=== PATIENT | female | born 1955 | race Hispanic/Latino ===

== ENCOUNTER 2018-03-24 09:21 | Inpatient (IN) | payer OTHER ==
[~2018-03-24] VITALS: Ht 152.4 cm; Wt 101.3 kg
--- OUTSIDE RECORDS SUMMARY | 2018-03-24 09:25 | XMS REPORT | Summary of Care ---
Author Author [facility] [place] Organization [facility] [place] Address Unknown Phone Unavailable Encounter [facility] Hortencia(FIN) [phone] Date(s): 05/31/17 - 05/31/17 [facility] [place] [address] [place] [phone] Encounter Diagnosis Mammographic calcification found on diagnostic imaging of breast (Final) - 06/05/17 Unspecified lump in the right breast, unspecified quadrant (Final) - Discharge Disposition: Home or Self Care Attending Physician: Geoffrey Vega MD Vital Signs No data available for this section Problem List No data available for this section Allergies, Adverse Reactions, Alerts Substance Reaction Severity Status NKDA Active Medications No data available for this section Results No data available for this section Immunizations Not Given Vaccine Date Status Refusal Reason pneumococcal 23-valent vaccine 05/05/17 Not Given Patient Refuses Procedures Procedure Date Related Diagnosis Body Site Status Cataract surgery Completed Social History Social History Type Response Smoking Status Never smoker; Exposure to Tobacco Smoke None; Cigarette Smoking Last 365 Days No; Reg Smoking Cessation Counseling No entered on: 05/05/17 Assessment and Plan No data available for this section
--- OUTSIDE RECORDS SUMMARY | 2018-03-24 09:25 | XMS REPORT | Summary of Care ---
Author Author [facility] Organization [facility] Address Unknown Phone Unavailable Encounter HQ Hortencia(BASILIO) [id number] Date(s): 05/04/17 - 05/07/17 [facility] [address] 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) - Disorder of breast, unspecified (Final) - Hypotension, unspecified (Final) - Unspecified lump in the right breast, unspecified quadrant (Final) - Acute respiratory distress (Final) - Hypertensive chronic kidney disease with stage 1 through stage 4 chronic kidney disease, or unspecified chronic kidney disease (Final) - Chronic kidney disease, unspecified (Final) - Acute kidney failure, unspecified (Final) - Type 2 diabetes mellitus with diabetic chronic kidney disease (Final) - Metabolic syndrome (Final) - Hyperlipidemia, unspecified (Final) - Atherosclerotic heart disease of [place] coronary artery without angina pectoris (Final) - Old myocardial infarction (Final) - Obesity, unspecified (Final) - Tachycardia, unspecified (Final) - Left anterior fascicular block (Final) - Fatty (change of) liver, not elsewhere classified (Final) - skilled nursing (current) use of insulin (Final) - Discharge Disposition: Home or Self Care Vital Signs 1 2 3 Most recent to oldest [Reference Range]: 152.4 cm (05/05/17 6:27 AM) Height 98.9 DegF (05/07/17 4:34 PM) 98.8 DegF (05/07/17 12:00 PM) 98.2 DegF (05/07/17 7:59 AM) Temperature Oral [96.4-99.1 DegF] 111/70 mmHg (05/07/17 4:34 PM) 114/72 mmHg (05/07/17 12:00 PM) 116/71 mmHg (05/07/17 7:59 AM) Blood Pressure [90-140/60-90 mmHg] 18 BRMIN (05/07/17 4:34 PM) 18 BRMIN (05/07/17 12:00 PM) 21 BRMIN *HI* (05/07/17 8:43 AM) Respiratory Rate [14-20 BRMIN] 112 bpm *HI* (05/07/17 4:34 PM) 111 bpm *HI* (05/07/17 12:00 PM) 96 bpm (05/07/17 7:59 AM) Peripheral Pulse Rate [60-100 bpm] 90 kg (05/06/17 9:00 AM) 86.364 kg (05/05/17 6:27 AM) 113.636 kg (05/04/17 11:47 PM) Weight 37.18 m2 (05/05/17 6:27 AM) Body Mass Index Problem List No data available for this section Allergies, Adverse Reactions, Alerts Substance Reaction Severity Status NKDA Active Medications albuterol 0.083% inhalation solution 2.49 mg, 3 mL, Route: NEB, Drug form: SOLN, PRN, Dosing Weight 113.636, kg, PRN Respiratory Protocol, Start date: 05/05/17 5:25:00 SHARED SERVICES AND OUTSOURCING MANAGER, Duration: 30 day, Stop d ate: 06/04/17 5:24:00 SHARED SERVICES AND OUTSOURCING MANAGER Notes: SEE RT DOCUMENTATION (Same as: Bere) Start Date: 05/05/17 Stop Date: 05/07/17 Status: Discontinued albuterol-ipratropium 2.5-0.5 mg inhalation solution 3 mL, Route: NEB, Drug Form: SOLN, Dosing Weight 113.636, kg, ONCE, STAT, Start date: 05/05/17 2:16:00 SHARED SERVICES AND OUTSOURCING MANAGER, Stop date: 05/05/17 2:16:00 SHARED SERVICES AND OUTSOURCING MANAGER Start Date: 05/05/17 Stop Date: 05/05/17 Status: Completed albuterol-ipratropium 2.5-0.5 mg inhalation solution 3 mL, Route: NEB, Drug Form: SOLN, Dosing Weight 113.636, kg, RQ6H, Start date: 05/05/17 8:00:00 SHARED SERVICES AND OUTSOURCING MANAGER, Duration: 30 day, Stop date: 06/04/17 2:00:00 SHARED SERVICES AND OUTSOURCING MANAGER Notes: (Same as: Galindo) Start Date: 05/05/17 Stop Date: 05/07/17 Status: Discontinued aspirin 325 mg, Route: PO, Drug form: TAB, ONCE, Dosing Weight 113.636, kg, Priority: ST AT, Start date: 05/05/17 3:48:00 SHARED SERVICES AND OUTSOURCING MANAGER, Stop date: 05/05/17 3:48:00 SHARED SERVICES AND OUTSOURCING MANAGER Start Date: 05/05/17 Stop Date: 05/05/17 Status: Completed aspirin 325 mg tablet 325 mg=1 tab, PO, Daily, 0 Refill(s) Start Date: 05/05/17 Status: Ordered aspirin 325 mg tablet 325 mg, 1 tab, Route: PO, Drug form: TAB, Daily, Dosing Weight 86.364, kg, Start date: 05/06/17 9:00:00 SHARED SERVICES AND OUTSOURCING MANAGER, Duration: 30 day, Stop date: 06/04/17 9:00:00 SHARED SERVICES AND OUTSOURCING MANAGER Notes: Take with food. Start Date: 05/06/17 Stop Date: 05/07/17 Status: Discontinued cefdinir 300 mg oral capsule 300 mg=1 cap, PO, Q12H, # 20 cap, 0 Refill(s) Start Date: 05/05/17 Stop Date: 05/05/17 Status: Discontinued cloNIDine 0.2 mg oral tablet 0.2 mg, 1 tab, Route: PO, Drug form: TAB, TID, Dosing Weight 86.364, kg, Start d ate: 05/05/17 13:00:00 SHARED SERVICES AND OUTSOURCING MANAGER, Duration: 30 day, Stop date: 06/04/17 9:00:00 SHARED SERVICES AND OUTSOURCING MANAGER Notes: (Same As: Sharri) Start Date: 05/05/17 Stop Date: 05/07/17 Status: Discontinued cloNIDine 0.2 mg oral tablet 0.2 mg=1 tab, PO, TID, 0 Refill(s) Start Date: 05/05/17 Status: Ordered dextromethorphan-guaiFENesin 20 mg-200 mg/10 mL oral liquid 10 mL, Route: PO, Drug Form: LIQ, Dosing Weight 86.364, kg, Q4H, PRN as needed f or cough, Start date: 05/05/17 9:18:00 SHARED SERVICES AND OUTSOURCING MANAGER, Stop date: 06/04/17 9:17:00 SHARED SERVICES AND OUTSOURCING MANAGER Notes: (dextromethorphan-guaifenesin 10-100/5 ml LIQ) (Same as: Robitussin-DM) Start Date: 05/05/17 Stop Date: 05/07/17 Status: Discontinued Dextrose 50% Syringe 25 gm, 50 mL, Route: IVP, Drug Form: INJ, Dosing Weight 86.364, kg, PRN, PRN Blo od Glucose Results, Start date: 05/05/17 9:19:00 SHARED SERVICES AND OUTSOURCING MANAGER, Duration: 30 day, Stop em e: 06/04/17 9:18:00 SHARED SERVICES AND OUTSOURCING MANAGER Start Date: 05/05/17 Stop Date: 05/07/17 Status: Discontinued Dextrose 50% Syringe 12.5 gm, 25 mL, Route: IVP, Drug Form: INJ, Dosing Weight 86.364, kg, PRN, PRN B lood Glucose Results, Start date: 05/05/17 9:19:00 SHARED SERVICES AND OUTSOURCING MANAGER, Duration: 30 day, Stop d ate: 06/04/17 9:18:00 SHARED SERVICES AND OUTSOURCING MANAGER Start Date: 05/05/17 Stop Date: 05/07/17 Status: Discontinued Dextrose 50% Syringe 25 gm, 50 mL, Route: IVP, Drug Form: INJ, Dosing Weight 113.636, kg, PRN, PRN Bl ood Glucose Results, Start date: 05/05/17 6:27:00 SHARED SERVICES AND OUTSOURCING MANAGER, Duration: 30 day, Stop da te: 06/04/17 6:26:00 SHARED SERVICES AND OUTSOURCING MANAGER Start Date: 05/05/17 Stop Date: 05/05/17 Status: Discontinued Dextrose 50% Syringe 12.5 gm, 25 mL, Route: IVP, Drug Form: INJ, Dosing Weight 113.636, kg, PRN, PRN Blood Glucose Results, Start date: 05/05/17 6:27:00 SHARED SERVICES AND OUTSOURCING MANAGER, Duration: 30 day, Stop date: 06/04/17 6:26:00 SHARED SERVICES AND OUTSOURCING MANAGER Start Date: 05/05/17 Stop Date: 05/05/17 Status: Discontinued doxycycline hyclate 100 mg oral capsule 100 mg=1 cap, PO, Q12H, X 10 day, # 20 cap, 0 Refill(s), Pharmacy: [id number] Start Date: 05/05/17 Stop Date: 05/15/17 Status: Completed escitalopram 20 mg oral tablet 20 mg=1 tab, PO, Daily, # 30 tab, 0 Refill(s) Start Date: 05/05/17 Status: Ordered glipiZIDE 10 mg oral tablet 10 mg=1 tab, PO, BID, # 30 tab, 0 Refill(s) Start Date: 05/06/17 Status: Ordered glucagon 1 mg, Route: IM, Drug form: PDR/INJ, PRN, Dosing Weight 86.364, kg, PRN Blood Gl ucose Results, Start date: 05/05/17 9:19:00 SHARED SERVICES AND OUTSOURCING MANAGER, Duration: 30 day, Stop date: 9:18:00 SHARED SERVICES AND OUTSOURCING MANAGER Start Date: 05/05/17 Stop Date: 05/07/17 Status: Discontinued glucagon 1 mg, Route: IM, Drug form: PDR/INJ, PRN, Dosing Weight 113.636, kg, PRN Blood G lucose Results, Start date: 05/05/17 6:27:00 SHARED SERVICES AND OUTSOURCING MANAGER, Duration: 30 day, Stop date: 0 06/04/17 6:26:00 SHARED SERVICES AND OUTSOURCING MANAGER Start Date: 05/05/17 Stop Date: 05/05/17 Status: Discontinued Humalog 9 unit, 0.09 mL, Route: SUB-Q, Drug form: SOLN, ONCE, Start date: 05/05/17 10:18 :00 SHARED SERVICES AND OUTSOURCING MANAGER, Stop date: 05/05/17 10:18:00 SHARED SERVICES AND OUTSOURCING MANAGER Notes: Roll in palms of hands gently; Do not shake `vigorously. (Same as: Laura og )"Single Patient Use Only "WASTE: F/P - Black; E - Municipal Trash Bin Stabl e for 28 days at room temperature.Expires in days from Date Start Date: 05/05/17 Stop Date: 05/05/17 Status: Completed Humalog 25 unit, 0.25 mL, Route: SUB-Q, Drug form: SOLN, ONCE, Start date: 05/05/17 15:0 1:00 SHARED SERVICES AND OUTSOURCING MANAGER, Stop date: 05/05/17 15:01:00 SHARED SERVICES AND OUTSOURCING MANAGER Start Date: 05/05/17 Stop Date: 05/05/17 Status: Completed Humalog 20 unit, 0.2 mL, Route: SUB-Q, Drug form: SOLN, ONCE, Start date: 05/05/17 11:31 :00 SHARED SERVICES AND OUTSOURCING MANAGER, Stop date: 05/05/17 11:31:00 SHARED SERVICES AND OUTSOURCING MANAGER Notes: Roll in palms of hands gently; Do not shake `vigorously. (Same as: Humal og )"Single Patient Use Only "WASTE: F/P - Black; E - Municipal Trash Bin Stabl e for 28 days at room temperature.Expires in days from Date Start Date: 05/05/17 Stop Date: 05/05/17 Status: Completed Humalog 30 unit, 0.3 mL, Route: SUB-Q, Drug form: SOLN, BID-Before Meals, Start date: 12:00:00 SHARED SERVICES AND OUTSOURCING MANAGER, Duration: 30 day, Stop date: 06/04/17 7:30:00 SHARED SERVICES AND OUTSOURCING MANAGER Notes: Roll in palms of hands gently; Do not shake `vigorously. (Same as: Humal og )"Single Patient Use Only "WASTE: F/P - Black; E - Municipal Trash Bin Stabl e for 28 days at room temperature.Expires in days from Date Start Date: 05/05/17 Stop Date: 05/06/17 Status: Discontinued Humalog 30 unit, 0.3 mL, Route: SUB-Q, Drug form: SOLN, TID-Before Meals, Start date: 11:30:00 SHARED SERVICES AND OUTSOURCING MANAGER, Duration: 30 day, Stop date: 06/05/17 7:30:00 SHARED SERVICES AND OUTSOURCING MANAGER Notes: Roll in palms of hands gently; Do not shake `vigorously. (Same as: Humal og )"Single Patient Use Only "WASTE: F/P - Black; E - Municipal Trash Bin Stabl e for 28 days at room temperature.Expires in days from Date Start Date: 05/06/17 Stop Date: 05/07/17 Status: Discontinued hydrALAZINE 10 mg, 0.5 mL, Route: IV, Drug form: INJ, Q4H, Dosing Weight 90, kg, PRN Hyperte nsion, Start date: 05/07/17 14:34:00 SHARED SERVICES AND OUTSOURCING MANAGER, Duration: 30 day, Stop date: 06/06/17 14:33:00 SHARED SERVICES AND OUTSOURCING MANAGER Notes: (Same as: Apresoline)Push over 5 minutes Start Date: 05/07/17 Stop Date: 05/07/17 Status: Discontinued hydrALAZINE 25 mg oral tablet 25 mg=1 tab, PO, TID, # 90 tab, 1 Refill(s), Pharmacy: [place] [id number] Start Date: 05/05/17 Stop Date: 07/04/17 Status: Ordered hydrochlorothiazide 50 mg oral tablet 50 mg=1 tab, PO, BID, 0 Refill(s) Start Date: 05/05/17 Stop Date: 05/05/17 Status: Discontinued insulin aspart 20 unit, Route: SUB-Q, ONCE, Dosing Weight 86.364, kg, Start date: 05/05/17 11:2 2:00 SHARED SERVICES AND OUTSOURCING MANAGER, Stop date: 05/05/17 11:22:00 SHARED SERVICES AND OUTSOURCING MANAGER Start Date: 05/05/17 Stop Date: 05/05/17 Status: Deleted insulin aspart 25 unit, Route: SUB-Q, ONCE, Dosing Weight 86.364, kg, Priority: NOW, Start date : 05/05/17 14:41:00 SHARED SERVICES AND OUTSOURCING MANAGER, Stop date: 05/05/17 14:41:00 SHARED SERVICES AND OUTSOURCING MANAGER Start Date: 05/05/17 Stop Date: 05/05/17 Status: Deleted insulin aspart 15 unit, Route: SUB-Q, ONCE, Dosing Weight 86.364, kg, Start date: 05/05/17 17:2 4:00 SHARED SERVICES AND OUTSOURCING MANAGER, Stop date: 05/05/17 17:24:00 SHARED SERVICES AND OUTSOURCING MANAGER Start Date: 05/05/17 Stop Date: 05/05/17 Status: Discontinued insulin glargine 45 unit, 0.45 mL, Route: SUB-Q, Drug form: SOLN, Breakfast, Start date: 05/06/17 8:00:00 SHARED SERVICES AND OUTSOURCING MANAGER, Stop date: 06/04/17 8:00:00 SHARED SERVICES AND OUTSOURCING MANAGER Notes: (Same as: Lantus)Do not hold insulin without contacting prescriberWASTE: F/P - Black; E - Municipal Tra Bin "single patient use only" Start Date: 05/06/17 Stop Date: 05/07/17 Status: Discontinued insulin glargine 55 unit, 0.55 mL, Route: SUB-Q, Drug form: SOLN, Bedtime, Start date: 05/05/17 2 1:00:00 SHARED SERVICES AND OUTSOURCING MANAGER, Stop date: 06/03/17 21:00:00 SHARED SERVICES AND OUTSOURCING MANAGER Notes: (Same as: Robles)Do not hold insulin without contacting prescriberWASTE: F/P - Black; E - Municipal Trash Bin "single patient use only" Start Date: 05/05/17 Stop Date: 05/07/17 Status: Discontinued insulin lispro 15 unit, 0.15 mL, Route: SUB-Q, Drug form: SOLN, ONCE, Dosing Weight 86.364, kg, Priority: NOW, Start date: 05/05/17 18:32:00 SHARED SERVICES AND OUTSOURCING MANAGER, Stop date: 05/05/17 18:32:00 SHARED SERVICES AND OUTSOURCING MANAGER Notes: Roll in palms of hands gently; Do not shake `vigorously. (Same as: Laura sawyer )"Single Patient Use Only "WASTE: F/P - Black; E - Municipal Trash Bin Stabl e for 28 days at room temperature.Expires in days from Date Start Date: 05/05/17 Stop Date: 05/05/17 Status: Completed insulin lispro 2 unit, 0.02 mL, Route: SUB-Q, Drug form: SOLN, TID-Before Meals, Dosing Weight 86.364, kg, PRN Blood Glucose Results, Start date: 05/05/17 9:19:00 SHARED SERVICES AND OUTSOURCING MANAGER, Duratio n: 30 day, Stop date: 06/04/17 9:18:00 SHARED SERVICES AND OUTSOURCING MANAGER Notes: Roll in palms of hands gently; Do not shake `vigorously. (Same as: Laura sawyer )"Single Patient Use Only "WASTE: F/P - Black; E - Municipal Trash Bin Stabl e for 28 days at room temperature.Expires in days from Date Start Date: 05/05/17 Stop Date: 05/07/17 Status: Discontinued insulin lispro 4 unit, 0.04 mL, Route: SUB-Q, Drug form: SOLN, TID-Before Meals, Dosing Weight 86.364, kg, PRN Blood Glucose Results, Start date: 05/05/17 9:19:00 SHARED SERVICES AND OUTSOURCING MANAGER, Duratio n: 30 day, Stop date: 06/04/17 9:18:00 SHARED SERVICES AND OUTSOURCING MANAGER Notes: Roll in palms of hands gently; Do not shake `vigorously. (Same as: Humal og )"Single Patient Use Only "WASTE: F/P - Black; E - Municipal Trash Bin Stabl e for 28 days at room temperature.Expires in days from Date Start Date: 05/05/17 Stop Date: 05/07/17 Status: Discontinued insulin lispro 5 unit, 0.05 mL, Route: SUB-Q, Drug form: SOLN, TID-Before Meals, Dosing Weight 86.364, kg, PRN Blood Glucose Results, Start date: 05/05/17 9:19:00 SHARED SERVICES AND OUTSOURCING MANAGER, Duratio n: 30 day, Stop date: 06/04/17 9:18:00 SHARED SERVICES AND OUTSOURCING MANAGER Notes: Roll in palms of hands gently; Do not shake `vigorously. (Same as: Humal og )"Single Patient Use Only "WASTE: F/P - Black; E - Municipal Trash Bin Stabl e for 28 days at room temperature.Expires in days from Date Start Date: 05/05/17 Stop Date: 05/07/17 Status: Discontinued insulin lispro 3 unit, 0.03 mL, Route: SUB-Q, Drug form: SOLN, TID-Before Meals, Dosing Weight 86.364, kg, PRN Blood Glucose Results, Start date: 05/05/17 9:19:00 SHARED SERVICES AND OUTSOURCING MANAGER, Duratio n: 30 day, Stop date: 06/04/17 9:18:00 SHARED SERVICES AND OUTSOURCING MANAGER Notes: Roll in palms of hands gently; Do not shake `vigorously. (Same as: Humal og )"Single Patient Use Only "WASTE: F/P - Black; E - Municipal Trash Bin Stabl e for 28 days at room temperature.Expires in days from Date Start Date: 05/05/17 Stop Date: 05/07/17 Status: Discontinued insulin lispro 1 unit, 0.01 mL, Route: SUB-Q, Drug form: SOLN, TID-Before Meals, Dosing Weight 86.364, kg, PRN Blood Glucose Results, Start date: 05/05/17 9:19:00 SHARED SERVICES AND OUTSOURCING MANAGER, Duratio n: 30 day, Stop date: 06/04/17 9:18:00 SHARED SERVICES AND OUTSOURCING MANAGER Notes: Roll in palms of hands gently; Do not shake `vigorously. (Same as: Humal og )"Single Patient Use Only "WASTE: F/P - Black; E - Municipal Trash Bin Stabl e for 28 days at room temperature.Expires in days from Date Start Date: 05/05/17 Stop Date: 05/07/17 Status: Discontinued insulin lispro 3 unit, 0.03 mL, Route: SUB-Q, Drug form: SOLN, Bedtime, Dosing Weight 113.636, kg, PRN Blood Glucose Results, Start date: 05/05/17 6:27:00 SHARED SERVICES AND OUTSOURCING MANAGER, Duration: 30 da y, Stop date: 06/04/17 6:26:00 SHARED SERVICES AND OUTSOURCING MANAGER Notes: Roll in palms of hands gently; Do not shake `vigorously. (Same as: Humal og )"Single Patient Use Only "WASTE: F/P - Black; E - Municipal Trash Bin Stabl e for 28 days at room temperature.Expires in days from Date Start Date: 05/05/17 Stop Date: 05/05/17 Status: Discontinued insulin lispro 4 unit, 0.04 mL, Route: SUB-Q, Drug form: SOLN, Bedtime, Dosing Weight 113.636, kg, PRN Blood Glucose Results, Start date: 05/05/17 6:27:00 SHARED SERVICES AND OUTSOURCING MANAGER, Duration: 30 da y, Stop date: 06/04/17 6:26:00 SHARED SERVICES AND OUTSOURCING MANAGER Notes: Roll in palms of hands gently; Do not shake `vigorously. (Same as: Humal og )"Single Patient Use Only "WASTE: F/P - Black; E - Municipal Trash Bin Stabl e for 28 days at room temperature.Expires in days from Date Start Date: 05/05/17 Stop Date: 05/05/17 Status: Discontinued insulin lispro 2 unit, 0.02 mL, Route: SUB-Q, Drug form: SOLN, Bedtime, Dosing Weight 113.636, kg, PRN Blood Glucose Results, Start date: 05/05/17 6:27:00 SHARED SERVICES AND OUTSOURCING MANAGER, Duration: 30 da y, Stop date: 06/04/17 6:26:00 SHARED SERVICES AND OUTSOURCING MANAGER Notes: Roll in palms of hands gently; Do not shake `vigorously. (Same as: Laura sawyer )"Single Patient Use Only "WASTE: F/P - Black; E - Municipal Trash Bin Stabl e for 28 days at room temperature.Expires in days from Date Start Date: 05/05/17 Stop Date: 05/05/17 Status: Discontinued insulin lispro 1 unit, 0.01 mL, Route: SUB-Q, Drug form: SOLN, Bedtime, Dosing Weight 113.636, kg, PRN Blood Glucose Results, Start date: 05/05/17 6:27:00 SHARED SERVICES AND OUTSOURCING MANAGER, Duration: 30 da y, Stop date: 06/04/17 6:26:00 SHARED SERVICES AND OUTSOURCING MANAGER Notes: Roll in palms of hands gently; Do not shake `vigorously. (Same as: Laura sawyer )"Single Patient Use Only "WASTE: F/P - Black; E - Municipal Trash Bin Stabl e for 28 days at room temperature.Expires in days from Date Start Date: 05/05/17 Stop Date: 05/05/17 Status: Discontinued insulin lispro 6 unit, 0.06 mL, Route: SUB-Q, Drug form: SOLN, TID-Before Meals, Dosing Weight 113.636, kg, PRN Blood Glucose Results, Start date: 05/05/17 6:27:00 SHARED SERVICES AND OUTSOURCING MANAGER, Durati on: 30 day, Stop date: 06/04/17 6:26:00 SHARED SERVICES AND OUTSOURCING MANAGER Notes: Roll in palms of hands gently; Do not shake `vigorously. (Same as: Humal og )"Single Patient Use Only "WASTE: F/P - Black; E - Municipal Trash Bin Stabl e for 28 days at room temperature.Expires in days from Date Start Date: 05/05/17 Stop Date: 05/05/17 Status: Discontinued insulin lispro 3 unit, 0.03 mL, Route: SUB-Q, Drug form: SOLN, TID-Before Meals, Dosing Weight 113.636, kg, PRN Blood Glucose Results, Start date: 05/05/17 6:27:00 SHARED SERVICES AND OUTSOURCING MANAGER, Durati on: 30 day, Stop date: 06/04/17 6:26:00 SHARED SERVICES AND OUTSOURCING MANAGER Notes: Roll in palms of hands gently; Do not shake `vigorously. (Same as: Humal og )"Single Patient Use Only "WASTE: F/P - Black; E - Municipal Trash Bin Stabl e for 28 days at room temperature.Expires in days from Date Start Date: 05/05/17 Stop Date: 05/05/17 Status: Discontinued insulin lispro 12 unit, 0.12 mL, Route: SUB-Q, Drug form: SOLN, TID-Before Meals, Dosing Weight 113.636, kg, PRN Blood Glucose Results, Start date: 05/05/17 6:27:00 SHARED SERVICES AND OUTSOURCING MANAGER, Durat ion: 30 day, Stop date: 06/04/17 6:26:00 SHARED SERVICES AND OUTSOURCING MANAGER Notes: Roll in palms of hands gently; Do not shake `vigorously. ([facility]: [facility] )"Single Patient Use Only "WASTE: F/P - Black; E - Municipal Trash Bin Stabl e for 28 days at room temperature.Expires in days from Date Start Date: 05/05/17 Stop Date: 05/05/17 Status: Discontinued insulin lispro 9 unit, 0.09 mL, Route: SUB-Q, Drug form: SOLN, TID-Before Meals, Dosing Weight 113.636, kg, PRN Blood Glucose Results, Start date: 05/05/17 6:27:00 SHARED SERVICES AND OUTSOURCING MANAGER, Durati on: 30 day, Stop date: 06/04/17 6:26:00 SHARED SERVICES AND OUTSOURCING MANAGER Notes: Roll in palms of hands gently; Do not shake `vigorously. (Same as: Laura sawyer )"Single Patient Use Only "WASTE: F/P - Black; E - Municipal Trash Bin Stabl e for 28 days at room temperature.Expires in days from Date Start Date: 05/05/17 Stop Date: 05/05/17 Status: Discontinued insulin lispro 15 unit, 0.15 mL, Route: SUB-Q, Drug form: SOLN, TID-Before Meals, Dosing Weight 113.636, kg, PRN Blood Glucose Results, Start date: 05/05/17 6:27:00 SHARED SERVICES AND OUTSOURCING MANAGER, Durat ion: 30 day, Stop date: 06/04/17 6:26:00 SHARED SERVICES AND OUTSOURCING MANAGER Notes: Roll in palms of hands gently; Do not shake `vigorously. (Same as: Laura sawyer )"Single Patient Use Only "WASTE: F/P - Black; E - Municipal Trash Bin Stabl e for 28 days at room temperature.Expires in days from Date Start Date: 05/05/17 Stop Date: 05/05/17 Status: Discontinued Insulin regular 5 unit, Route: IV, ONCE, Dosing Weight 113.636, kg, Priority: STAT, Start date: 05/05/17 3:40:00 SHARED SERVICES AND OUTSOURCING MANAGER, Stop date: 05/05/17 3:40:00 SHARED SERVICES AND OUTSOURCING MANAGER Start Date: 05/05/17 Stop Date: 05/05/17 Status: Completed Lantus 100 units/mL 35 unit, 0.35 mL, Route: SUB-Q, Drug form: SOLN, ONCE, Dosing Weight 86.364, kg, Start date: 05/05/17 11:22:00 SHARED SERVICES AND OUTSOURCING MANAGER, Stop date: 05/05/17 11:22:00 SHARED SERVICES AND OUTSOURCING MANAGER Notes: (Same as: Lantus)Do not hold insulin without contacting prescriberWASTE: F/P - Black; E - Municipal Trash Bin "single patient use only" Start Date: 05/05/17 Stop Date: 05/05/17 Status: Completed Lantus Solostar Pen 100 units/mL subcutaneous solution Route: SUB-Q, Drug form: SOLN, Bedtime, Dosing Weight 86.364, kg, Start date: 21:00:00 SHARED SERVICES AND OUTSOURCING MANAGER, Duration: 30 day, Stop date: 06/03/17 21:00:00 SHARED SERVICES AND OUTSOURCING MANAGER Start Date: 05/05/17 Stop Date: 05/05/17 Status: Deleted Lantus Solostar Pen 100 units/mL subcutaneous solution 32, SUB-Q, Bedtime, 32 units at bedtime, 0 Refill(s) Start Date: 05/05/17 Status: Ordered Lantus Solostar Pen 100 units/mL subcutaneous solution 24 unit, SUB-Q, Before Breakfast, 0 Refill(s) Start Date: 05/05/17 Status: Ordered Lantus Solostar Pen 100 units/mL subcutaneous solution 35 unit, Route: SUB-Q, Drug form: SOLN, Before Breakfast, Dosing Weight 86.364, kg, Start date: 05/06/17 7:30:00 SHARED SERVICES AND OUTSOURCING MANAGER, Duration: 30 day, Stop date: 06/04/17 7:30 :00 SHARED SERVICES AND OUTSOURCING MANAGER Start Date: 05/06/17 Stop Date: 05/05/17 Status: Deleted Levaquin 500 mg, 2 tab, Route: PO, Drug form: TAB, [id number], Dosing Weight 113.636, kg, St art date: 05/05/17 6:00:00 SHARED SERVICES AND OUTSOURCING MANAGER, Duration: 5 day, Stop date: 05/09/17 6:00:00 SHARED SERVICES AND OUTSOURCING MANAGER , ABX Indication: Non-PNA Respiratory Tract Infection Notes: Do not give w/antacids, dairy pdt & minerals Take 1 hr before or 2 hr after dairy pdt (Same as:Levaquin) Start Date: 05/05/17 Stop Date: 05/07/17 Status: Discontinued lisinopril 2.5 mg oral tablet 2.5 mg=1 tab, PO, Daily, # 30 tab, 0 Refill(s) Start Date: 05/05/17 Stop Date: 05/05/17 Status: Discontinued Lopressor 2.5 mg, 2.5 mL, Route: IVP, Drug form: INJ, Q3H, Dosing Weight 90, kg, PRN Tachy cardia, Start date: 05/07/17 14:35:00 SHARED SERVICES AND OUTSOURCING MANAGER, Duration: 30 day, Stop date: 06/06/17 14:34:00 SHARED SERVICES AND OUTSOURCING MANAGER Notes: (Same as: Lopressor)Push over 2 minutes Start Date: 05/07/17 Stop Date: 05/07/17 Status: Discontinued methylPREDNISolone SODium SUCCinate 40 mg, 1 mL, Route: IVP, Drug form: INJ, Q12H, Dosing Weight 113.636, kg, Start date: 05/05/17 9:00:00 SHARED SERVICES AND OUTSOURCING MANAGER, Duration: 30 day, Stop date: 06/03/17 21:00:00 SHARED SERVICES AND OUTSOURCING MANAGER Notes: (Same as:Solu-MEDROL, A-Methapred) Start Date: 05/05/17 Stop Date: 05/05/17 Status: Discontinued morphine Sulfate 2 mg, Route: IVP, Q2H, Dosing Weight 90, kg, PRN Chest Pain, Start date: 14:34:00 SHARED SERVICES AND OUTSOURCING MANAGER, Duration: 30 day, Stop date: 06/06/17 14:33:00 SHARED SERVICES AND OUTSOURCING MANAGER Start Date: 05/07/17 Stop Date: 05/07/17 Status: Deleted morphine Sulfate 6 mg, 3 mL, Route: PO, Drug form: SOLN, Q2H, PRN Chest Pain, Start date: 14:49:00 SHARED SERVICES AND OUTSOURCING MANAGER, Duration: 30 day, Stop date: 06/06/17 14:48:00 SHARED SERVICES AND OUTSOURCING MANAGER Notes: (Same as:MORPhine Sulfate) Start Date: 05/07/17 Stop Date: 05/07/17 Status: Discontinued Nitrostat 0.4 mg sublingual tablet 0.4 mg, 1 tab, Route: SL, Drug form: TAB, Q5Min, Dosing Weight 90, kg, PRN Chest Pain, Start date: 05/07/17 14:35:00 SHARED SERVICES AND OUTSOURCING MANAGER, Duration: 3 doses or times, Stop date: 06/06/17 14:34:00 SHARED SERVICES AND OUTSOURCING MANAGER Notes: (Same as:Nitroquick, Nitrostat)"Do Not Crush" Sublingual tablet Start Date: 05/07/17 Stop Date: 05/07/17 Status: Discontinued NovoLOG FlexPen 24 unit, Route: SUB-Q, Breakfast, Dosing Weight 86.364, kg, Start date: 05/06/17 8:00:00 SHARED SERVICES AND OUTSOURCING MANAGER, Duration: 30 day, Stop date: 06/04/17 8:00:00 SHARED SERVICES AND OUTSOURCING MANAGER Start Date: 05/06/17 Stop Date: 05/05/17 Status: Deleted NovoLOG FlexPen 21 unit, Route: SUB-Q, TID-Before Meals, Dosing Weight 86.364, kg, Start date: 0 05/05/17 11:30:00 SHARED SERVICES AND OUTSOURCING MANAGER, Duration: 30 day, Stop date: 06/04/17 7:30:00 SHARED SERVICES AND OUTSOURCING MANAGER Start Date: 05/05/17 Stop Date: 05/05/17 Status: Canceled NovoLOG FlexPen 24 unit, Route: SUB-Q, Lunch, Dosing Weight 86.364, kg, Start date: 05/05/17 12: 00:00 SHARED SERVICES AND OUTSOURCING MANAGER, Duration: 30 day, Stop date: 06/03/17 12:00:00 SHARED SERVICES AND OUTSOURCING MANAGER Start Date: 05/05/17 Stop Date: 05/05/17 Status: Deleted NovoLOG FlexPen 9 unit, Route: SUB-Q, ONCE, Dosing Weight 86.364, kg, Priority: STAT, Start date : 05/05/17 9:44:00 SHARED SERVICES AND OUTSOURCING MANAGER, Stop date: 05/05/17 9:44:00 SHARED SERVICES AND OUTSOURCING MANAGER Start Date: 05/05/17 Stop Date: 05/05/17 Status: Deleted NovoLOG FlexPen 24 unit, SUB-Q, Lunch, 0 Refill(s) Start Date: 05/05/17 Stop Date: 05/05/17 Status: Discontinued NovoLOG FlexPen 21 unit, SUB-Q, TID-Before Meals, 0 Refill(s) Start Date: 05/05/17 Stop Date: 05/05/17 Status: Discontinued NovoLOG FlexPen 18 unit, SUB-Q, Breakfast, 0 Refill(s) Start Date: 05/05/17 Stop Date: 05/05/17 Status: Discontinued NovoLOG FlexPen 100 units/mL subcutaneous solution 25 unit, SUB-Q, Lunch, # 3 pen(s), 0 Refill(s), Pharmacy: [facility] [id number] Start Date: 05/05/17 Stop Date: 06/04/17 Status: Ordered pneumococcal 23-valent vaccine 0.5 mL, Route: IM, Drug Form: INJ, Daily, Start date: 05/05/17 9:00:00 SHARED SERVICES AND OUTSOURCING MANAGER, Dura tion: 1 doses or times, Stop date: 05/05/17 9:00:00 SHARED SERVICES AND OUTSOURCING MANAGER Notes: (Same as: Pneumovax 23) Refrigerate Start Date: 05/05/17 Stop Date: 05/05/17 Status: Completed predniSONE 60 mg, Route: PO, Drug form: TAB, ONCE, Dosing Weight 113.636, kg, Priority: STA T, Start date: 05/05/17 2:16:00 SHARED SERVICES AND OUTSOURCING MANAGER, Stop date: 05/05/17 2:16:00 SHARED SERVICES AND OUTSOURCING MANAGER Start Date: 05/05/17 Stop Date: 05/05/17 Status: Completed rosuvastatin 20 mg, 1 tab, Route: PO, Drug form: TAB, Bedtime, Dosing Weight 86.364, kg, Star t date: 05/05/17 21:00:00 SHARED SERVICES AND OUTSOURCING MANAGER, Duration: 30 day, Stop date: 06/03/17 21:00:00 CS T Notes: Same as Crestor Start Date: 05/05/17 Stop Date: 05/07/17 Status: Discontinued rosuvastatin 20 mg oral tablet 20 mg=1 tab, PO, Bedtime, # 30 tab, 0 Refill(s) Start Date: 05/05/17 Stop Date: 06/04/17 Status: Ordered Saline Flush 0.9% 10 mL, Route: IVP, Drug Form: INJ, Dosing Weight 113.636, kg, PRN, PRN Line Flus h, Start date: 05/05/17 2:16:00 SHARED SERVICES AND OUTSOURCING MANAGER, Duration: 30 day, Stop date: 06/04/17 2:15: 00 SHARED SERVICES AND OUTSOURCING MANAGER Notes: (Same as: BD Posiflush) Start Date: 05/05/17 Stop Date: 05/07/17 Status: Discontinued Sodium Chloride 0.9% (Bolus) IV 1,000 mL, Infuse Over: 1 hr, Route: IV, ONCE, Priority: STAT, Dosing Weight 113. 636 kg, Start date: 05/05/17 2:16:00 SHARED SERVICES AND OUTSOURCING MANAGER, Stop date: 05/05/17 2:16:00 SHARED SERVICES AND OUTSOURCING MANAGER Start Date: 05/05/17 Stop Date: 05/05/17 Status: Completed Sodium Chloride 0.9% IV 1,000 mL 1,000 mL, Rate: 100 ml/hr, Infuse over: 10 hr, Route: IV, Dosing Weight 90 kg, T otal Volume: 1,000, Start date: 05/06/17 19:23:00 SHARED SERVICES AND OUTSOURCING MANAGER, Duration: 30 day, Stop da te: 06/05/17 19:22:00 SHARED SERVICES AND OUTSOURCING MANAGER, 1.99, m2 Start Date: 05/06/17 Stop Date: 05/07/17 Status: Discontinued terbutaline 0.25 mg, 0.25 mL, Route: SUB-Q, Drug form: INJ, Q6H, Dosing Weight 90, kg, PRN B radycardia, Start date: 05/07/17 14:35:00 SHARED SERVICES AND OUTSOURCING MANAGER, Duration: 30 day, Stop date: 05/11 11/24 14:34:00 SHARED SERVICES AND OUTSOURCING MANAGER Notes: DO NOT USE IN LINE PREP COOK AREA(Same As: Brethine) Start Date: 05/07/17 Stop Date: 05/07/17 Status: Discontinued Tessalon Perles 100 mg oral capsule 100 mg=1 cap, PO, Q8H, PRN cough, do not crush or chew, X 10 day, # 30 cap, 0 Re fill(s), Pharmacy: [facility] [id number] Start Date: 05/05/17 Stop Date: 05/15/17 Status: Completed Results ELECTROLYTES 1 2 3 Most recent to oldest [Reference Range]: 136 mEq/L (05/07/17 6:30 AM) 130 mEq/L *LOW* (05/05/17 11:31 AM) 128 mEq/L *LOW* (05/05/17 2:33 AM) Sodium Lvl [135-145 mEq/L] 3.7 mEq/L (05/07/17 6:30 AM) 4.2 mEq/L (05/05/17 11:31 AM) 3.7 mEq/L (05/05/17 2:33 AM) Potassium Lvl [3.5-5.1 mEq/L] 99 mEq/L (05/07/17 6:30 AM) 95 mEq/L (05/05/17 11:31 AM) 90 mEq/L *LOW* (05/05/17 2:33 AM) Chloride Lvl [95-109 mEq/L] 25 mEq/L (05/07/17 6:30 AM) 21 mEq/L *LOW* (05/05/17 11:31 AM) 24 mEq/L (05/05/17 2:33 AM) CO2 [24-32 mEq/L] 15.7 mEq/L (05/07/17 6:30 AM) 18.2 mEq/L (05/05/17 11:31 AM) 17.7 mEq/L (05/05/17 2:33 AM) AGAP [10.0-20.0 mEq/L] CHEM PANEL 1 2 3 Most recent to oldest [Reference Range]: 2.17 mg/dL *HI* (05/07/17 6:30 AM) 2.76 mg/dL *HI* (05/05/17 11:31 AM) 3.40 mg/dL *HI* (05/05/17 2:33 AM) Creatinine Lvl [0.50-1.40 mg/dL] 24 mL/min/1.73m2 1 *NA* (05/07/17 6:30 AM) 18 mL/min/1.73m2 2 *NA* (05/05/17 11:31 AM) 14 mL/min/1.73m2 3 *NA* (05/05/17 2:33 AM) eGFR 58 mg/dL *HI* (05/07/17 6:30 AM) 67 mg/dL *HI* (05/05/17 11:31 AM) 77 mg/dL *HI* (05/05/17 2:33 AM) BUN [7-22 mg/dL] 27 *HI* (05/07/17 6:30 AM) 23 (05/05/17 2:33 AM) B/C Ratio [6-25] 257 mg/dL *HI* (05/07/17 6:30 AM) 515 mg/dL 4 *CRIT* (05/05/17 11:31 AM) 427 mg/dL 5 *CRIT* (05/05/17 2:33 AM) Glucose Lvl [70-99 mg/dL] 7.1 g/dL (05/07/17 6:30 AM) 8.9 g/dL *HI* (05/05/17 2:33 AM) Total Protein [6.4-8.4 g/dL] 3.4 g/dL *LOW* (05/07/17 6:30 AM) 3.6 g/dL (05/05/17 2:33 AM) Albumin Lvl [3.5-5.0 g/dL] 3.7 g/dL (05/07/17 6:30 AM) 5.3 g/dL *HI* (05/05/17 2:33 AM) Globulin [2.7-4.2 g/dL] 0.9 (05/07/17 6:30 AM) 0.7 (05/05/17 2:33 AM) A/G Ratio [0.7-1.6] 9.0 mg/dL (05/07/17 6:30 AM) 8.8 mg/dL (05/05/17 11:31 AM) 9.2 mg/dL (05/05/17 2:33 AM) Calcium Lvl [8.5-10.5 mg/dL] 37 unit/L (05/07/17 6:30 AM) 37 unit/L (05/05/17 2:33 AM) ALT [0-65 unit/L] 39 unit/L *HI* (05/07/17 6:30 AM) 26 unit/L (05/05/17 2:33 AM) AST [0-37 unit/L] 107 unit/L (05/07/17 6:30 AM) 188 unit/L *HI* (05/05/17 2:33 AM) Alk Phos [39-136 unit/L] 0.2 mg/dL (05/07/17 6:30 AM) 0.3 mg/dL (05/05/17 2:33 AM) Bili Total [0.2-1.3 mg/dL] 1Result Comment: The eGFR is calculated using the CKD-EPI formula. In most young, healthy individuals the eGFR will be >90 mL/min/1.73m2. The eGFR declines with age. An eGFR of 60-89 may be normal in some populations, particularly the elderly, for whom the CKD-EPI formula has not been extensively validated. Use of the eGFR is not recommended in the following populations: Individuals with unstable creatinine concentrations, including patients and those with serious co-morbid conditions. Patients with extremes in muscle mass or diet. The data above are obtained from the National Kidney Disease Education Program ( NKDEP) which additionally recommends that when the eGFR is used in patients with extremes of body mass index for purposes of drug dosing, the eGFR should be mul tiplied by the estimated BMI. 2Result Comment: The eGFR is calculated using the CKD-EPI formula. In most young, healthy individuals the eGFR will be >90 mL/min/1.73m2. The eGFR declines with age. An eGFR of 60-89 may be normal in some populations, particularly the elderly, for whom the CKD-EPI formula has not been extensively validated. Use of the eGFR is not recommended in the following populations: Individuals with unstable creatinine concentrations, including patients and those with serious co-morbid conditions. Patients with extremes in muscle mass or diet. The data above are obtained from the National Kidney Disease Education Program ( NKDEP) which additionally recommends that when the eGFR is used in patients with extremes of body mass index for purposes of drug dosing, the eGFR should be mul tiplied by the estimated BMI. 3Result Comment: The eGFR is calculated using the CKD-EPI formula. In most young, healthy individuals the eGFR will be >90 mL/min/1.73m2. The eGFR declines with age. An eGFR of 60-89 may be normal in some populations, particularly the elderly, for whom the CKD-EPI formula has not been extensively validated. Use of the eGFR is not recommended in the following populations: Individuals with unstable creatinine concentrations, including patients and those with serious co-morbid conditions. Patients with extremes in muscle mass or diet. The data above are obtained from the National Kidney Disease Education Program ( NKDEP) which additionally recommends that when the eGFR is used in patients with extremes of body mass index for purposes of drug dosing, the eGFR should be mul tiplied by the estimated BMI. 4Result Comment: Critical Result(s) called to DOMINIC Barrett at 05/05/2017 11:58_ by_[facility]. Read back OK. 5Result Comment: Critical Result(s) called to Miguel Angel Mckeon at 05/05/2017 03:21 by BE. Read back OK. CARDIAC ENZYMES 1 2 3 Most recent to oldest [Reference Range]: 186 unit/L (05/05/17 2:33 AM) Total CK [12-191 unit/L] 3.2 ng/mL (05/05/17 2:33 AM) CK MB [0.5-3.6 ng/mL] 1.7 (05/05/17 2:33 AM) CK MB Index [0.0-2.5] 0.20 ng/mL (05/05/17 9:25 AM) 0.24 ng/mL (05/05/17 4:59 AM) 0.23 ng/mL (05/05/17 2:33 AM) Troponin-I [0.00-0.40 ng/mL] 18 pg/mL (05/05/17 2:33 AM) BNP [<=100 pg/mL] SPECIAL CHEMISTRY 1 2 3 Most recent to oldest [Reference Range]: 14.8 % *HI* (05/06/17 2:13 PM) Hgb A1C [<=5.6 %] HEMATOLOGY 1 2 3 Most recent to oldest [Reference Range]: 9.7 K/CMM (05/07/17 6:30 AM) 8.7 K/CMM (05/05/17 2:33 AM) WBC [3.7-10.4 K/CMM] 4.75 M/CMM (05/07/17 6:30 AM) 5.09 M/CMM (05/05/17 2:33 AM) RBC [4.20-5.40 M/CMM] 14.2 g/dL (05/07/17 6:30 AM) 15.1 g/dL (05/05/17 2:33 AM) Hgb [12.0-16.0 g/dL] 42.1 % (05/07/17 6:30 AM) 44.9 % (05/05/17 2:33 AM) Hct [36.0-48.0 %] 88.5 fL (05/07/17 6:30 AM) 88.2 fL (05/05/17 2:33 AM) MCV [80.0-98.0 fL] 29.9 pg (05/07/17 6:30 AM) 29.7 pg (05/05/17 2:33 AM) MCH [27.0-31.0 pg] 33.8 g/dL (05/07/17 6:30 AM) 33.7 g/dL (05/05/17 2:33 AM) MCHC [32.0-36.0 g/dL] 12.9 % (05/07/17 6:30 AM) 12.7 % (05/05/17 2:33 AM) RDW [11.5-14.5 %] 8.6 fL (05/07/17 6:30 AM) 8.8 fL (05/05/17 2:33 AM) MPV [7.4-10.4 fL] 199 K/CMM (05/07/17 6:30 AM) 235 K/CMM (05/05/17 2:33 AM) Platelet [133-450 K/CMM] 52.0 % (05/07/17 6:30 AM) 56.9 % (05/05/17 2:33 AM) Segs [45.0-75.0 %] 41.3 % *HI* (05/07/17 6:30 AM) 37.2 % (05/05/17 2:33 AM) Lymphocytes [20.0-40.0 %] 5.3 % (05/07/17 6:30 AM) 4.4 % (05/05/17 2:33 AM) Monocytes [2.0-12.0 %] 0.8 % (05/07/17 6:30 AM) 0.8 % (05/05/17 2:33 AM) Eosinophils [0.0-4.0 %] 0.6 % (05/07/17 6:30 AM) 0.7 % (05/05/17 2:33 AM) Basophils [0.0-1.0 %] 5.0 K/CMM (05/07/17 6:30 AM) 5.0 K/CMM (05/05/17 2:33 AM) Segs-Bands # [1.5-8.1 K/CMM] 4.0 K/CMM (05/07/17 6:30 AM) 3.2 K/CMM (05/05/17 2:33 AM) Lymphocytes # [1.0-5.5 K/CMM] 0.5 K/CMM (05/07/17 6:30 AM) 0.4 K/CMM (05/05/17 2:33 AM) Monocytes # [0.0-0.8 K/CMM] 0.1 K/CMM (05/07/17 6:30 AM) 0.1 K/CMM (05/05/17 2:33 AM) Eosinophils # [0.0-0.5 K/CMM] 0.1 K/CMM (05/07/17 6:30 AM) 0.1 K/CMM (05/05/17 2:33 AM) Basophils # [0.0-0.2 K/CMM] 1.02 ug/mL FEU *NA* (05/05/17 4:59 AM) D-Dimer VIRAL - SEROLOGY 1 2 3 Most recent to oldest [Reference Range]: Negative (05/05/17 2:33 AM) Influ A [Negative] Negative (05/05/17 2:33 AM) Influ B [Negative] Immunizations Not Given Vaccine Date Status Refusal Reason pneumococcal 23-valent vaccine 05/05/17 Not Given Patient Refuses Procedures Procedure Date Related Diagnosis Body Site Status Cataract surgery Completed Social History Social History Type Response Smoking Status Never smoker; Exposure to Tobacco Smoke None; Cigarette Smoking Last 365 Days No; Reg Smoking Cessation Counseling No entered on: 05/05/17 Assessment and Plan Extracted from: Title: [facility] Author: Mark Anthony Flaherty MD Date: 05/07/17 Hospitalist Service Discharge Summary [facility] Hospitalist Service Discharge Summary PATIENT NAME:KARENA SCHMITT ATTENDING: MARK ANTHONY SHEIKH JR, MD ADMISSION DATE: 05/04/2017 23:37 DISCHARGE DATE: 05/07/2017 17:33 DISCHARGE DIAGNOSIS: Acute chest pain Acute bacterial bronchitis Pseudohyponatremia due to hyperglycemia Diabetes mellitus II, uncontrolled with nephropathy Right breast lesion Hypertension, presently with hypotension CONSULTING PHYSICIANS/SERVICES: Bassem Ruggiero MDOffice: Service: Cardiology DISCHARGE CONDITION: Fair HISTORY OF PRESENT ILLNESS: Please see admission history and physical for presenting details HOSPITAL COURSE: The patient was admitted due to chest pain. She was seen by cardiology, and after three negative sets of cardiac enzymes and reassuring telemetry, she was not felt to be having an acute myocardial infarction. A chest CT had kapil ordered that did reveal a right breast lesion. The patient was examined while in the hospital with no mass palpated, however she was instructed to follow up with her primary care physician regarding the lesion seen and to have a mammography performed. The patient was also noted to have entirely uncontrolled blood sugars. Her HgB A1C was fond to be elevated at 14.*%. I personally counselled her on two separate occasions the importance of tight glycemic control, and requested the life educator see her as well. Her blood glucose was better controlled at time of discharge, albeit not ideal. I expressed to her that she is quite insulin resistant and would benefit from being under the care of an concrete batcher. This should be requested through her primary care nereyda liz. She was found to be in a condition suitable for discharge. I saw and examined the patient on day of discharge. The patient was discharged in fair condition, with appropriate followup and appropriate medications. DISCHARGE INSTRUCTIONS: Please notify your physician if any of the following occur: Bleeding, Fever, Nausea, Pain, Shortness of breath, Signs of infection, Swelling Other Information Most Recent Information Report: Last labs, Last weight, Last Vital Signs Special Home Care Instructions: Please take medications as prescribed check sugars 3 times daily and call doctor if more than 350 Ask your renal doctor about switching lisinopril Activity: Activity as tolerated DISCHARGE DIET: Home Diet: Diet Carbohydrate Controlled DISCHARGE MEDICATIONS: PLEASE SEE HMR FOR DETAILS PERTAINING TO DISCHARGE MEDICATIONS DISCHARGE FOLLOWUP: Follow Up With Geoffrey Vega MD, Call for appointment, within: 1 Week, reason: Primary Care Physician follow up post hospitalization/ blood work Bassem Ruggiero MD, Call for appointment, within: 2 Weeks, reason: Follow Up On Treatment A total of 40 minutes was spent planning discharge which included bedside counseling. Extracted from: Title: [facility] Author: Mark Anthony Flaherty MD Date: 05/06/17 Hospitalist Progress Note [facility] Hospitalist Progress Note Attending: Mark Anthony Sheikh Jr, MD, Spectralink #[id number] [facility] or #[id number] [facility] Subjective: No overnight events. I spoke with the patient extensively about the plan of care as well as her poorly controlled diabetes. We also discussed the finding of a right breast lesion and need for outpatient follow up. Denies further chest pain. Objective: Vitals and Temp: VitalsTmp(F)[id number] 05/06 16:00----[id number]------ 05/06 15:[id number]--- 05/06 13:05----[id number]------ 05/06 11:[id number]--- 05/06 08:28 1896 21% 24 Hr Tmax: 98.4F (36.89c) at 05/05 19:36Vital Signs are the last 5 in the past 48 hours. Lines, Tubes, and Drains: 05/05/2017 02:15 Peripheral Lines: Antecubital Right 20 gauge Over the needle catheter PHYSICAL EXAMINATION: General: Alert, Awake, in no acute distress HEENT: PERRLA, EOMI, MMM, oropharynx clear without evidence of ulceration, dentition is normal Neck: Supple, without lymphadenopathy, tracheal deviation or thyromegaly Chest: Clear to auscultation bilaterally, without adventitious sounds. Breasts examined, no masses palpated. Heart: Regular rate and rhythm, without auscultated murmurs, rubs or gallops Abdomen: Soft, nontender, nondistended, normal active bowel sounds Skin: Clear without evidence of rash, excoriation, suspicious lesion Psych: normal mood and affect Extremities: No clubbing cyanosis or edema Labs (Last four charted values) WBC 8.7(MAY 05) Hgb 15.1(MAY 05) Hct 44.9(MAY 05) Plt 235(MAY 05) Na L 130(MAY 05)L 128(MAY 05) K 4.2(MAY 05)3.7(MAY 05) CO2 L 21(MAY 05)24(MAY 05) Cl 95(MAY 05)L 90(MAY 05) Cr H 2.76(MAY 05)H 3.40(MAY 05) BUN H 67(MAY 05)H 77(MAY 05) Glucose Random C 515(MAY 05)C 427(MAY 05) Ca 8.8(MAY 05)9.2(MAY 05) Troponin 0.20(MAY 05)0.24(MAY 05)0.23(MAY 05) CK MB 3.2(MAY 05) Total CK 186(MAY 05) Surgery Schedule: (no surgical procedures documented) Scheduled Meds (8):albuterol-ipratropium (albuterol-ipratropium 2.5-0.5 mg inhalation solution), aspirin (aspirin 325 mg tablet), cloNIDine (cloNIDine 0.2 mg oral tablet), insulin glargine, insulin glargine, insulin lispro (Humalog), levofloxacin (Levaquin), rosuvastatin Unscheduled Meds: None PRN Meds (11):Dextrose 50% in Water IV (Dextrose 50% Syringe), Dextrose 50% in Water IV (Dextrose 50% Syringe), albuterol (albuterol 0.083% inhalation solution), dextromethorphan-guaiFENesin (dextromethorphan-guaiFENesin 20 mg-200 mg/10 mL oral liquid), glucagon, insulin lispro, insulin lispro, insulin lispro, insulin lispro, insulin lispro, sodium chloride (Saline Flush 0.9%) One Time Meds (9):(Deleted) insulin aspart (NovoLOG FlexPen), (Deleted) insulin aspart, (Deleted) insulin aspart, (Discontinued) insulin aspart, (Completed) insulin glargine (Lantus 100 units/mL), (Completed) insulin lispro (Humalog), (Completed) insulin lispro (Humalog), (Completed) insulin lispro (Humalog), (Completed) insulin lispro Continuous Infusions: None ASSESSMENT AND PLAN: Acute chest pain Acute bacterial bronchitis Pseudohyponatremia due to hyperglycemia Diabetes mellitus II, uncontrolled with nephropathy Right breast lesion Hypertension, presently with hypotension The patient's chest pain is resolved. She may benefit from outpatient stress test per cardiology. She has evidence of coronary artery disease on CT imaging. The patient's hemoglobin A1C is 14.8%, making her diabetes entirely uncontrolled. I spoke with the patient regarding her control and it became increasingly clear that she was not managing it well at home and not very forthcoming about this. I feel she would benefit from diabetes education, of which I have ordered. She will also need an concrete batcher as an outpatient. She is quite insulin resistant. I am increasing both her insulin glargine as well as increasing frequency of insulin lispro. Continue levaquin for bronchitis. Hyponatremia will improve with glucose control. She may even benefit from IV fluids, therefore will start medium dose saline. I encouraged the patient to get an outpatient mammogram through her PCP, Dr. Vega. Will hold clonidine as well. DISPO. I anticipate 1 additional [place] hospitalization. She needs diabetes optimization and education. [facility] Hospitalist Service is primary. Call [phone] ([place]) or [phone] ([place]) with questions. Extracted from: Title: General Admission H&P * Author: Sonu Ambriz MD Date: 05/05/17 Impression and Plan Patient is a 61-year-old female past medical history of hypertension and diabetes who presents with a 7 day history of cough and chest pain she did fail outpatient oral antibiotics and presents with worsening shortness of breath fevers and chest pain or chest x-ray demonstrates no significant abnormalities patient is diagnosed with respiratory distress secondary to bronchitis 1. Acute respiratory distress secondary to bronchitis will place patient on antibiotic coverage of Rocephin and Zithromax will give her albuterol Atrovent nebulizer treatments We will give her supplemental oxygen We will order CT scan of her chest without contrast 2. Hyponatremia sodium is 128 with her history of renal disease will start normal saline at 50 cc/h will consult nephrology to evaluate the patient 3. Acute on chronic renal disease patient's BUN is 77 creatinine is 3.40 we will start IV fluids and will consult nephrology to evaluate the patient 4. Hypertension we will resume her previous home therapy 5.Hyperglycemia and diabetes will place her on a diabetic MPP and will also resume her previous home therapy 6. Disposition patient will require stay greater than 2 midnights and therefore will need to be made inpatient status
--- OUTSIDE RECORDS SUMMARY | 2018-03-24 09:25 | XMS REPORT | Continuity of Care Document ---
Author Author [facility] Interface Address Unknown Phone Unavailable Problems Problem Status Onset Date Classification Date Reported Comments Source Mammographic calcification found on diagnostic imaging of breast 06/06/2017 09/06/2017 [facility] Encounter for screening for osteoporosis 05/31/2017 08/31/2017 [facility] Other chest pain 05/17/2017 08/17/2017 [facility] CHEST PAINS Active 05/04/2017 [place] CHEST PAIN Active 05/04/2017 [facility] Age-related osteoporosis without current pathological fracture 08/31/2017 [facility] Asymptomatic menopausal state 08/31/2017 [facility] Unspecified lump in the right breast, unspecified quadrant 09/06/2017 [facility] [place] Chest pain, unspecified 08/13/2017 [facility] Acute bronchitis due to other specified organisms 08/13/2017 [facility] Other specified bacterial agents as the cause of diseases classified elsewhere 08/13/2017 [facility] Hypo-osmolality and hyponatremia 08/13/2017 [facility] Type 2 diabetes mellitus with hyperglycemia 08/13/2017 [facility] Type 2 diabetes mellitus with diabetic nephropathy 08/13/2017 [facility] Disorder of breast, unspecified 08/13/2017 [facility] Hypotension, unspecified 08/13/2017 [facility] Acute respiratory distress 08/13/2017 [facility] Hypertensive chronic kidney disease with stage 1 through stage 4 chronic kidney disease, or unspecified chronic kidney disease 08/13/2017 [facility] Chronic kidney disease, unspecified 08/13/2017 [facility] Acute kidney failure, unspecified 08/13/2017 [facility] Type 2 diabetes mellitus with diabetic chronic kidney disease 08/13/2017 [facility] Metabolic syndrome 08/13/2017 [facility] Hyperlipidemia, unspecified 08/13/2017 [facility] Atherosclerotic heart disease of [place] coronary artery without angina pectoris 08/13/2017 [facility] Old myocardial infarction 08/13/2017 [facility] Obesity, unspecified 08/13/2017 [facility] Tachycardia, unspecified 08/13/2017 [facility] Left anterior fascicular block 08/13/2017 [facility] Fatty liver, not elsewhere classified 08/13/2017 [facility] 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 08/13/2017 [facility] CHEST PAIN, UNSPECIFIED Active [facility] Medications Medication Details Route Status Patient Instructions Ordering Provider Order Date Source morphine Sulfate 6 mg, 3 mL, Route: PO, Drug form: SOLN, Q2H, PRN Chest Pain, Start date: 05/07/17 14:49:00 BARREL ROLLER, Duration: 30 day, Stop date: 06/06/17 14:48:00 CSTNotes: (Same as:MORPhine Sulfate) Inactive 05/07/2017 [facility] Terbutaline 0.25 mg, 0.25 mL, Route: SUB-Q, Drug form: INJ, Q6H, Dosing Weight 90, kg, PRN Bradycardia, Start date: 05/07/17 14:35:00 BARREL ROLLER, Duration: 30 day, Stop date: 06/06/17 14:34:00 CSTNotes: DO NOT USE IN OBSERVER ELECTRICAL PROSPECTING AREA (Same As: Brethine) Inactive 05/07/2017 [facility] Lopressor 2.5 mg, 2.5 mL, Route: IVP, Drug form: INJ, Q3H, Dosing Weight 90, kg, PRN Tachycardia, Start date: 05/07/17 14:35:00 BARREL ROLLER, Duration: 30 day, Stop date: 06/06/17 14:34:00 CSTNotes: (Same as: Lopressor) Push over 2 minutes Inactive 05/07/2017 [facility] Nitroglycerin 0.4 MG Sublingual Tablet [Nitrostat] 0.4 mg, 1 tab, Route: SL, Drug form: TAB, Q5Min, Dosing Weight 90, kg, PRN Chest Pain, Start date: 05/07/17 14:35:00 BARREL ROLLER, Duration: 3 doses or times, Stop date: 06/06/17 14:34:00 CSTNotes: (Same as:Nitroquick, Nitrostat) "Do Not Crush" Sublingual tablet Inactive 05/07/2017 [facility] Morphine 2 mg, Route: IVP, Q2H, Dosing Weight 90, kg, PRN Chest Pain, Start date: 05/07/17 14:34:00 BARREL ROLLER, Duration: 30 day, Stop date: 06/06/17 14:33:00 BARREL ROLLER Inactive 05/07/2017 [facility] Hydralazine 10 mg, 0.5 mL, Route: IV, Drug form: INJ, Q4H, Dosing Weight 90, kg, PRN Hypertension, Start date: 05/07/17 14:34:00 BARREL ROLLER, Duration: 30 day, Stop date: 06/06/17 14:33:00 CSTNotes: (Same as: Apresoline) Push over 5 minutes Inactive 05/07/2017 [facility] Sodium Chloride 0.9% IV 1,000 mL 1,000 mL, Rate: 100 ml/hr, Infuse over: 10 hr, Route: IV, Dosing Weight 90 kg, Total Volume: 1,000, Start date: 05/06/17 19:23:00 BARREL ROLLER, Duration: 30 day, Stop date: 06/05/17 19:22:00 BARREL ROLLER, 1.99, m2 No Longer Active 05/07/2017 [facility] Glipizide 10 MG Oral Tablet 10 mg=1 tab, PO, BID, # 30 tab, 0 Refill(s) Active 05/06/2017 [facility] Humalog 30 unit, 0.3 mL, Route: SUB-Q, Drug form: SOLN, TID-Before Meals, Start date: 05/06/17 11:30:00 BARREL ROLLER, Duration: 30 day, Stop date: 06/05/17 7:30:00 CSTNotes: Roll in palms of hands gently; Do not shake `vigorously. (Same as: Humalog ) "Single Patient Use Only " WASTE: F/P - Black; E - Municipal Trash Bin Stable for 28 days at room temperature. Expires in days from Date No Longer Active 05/06/2017 [facility] Aspirin 325 MG Oral Tablet 325 mg, 1 tab, Route: PO, Drug form: TAB, Daily, Dosing Weight 86.364, kg, Start date: 05/06/17 9:00:00 BARREL ROLLER, Duration: 30 day, Stop date: 06/04/17 9:00:00 CSTNotes: Take with food. No Longer Active 05/06/2017 [facility] NovoLOG FlexPen 24 unit, Route: SUB-Q, Breakfast, Dosing Weight 86.364, kg, Start date: 05/06/17 8:00:00 BARREL ROLLER, Duration: 30 day, Stop date: 06/04/17 8:00:00 BARREL ROLLER No Longer Active 05/06/2017 [facility] insulin glargine 45 unit, 0.45 mL, Route: SUB-Q, Drug form: SOLN, Breakfast, Start date: 05/06/17 8:00:00 BARREL ROLLER, Stop date: 06/04/17 8:00:00 CSTNotes: (Same as: Lantus) Do not hold insulin without contacting prescriber W ASTE: Guille/P Keisha Gaona; E - Municipal Trash Bin "single patient use only" No Longer Active 05/06/2017 [facility] 3 ML Insulin Glargine 100 UNT/ML Prefilled Syringe [Lantus] 35 unit, Route: SUB-Q, Drug form: SOLN, Before Breakfast, Dosing Weight 86.364, kg, Start date: 05/06/17 7:30:00 BARREL ROLLER, Duration: 30 day, Stop date: 06/04/17 7:30:00 BARREL ROLLER No Longer Active 05/06/2017 [facility] 3 ML Insulin Glargine 100 UNT/ML Prefilled Syringe [Lantus] Route: SUB-Q, Drug form: SOLN, Bedtime, Dosing Weight 86.364, kg, Start date: 05/05/17 21:00:00 BARREL ROLLER, Duration: 30 day, Stop date: 06/03/17 21:00:00 BARREL ROLLER Inactive 05/06/2017 [facility] insulin glargine 55 unit, 0.55 mL, Route: SUB-Q, Drug form: SOLN, Bedtime, Start date: 05/05/17 21:00:00 BARREL ROLLER, Stop date: 06/03/17 21:00:00 CSTNotes: (Same as: Lantus) Do not hold insulin without contacting prescriber W ASTE: F/Wade Gaona; E - Municipal Trash Bin "single patient use only" No Longer Active 05/06/2017 [facility] rosuvastatin 20 mg, 1 tab, Route: PO, Drug form: TAB, Bedtime, Dosing Weight 86.364, kg, Start date: 05/05/17 21:00:00 BARREL ROLLER, Duration: 30 day, Stop date: 06/03/17 21:00:00 CSTNotes: Same as Crestor No Longer Active 05/06/2017 [facility] Hydralazine Hydrochloride 25 MG Oral Tablet 25 mg=1 tab, PO, TID, # 90 tab, 1 Refill(s), Pharmacy: [place] [id number] Active 05/06/2017 [facility] benzonatate 100 MG Oral Capsule [Tessalon Perles] 100 mg=1 cap, PO, Q8H, PRN cough, do not crush or chew, X 10 day, # 30 cap, 0 Refill(s), Pharmacy: [place] [id number] No Longer Active 05/06/2017 [facility] doxycycline hyclate 100 MG Oral Capsule 100 mg=1 cap, PO, Q12H, X 10 day, # 20 cap, 0 Refill(s), Pharmacy: [place] [id number] No Longer Active 05/06/2017 [facility] 3 ML Insulin, Aspart, Human 100 UNT/ML Pen Injector [NovoLog] 25 unit, SUB-Q, Lunch, # 3 pen(s), 0 Refill(s), Pharmacy: [place] [id number] Active 05/06/2017 [facility] Insulin Lispro 15 unit, 0.15 mL, Route: SUB-Q, Drug form: SOLN, ONCE, Dosing Weight 86.364, kg, Priority: NOW, Start date: 05/05/17 18:32:00 BARREL ROLLER, Stop date: 05/05/17 18:32:00 CSTNotes: Roll in palms of hands gently; Do not shake `vigorously. (Same as: Humalog ) "Single Patient Use Only " WASTE: F/P - Black; E - Municipal Trash Bin Stable for 28 days at room temperature. Expires in days from Date Inactive 05/06/2017 [facility] Insulin, Aspart, Human 15 unit, Route: SUB-Q, ONCE, Dosing Weight 86.364, kg, Start date: 05/05/17 17:24:00 BARREL ROLLER, Stop date: 05/05/17 17:24:00 BARREL ROLLER Inactive 05/05/2017 [facility] Humalog 25 unit, 0.25 mL, Route: SUB-Q, Drug form: SOLN, ONCE, Start date: 05/05/17 15:01:00 BARREL ROLLER, Stop date: 05/05/17 15:01:00 BARREL ROLLER Inactive 05/05/2017 [facility] Insulin, Aspart, Human 25 unit, Route: SUB-Q, ONCE, Dosing Weight 86.364, kg, Priority: NOW, Start date: 05/05/17 14:41:00 BARREL ROLLER, Stop date: 05/05/17 14:41:00 BARREL ROLLER Inactive 05/05/2017 [facility] Clonidine Hydrochloride 0.2 MG Oral Tablet 0.2 mg, 1 tab, Route: PO, Drug form: TAB, TID, Dosing Weight 86.364, kg, Start date: 05/05/17 13:00:00 BARREL ROLLER, Duration: 30 day, Stop date: 06/04/17 9:00:00 CSTNotes: (Same As: Catapres) No Longer Active 05/05/2017 [facility] NovoLOG FlexPen 24 unit, Route: SUB-Q, Lunch, Dosing Weight 86.364, kg, Start date: 05/05/17 12:00:00 BARREL ROLLER, Duration: 30 day, Stop date: 06/03/17 12:00:00 BARREL ROLLER Inactive 05/05/2017 [facility] Humalog 30 unit, 0.3 mL, Route: SUB-Q, Drug form: SOLN, BID-Before Meals, Start date: 05/05/17 12:00:00 BARREL ROLLER, Duration: 30 day, Stop date: 06/04/17 7:30:00 CSTNotes: Roll in palms of hands gently; Do not shake `vigorously. (Same as: Humalog ) "Single Patient Use Only " WASTE: F/P - Black; E - Municipal Trash Bin Stable for 28 days at room temperature. Expires in days from Date No Longer Active 05/05/2017 [facility] Humalog 20 unit, 0.2 mL, Route: SUB-Q, Drug form: SOLN, ONCE, Start date: 05/05/17 11:31:00 BARREL ROLLER, Stop date: 05/05/17 11:31:00 CSTNotes: Roll in palms of hands gently; Do not shake `vigorously. (Same as: Humalog ) "Single Patient Use Only " WASTE: F/P - Black; E - Municipal Trash Bin Stable for 28 days at room temperature. Expires in days from Date Inactive 05/05/2017 [facility] NovoLOG FlexPen 21 unit, Route: SUB-Q, TID-Before Meals, Dosing Weight 86.364, kg, Start date: 05/05/17 11:30:00 BARREL ROLLER, Duration: 30 day, Stop date: 06/04/17 7:30:00 BARREL ROLLER Inactive 05/05/2017 [facility] Insulin, Aspart, Human 20 unit, Route: SUB-Q, ONCE, Dosing Weight 86.364, kg, Start date: 05/05/17 11:22:00 BARREL ROLLER, Stop date: 05/05/17 11:22:00 BARREL ROLLER Inactive 05/05/2017 [facility] Insulin Glargine 100 UNT/ML Injectable Solution [Lantus] 35 unit, 0.35 mL, Route: SUB-Q, Drug form: SOLN, ONCE, Dosing Weight 86.364, kg, Start date: 05/05/17 11:22:00 BARREL ROLLER, Stop date: 05/05/17 11:22:00 CSTNotes: (Same as: Lantus) Do not hold insulin without contacting prescriber WASTE: F/P - Black; E - Municipal Trash Bin "single patient use only" Inactive 05/05/2017 [facility] Humalog 9 unit, 0.09 mL, Route: SUB-Q, Drug form: SOLN, ONCE, Start date: 05/05/17 10:18:00 BARREL ROLLER, Stop date: 05/05/17 10:18:00 CSTNotes: Roll in palms of hands gently; Do not shake `vigorously. (Same as: Humalog ) "Single Patient Use Only " WASTE: F/P - Black; E - Municipal Trash Bin Stable for 28 days at room temperature. Expires in days from Date Inactive 05/05/2017 [facility] NovoLOG FlexPen 9 unit, Route: SUB-Q, ONCE, Dosing Weight 86.364, kg, Priority: STAT, Start date: 05/05/17 9:44:00 BARREL ROLLER, Stop date: 05/05/17 9:44:00 BARREL ROLLER Inactive 05/05/2017 [facility] Insulin Lispro 2 unit, 0.02 mL, Route: SUB-Q, Drug form: SOLN, TID-Before Meals, Dosing Weight 86.364, kg, PRN Blood Glucose Results, Start date: 05/05/17 9:19:00 BARREL ROLLER, Duration: 30 day, Stop date: 06/04/17 9:18:00 CSTNotes: Roll in palms of hands gently; Do not shake `vigorously. (Same as: Humalog ) "Single Patient Use Only " WASTE: F/P - Black; E - Municipal Trash Bin Stable for 28 days at room temperature. Expires in days from Date No Longer Active 05/05/2017 [facility] Glucagon 1 mg, Route: IM, Drug form: PDR/INJ, PRN, Dosing Weight 86.364, kg, PRN Blood Glucose Results, Start date: 05/05/17 9:19:00 BARREL ROLLER, Duration: 30 day, Stop date: 06/04/17 9:18:00 BARREL ROLLER No Longer Active 05/05/2017 [facility] Dextrose 50% Syringe 25 gm, 50 mL, Route: IVP, Drug Form: INJ, Dosing Weight 86.364, kg, PRN, PRN Blood Glucose Results, Start date: 05/05/17 9:19:00 BARREL ROLLER, Duration: 30 day, Stop date: 06/04/17 9:18:00 BARREL ROLLER No Longer Active 05/05/2017 [facility] Dextromethorphan Hydrobromide 2 MG/ML / Guaifenesin 20 MG/ML Oral Solution 10 mL, Route: PO, Drug Form: LIQ, Dosing Weight 86.364, kg, Q4H, PRN as needed for cough, Start date: 05/05/17 9:18:00 BARREL ROLLER, Stop date: 06/04/17 9:17:00 CSTNotes: (dextromethorphan-guaifenesin 10-100/5 ml LIQ) (Same as: Robitussin-DM) No Longer Active 05/05/2017 [facility] pneumococcal capsular polysaccharide type 1 vaccine / pneumococcal capsular polysaccharide type 10A vaccine / pneumococcal capsular polysaccharide type 11A vaccine / pneumococcal capsular polysaccharide type 12F vaccine / pneumococcal capsular polysacchar 0.5 mL, Route: IM, Drug Form: INJ, Daily, Start date: 05/05/17 9:00:00 BARREL ROLLER, Duration: 1 doses or times, Stop date: 05/05/17 9:00:00 CSTNotes: (Same as: Pneumovax 23) Refrigerate Inactive 05/05/2017 [facility] methylPREDNISolone SODium SUCCinate 40 mg, 1 mL, Route: IVP, Drug form: INJ, Q12H, Dosing Weight 113.636, kg, Start date: 05/05/17 9:00:00 BARREL ROLLER, Duration: 30 day, Stop date: 06/03/17 21:00:00 CSTNotes: (Same as:Solu-MEDROL, A-Methapred) Inactive 05/05/2017 [facility] Albuterol 0.833 MG/ML / Ipratropium [place] 0.167 MG/ML Inhalant Solution 3 mL, Route: NEB, Drug Form: SOLN, Dosing Weight 113.636, kg, RQ6H, Start date: 05/05/17 8:00:00 BARREL ROLLER, Duration: 30 day, Stop date: 06/04/17 2:00:00 CSTNotes: (Same as: Duoneb) No Longer Active 05/05/2017 [facility] Insulin Lispro 3 unit, 0.03 mL, Route: SUB-Q, Drug form: SOLN, Bedtime, Dosing Weight 113.636, kg, PRN Blood Glucose Results, Start date: 05/05/17 6:27:00 BARREL ROLLER, Duration: 30 day, Stop date: 06/04/17 6:26:00 CSTNotes: Roll in palms of hands gently; Do not shake `vigorously. (Same as: Humalog ) "Single Patient Use Only " WASTE: F/P - Black; E - Municipal Trash Bin Stable for 28 days at room temperature. Expires in days from Date Inactive 05/05/2017 [facility] Dextrose 50% Syringe 25 gm, 50 mL, Route: IVP, Drug Form: INJ, Dosing Weight 113.636, kg, PRN, PRN Blood Glucose Results, Start date: 05/05/17 6:27:00 BARREL ROLLER, Duration: 30 day, Stop date: 06/04/17 6:26:00 BARREL ROLLER Inactive 05/05/2017 [facility] Glucagon 1 mg, Route: IM, Drug form: PDR/INJ, PRN, Dosing Weight 113.636, kg, PRN Blood Glucose Results, Start date: 05/05/17 6:27:00 BARREL ROLLER, Duration: 30 day, Stop date: 06/04/17 6:26:00 BARREL ROLLER Inactive 05/05/2017 [facility] Aspirin 325 MG Oral Tablet 325 mg=1 tab, PO, Daily, 0 Refill(s) Active 05/05/2017 [facility] rosuvastatin 20 mg oral tablet 20 mg=1 tab, PO, Bedtime, # 30 tab, 0 Refill(s) Active 05/05/2017 [facility] Hydrochlorothiazide 50 MG Oral Tablet 50 mg=1 tab, PO, BID, 0 Refill(s) Inactive 05/05/2017 [facility] Clonidine Hydrochloride 0.2 MG Oral Tablet 0.2 mg=1 tab, PO, TID, 0 Refill(s) Active 05/05/2017 [facility] 3 ML Insulin Glargine 100 UNT/ML Prefilled Syringe [Lantus] 32, SUB-Q, Bedtime, 32 units at bedtime, 0 Refill(s) Active 05/05/2017 [facility] escitalopram 20 mg oral tablet 20 mg=1 tab, PO, Daily, # 30 tab, 0 Refill(s) Active 05/05/2017 [facility] cefdinir 300 MG Oral Capsule 300 mg=1 cap, PO, Q12H, # 20 cap, 0 Refill(s) Inactive 05/05/2017 [facility] lisinopril 2.5 mg oral tablet 2.5 mg=1 tab, PO, Daily, # 30 tab, 0 Refill(s) Inactive 05/05/2017 [facility] NovoLOG FlexPen 24 unit, SUB-Q, Lunch, 0 Refill(s) Inactive 05/05/2017 [facility] Levaquin 500 mg, 2 tab, Route: PO, Drug form: TAB, [id number], Dosing Weight 113.636, kg, Start date: 05/05/17 6:00:00 BARREL ROLLER, Duration: 5 day, Stop date: 05/09/17 6:00:00 BARREL ROLLER, ABX Indication: Non-PNA Respiratory Tract InfectionNotes: Do not give w/antacids, dairy pdt & minerals Take 1 hr before or 2 hr after dairy pdt (Same as:Levaquin) No Longer Active 05/05/2017 [facility] Albuterol 0.83 MG/ML Inhalant Solution 2.49 mg, 3 mL, Route: NEB, Drug form: SOLN, PRN, Dosing Weight 113.636, kg, PRN Respiratory Protocol, Start date: 05/05/17 5:25:00 BARREL ROLLER, Duration: 30 day, Stop date: 06/04/17 5:24:00 CSTNotes: SEE RT DOCUMENTATION (Same as: Proventil) No Longer Active 05/05/2017 [facility] Aspirin 325 mg, Route: PO, Drug form: TAB, ONCE, Dosing Weight 113.636, kg, Priority: STAT, Start date: 05/05/17 3:48:00 BARREL ROLLER, Stop date: 05/05/17 3:48:00 BARREL ROLLER Inactive 05/05/2017 [facility] Insulin regular 5 unit, Route: IV, ONCE, Dosing Weight 113.636, kg, Priority: STAT, Start date: 05/05/17 3:40:00 BARREL ROLLER, Stop date: 05/05/17 3:40:00 BARREL ROLLER Inactive 05/05/2017 [facility] Prednisone 60 mg, Route: PO, Drug form: TAB, ONCE, Dosing Weight 113.636, kg, Priority: STAT, Start date: 05/05/17 2:16:00 BARREL ROLLER, Stop date: 05/05/17 2:16:00 BARREL ROLLER Inactive 05/05/2017 [facility] Albuterol 0.833 MG/ML / Ipratropium [place] 0.167 MG/ML Inhalant Solution 3 mL, Route: NEB, Drug Form: SOLN, Dosing Weight 113.636, kg, ONCE, STAT, Start date: 05/05/17 2:16:00 BARREL ROLLER, Stop date: 05/05/17 2:16:00 BARREL ROLLER Inactive 05/05/2017 [facility] Sodium Chloride 0.9% (Bolus) IV 1,000 mL, Infuse Over: 1 hr, Route: IV, ONCE, Priority: STAT, Dosing Weight 113.636 kg, Start date: 05/05/17 2:16:00 BARREL ROLLER, Stop date: 05/05/17 2:16:00 BARREL ROLLER Inactive 05/05/2017 [facility] Saline Flush 0.9% 10 mL, Route: IVP, Drug Form: INJ, Dosing Weight 113.636, kg, PRN, PRN Line Flush, Start date: 05/05/17 2:16:00 BARREL ROLLER, Duration: 30 day, Stop date: 06/04/17 2:15:00 CSTNotes: (Same as: BD Posiflush) No Longer Active 05/05/2017 [facility] Allergies, Adverse Reactions, Alerts Substance Category Reaction Severity Reaction type Status Date Reported Comments Source Immunizations Immunization Date Given Site Status Last Updated Comments Source pneumococcal 23-valent vaccine 05/05/2017 Not Given CHIQUIS Gutierrez Results Order Name Results Value Reference Range Date Interpretation Comments Source Breast Limited Uni US Breast Limited Uni US LIMITED ULTRASOUND OF RIGHT BREAST: 05/31/2017 CLINICAL: Right Breast Lesion Seen On Ct Scan/R92.8 Other Abnormal And Inconclusive Findings On Diagnostic Imaging Of Breast. COMPARISON:Comparison is made to exams dated: 05/31/2017 mammogram, 05/15/2016 mammogram, and 09/08/2013 mammogram - [facility]. TECHNIQUE: Color flow and real-time ultrasound of the right breast were performed on the areas of interest. FINDINGS: There is a benign 1.4 cm x 1.4 cm x 0.9 cm oval mass in the right breast at 11 o'clock middle depth 10.8 cm from the nipple. This oval mass is hypoechoic. There are related micro calcifications. No abnormalities were seen sonographically in the right breast. This corresponds with the CT chest finding. Prior mammograms have become available and show that this finding is stable. IMPRESSION: BENIGN RECOMMENDATION:There is no sonographic evidence of malignancy. The 1.4 cm x 1.4 cm x 0.9 cm oval mass in the right breast is consistent with a fibroadenoma and is benign. A 1 year screening mammogram is recommended.(06/01/2018) This exam was interpreted at [id number] for CHIQUIS Joseph. Professional services are provided by the [facility]. Cooper Arredondo M.D., cm/penrad:05/31/2017 11:40:54 [employer] Metal Production Worker(s): Roz Willis [facility] letter sent: BI-RADS 1/2 Ultrasound BI-RADS: 2 Benign 05/31/2017 - - Read by: Stone George MD Dictated Date/time: 05/31/17 11:40 Electronically Signed by: Stone George MD 05/31/17 11:40 FINAL REPORT CHIQUIS Joseph Breast Mammo Diag KARLY incl CAD MA Breast Mammo Diag KARLY incl CAD MA BILATERAL DIGITAL DIAGNOSTIC MAMMOGRAM WITH CAD: 05/31/2017 CLINICAL: Other Abnormal And Inconclusive Findings On Diagnostic Imaging Of Breast/R92.8. Current study was evaluated with a Computer Aided Detection (CAD) system. COMPARISON:No prior exams were available for comparison. TECHNIQUE: Mammographic views were obtained using digital acquisition. Current study was also evaluated with a Computer Aided Detection (CAD) system. FINDINGS: There are scattered fibroglandular densities in both breasts. This corresponds with the CT chest finding. There is 1.5 cm oval low density mass with a circumscribed margin and dystrophic calcifications in the right breast at 11 o'clock middle depth 10 cm from the nipple. No other significant masses, calcifications, or other findings are seen in either breast. IMPRESSION: INCOMPLETE: NEEDS ADDITIONAL IMAGING EVALUATION RECOMMENDATION:The 1.5 cm oval low density mass in the right breast resembles a fibroadenoma and is indeterminate. An ultrasound is recommended. This exam was interpreted at [id number] for CHIQUIS Joseph. Professional services are provided by the [facility]. Cooper Arredondo M.D. cm/penrad:05/31/2017 11:41:39 [employer] Metal Production Worker(s): RT Orion(R)(M), [facility] Mammogram BI-RADS: 0 Indeterminate 05/31/2017 - - Read by: Stone George MD Dictated Date/time: 05/31/17 11:41 Electronically Signed by: Stone George MD 05/31/17 11:41 FINAL REPORT CHIQUIS Eduardoa Bone Density DXA [employer] MA Bone Density [employer] MA BONE DENSITY ASSESSMENT: 05/25/2017 CLINICAL DATA: Post menopausal. /Z13.820 Encounter For Screening For Osteoporosis RISK FACTORS: History of previous fracture and fractures with minimal trauma. FINDINGS: Bone density evaluation was performed 05/25/2017 on the right femur neck using a Hologic unit. The BMD average for the exam is 0.540 g/cm2. The T-score is - 2.80 and the Z-score is -1.50. This matches the World Health Organization's criteria for osteoporosis and places the patient at a high risk for fracture. An additional bone density evaluation was performed 05/25/2017 on the left femur neck using a Hologic unit. The BMD average for the exam is 0.490 g/cm2. The T- score is -3.20 and the Z-score is -1.90. This matches the World Health Organization's criteria for osteoporosis and places the patient at a high risk for fracture. An additional bone density evaluation was performed 05/25/2017 on the right hip using a Hologic unit. The BMD average for the exam is 0.751 g/cm2. The T-score is -1.60 and the Z-score is -0.60. This matches the World Health Organization's criteria for osteopenia and places the patient at a medium risk for fracture. An additional bone density evaluation was performed 05/25/2017 on the left hip using a Hologic unit. The BMD average for the exam is 0.691 g/cm2. The T-score is -2.10 and the Z-score is -1.00. This matches the World Health Organization's criteria for osteopenia and places the patient at a medium risk for fracture. An additional bone density evaluation was performed 05/25/2017 on the AP L1-L4 region of spine using a Hologic unit. The BMD average for the exam is 0.782 g/cm2. The T-score is -2.40 and the Z-score is -0.80. This matches the World Health Organization's criteria for osteopenia and places the patient at a medium risk for fracture. The scan was performed on a [employer] Discovery C machine. This scan was performed on a [employer] Wi DEXA scanner. IMPRESSION: OSTEOPOROSIS Patient is at high risk for fracture. Patient consult w/primary care provider is recommended. This exam was interpreted at [id number] for CHIQUIS Thompson. Danette jc/andrew:05/25/2017 09:26:18 [employer] Production Worker(s): Sharonda Forrester 05/25/2017 - - Read by: Danette Gunderson MD Dictated Date/time: 05/25/17 09:26 Electronically Signed by: Danette Gunderson MD 05/25/17 09:26 FINAL REPORT CHIQUIS Joseph CHEM PANEL A/G Ratio 0.9 0.7 - 1.6 05/07/2017 [facility] CHEM PANEL Globulin 3.7 g/dL 2.7 - 4.2 05/07/2017 [facility] CHEM PANEL AGAP 15.7 meq/L 10.0 - 20.0 05/07/2017 [facility] CHEM PANEL B/C Ratio 27 6 - 25 05/07/2017 [facility] CHEM PANEL eGFR 24 mL/min/1.73m2 05/07/2017 Result Comment: The eGFR is calculated using the [...] from the National Kidney Disease Education Program (NKDEP) which additionally recommends that when the eGFR is used in patients with extremes of body mass index for purposes of drug dosing, the eGFR should be multiplied by the estimated BMI. [facility] CHEM PANEL Alk Phos 107 unit/L 39 - 136 05/07/2017 [facility] CHEM PANEL Bili Total 0.2 mg/dL 0.2 - 1.3 05/07/2017 [facility] CHEM PANEL Calcium Lvl 9.0 mg/dL 8.5 - 10.5 05/07/2017 [facility] CHEM PANEL Total Protein 7.1 g/dL 6.4 - 8.4 05/07/2017 [facility] CHEM PANEL Albumin Lvl 3.4 g/dL 3.5 - 5.0 05/07/2017 [facility] CHEM PANEL ALT 37 unit/L 0 - 65 05/07/2017 [facility] CHEM PANEL AST 39 unit/L 0 - 37 05/07/2017 [facility] CHEM PANEL BUN 58 mg/dL 7 - 22 05/07/2017 [facility] CHEM PANEL Creatinine Lvl 2.17 mg/dL 0.50 - 1.40 05/07/2017 [facility] CHEM PANEL Glucose Lvl 257 mg/dL 70 - 99 05/07/2017 [facility] CHEM PANEL CO2 25 meq/L 24 - 32 05/07/2017 [facility] CHEM PANEL Sodium Lvl 136 meq/L 135 - 145 05/07/2017 [facility] CHEM PANEL Potassium Lvl 3.7 meq/L 3.5 - 5.1 05/07/2017 [facility] CHEM PANEL Chloride Lvl 99 meq/L 95 - 109 05/07/2017 [facility] HEMATOLOGY RBC 4.75 M/CMM 4.20 - 5.40 05/07/2017 [facility] HEMATOLOGY WBC 9.7 K/CMM 3.7 - 10.4 05/07/2017 [facility] HEMATOLOGY Hgb 14.2 g/dL 12.0 - 16.0 05/07/2017 [facility] HEMATOLOGY Hct 42.1 % 36.0 - 48.0 05/07/2017 [facility] HEMATOLOGY MPV 8.6 fL 7.4 - 10.4 05/07/2017 [facility] MCV 88.5 fL 80.0 - 98.0 05/07/2017 [facility] MCH 29.9 pg 27.0 - 31.0 05/07/2017 [facility] MCHC 33.8 g/dL 32.0 - 36.0 05/07/2017 [facility] RDW 12.9 % 11.5 - 14.5 05/07/2017 [facility] Platelet 199 K/CMM 133 - 450 05/07/2017 [facility] HEMATOLOGY Lymphocytes # 4.0 K/CMM 1.0 - 5.5 05/07/2017 [facility] HEMATOLOGY Monocytes # 0.5 K/CMM 0.0 - 0.8 05/07/2017 [facility] HEMATOLOGY Basophils 0.6 % 0.0 - 1.0 05/07/2017 [facility] HEMATOLOGY Segs-Bands # 5.0 K/CMM 1.5 - 8.1 05/07/2017 [facility] Eosinophils # 0.1 K/CMM 0.0 - 0.5 05/07/2017 [facility] HEMATOLOGY Basophils # 0.1 K/CMM 0.0 - 0.2 05/07/2017 [facility] HEMATOLOGY Monocytes 5.3 % 2.0 - 12.0 05/07/2017 [facility] HEMATOLOGY Lymphocytes 41.3 % 20.0 - 40.0 05/07/2017 [facility] HEMATOLOGY Eosinophils 0.8 % 0.0 - 4.0 05/07/2017 [facility] HEMATOLOGY Segs 52.0 % 45.0 - 75.0 05/07/2017 [facility] SPECIAL CHEMISTRY Hgb A1C 14.8 % <=5.6 % 05/06/2017 [facility] CHEM PANEL Creatinine Lvl 2.76 mg/dL 0.50 - 1.40 05/05/2017 [facility] CHEM PANEL Potassium Lvl 4.2 meq/L 3.5 - 5.1 05/05/2017 [facility] CHEM PANEL Sodium Lvl 130 meq/L 135 - 145 05/05/2017 [facility] CHEM PANEL Calcium Lvl 8.8 mg/dL 8.5 - 10.5 05/05/2017 [facility] CHEM PANEL eGFR 18 mL/min/1.73m2 05/05/2017 Result Comment: The eGFR is calculated using the [...] from the National Kidney Disease Education Program (NKDEP) which additionally recommends that when the eGFR is used in patients with extremes of body mass index for purposes of drug dosing, the eGFR should be multiplied by the estimated BMI. [facility] CHEM PANEL Chloride Lvl 95 meq/L 95 - 109 05/05/2017 [facility] CHEM PANEL CO2 21 meq/L 24 - 32 05/05/2017 [facility] CHEM PANEL AGAP 18.2 meq/L 10.0 - 20.0 05/05/2017 [facility] CHEM PANEL Glucose Lvl 515 mg/dL 70 - 99 05/05/2017 Result Comment: Critical Result(s) called to DOMINIC bourgeois 05/05/2017 11:58_ by_[facility]. Read back OK. [facility] CHEM PANEL BUN 67 mg/dL 7 - 22 05/05/2017 [facility] CARDIAC ENZYMES Troponin-I 0.20 ng/mL 0.00 - 0.40 05/05/2017 [facility] CARDIAC ENZYMES Troponin-I 0.24 ng/mL 0.00 - 0.40 05/05/2017 [facility] HEMATOLOGY D-Dimer 1.02 ug/mL FEU 05/05/2017 [facility] CARDIAC ENZYMES Total CK 186 unit/L 12 - 191 05/05/2017 [facility] CARDIAC ENZYMES BNP 18 pg/mL <=100 pg/mL 05/05/2017 [facility] CARDIAC ENZYMES Troponin-I 0.23 ng/mL 0.00 - 0.40 05/05/2017 [facility] CARDIAC ENZYMES CK MB 3.2 ng/mL 0.5 - 3.6 05/05/2017 [facility] CARDIAC ENZYMES CK MB Index 1.7 0.0 - 2.5 05/05/2017 [facility] CHEM PANEL Glucose Lvl 427 mg/dL 70 - 99 05/05/2017 Result Comment: Critical Result(s) called to Miguel Angel Mckeon at 05/05/2017 03:21 by BE. Read back OK. [facility] CHEM PANEL Bili Total 0.3 mg/dL 0.2 - 1.3 05/05/2017 [facility] CHEM PANEL Creatinine Lvl 3.40 mg/dL 0.50 - 1.40 05/05/2017 [facility] CHEM PANEL BUN 77 mg/dL 7 - 22 05/05/2017 [facility] CHEM PANEL Sodium Lvl 128 meq/L 135 - 145 05/05/2017 [facility] CHEM PANEL eGFR 14 mL/min/1.73m2 05/05/2017 Result Comment: The eGFR is calculated using the [...] from the National Kidney Disease Education Program (NKDEP) which additionally recommends that when the eGFR is used in patients with extremes of body mass index for purposes of drug dosing, the eGFR should be multiplied by the estimated BMI. [facility] CHEM PANEL Alk Phos 188 unit/L 39 - 136 05/05/2017 [facility] CHEM PANEL ALT 37 unit/L 0 - 65 05/05/2017 [facility] CHEM PANEL AST 26 unit/L 0 - 37 05/05/2017 [facility] CHEM PANEL AGAP 17.7 meq/L 10.0 - 20.0 05/05/2017 [facility] CHEM PANEL CO2 24 meq/L 24 - 32 05/05/2017 [facility] CHEM PANEL Calcium Lvl 9.2 mg/dL 8.5 - 10.5 05/05/2017 [facility] CHEM PANEL Chloride Lvl 90 meq/L 95 - 109 05/05/2017 [facility] CHEM PANEL Potassium Lvl 3.7 meq/L 3.5 - 5.1 05/05/2017 [facility] CHEM PANEL Total Protein 8.9 g/dL 6.4 - 8.4 05/05/2017 [facility] CHEM PANEL A/G Ratio 0.7 0.7 - 1.6 05/05/2017 [facility] CHEM PANEL Globulin 5.3 g/dL 2.7 - 4.2 05/05/2017 [facility] CHEM PANEL B/C Ratio 23 6 - 25 05/05/2017 [facility] CHEM PANEL Albumin Lvl 3.6 g/dL 3.5 - 5.0 05/05/2017 [facility] HEMATOLOGY Hgb 15.1 g/dL 12.0 - 16.0 05/05/2017 [facility] RBC 5.09 M/CMM 4.20 - 5.40 05/05/2017 [facility] Platelet 235 K/CMM 133 - 450 05/05/2017 [facility] MCH 29.7 pg 27.0 - 31.0 05/05/2017 [facility] MPV 8.8 fL 7.4 - 10.4 05/05/2017 [facility] MCHC 33.7 g/dL 32.0 - 36.0 05/05/2017 [facility] RDW 12.7 % 11.5 - 14.5 05/05/2017 [facility] Hct 44.9 % 36.0 - 48.0 05/05/2017 [facility] MCV 88.2 fL 80.0 - 98.0 05/05/2017 [facility] WBC 8.7 K/CMM 3.7 - 10.4 05/05/2017 [facility] HEMATOLOGY Basophils # 0.1 K/CMM 0.0 - 0.2 05/05/2017 [facility] HEMATOLOGY Lymphocytes # 3.2 K/CMM 1.0 - 5.5 05/05/2017 [facility] HEMATOLOGY Basophils 0.7 % 0.0 - 1.0 05/05/2017 [facility] Lymphocytes 37.2 % 20.0 - 40.0 05/05/2017 [facility] HEMATOLOGY Eosinophils # 0.1 K/CMM 0.0 - 0.5 05/05/2017 [facility] HEMATOLOGY Segs-Bands # 5.0 K/CMM 1.5 - 8.1 05/05/2017 [facility] HEMATOLOGY Eosinophils 0.8 % 0.0 - 4.0 05/05/2017 [facility] HEMATOLOGY Monocytes 4.4 % 2.0 - 12.0 05/05/2017 [facility] Monocytes # 0.4 K/CMM 0.0 - 0.8 05/05/2017 [facility] Segs 56.9 % 45.0 - 75.0 05/05/2017 [facility] VIRAL - SEROLOGY Influ B Negative (05/05/17 2:33 AM) Negative 05/05/2017 [facility] VIRAL - SEROLOGY Influ A Negative (05/05/17 2:33 AM) Negative 05/05/2017 [facility] Chest wo contrast CT Chest wo contrast CT Clinical Indication: - pneumonia/shortness of breath. Comparison: None. TECHNIQUE: Sequential trans-axial images were obtained through the chest without the administration of IV iodinated contrast. Coronal and sagittal reconstructions were obtained. Dose: EKE=407 mGy-cm Findings: Lungs: Calcified granuloma within the right upper lobe. Airways: Normal. Pleural and pericardial spaces: Normal. Thoracic lymph nodes: Normal. Lower neck: Normal. Upper abdomen: Mild hepatic steatosis. Mild stranding surrounding the left kidney may be chronic. Left upper pole renal cyst. Vasculature: Atherosclerotic disease of the thoracic aorta with prominent coronary calcifications. No aortic aneurysm. Other: Lesion within the right breast with associated calcifications. Osseous structures: Healing left posterior medial seventh rib fracture. IMPRESSION: Hepatic steatosis. Coronary calcifications. Right breast lesion. Recommend correlation with mammography. No acute findings. SL: NLITTMAN-M 05/05/2017 - - Read by: Hayden Crocker MD Dictated Date/time: 05/05/17 06:07 Electronically Signed by: Hayden Crocker MD 05/05/17 06:19 FINAL REPORT [facility] Chest 1view DX Chest 1view DX Clinical Indication: - cough Comparison: None FINDINGS: The frontal chest radiograph shows normal lung volumes without interstitial or airspace opacities, pleural effusions or pneumothorax. The cardiomediastinal contours are normal for the age of the patient with aortic tortuosity. There are degenerative changes in the spine. IMPRESSION: No chest radiographic evidence of acute cardiopulmonary disease. SL: 82 05/05/2017 - - Read by: Keith Baugh MD Dictated Date/time: 05/05/17 02:43 Electronically Signed by: Keith Baugh MD 05/05/17 02:43 FINAL REPORT [facility] Vital Signs Vital Sign Value Date Comments Source Systolic (mm Hg) 111 05/07/2017 [facility] Diastolic (mm Hg) 70 05/07/2017 [facility] Respitory Rate 18 05/07/2017 [facility] Temperature Oral (F) 98.9 F 05/07/2017 [facility] Heart Rate 112 05/07/2017 [facility] Temperature Oral (F) 98.8 F 05/07/2017 [facility] Systolic (mm Hg) 114 05/07/2017 [facility] Diastolic (mm Hg) 72 05/07/2017 [facility] Respitory Rate 18 05/07/2017 [facility] Heart Rate 111 05/07/2017 [facility] Respitory Rate 21 05/07/2017 [facility] Temperature Oral (F) 98.2 F 05/07/2017 [facility] Systolic (mm Hg) 116 05/07/2017 [facility] Diastolic (mm Hg) 71 05/07/2017 [facility] Heart Rate 96 05/07/2017 [facility] Weight 90 05/06/2017 [facility] Weight 86.364 05/05/2017 [facility] BMI Calculated 37.18 05/05/2017 [facility] Height 152.4 cm 05/05/2017 [facility] Weight 113.636 05/05/2017 [facility] Encounters Location Location Details Encounter Type Encounter Number Reason For Visit Attending Provider ADM Date DC Date Status Source [facility] Observation [id number] 05/05/2017 05/07/2017 [facility] [place] [facility] [id number] Geoffrey Vega 05/11/2017 05/12/2017 [facility] [place] [facility] [place] [facility] [id number] Geoffrey Vega 05/25/2017 05/26/2017 [facility] [place] [facility] [place] [facility] [id number] Geoffrey Vega 05/31/2017 06/01/2017 [facility] [place] Procedures Procedure Code Date Perfomer Comments Source Cataract surgery [id number] [facility] [place] Cataract surgery [id number] [facility]
--- OUTSIDE RECORDS SUMMARY | 2018-03-24 09:25 | XMS REPORT | Summary of Care ---
Author Author [facility] [place] Organization [facility] [place] Address Unknown Phone Unavailable Encounter HQ Hortencia(FIN) [id number] Date(s): 05/25/17 - 05/25/17 [facility] [place] [address] [place] [phone] Encounter Diagnosis Encounter for screening for osteoporosis (Final) - 05/30/17 Age-related osteoporosis without current pathological fracture (Final) - Asymptomatic menopausal state (Final) - Discharge Disposition: Home or Self [...]
--- OUTSIDE RECORDS SUMMARY | 2018-03-24 09:25 | XMS REPORT | Summary of Care ---
Author Author [facility] [place] Organization [facility] [place] Address Unknown Phone Unavailable Encounter HQ Stephanier_paulino(FIN) [id number] Date(s): 05/11/17 - 05/11/17 [facility] [place] [address] [place] [phone]- [facility] [phone] Encounter Diagnosis Other chest pain (Final) - 05/16/17 Discharge Disposition: Home or Self Care Attending [...]
[2018-03-24] MEDS ORDERED: ONDANSETRON HCL INJ 2 MG/ML VIAL IV STA (09:54)
[2018-03-24] MEDS ORDERED: SODIUM CHLORIDE 0.9% 1000ML 1,000 ML IV STA (09:54)
[2018-03-24] MEDS ORDERED: METOPROLOL TARTRATE INJ 1 MG/ML VIAL IV STA (09:54)
[2018-03-24] MEDS ORDERED: ASPIRIN 81 MG CHEW TAB PO ONE (10:00)
[2018-03-24] MEDS ORDERED: NITROGLYCERIN 2% OINT 1 GM PKT TOP ONE ×2 (10:00→11:00)
[2018-03-24 10:18] LABS: BASOPHILS % 0.3 % (0.0-1.0); EOSINOPHILS # (AUTO) 0.1 (0.0-0.4); EOSINOPHILS % 1.4 % (0.0-6.0); HEMATOCRIT 45.3 % (34.2-44.1); HEMOGLOBIN 15.2 g/dL (12.0-16.0); LYMPHOCYTES # (AUTO) 1.7 (1.0-3.2); LYMPHOCYTES % 19.9 % (18.0-39.1); MEAN CORPUSCULAR HEMOGLOBIN 30.3 pg (28-32); MEAN CORPUSCULAR HGB CONC 33.6 g/dL (31-35); MEAN CORPUSCULAR VOLUME 90.2 fL (81-99); MONOCYTES # (AUTO) 0.4 (0.2-0.8); NEUTROPHILS # (AUTO) 6.4 (2.1-6.9); NEUTROPHILS % 74.2 % (38.7-80.0); PLATELET COUNT 216 x10e3/uL (140-360); RED BLOOD COUNT 5.02 x10e6/uL (3.6-5.1); RED CELL DISTRIBUTION WIDTH 13.1 % (11.7-14.4)
[2018-03-24 10:23] LABS: INR 0.86; PARTIAL THROMBOPLASTIN TIME 26.9 seconds (23.8-35.5); PROTHROMBIN TIME 12.5 seconds (11.9-14.5)
[2018-03-24 10:32] LABS: ALBUMIN 3.7 g/dL (3.5-5.0); ALBUMIN/GLOBULIN RATIO 0.8 (0.8-2.0); ANION GAP 16.1 mmol/L (8-16); CREATININE, SERUM 1.4 mg/dL (0.57-1.11); POTASSIUM 4.1 mmol/L (3.5-5.1)
[2018-03-24 10:39] LABS: CREATINE KINASE MB 1.6 ng/mL (0-5.0)
--- NOTE | 2018-03-24 10:45 | NUR ---
UNABLE TO GIVE NTG OINTMENT, UNAVAILABLE IN PYXIS. NOTIFIED PHARMACY
--- NOTE | 2018-03-24 10:51 | Diagnostic Imaging Report ---
EXAMINATION: CHEST SINGLE (PORTABLE) INDICATION: ^CP SOB ^[id number] ^1020 ^Y COMPARISON: None FINDINGS: AP view TUBES and LINES: None. LUNGS: Lungs are well inflated. Bilateral interstitial edema. No lobar consolidations. PLEURA: No pleural effusion or pneumothorax. HEART AND MEDIASTINUM: The cardiomediastinal silhouette is unremarkable.. BONES AND SOFT TISSUES: No acute osseous lesion. Soft tissues are unremarkable. UPPER ABDOMEN: No free air under the diaphragm. IMPRESSION: Bilateral interstitial edema. Signed by: Dr. Rosa Hogan M.D. on 03/24/2018 10:47 AM
[2018-03-24] MEDS ORDERED: METOPROLOL TARTRATE INJ 1 MG/ML VIAL IV ONE (11:00)
[2018-03-24 11:15] LABS: BILIRUBIN,URINE NEGATIVE (NEGATIVE); CLARITY,URINE CLEAR (CLEAR); COLOR,URINE YELLOW (YELLOW); KETONES,URINE NEGATIVE (NEGATIVE); LEUKOCYTE ESTERASE ,URINE NEGATIVE (NEGATIVE); NITRITE,URINE POSITIVE (NEGATIVE); PROTEIN,URINE DIPSTICK 2+ (NEGATIVE); URINE UROBILINOGEN 0.2 mg/dL (0.2 - 1)
--- NOTE | 2018-03-24 11:15 | NUR ---
REPORT AND PATIENT CARE ENDORSED TO MIRI OLVERA
[2018-03-24] MEDS ORDERED: HEPARIN SOD (PORCINE) 1000 UNIT/ML SDV IV ONE (11:40)
[2018-03-24] MEDS ORDERED: DICYCLOMINE HCL 20 MG/2 ML VIAL IM ONE (11:45)
[2018-03-24 11:56] LABS: BACTERIA,URINE MODERATE /HPF; EPITHELIAL CELLS,URINE FEW /LPF; RBC,URINE 0-5 /HPF (0-5)
[2018-03-24] MEDS ORDERED: DEXTROSE 50% SYRINGE 50 ML IV PRN (12:30)
[2018-03-24] MEDS ORDERED: SODIUM CHLORIDE FLUSH 10 ML SYR INJ PRN (12:30)
[2018-03-24] MEDS ORDERED: MORPHINE SULFATE INJ 4 MG/ML INJ IV PRN (12:30)
[2018-03-24] MEDS ORDERED: NITROGLYCERIN 0.4 MG SUBL SL PRN (12:30)
[2018-03-24] MEDS ORDERED: CEFTRIAXONE SOD 1 GM VIAL IV SCH (12:30)
[2018-03-24] MEDS: HEPARIN 25,000 UNIT/D5W 250ML 250 ML IV SCH (12:58)
--- OUTSIDE RECORDS SUMMARY | 2018-03-24 13:00 | XMS REPORT ---
Author Author [facility] Address Unknown Phone Unavailable Care Team Providers Care Billing Customer Service Representative Name Role Phone Carlin HUDSON Unavailable Unavailable Problems This patient has no known problems. Allergies, Adverse Reactions, Alerts This patient has no known allergies or adverse reactions. Medications This patient has no known medications. Results Test Description Test Time Test Comments Text Results Atomic Results Result Comments CHEST SINGLE (PORTABLE) 2018-03-24 10:47:00 [place] [address] Patient Name: JAD SCHMITT MR #: [id number] : 1955 Age/Sex: 62/F Req #: [id number] Adm Physician: Ordered by: REID HUDSON MD Report #: [id number] Location: ER Room/Bed: Procedure: [id number] DX/CHEST SINGLE (PORTABLE) Exam Date: 03/24/18 Exam Time: 1020 REPORT STATUS: Signed EXAMINATION: CHEST SINGLE (PORTABLE) LAVINIA CATION: CP SOB [id number] 1020 Y COMPARISON: None FINDINGS: AP view TUBES and LINES: None. LUNGS: Lungs are well inflated. Bilateral interstitial edema. No lobar consolidations. PLEURA: No pleural effusion or pneumothorax. HEART AND MEDIASTINUM: The cardiomediastinal silhouette is unremarkable.. BONES AND SOFT TISSUES: No acute osseous lesion. Soft tissues are unremarkable. UPPER ABDOMEN: No free air under the diaphragm. IMPRESSION: Bilateral interstitial edema. Signed by: Dr. Cookie Salazar M.D. on 03/24/2018 10:47 AM Dictated By: COOKIE SALAZAR MD 104 Transcribed By: YANET on 03/24/181046 COPY TO: REID HUDSON MD
[2018-03-24] MEDS: INSULIN REGULAR, HUMAN 100 UNIT/1 ML 3ML VIAL SQ SCH ×2 (13:50→20:50)
[2018-03-24] MEDS: CEFTRIAXONE SOD 1 GM/NS 50 ML 50 ML IV SCH (13:50)
[2018-03-24] MEDS: FAMOTIDINE 20 MG TAB PO SCH ×2 (13:50→21:08)
[2018-03-24] MEDS ORDERED: FUROSEMIDE20 MG PO (14:35)
[2018-03-24] MEDS ORDERED: CLONIDINE HCL0.2 MG PO (14:35)
[2018-03-24] MEDS ORDERED: ALENDRONATE SOD70 MG PO (14:35)
[2018-03-24] MEDS ORDERED: KIONEX15 GM/60 M PO (14:35)
[2018-03-24] MEDS ORDERED: CITALOPRAM HBR20 MG PO (14:35)
[2018-03-24] MEDS ORDERED: NALTREXONE HCL50 MG PO (14:35)
[2018-03-24] MEDS ORDERED: CRESTOR20 MG PO (14:35)
[2018-03-24] MEDS ORDERED: COSOPT PF EYE1 EACH (14:35)
[2018-03-24] MEDS ORDERED: ASPIRIN ENTERI325 MG PO (14:36)
--- NOTE | 2018-03-24 14:37 | NUR ---
HOME MEDS OBTAINED FROM PT. AND ENTERED INTO THE COMPUTER
[2018-03-24] MEDS ORDERED: LOPERAMIDE HCL 2 MG CAP PO STA (16:16)
[2018-03-24] MEDS: NITROGLYCERIN 2% OINT 1 GM PKT TOP SCH (18:00)
[2018-03-24 19:00] VITALS: BP_SYST 116; BP_SYST 131; BP_DIAS 72; BP_DIAS 76
[2018-03-24 19:33] LABS: CREATINE KINASE MB 1.9 ng/mL (0-5.0)
[2018-03-24 20:00] VITALS: BP 157/78
--- NOTE | 2018-03-24 20:15 | NUR ---
Notified Dr. Ruggiero of consult at 2005. notified of most current lab results/cardiac markers and medications. No new orders given. Spoke with answering service of Dr. Rey's office at 2012 regarding consult. Addendum: 03/24/18 at 2018 by Sandrita Carlos RN Dr. Rey called back regarding consult at 2018. aware.
[2018-03-24 21:00] VITALS: BP 163/87
[2018-03-24 22:00] VITALS: BP 160/83
[2018-03-24 23:00] VITALS: BP 112/68
[2018-03-25] VITALS (15 sets, daily range): BP systolic 97–150; BP diastolic 54–85
[2018-03-25] MEDS: NITROGLYCERIN 2% OINT 1 GM PKT TOP SCH ×4 (00:15→18:40)
[2018-03-25 02:05] LABS: CREATINE KINASE MB 1.5 ng/mL (0-5.0)
[2018-03-25 04:45] LABS: BASOPHILS % 0.5 % (0.0-1.0); EOSINOPHILS # (AUTO) 0.2 (0.0-0.4); EOSINOPHILS % 2.7 % (0.0-6.0); HEMATOCRIT 40.2 % (34.2-44.1); HEMOGLOBIN 12.9 g/dL (12.0-16.0); LYMPHOCYTES # (AUTO) 2.7 (1.0-3.2); LYMPHOCYTES % 34.7 % (18.0-39.1); MEAN CORPUSCULAR HEMOGLOBIN 29.3 pg (28-32); MEAN CORPUSCULAR HGB CONC 32.1 g/dL (31-35); MEAN CORPUSCULAR VOLUME 91.4 fL (81-99); MONOCYTES # (AUTO) 0.5 (0.2-0.8); MONOCYTES % 6.5 % (4.4-11.3); NEUTROPHILS # (AUTO) 4.3 (2.1-6.9); NEUTROPHILS % 55.3 % (38.7-80.0); PLATELET COUNT 197 x10e3/uL (140-360)
[2018-03-25 05:08] LABS: CHOL/HDL RATIO 5.9 (3.0-3.6); CREATININE, SERUM 1.15 mg/dL (0.57-1.11)
--- NOTE | 2018-03-25 06:49 | NUR ---
Paged DR. Metcalf x 2 regarding pain med orders. Awaiting return call back. Oncoming RN notified of attempts to call and request for orders.
[2018-03-25] MEDS ORDERED: ACETAMINOPHEN 325 MG TAB PO PRN (08:30)
[2018-03-25] MEDS: INSULIN REGULAR, HUMAN 100 UNIT/1 ML 3ML VIAL SQ SCH ×4 (08:45→21:50)
[2018-03-25] MEDS ORDERED: NON-FORMULARY MEDICATION (Rosuvastatin Calcium (Crestor) 20 MG) PO SCH (09:00)
[2018-03-25] MEDS ORDERED: SODIUM POLYSTYRENE SULFONATE 15 GM PO SCH (09:00)
[2018-03-25] MEDS ORDERED: MORPHINE SULFATE INJ 4 MG/ML INJ IV PRN (09:30)
[2018-03-25] MEDS: FAMOTIDINE 20 MG TAB PO SCH ×2 (09:30→20:27)
[2018-03-25] MEDS: ASPIRIN 81 MG ENTERIC COATED PO SCH (09:30)
[2018-03-25] MEDS ORDERED: METOPROLOL TARTRATE INJ 1 MG/ML VIAL IV PRN (09:30)
[2018-03-25] MEDS ORDERED: HYDRALAZINE HCL 20 MG/ML VIAL IV PRN (09:30)
[2018-03-25] MEDS: SOD POLYSTYRENE SULFONATE SUSP 15 GM/60 ML BTL PO SCH (09:30)
--- NOTE | 2018-03-25 09:45 | History and Physical ---
PCP: Dr. Geoffrey Vega CONSULTANTS: 1. Dr. Jf Rey 2. Dr. Bassem Ruggiero CHIEF COMPLAINT: Chest pain, [id number] myocardial infarction. HISTORY: Patient is a 62-year-old female basically having chest pain for the past week or so. The patient did not seek for any medical attention. She came in this time with chest pain. The patient has previous DC approximately 5 years ago without any workup per patient. The patient has coronary artery disease. She also has diabetes type 2, hypertension, dyslipidemia, and chronic kidney disease along with hepatitis C. PAST MEDICAL HISTORY: As above. Diabetes type 2, coronary artery disease, dyslipidemia, hypertension, hepatitis C, obesity. PAST SURGICAL HISTORY: Noncontributory. SOCIAL HISTORY: Patient does not smoke or use alcohol. No recreational drug use. ALLERGIES: NO KNOWN ALLERGIES. HOME MEDICATIONS: Alendronate, aspirin, Celexa, clonidine, eyedrops, Lasix, ____ Crestor, and . PHYSICAL EXAMINATION: VITAL SIGNS: Temperature is 98, blood pressure 151/74, pulse rate is 100, respirations 18. GENERAL: The patient is not in acute distress. She is awake. She is having headache. HEENT: Normocephalic, atraumatic. Sclerae anicteric. NECK: Supple grossly. PULMONARY: Diminished breath sounds. CARDIOVASCULAR: Regular rate and rhythm to tachycardia. ABDOMEN: Soft, morbidly obese. EXTREMITIES: No cyanosis or edema. NEUROLOGIC: No focal deficit. LABORATORY: Sodium is 138, potassium 4, chloride 104, bicarb 20, BUN 21, creatinine 1.1, glucose 252. The WBC is 7.7, hemoglobin 12.9, hematocrit 40.2, platelets is 174,000. Cardiac enzymes, troponin I 0.4, 0.5, 0.53. IMAGING: Chest x-ray is otherwise bilateral interstitial edema. IMPRESSION: 1. Yal-AC-ilkpcpkzu myocardial infarction. 2. Congestive heart failure, echocardiogram pending. 3. Morbid obesity. 4. Diabetes type 2. 5. Dyslipidemia. 6. Hypertension. PLAN: Aspirin, nitroglycerin, insulin sliding scale coverage. Heparin drip. Rocephin for urinary tract infection. Will monitor the patient closely. Check TSH, glycohemoglobin A1c, and follow up on Dr. Ruggiero and Dr. Rey recommendations. Job#: [id number]
[2018-03-25] MEDS: HEPARIN 25,000 UNIT/D5W 250ML 250 ML IV SCH ×2 (09:50→22:05)
[2018-03-25] MEDS: CRESTOR 10MG PO SCH (10:00)
[2018-03-25] MEDS: DORZOLAMIDE/TIMOLOL/PF 1 EACH DROPERETTE OP SCH (10:00)
[2018-03-25] MEDS: HYDROCODONE/APAP 7.5MG-325MG 1 EA TAB PO PRN ×3 (10:09→20:39)
[2018-03-25] MEDS: INSULIN DETEMIR 100 UNIT/ML PEN SQ SCH (11:00)
--- NOTE | 2018-03-25 12:15 | Consultation ---
DATE OF CONSULTATION: March 24, 2018 CARDIOLOGY CONSULTATION REFERRING PHYSICIAN: Dr. Hobbs REASON FOR CONSULTATION: Non-STEMI. HPI: This is a pleasant, 62-year-old female that presented with chest pain. According to the patient, she has been having chest pain off and on x1 month now. She stated also she went on a cruise x1 week. Still had the chest pain and waited until she was off the ship to come in for evaluation. In the ER she was found with positive troponin, and cardiology was consulted. She has a history of CKD and sees Dr. Rey. In the past, also, she has a history of CVA. She denies any palpitations, any dizziness, any diaphoresis or nausea. Troponin times 3 positive. EKG: Sinus tach with no ST abnormalities. PAST MEDICAL HISTORY: CKD, CVA, [place], obesity, diabetes, hypertension, hypokalemia, hep C, and CAD. PAST SURGICAL HISTORY: Bilateral eye surgery due to glaucoma and hysterectomy. FAMILY HISTORY: Positive for hypertension. SOCIAL HISTORY: No smoking. She drinks occasionally. She lives at home with her . MEDICATIONS: See med list. ALLERGIES: SHE IS NOT ALLERGIC TO ANY MEDICATION. REVIEW OF SYSTEMS: Negative except those mentioned above. She is positive with troponin and chest pain. PHYSICAL EXAMINATION GENERAL: She is awake, alert and oriented times 3. VITAL SIGNS: Temperature 98.6, heart rate 109. Blood pressure 171/80. Respirations 14 on 3 L nasal cannula. HEENT: Mucous membranes moist. NECK: Supple. LUNGS: Bilateral with decreased breath sounds. CARDIOVASCULAR: S1, S2 present. ABDOMEN: Soft. NEUROLOGIC: Intact. EXTREMITIES: Bilateral lower extremities with trace edema. Trace edema on the right arm. LABS: Sodium 138, potassium 4.0, chloride 108, CO2 20. BUN 21, creatinine 1.15. Glucose 252. White blood cells 7.75. Hemoglobin 12.9, hematocrit 40.2, platelets 197. PT 12.5, PTT 43.6, INR 0.86. IMPRESSION 1. Ney-SR-kwfdwqnjh myocardial infarction. 2. Obesity. 3. Diabetes. 4. Hypertension. 5. Diarrhea. 6. Fever. 7. Urinary tract infection. 8. Renal insufficiency. ASSESSMENT AND PLAN 1. She is on heparin drip. We will go ahead and continue the same. 2. Will get an echocardiogram to assess the LV and valve function. 3. She sees Dr. Rey for kidney problem. We will go ahead and get a renal clearance from him. Possible cardiac catheterization when stable, cleared by renal and fever is better. Due to the renal insufficiency, we will go ahead and avoid DEVANG inhibitors. 4. Further cardiac workup pending clinical course. Thank you for this consultation. Dictated by Leni Rajan NP. Job#: [id number]
[2018-03-25] MEDS: INSULIN LISPRO 100 UNIT/1 ML 3ML VIAL SQ SCH ×2 (12:47→18:44)
--- NOTE | 2018-03-25 13:05 | Consultation ---
DATE OF CONSULTATION: March 25, 2018 Ms. Butler is known to our nephrology service. She has got underlying history of diabetes type 2 with diabetic retinopathy, neuropathy and chronic kidney disease stage 3. She was on a cruise and developed chest pain, which came and went for the last 7 days. Finally, she docked and got admitted to the hospital. She has been running some fever. She denies shortness of breath. No nausea or vomiting. She looks a bit ill with no apparent orthopnea or dyspnea. Labs show white count 7.75, hemoglobin 12.9, potassium 4, bicarb 20, creatinine 1.15, blood pressure 239. BNP last done was 26.7. ALLERGIES: NO APPARENT DRUG ALLERGIES. SOCIAL HISTORY: Patient does not smoke or drink. Patient received 1 dose of Kayexalate yesterday for elevated potassium, currently on ceftriaxone, aspirin, enteric coated, and famotidine. She is on hydralazine and p.r.n. insulin. Loperamide p.r.n. Metoprolol p.r.n. Nitro paste 1 inch to chest wall q.6. Nitroglycerin sublingual p.r.n. For dose schedule please see MAR. Has a urine culture growing gram negative bacilli. Final identification not done and pending. PHYSICAL EXAMINATION: GENERAL: Awake, alert, laying supine and in no apparent distress. VITALS: Blood pressure 139/74, pulse rate 98. Afebrile. Oxygen saturation 100% on room air. HEAD AND NECK: Cornea clear. Mucosa moist. LUNGS: Harsh vesicular breath sounds, relatively clear. Occasional rales in right base and left clear. HEART: S1 and S2 audible. No rubs or gallop. ABDOMEN: Otherwise soft and nontender. LOWER EXTREMITY EXAMINATION: 1+ edema bilaterally. IMPRESSION: 1. Evidence of third-spacing edema. 2. Mild congestive heart failure. 3. Non-ST segment myocardial infarction. 4. Dlgnt-nz-exqlsky kidney failure. 5. Hyperkalemia, resolved. 6. Mild distal renal tubular acidosis. PLAN: Plan on obtaining clinic records. Discussed cardiac catheterization risks associated with contrast-induced nephropathy with the patient in great detail. Suspect induced nephropathy discussed. I will speak to Dr. Ruggiero to find out exactly what his plans are. The patient agrees for cardiac cath and accepts the risks. Plan on gentle diuresis today. JUAN monroe. Clinic records, monitor the patient's electrolytes and kidney function with you. Job#: [id number] PENNY
[2018-03-25] MEDS: FUROSEMIDE INJ 10 MG/ML 4 ML VIAL IV SCH ×2 (13:56→20:27)
[2018-03-25] MEDS: CEFTRIAXONE SOD 1 GM/NS 50 ML 50 ML IV SCH (14:11)
[2018-03-25] MEDS: METOPROLOL TARTRATE 25 MG TAB PO SCH (18:40)
[2018-03-25] MEDS: ZIOPTAN OP SCH (20:38)
[2018-03-25] MEDS ORDERED: INSULIN DETEMIR 100 UNIT/ML PEN SQ SCH (21:00)
[2018-03-26] VITALS (20 sets, daily range): BP systolic 82–157; BP diastolic 53–93
[2018-03-26] MEDS: NITROGLYCERIN 2% OINT 1 GM PKT TOP SCH ×4 (00:54→19:02)
[2018-03-26 04:46] LABS: BASOPHILS % 0.3 % (0.0-1.0); EOSINOPHILS # (AUTO) 0.2 (0.0-0.4); EOSINOPHILS % 2.4 % (0.0-6.0); HEMATOCRIT 43.1 % (34.2-44.1); HEMOGLOBIN 13.9 g/dL (12.0-16.0); LYMPHOCYTES # (AUTO) 3.4 (1.0-3.2); LYMPHOCYTES % 39.5 % (18.0-39.1); MEAN CORPUSCULAR HEMOGLOBIN 29.5 pg (28-32); MEAN CORPUSCULAR HGB CONC 32.3 g/dL (31-35); MEAN CORPUSCULAR VOLUME 91.5 fL (81-99); MONOCYTES # (AUTO) 0.7 (0.2-0.8); MONOCYTES % 8.5 % (4.4-11.3); NEUTROPHILS # (AUTO) 4.2 (2.1-6.9); NEUTROPHILS % 49.1 % (38.7-80.0); PLATELET COUNT 205 x10e3/uL (140-360); RED BLOOD COUNT 4.71 x10e6/uL (3.6-5.1); RED CELL DISTRIBUTION WIDTH 12.9 % (11.7-14.4)
[2018-03-26 05:04] LABS: ANION GAP 14.7 mmol/L (8-16); CALCIUM 9.6 mg/dL (8.4-10.2); CREATININE, SERUM 1.4 mg/dL (0.57-1.11); POTASSIUM 3.7 mmol/L (3.5-5.1)
[2018-03-26] MEDS: HEPARIN 25,000 UNIT/D5W 250ML 250 ML IV SCH (05:27)
[2018-03-26] MEDS: INSULIN REGULAR, HUMAN 100 UNIT/1 ML 3ML VIAL SQ SCH ×4 (07:30→20:54)
[2018-03-26] MEDS: INSULIN LISPRO 100 UNIT/1 ML 3ML VIAL SQ SCH ×3 (09:00→16:32)
[2018-03-26] MEDS: INSULIN DETEMIR 100 UNIT/ML PEN SQ SCH (09:00)
[2018-03-26] MEDS: CRESTOR 10MG PO SCH (09:00)
[2018-03-26] MEDS: ASPIRIN 81 MG ENTERIC COATED PO SCH (09:00)
[2018-03-26] MEDS: SOD POLYSTYRENE SULFONATE SUSP 15 GM/60 ML BTL PO SCH (09:00)
[2018-03-26] MEDS: FAMOTIDINE 20 MG TAB PO SCH ×2 (09:00→20:03)
[2018-03-26] MEDS: DORZOLAMIDE/TIMOLOL/PF 1 EACH DROPERETTE OP SCH (09:00)
[2018-03-26] MEDS ORDERED: INSULIN DETEMIR 100 UNIT/ML PEN SQ SCH (09:00)
[2018-03-26] MEDS: FUROSEMIDE INJ 10 MG/ML 4 ML VIAL IV SCH (09:00)
[2018-03-26] MEDS: HYDROCODONE/APAP 7.5MG-325MG 1 EA TAB PO PRN ×2 (12:05→19:15)
[2018-03-26] MEDS: ACETYLCYSTEINE 200 MG/ML 4ML VIAL PO SCH ×2 (12:05→16:30)
[2018-03-26] MEDS: CEFTRIAXONE SOD 1 GM/NS 50 ML 50 ML IV SCH (12:19)
[2018-03-26] MEDS: METOPROLOL TARTRATE 25 MG TAB PO SCH ×2 (16:29→17:00)
[2018-03-26] MEDS ORDERED: ACETYLCYSTEINE 200 MG/1 ML 10ML VIAL PO SCH (17:00)
[2018-03-26] MEDS: SODIUM CHLORIDE 0.9% 1000ML 1,000 ML IV SCH (19:00)
--- NOTE | 2018-03-26 19:00 | NUR ---
Bedside report received from Lilo OLVERA. Pt resting in bed with HOB elevated 40 degrees, pt is AAOx4, self turning, bed in lowest and locked position, call light in reach of the pt. Refer to pipe line repairer, IV/Neuro/Pain assessments. Pt at the bedside. Heparin infusion per MD orders. Pure-Wick urine drainage system in use.
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
[2018-03-26] MEDS: ZIOPTAN OP SCH (20:03)
--- NOTE | 2018-03-26 22:20 | NUR ---
Pt assisted to toilet with help from myself and Opal OLVERA.
[2018-03-27] VITALS (21 sets, daily range): BP systolic 102–179; BP diastolic 57–94
[2018-03-27] MEDS: NITROGLYCERIN 2% OINT 1 GM PKT TOP SCH ×4 (00:55→17:07)
[2018-03-27] MEDS: SODIUM CHLORIDE 0.9% 1000ML 1,000 ML IV SCH ×2 (03:28→15:00)
--- NOTE | 2018-03-27 04:10 | NUR ---
Heparin protocol for PTT 55.6: Therapeutic. Recheck PTT in 6 hours. If continue to be therapeutic, change PTT to daily.
[2018-03-27] MEDS ORDERED: HEPARIN 25,000U/0.45% NS 250ML 250 ML ONE (04:31)
[2018-03-27 04:53] LABS: BASOPHILS % 0.5 % (0.0-1.0); EOSINOPHILS # (AUTO) 0.2 (0.0-0.4); EOSINOPHILS % 2.2 % (0.0-6.0); HEMATOCRIT 41.4 % (34.2-44.1); HEMOGLOBIN 13.6 g/dL (12.0-16.0); LYMPHOCYTES # (AUTO) 3.4 (1.0-3.2); LYMPHOCYTES % 38.9 % (18.0-39.1); MEAN CORPUSCULAR HGB CONC 32.9 g/dL (31-35); MEAN CORPUSCULAR VOLUME 91.4 fL (81-99); MONOCYTES # (AUTO) 0.6 (0.2-0.8); MONOCYTES % 6.8 % (4.4-11.3); NEUTROPHILS # (AUTO) 4.5 (2.1-6.9); NEUTROPHILS % 51.4 % (38.7-80.0); PLATELET COUNT 236 x10e3/uL (140-360); RED BLOOD COUNT 4.53 x10e6/uL (3.6-5.1); RED CELL DISTRIBUTION WIDTH 12.7 % (11.7-14.4)
[2018-03-27 05:22] LABS: ALBUMIN 3.2 g/dL (3.5-5.0); ALBUMIN/GLOBULIN RATIO 0.8 (0.8-2.0); ANION GAP 15.4 mmol/L (8-16); CALCIUM 9.5 mg/dL (8.4-10.2); CREATININE, SERUM 1.51 mg/dL (0.57-1.11); POTASSIUM 4.4 mmol/L (3.5-5.1)
[2018-03-27] MEDS: HYDROCODONE/APAP 7.5MG-325MG 1 EA TAB PO PRN ×2 (06:29→13:53)
[2018-03-27] MEDS: ENOXAPARIN SODIUM INJ 100 MG/ML SYR SC SCH ×2 (08:00→20:30)
[2018-03-27] MEDS: ACETYLCYSTEINE 200 MG/ML 4ML VIAL PO SCH ×2 (09:05→17:10)
[2018-03-27] MEDS: SOD POLYSTYRENE SULFONATE SUSP 15 GM/60 ML BTL PO SCH (09:05)
[2018-03-27] MEDS: ASPIRIN 81 MG ENTERIC COATED PO SCH (09:05)
[2018-03-27] MEDS: DORZOLAMIDE/TIMOLOL/PF 1 EACH DROPERETTE OP SCH (09:05)
[2018-03-27] MEDS: CRESTOR 10MG PO SCH (09:05)
[2018-03-27] MEDS: FLUCONAZOLE 100 MG/NS 50 ML 50 ML IV SCH (09:05)
[2018-03-27] MEDS: FAMOTIDINE 20 MG TAB PO SCH ×2 (09:06→20:30)
[2018-03-27] MEDS: METOPROLOL TARTRATE 25 MG TAB PO SCH ×2 (09:07→17:06)
[2018-03-27] MEDS: ONDANSETRON HCL INJ 2 MG/ML VIAL IV PRN (10:17)
[2018-03-27] MEDS: INSULIN REGULAR, HUMAN 100 UNIT/1 ML 3ML VIAL SQ SCH ×4 (10:38→20:51)
[2018-03-27] MEDS: INSULIN LISPRO 100 UNIT/1 ML 3ML VIAL SQ SCH ×3 (10:38→16:53)
[2018-03-27] MEDS: INSULIN DETEMIR 100 UNIT/ML PEN SQ SCH (10:38)
[2018-03-27 11:32] LABS: CREATINE KINASE MB 1.1 ng/mL (0-5.0)
[2018-03-27] MEDS: CEFTRIAXONE SOD 1 GM/NS 50 ML 50 ML IV SCH (13:47)
[2018-03-27] MEDS: DOCUSATE SODIUM 100 MG CAP PO PRN (13:52)
[2018-03-27] MEDS: ZIOPTAN OP SCH (20:30)
[2018-03-28] VITALS (26 sets, daily range): BP systolic 101–173; BP diastolic 64–108
[2018-03-28] MEDS: NITROGLYCERIN 2% OINT 1 GM PKT TOP SCH ×3 (00:10→12:00)
[2018-03-28] MEDS: SODIUM CHLORIDE 0.9% 1000ML 1,000 ML IV SCH ×2 (00:19→13:00)
[2018-03-28] MEDS: ONDANSETRON HCL INJ 2 MG/ML VIAL IV PRN ×3 (04:10→12:42)
[2018-03-28 04:51] LABS: BASOPHILS # (AUTO) 0.1 (0.0-0.1); BASOPHILS % 0.5 % (0.0-1.0); EOSINOPHILS # (AUTO) 0.2 (0.0-0.4); EOSINOPHILS % 2.4 % (0.0-6.0); HEMATOCRIT 43.3 % (34.2-44.1); HEMOGLOBIN 13.9 g/dL (12.0-16.0); LYMPHOCYTES # (AUTO) 3.5 (1.0-3.2); LYMPHOCYTES % 37.3 % (18.0-39.1); MEAN CORPUSCULAR HEMOGLOBIN 29.6 pg (28-32); MEAN CORPUSCULAR HGB CONC 32.1 g/dL (31-35); MEAN CORPUSCULAR VOLUME 92.1 fL (81-99); MONOCYTES # (AUTO) 0.4 (0.2-0.8); MONOCYTES % 4.7 % (4.4-11.3); NEUTROPHILS # (AUTO) 5.2 (2.1-6.9); NEUTROPHILS % 54.8 % (38.7-80.0); PLATELET COUNT 259 x10e3/uL (140-360); RED CELL DISTRIBUTION WIDTH 12.8 % (11.7-14.4)
[2018-03-28 05:03] LABS: ANION GAP 16.1 mmol/L (8-16); CALCIUM 9.9 mg/dL (8.4-10.2); CREATININE, SERUM 1.52 mg/dL (0.57-1.11); POTASSIUM 5.1 mmol/L (3.5-5.1)
--- NOTE | 2018-03-28 06:47 | NUR ---
Voicemail left for Dr. Metcalf regarding nausea unrelieved by Ivana at 0510. No return call received. Patient is now resting with eyes closed, reports "feeling better". Awaiting return call, will advise day RN of event and request for orders.
[2018-03-28] MEDS: INSULIN REGULAR, HUMAN 100 UNIT/1 ML 3ML VIAL SQ SCH ×4 (07:30→21:35)
[2018-03-28 08:37] LABS: ANISOCYTOSIS SLIGHT; EOSINOPHILS % (MANUAL) 2 % (0-7); LYMPHOCYTES % (MANUAL) 25 % (19-48); MONOCYTES % (MANUAL) 5 % (3.4-9.0); NEUTROPHILS % (MANUAL) 64 % (40-74); PLATELET ESTIMATE ADEQUATE; PLATELET MORPHOLOGY COMMENT NORMAL
[2018-03-28 08:38] LABS: RBC MORPHOLOGY COMMENT NORMAL
[2018-03-28] MEDS: SOD POLYSTYRENE SULFONATE SUSP 15 GM/60 ML BTL PO SCH (09:00)
[2018-03-28] MEDS: INSULIN LISPRO 100 UNIT/1 ML 3ML VIAL SQ SCH ×3 (09:27→17:31)
[2018-03-28] MEDS: INSULIN DETEMIR 100 UNIT/ML PEN SQ SCH (09:28)
[2018-03-28] MEDS: DORZOLAMIDE/TIMOLOL/PF 1 EACH DROPERETTE OP SCH (09:30)
[2018-03-28] MEDS: FLUCONAZOLE 100 MG/NS 50 ML 50 ML IV SCH (09:30)
[2018-03-28] MEDS: ASPIRIN 81 MG ENTERIC COATED PO SCH (09:37)
[2018-03-28] MEDS: CRESTOR 10MG PO SCH (09:37)
[2018-03-28] MEDS: FAMOTIDINE 20 MG TAB PO SCH ×2 (09:38→21:16)
[2018-03-28] MEDS: METOPROLOL TARTRATE 25 MG TAB PO SCH ×3 (09:38→21:17)
[2018-03-28] MEDS: ENOXAPARIN SODIUM INJ 100 MG/ML SYR SC SCH (09:38)
[2018-03-28] MEDS ORDERED: SODIUM CHLORIDE 0.9% 250ML 250 ML ONE (09:49)
--- NOTE | 2018-03-28 12:39 | NUR ---
patient has been vomiting on and off past 24hours. continuous nausea and not eating meals due to nausea. zofran giving some relief. new orders for phenergan and start ivf's at 75ml/hr as pt not eating today received.
[2018-03-28] MEDS: CEFTRIAXONE SOD 1 GM/NS 50 ML 50 ML IV SCH (12:41)
[2018-03-28] MEDS ORDERED: PROMETHAZINE 12.5MG/ NACL 0.9% 12.5 MG/50 ML BAG IV PRN (12:45)
--- NOTE | 2018-03-28 17:48 | NUR ---
added Dr. Horne to list per is her physician out patient.
--- NOTE | 2018-03-28 17:49 | NUR ---
patient sleeping this afternoon. no further vomiting noted. pt c/o headache with nausea earlier today. removed nitro patch from patient. notified Dr. Metcalf who gave new orders to discontinue nitropaste from jun. patient to be NPO at midnight for laborer electroplating in the morning. vital signs are within normal limits. notified Dr. Metcalf of temp 99.1 max today.
--- NOTE | 2018-03-28 20:03 | NUR ---
nursing report given to WADE Remy
[2018-03-28] MEDS: ZIOPTAN OP SCH (21:00)
[2018-03-29] VITALS (16 sets, daily range): BP systolic 105–191; BP diastolic 57–88
--- NOTE | 2018-03-29 03:44 | NUR ---
NO CHANGE IN PT'S STATUS,RESTING WELL WITH EYS CLOSED, SPOUSE AT BEDSIDE,
[2018-03-29] MEDS: SODIUM CHLORIDE 0.9% 1000ML 1,000 ML IV SCH (04:00)
[2018-03-29 04:50] LABS: BASOPHILS % 0.4 % (0.0-1.0); EOSINOPHILS # (AUTO) 0.2 (0.0-0.4); EOSINOPHILS % 2.2 % (0.0-6.0); HEMATOCRIT 42.1 % (34.2-44.1); HEMOGLOBIN 13.4 g/dL (12.0-16.0); LYMPHOCYTES # (AUTO) 3.4 (1.0-3.2); MEAN CORPUSCULAR HEMOGLOBIN 29.8 pg (28-32); MEAN CORPUSCULAR HGB CONC 31.8 g/dL (31-35); MEAN CORPUSCULAR VOLUME 93.6 fL (81-99); MONOCYTES # (AUTO) 0.7 (0.2-0.8); MONOCYTES % 6.3 % (4.4-11.3); NEUTROPHILS % 57.6 % (38.7-80.0); PLATELET COUNT 220 x10e3/uL (140-360); RED CELL DISTRIBUTION WIDTH 12.7 % (11.7-14.4)
[2018-03-29 05:20] LABS: ALBUMIN 3.1 g/dL (3.5-5.0); ALBUMIN/GLOBULIN RATIO 0.8 (0.8-2.0); ANION GAP 12.8 mmol/L (8-16); CALCIUM 9.2 mg/dL (8.4-10.2); CREATININE, SERUM 1.39 mg/dL (0.57-1.11); PHOSPHORUS 3.5 MG/DL (2.3-4.7); POTASSIUM 3.8 mmol/L (3.5-5.1)
[2018-03-29] MEDS ORDERED: MIDAZOLAM HCL 2 MG/2 ML VIAL ONE (06:46)
[2018-03-29] MEDS ORDERED: LIDOCAINE HCL 2% LOCAL 20 ML VIAL ONE (06:47)
[2018-03-29] MEDS ORDERED: HEPARIN SOD/SOD CHLORIDE 2,000 ML ONE (06:47)
[2018-03-29] MEDS ORDERED: IOPAMIDOL 370 MG/ML 200 ML INFUS..BTL INJ ONE (06:47)
[2018-03-29] MEDS ORDERED: FENTANYL CITRATE/PF 100MCG/2 ML INJ ONE (06:47)
[2018-03-29] MEDS ORDERED: SODIUM CHLORIDE 0.9% 1000ML 1,000 ML ONE (06:48)
[2018-03-29] MEDS: INSULIN LISPRO 100 UNIT/1 ML 3ML VIAL SQ SCH ×3 (07:30→17:59)
[2018-03-29] MEDS ORDERED: NITROGLYCERIN/D5W 200 MCG/ML 250 ML ONE (07:38)
[2018-03-29] MEDS ORDERED: HEPARIN SOD (PORCINE) 1000 UNIT/ML 30ML ONE (07:38)
[2018-03-29] MEDS ORDERED: VERAPAMIL HCL 2.5 MG/ML 2 ML VIAL ONE (07:38)
[2018-03-29] MEDS: ENOXAPARIN SODIUM INJ 100 MG/ML SYR SC SCH (08:00)
--- NOTE | 2018-03-29 08:35 | NUR ---
pt returned from biological lab technician AAO x 3, RR even and unlabored, rec'd in report pt needs CABG and will need to be transferred downtown. pt upset about dx, pt comfort given, will continue to monitor
[2018-03-29] MEDS: SOD POLYSTYRENE SULFONATE SUSP 15 GM/60 ML BTL PO SCH (09:00)
[2018-03-29] MEDS: DORZOLAMIDE/TIMOLOL/PF 1 EACH DROPERETTE OP SCH (09:58)
[2018-03-29] MEDS: ASPIRIN 81 MG ENTERIC COATED PO SCH (09:58)
[2018-03-29] MEDS: CRESTOR 10MG PO SCH (09:58)
[2018-03-29] MEDS: FAMOTIDINE 20 MG TAB PO SCH ×2 (09:58→22:17)
--- NOTE | 2018-03-29 10:19 | NUR ---
Rec'd call from Doughnut Fryer and notified per transfer center that pt may not transfer to [facility] until Sunday. Will inform pt and family of update and will continue to monitor
[2018-03-29] MEDS: INSULIN REGULAR, HUMAN 100 UNIT/1 ML 3ML VIAL SQ SCH ×4 (10:43→21:00)
[2018-03-29] MEDS: FLUCONAZOLE 100 MG/NS 50 ML 50 ML IV SCH (10:44)
[2018-03-29] MEDS: INSULIN DETEMIR 100 UNIT/ML PEN SQ SCH (10:44)
[2018-03-29] MEDS: CEFTRIAXONE SOD 1 GM/NS 50 ML 50 ML IV SCH (13:36)
--- NOTE | 2018-03-29 14:14 | NUR ---
Nutrition Screen Note RD Recommendation for Physician: -Rec advancing to GI soft diet as medically appropriate -Encourage PO and hydration -Rec stool softener if pt has no BM on regular diet Plan of Care: RD following, monitoring for tolerance and adequacy Nutrition reason for involvement: LOS Primary Diagnose(s): 1. Evidence of third-spacing edema. 2. Mild congestive heart failure. 3. Non-ST segment myocardial infarction. 4. Qbfyv-ba-hfndxmk kidney failure. PMH: Diabetes type 2, coronary artery disease, dyslipidemia, hypertension, hepatitis C, obesity, CT. Ht: 60in Wt: 223.44lb BMI: 43.6kg/m2 IBW: 100lb RD Assessment: (03/29) Chart reviewed. Labs and meds reviewed. 62yo F, who is admitted for chest pain. CXR showed bilateral interstitial edema. Currently NPO. Visited pt in the room. Pt reports of poor appetite with nausea and vomiting since admission. Pt denies any nausea at this time. No vomiting episode noted today since pt has been NPO. Pt also complains of abdominal discomfort and constipation. LBM 7 days ago. RN (Lilo) is aware of her GI sx. No chewing or swallowing difficulty noted. Pt reports no change in PO intake or weight loss OFFICE ASST. UBW ~200lbs. Will continue to monitor and follow. Current Diet: NPO Malnutrition Evaluation (03/29/18) The patient does not meet criteria for a specified degree of malnutrition at this time. Will re-evaluate at follow-up as appropriate. Diet Education Needs Assessment: Diet education not indicated. Nutrition Care Level: low Signed: Moon Majano, MS, RD, LD
[2018-03-29] MEDS: METOPROLOL TARTRATE 25 MG TAB PO SCH (16:35)
--- NOTE | 2018-03-29 18:00 | NUR ---
PT COMPLAINS OF ANXIETY STATES SHE FEELS OVERWHELMED. RN NOTED PT TAKES CELEXA DAILY MD PAGED FOR MED ORDER AWAITING CALL BACK
[2018-03-29] MEDS ORDERED: LORAZEPAM 0.5 MG TAB PO PRN (19:30)
--- NOTE | 2018-03-29 19:45 | NUR ---
REPORT GIVEN BY OFF GOING NURSE AT BEDSIDE. PT HAS PURWICK DEVICE INTACT, DRAINING WELL.PT HAS COMPANY IN ROOM DISCUSSING HER CARE AND TRANSFER TO [facility] INFORMED tISLEXPLAINED TO PT
--- NOTE | 2018-03-29 22:10 | Operative Report ---
DATE OF PROCEDURE: March 29, 2018 PROCEDURES PERFORMED 1. Left heart catheterization. 2. Selective coronary angiogram. INDICATIONS: Non ST elevation UT. ANESTHESIA: Lidocaine 2% for local anesthesia. Fentanyl and Versed for conscious sedation. DESCRIPTION OF PROCEDURE: After informed consent, the patient was brought to the cardiac catheterization laboratory and placed on the table. Both groins were painted and draped in a sterile fashion. Lidocaine was injected in the right wrist for local anesthesia. The right radial artery was accessed by Seldinger technique, and a 5-Belarusian sheath was placed in the right radial artery. Radial cocktail was given. Seltzer catheter was advanced over J wire. The catheter would not advance into the ascending aorta due to tortuosity. So, a Wooly wire was used to advance the catheter into the ascending aorta. The Seltzer catheter would not cannulate the left main or the RCA adequately. So the Seltzer catheter was removed and a new 3DRC catheter was advanced over the Wooly wire into the ascending aorta. The right coronary artery was cannulated and coronary angiogram was performed and images obtained on multiple views. The attempts were made to cannulate the left main using a JL-4 and JL 3.5 catheters, but would not cannulate the left main selectively. So a Nate catheter was used to cannulate the left main and coronary angiogram was performed. Images obtained on multiple views. The patient was given postprocedure cocktail and radial wrist band was applied. Patient tolerated the procedure without any complications. REPORT LEFT MAIN: Normal caliber. There are luminal irregularities. LEFT ANTERIOR DESCENDING: Narrow caliber, diffuse disease with 70% to 80% proximal lesion and 70% to 80% mid lesion. LEFT CIRCUMFLEX: Narrow caliber, gives rise to a large obtuse marginal branch. The left circumflex has 80% proximal lesion. The obtuse marginal branch is a large branch and has 90% lesion at its origin, 90% proximal lesion. There is a ramus branch which is a rrktqkci-aa-icgjp size vessel and has 80% proximal lesion and 80% mid lesion. RIGHT CORONARY ARTERY: Diffuse disease throughout its course with 90% mid lesion followed by 95% mid lesion. The right ventricular branch has about 90% lesion. Distally, the right coronary artery is diffusely diseased and about 95% lesion and tapers off. There are soha-rs-ytefu collaterals. PLAN: CABG. Job#: [id number] WESLEY
[2018-03-29] MEDS: ZIOPTAN OP SCH (22:18)
--- NOTE | 2018-03-29 23:00 | NUR ---
PT RESTING WELL, SPOUSE STAYED ALL NIGHT TO BE WITH PT, SR UP X 2, CALL MONIQUE IN REACH, PT AWARE TO CALL ME , VERBALIZED UNDERSTANDING.
[2018-03-30] VITALS: BP 121/56
--- NOTE | 2018-03-30 03:35 | NUR ---
CONTINUES TO REST WELL, WILL ENTER ORDERES PER DR. FERGUSON. PT NASH . CESAR REPORT OFF TO ONCOMING NURSW,
--- NOTE | 2018-03-30 07:33 | NUR ---
REPORTED OFF TO FILOMENA RN, PT STABLE SPOUSE ST BEDSIDE,
[2018-03-30 08:30] VITALS: BP 141/83
[2018-03-30] MEDS: INSULIN LISPRO 100 UNIT/1 ML 3ML VIAL SQ SCH ×3 (08:36→18:30)
[2018-03-30] MEDS: INSULIN REGULAR, HUMAN 100 UNIT/1 ML 3ML VIAL SQ SCH ×3 (08:37→18:00)
[2018-03-30] MEDS: FLUCONAZOLE 100 MG/NS 50 ML 50 ML IV SCH (08:42)
[2018-03-30] MEDS: ENOXAPARIN SODIUM INJ 100 MG/ML SYR SC SCH (08:42)
[2018-03-30] MEDS ORDERED: SODIUM CHLORIDE 0.9% 250ML 250 ML ONE (08:50)
[2018-03-30 09:00] VITALS: BP 141/83
[2018-03-30] MEDS ORDERED: BUMETANIDE 1 MG TAB PO SCH (09:00)
[2018-03-30] MEDS: SOD POLYSTYRENE SULFONATE SUSP 15 GM/60 ML BTL PO SCH (09:00)
[2018-03-30] MEDS: ASPIRIN 81 MG ENTERIC COATED PO SCH (09:00)
[2018-03-30] MEDS: FAMOTIDINE 20 MG TAB PO SCH (09:57)
[2018-03-30] MEDS: CRESTOR 10MG PO SCH (09:57)
[2018-03-30] MEDS: METOPROLOL TARTRATE 25 MG TAB PO SCH ×2 (10:36→18:08)
[2018-03-30] MEDS: INSULIN DETEMIR 100 UNIT/ML PEN SQ SCH (10:37)
[2018-03-30 11:32] LABS: ANION GAP 13.4 mmol/L (8-16); CALCIUM 9.7 mg/dL (8.4-10.2); CREATININE, SERUM 1.32 mg/dL (0.57-1.11); POTASSIUM 4.4 mmol/L (3.5-5.1)
[2018-03-30] MEDS: CEFTRIAXONE SOD 1 GM/NS 50 ML 50 ML IV SCH (13:43)
[2018-03-30 14:13] VITALS: BP 154/80
[2018-03-30] MEDS: DORZOLAMIDE/TIMOLOL/PF 1 EACH DROPERETTE OP SCH (14:33)
[2018-03-30 18:17] VITALS: BP 152/86
[2018-03-30] MEDS: DOCUSATE SODIUM 100 MG CAP PO PRN (18:27)
== END 2018-03-30 19:14 | disposition short-term general hospital (02) | DRG 281 ==
LOC: ER 09:21 → ERHOLD 12:56 → ICU 18:34 → IMCU 03-29 15:15
PROVIDERS: ADMIT Internal Medicine; ATTEND Internal Medicine
PROC: 4A023N7 Measurement of Cardiac Sampling and Pressure, Left Heart, Percutaneous Approach (ICD-10-PCS; principal; 2018-03-29)
PROC: B2111ZZ Fluoroscopy of Multiple Coronary Arteries using Low Osmolar Contrast (ICD-10-PCS; 2018-03-29)
DX: I21.4 Non-ST elevation (NSTEMI) myocardial infarction (principal); Z68.41 Body mass index [BMI] 40.0-44.9, adult; N39.0 Urinary tract infection, site not specified; I13.0 Hypertensive heart and chronic kidney disease with heart failure and stage 1 through stage 4 chronic kidney disease, or unspecified chronic kidney disease; N17.9 Acute kidney failure, unspecified; E11.22 Type 2 diabetes mellitus with diabetic chronic kidney disease; I25.10 Atherosclerotic heart disease of native coronary artery without angina pectoris; B19.20 Unspecified viral hepatitis C without hepatic coma; I50.9 Heart failure, unspecified; E11.65 Type 2 diabetes mellitus with hyperglycemia; E66.01 Morbid (severe) obesity due to excess calories; E78.5 Hyperlipidemia, unspecified; Z82.49 Family history of ischemic heart disease and other diseases of the circulatory system; E11.319 Type 2 diabetes mellitus with unspecified diabetic retinopathy without macular edema; E11.42 Type 2 diabetes mellitus with diabetic polyneuropathy; N18.3 Chronic kidney disease, stage 3 (moderate); E87.5 Hyperkalemia; N25.89 Other disorders resulting from impaired renal tubular function; B96.20 Unspecified Escherichia coli [E. coli] as the cause of diseases classified elsewhere; Z79.4 Long term (current) use of insulin
CPT/HCPCS: 36415; 71045; 80048; 80053; 80061; 81001; 82550; 82553; 82948; 83036; 83735; 83880; 84100; 84443; 84484; 85025; 85379; 85610; 85730; 87040; 87086; 87186; 93005; 93306; 93454; 96372; 99284; J0360; J0500; J0696; J1450; J1644; J1650; J1940; J2001; J2250; J2270; J2405; J2550; J7030; J7050; Q9967

== ENCOUNTER 2018-10-09 13:57 | Emergency (ER) | payer OTHER ==
[~2018-10-09] VITALS: Ht 152.4 cm; Wt 101.2 kg
[~2018-10-09 13:57] MED LIST: ALENDRONATE SOD70 MG PO; ASPIRIN ENTERI325 MG PO; CITALOPRAM HBR20 MG PO; CLONIDINE HCL0.2 MG PO; COSOPT PF EYE1 EACH; CRESTOR20 MG PO; FUROSEMIDE20 MG PO; KIONEX15 GM/60 M PO; NALTREXONE HCL50 MG PO
--- OUTSIDE RECORDS SUMMARY | 2018-10-09 14:01 | XMS REPORT | Clinical Summary ---
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 Active famotidine (PEPCID) 20 MG Take 20 mg by 0 tablet mouth 2 (two) times daily. Active rosuvastatin (CRESTOR) 20 Take 20 mg by 0 MG tablet mouth daily. Active metoprolol (LOPRESSOR) 25 Take 12.5 mg 0 MG tablet by mouth 2 (two) times daily. Active nitroglycerin (NITROSTAT) Place 0.4 mg 0 0.4 MG SL tablet under the tongue every 5 (five) minutes as needed for Chest pain Put 1 pill under tongue every 5min as needed for chest pain.No more than 3 doses in 15min.Call 911 if pain is unrelieved 5min after 1st dose . Active acetaminophen (TYLENOL) Take 650 mg 0 325 MG tablet by mouth every 6 (six) hours as needed for Pain. Active docusate sodium (COLACE) Take by mouth 0 100 MG capsule 2 (two) times daily. Active dorzolamide-timolol 1 drop 2 0 (COSOPT) 22.3-6.8 mg/mL (two) times ophthalmic solution daily. Active tafluprost, PF, (ZIOPTAN, Place 1 drop 0 PF,) 0.0015 % Dpet into both ophthalmic solution eyes every evening. Active polyethylene glycol Take 17 g by 0 (GLYCOLAX) 17 gram/dose mouth daily. powder Active alendronate (FOSAMAX) 70 Take 70 mg by 0 MG tablet mouth daily Take in the morning with a full glass of water, on an empty stomach, and do not take anything else by mouth or lie down for the next 30 min. . Active citalopram (CELEXA) 20 MG Take 20 mg by 0 tablet mouth daily. Active insulin aspart U-100 Inject 25 0 (NOVOLOG) 100 unit/mL Units InPn subcutaneousl y daily before lunch. Active calamine-zinc oxide Apply 177 mLs 177 mL 0 (CALADRYL) 8-8 % Lotn topically as 9 topical suspension needed. Active insulin glargine (LANTUS) Inject 56 10 mL 0 100 unit/mL injection Units 9 subcutaneousl y nightly Use as directed . 04/15/2018 Discontinued bumetanide (BUMEX) 1 MG Take 1 mg by 0 tablet mouth daily. 04/15/2018 Discontinued HYDROcodone-acetaminophen Take 1 tablet 0 (NORCO 7.5-325) 7.5-325 by mouth mg per tablet every 6 (six) hours as needed for Pain. 04/15/2018 Discontinued LORazepam (ATIVAN) 0.5 MG Take 0.5 mg 0 tablet by mouth every 6 (six) hours as needed for Anxiety. 04/15/2018 Discontinued sodium polystyrene Take 15 g by 0 (KAYEXALATE) 15 gram/60 mouth every mL suspension other day. 04/15/2018 Discontinued hydrALAZINE (APRESOLINE) Take 25 mg by 0 25 MG tablet mouth 3 (three) times daily. 04/15/2018 Discontinued furosemide (LASIX) 20 MG Take 20 mg by 0 tablet mouth daily. 04/15/2018 Discontinued cloNIDine HCl (CATAPRES) Take 0.2 mg 0 0.2 MG tablet by mouth 3 (three) times daily. 04/15/2018 Discontinued insulin glargine (LANTUS) Inject 32 0 100 unit/mL injection Units subcutaneousl y nightly Use as directed . 04/28/2018 Discontinued furosemide (LASIX) 40 MG Take 1 tablet 30 tablet 0 tablet (40 mg total) 9 by mouth daily for 30 days. 04/28/2018 Discontinued acetaminophen-codeine Take 1 tablet 30 tablet 0 (TYLENOL #3) 300-30 mg by mouth 9 per tablet every 4 (four) hours as needed for up to 10 days. Max Daily Amount: 6 tablets 04/28/2018 Discontinued clindamycin (CLEOCIN) 300 Take 1 28 capsule 0 MG capsule capsule (300 9 mg total) by mouth every 6 (six) hours for 7 days. 04/22/2018 Discontinued hqfpykam-murliihsyAj-xkqh Apply 1 25 packet 0 myxnB (NEOSPORIN) packet 9 3.5-400-5,000 topically 3 hy-gnwc-mfzu OiPk packet (three) times daily. 04/28/2018 Discontinued senna (SENOKOT) 8.6 mg Take 1 tablet 10 tablet 0 tablet (8.6 mg 9 total) by mouth nightly for 10 days. 05/15/2018 gabapentin (NEURONTIN) Take 1 90 capsule 0 100 MG capsule capsule (100 9 mg total) by mouth 3 (three) times daily for 30 days. 04/28/2018 Discontinued L.acidophil,parac-S.therm Take 1 10 capsule 0 -Bif. (ALLYSON-Q) 8 billion capsule by 9 cell Cap per capsule mouth daily for 10 days. 04/22/2018 Discontinued insulin lispro (HUMALOG) Inject 20 18 mL 2 100 unit/mL injection Units 9 subcutaneousl y 3 (three) times daily before meals for 90 days. 05/28/2018 furosemide (LASIX) 40 MG Take 1 tablet 60 tablet 0 tablet (40 mg total) 9 by mouth 2 (two) times daily for 30 days. 05/05/2018 tiZANidine (ZANAFLEX) 4 Take 1 tablet 30 tablet 0 MG tablet (4 mg total) 9 by mouth every 6 (six) hours as needed for up to 7 days. 05/05/2018 traMADol (ULTRAM) 50 mg Take 1 tablet 25 tablet 0 tablet (50 mg total) 9 by mouth every 6 (six) hours as needed for Pain for up to 7 days. Max Daily Amount: 200 mg Active Problems Problem Noted Date Fluid overload, unspecified 04/24/2018 Pericardial effusion 04/24/2018 SOB (shortness of breath) 04/24/2018 Peripheral edema 04/23/2018 Acute chest pain 04/23/2018 S/P CABG x 2 04/05/2018 Refusal of blood transfusions as patient is Jew 04/05/2018 Acute pulmonary insufficiency 04/05/2018 Vasogenic shock 04/05/2018 CKD (chronic kidney disease) 04/05/2018 Diabetic nephropathy 04/05/2018 Hyperglycemia 04/05/2018 Poorly controlled diabetes mellitus 04/05/2018 Acute blood loss anemia 04/05/2018 SIRS (systemic inflammatory response syndrome) 04/05/2018 CAD (coronary artery disease) 03/30/2018 Encounters Care Team Description Date Type Specialty Deondre Nagel MD [place], Narendra, MD Hoffman, Maria, MD Changela, Yumiko Guzmán MD Acute chest pain (Primary Dx); Acute blood loss anemia; Peripheral edema; Transient hypotension; Coronary artery disease involving [place] coronary artery, angina presence unspecified, unspecified whether [place] or transplanted heart; S/P CABG x 2; Acute pulmonary insufficiency; Chronic kidney disease, unspecified CKD stage; Hypervolemia, unspecified hypervolemia type; Coronary artery disease involving [place] coronary artery of [place] heart without angina pectoris; Pericardial effusion; SOB (shortness of breath) 04/22/2018 Hospital Cardiology - Encounter 04/28/2018 04/22/2018 Travel Dillon Osborne MD [facility] CORONARY ARTEM 04/05/2018 Surgery Bautista Santana MD 04/05/2018 Anesthesia Event Sarah Kohler MD 04/02/2018 Anesthesia Cardiac Intensive Care Event 03/31/2018 Travel Dillon Osborne MD Coronary artery disease involving [place] coronary artery of [place] heart without angina pectoris; Coronary artery disease involving [place] coronary artery, angina presence unspecified, unspecified whether [place] or transplanted heart; Dyslipidemia; Preoperative cardiovascular examination; Refusal of blood transfusions as patient is Jew; Acute blood loss anemia; Acute pulmonary insufficiency; Chronic kidney disease, unspecified CKD stage; Diabetic nephropathy associated with type 2 diabetes mellitus (HCC); Hyperglycemia; Poorly controlled diabetes mellitus (HCC); S/P CABG x 2; SIRS (systemic inflammatory response syndrome) (HCC); Vasogenic shock (HCC) 03/30/2018 Hospital Cardiology - Encounter 04/15/2018 03/30/2018 Orders Only General Internal Medicine after 10/08/2017 Family History Medical History Relation Name Comments Diabetes Father Diabetes Maternal Aunt Diabetes Maternal Uncle Heart disease Maternal Uncle Diabetes Mother Heart disease Mother Hyperlipidemia Mother Hypertension Mother Mental illness Mother Stroke Mother Relation Name Status Comments Father Maternal Aunt Maternal Uncle Mother Social History Date Tobacco Use Types Packs/Day Years Used Never Smoker Smokeless Tobacco: Never Used Alcohol Use Drinks/Week oz/Week Comments No Alcohol Habits Answer Date Recorded How often do you have a drink containing alcohol? Never 03/30/2018 How many drinks containing alcohol do you have on Not asked a typical day when you are drinking? How often do you have six or more drinks on one Not asked occasion? Sex Assigned at Date Recorded Not on file Industry Job Start Date Occupation Not on file Not on file Not on file Travel End Travel History Travel Start 03/23/2018 [place] 03/16/2018 Last Filed Vital Signs Time Taken Vital Sign Reading 04/28/2018 11:39 AM 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 Blood Pressure 93/55 04/28/2018 11:39 AM 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 Pulse 65 04/28/2018 11:39 AM 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 Temperature 36.1 C (97 F) 04/28/2018 11:39 AM 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 Respiratory Rate 18 04/28/2018 11:39 AM 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 Oxygen Saturation 98% 04/06/2018 11:40 AM 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 Inhaled Oxygen 40% Concentration 04/26/2018 7:40 AM 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 Weight 100.8 kg (222 lb 3.2 oz) 04/23/2018 9:25 PM 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 Height 152.4 cm (5') 04/26/2018 7:40 AM 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 Body Mass Index 43.4 Plan of Treatment Not on file Implants Device Identifier Shelf Expiration Date Model / Serial / Lot Implanted Type Area Manufactur er 10/06/2022 [id number] / / [id number] Sternal Zipfix Ndl Strl Cardiovasc SYNTHES:SY [id number] - [id number] [facility] Implanted: Qty: 2 on 04/05/2018 by Dillon Osborne MD Procedures Comments Procedure Name Priority Date/Time Associated Diagnosis RHYTHM STRIP - SCAN 07/12/2018 8:40 AM CDT REPORT OF PROCEDURE - 05/18/2018 ENDOSCOPY SCAN 11:40 AM 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 RHYTHM STRIP - SCAN 05/18/2018 11:40 AM 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 RHYTHM STRIP - SCAN 05/06/2018 10:00 AM 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 POCT-GLUCOSE METER Routine 04/28/2018 7:10 AM 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 BUN AND CREATININE Routine 04/28/2018 5:46 AM 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 POCT-GLUCOSE METER Routine 04/27/2018 7:51 PM 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 POCT-GLUCOSE METER Routine 04/27/2018 12:58 PM 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 POCT-GLUCOSE METER Routine 04/27/2018 9:06 AM 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 CBC W/PLT COUNT & AUTO Routine 04/27/2018 DIFFERENTIAL 3:41 AM 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 MAGNESIUM Routine 04/27/2018 3:41 AM 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 CBC W/PLT COUNT & AUTO Routine 04/27/2018 DIFFERENTIAL 3:41 AM 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 BASIC METABOLIC PANEL (7) Routine 04/27/2018 3:41 AM 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 PHOSPHORUS Routine 04/27/2018 3:41 AM 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 POCT-GLUCOSE METER Routine 04/26/2018 9:39 PM 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 US RENAL COMPLETE Routine 04/26/2018 9:14 PM 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 POCT-GLUCOSE METER Routine 04/26/2018 5:49 PM 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 POCT-GLUCOSE METER Routine 04/26/2018 2:04 PM 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 POCT-GLUCOSE METER Routine 04/26/2018 7:39 AM 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 SODIUM, RANDOM URINE Routine 04/26/2018 4:49 AM 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 CREATININE, RANDOM URINE Routine 04/26/2018 4:49 AM 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 URINALYSIS W/ MICROSCOPIC Routine 04/26/2018 4:49 AM 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 PROTEIN, RANDOM URINE Routine 04/26/2018 4:49 AM 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 PHOSPHORUS Routine 04/26/2018 4:34 AM 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 POCT-GLUCOSE METER Routine 04/25/2018 9:15 PM 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 XR CHEST 1 VIEW Routine 04/25/2018 PORTABLE/BEDSIDE 5:57 PM 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 POCT-GLUCOSE METER Routine 04/25/2018 5:44 PM 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 POCT-GLUCOSE METER Routine 04/25/2018 11:15 AM 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 POCT-GLUCOSE METER Routine 04/25/2018 7:56 AM 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 CBC W/PLT COUNT & AUTO Routine 04/25/2018 DIFFERENTIAL 5:00 AM 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 MAGNESIUM Routine 04/25/2018 5:00 AM 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 CBC W/PLT COUNT & AUTO Routine 04/25/2018 DIFFERENTIAL 5:00 AM 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 BASIC METABOLIC PANEL (7) Routine 04/25/2018 5:00 AM 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 POCT-GLUCOSE METER Routine 04/24/2018 9:19 PM 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 POCT-GLUCOSE METER Routine 04/24/2018 6:10 PM 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 POCT-GLUCOSE METER Routine 04/24/2018 1:49 PM 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 POCT-GLUCOSE METER Routine 04/24/2018 7:33 AM 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 CBC W/PLT COUNT & AUTO Routine 04/24/2018 DIFFERENTIAL 4:16 AM 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 PHOSPHORUS Routine 04/24/2018 4:16 AM 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 MAGNESIUM Routine 04/24/2018 4:16 AM 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 CBC W/PLT COUNT & AUTO Routine 04/24/2018 DIFFERENTIAL 4:16 AM 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 POCT-GLUCOSE METER Routine 04/23/2018 9:34 PM 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 TROPONIN I STAT 04/23/2018 4:43 PM 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 COMPREHENSIVE METABOLIC STAT 04/23/2018 PANEL 4:43 PM 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 POCT-GLUCOSE METER Routine 04/23/2018 4:34 PM 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 CBC W/PLT COUNT & AUTO Routine 04/23/2018 DIFFERENTIAL 4:30 PM 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 CBC W/PLT COUNT & AUTO Routine 04/23/2018 DIFFERENTIAL 4:30 PM 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 ECHOCARDIOGRAM REPORT - 04/23/2018 SCAN 3:51 PM 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 2D ECHO W/ DOPPLER STAT 04/23/2018 (CW/PW/COLOR) 12:20 PM 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 POCT-GLUCOSE METER Routine 04/23/2018 11:58 AM 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 ECG 12-LEAD Routine 04/23/2018 11:20 AM 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 Procedure Note - Interface, External Ris In - 04/23/2018 11:03 PM 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 Ventricula r Rate 73 BPM Atrial Rate 73 BPM P-R Interval 144 ms QRS Duration 82 ms Q-T Interval 438 ms QTC Calculatio n(Bazett) 482 ms P [place] 32 degrees R [place] -21 degrees T [place] 130 degrees Normal sinus rhythm ST & T wave abnormalit y, consider lateral ischemia Prolonged QT Abnormal ECG When compared with ECG of 9 19:24, No significan t change was found ECG 12-LEAD Routine 04/23/2018 11:20 AM 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 POCT-LACTIC ACID, VENOUS Routine 04/23/2018 2:49 AM 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 POCT-GLUCOSE METER Routine 04/23/2018 2:48 AM 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 B-TYPE NATRIURETIC FACTOR STAT 04/22/2018 (BNP) 11:47 PM 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 CBC W/PLT COUNT & AUTO STAT 04/22/2018 DIFFERENTIAL 8:34 PM 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 PT/APTT STAT 04/22/2018 8:34 PM 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 CBC W/PLT COUNT & AUTO STAT 04/22/2018 DIFFERENTIAL 8:34 PM 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 TROPONIN I STAT 04/22/2018 8:34 PM 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 MAGNESIUM STAT 04/22/2018 8:34 PM 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 BASIC METABOLIC PANEL (7) STAT 04/22/2018 8:34 PM 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 XR CHEST 1 VIEW STAT 04/22/2018 PORTABLE/BEDSIDE 8:20 PM 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 ECG 12-LEAD Routine 04/22/2018 7:24 PM 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 Procedure Note - Interface, External Ris In - 04/22/2018 8:45 PM 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 Ventricula r Rate 83 BPM Atrial Rate 83 BPM P-R Interval 142 ms QRS Duration 72 ms Q-T Interval 386 ms QTC Calculatio n(Bazett) 453 ms P [place] 27 degrees R [place] -26 degrees T [place] 123 degrees Normal sinus rhythm Left ventricula r hypertroph y with repolariza tion abnormalit y Abnormal ECG When compared with ECG of 9 19:24, No significan t change was found ECG 12-LEAD STAT 04/22/2018 7:24 PM 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 ECG 12-LEAD Routine 04/22/2018 7:24 PM 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 Procedure Note - Interface, External Ris In - 04/22/2018 8:45 PM 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 Ventricula r Rate 83 BPM Atrial Rate 83 BPM P-R Interval 148 ms QRS Duration 70 ms Q-T Interval 392 ms QTC Calculatio n(Bazett) 460 ms P [place] 30 degrees R [place] -24 degrees T [place] 121 degrees Normal sinus rhythm Left ventricula r hypertroph y with repolariza tion abnormalit y Abnormal ECG When compared with ECG of 8 16:28, T wave inversion now evident in Anterior leads POCT-GLUCOSE METER Routine 04/15/2018 12:48 PM 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 POCT-GLUCOSE METER Routine 04/15/2018 8:29 AM 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 MAGNESIUM Routine 04/15/2018 6:14 AM 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 BASIC METABOLIC PANEL (7) Routine 04/15/2018 6:14 AM 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 POCT-GLUCOSE METER Routine 04/14/2018 9:46 PM 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 POCT-GLUCOSE METER Routine 04/14/2018 6:05 PM 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 MAGNESIUM Routine 04/14/2018 4:28 PM 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 BASIC METABOLIC PANEL (7) Routine 04/14/2018 4:28 PM 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 POCT-GLUCOSE METER Routine 04/14/2018 12:54 PM 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 POCT-GLUCOSE METER Routine 04/14/2018 8:39 AM 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 CBC W/PLT COUNT & AUTO Routine 04/14/2018 DIFFERENTIAL 4:04 AM 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 CBC W/PLT COUNT & AUTO Routine 04/14/2018 DIFFERENTIAL 4:04 AM 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 POCT-GLUCOSE METER Routine 04/13/2018 10:42 PM 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 POCT-GLUCOSE METER Routine 04/13/2018 7:08 PM 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 POCT-GLUCOSE METER Routine 04/13/2018 12:24 PM 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 POCT-GLUCOSE METER Routine 04/13/2018 10:04 AM 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 POCT-GLUCOSE METER Routine 04/12/2018 9:47 PM 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 POCT-GLUCOSE METER Routine 04/12/2018 6:42 PM 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 ECHOCARDIOGRAM REPORT - 04/12/2018 SCAN 3:45 PM 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 POCT-GLUCOSE METER Routine 04/12/2018 12:42 PM 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 2D ECHO W/ DOPPLER Routine 04/12/2018 (CW/PW/COLOR) 9:50 AM 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 POCT-GLUCOSE METER Routine 04/12/2018 8:41 AM 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 BASIC METABOLIC PANEL (7) Routine 04/12/2018 5:28 AM 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 POCT-GLUCOSE METER Routine 04/11/2018 10:51 PM 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 POCT-GLUCOSE METER Routine 04/11/2018 5:55 PM 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 NM MUGA CARD IMAGING EQ Routine 04/11/2018 REST WM EF 5:20 PM 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 POCT-GLUCOSE METER Routine 04/11/2018 11:47 AM 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 BASIC METABOLIC PANEL (7) Routine 04/11/2018 8:27 AM 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 POCT-GLUCOSE METER Routine 04/11/2018 7:46 AM 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 POCT-GLUCOSE METER Routine 04/10/2018 9:03 PM 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 POCT-GLUCOSE METER Routine 04/10/2018 11:56 AM 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 POCT-GLUCOSE METER Routine 04/10/2018 9:35 AM 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 MAGNESIUM Routine 04/10/2018 3:29 AM 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 BASIC METABOLIC PANEL (7) Routine 04/10/2018 3:29 AM 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 POCT-GLUCOSE METER Routine 04/09/2018 10:46 PM 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 POCT-GLUCOSE METER Routine 04/09/2018 7:30 PM 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 POCT-GLUCOSE METER Routine 04/09/2018 2:04 PM 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 POCT-GLUCOSE METER Routine 04/09/2018 10:12 AM 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 CBC W/PLT COUNT & AUTO Routine 04/09/2018 DIFFERENTIAL 4:30 AM 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 CBC W/PLT COUNT & AUTO Routine 04/09/2018 DIFFERENTIAL 4:30 AM 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 POCT-GLUCOSE METER Routine 04/08/2018 9:23 PM 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 POCT-GLUCOSE METER Routine 04/08/2018 5:13 PM 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 LIPID PANEL Routine 04/08/2018 10:56 AM 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 POCT-GLUCOSE METER Routine 04/08/2018 7:46 AM 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 POCT-GLUCOSE METER Routine 04/08/2018 6:20 AM 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 CBC W/PLT COUNT & AUTO Routine 04/08/2018 DIFFERENTIAL 3:38 AM 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 PHOSPHORUS Routine 04/08/2018 3:38 AM 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 MAGNESIUM Routine 04/08/2018 3:38 AM 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 BASIC METABOLIC PANEL (7) Routine 04/08/2018 3:38 AM 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 CBC W/PLT COUNT & AUTO Routine 04/08/2018 DIFFERENTIAL 3:38 AM 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 POCT-GLUCOSE METER Routine 04/08/2018 2:33 AM 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 POCT-GLUCOSE METER Routine 04/08/2018 12:07 AM 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 POCT-GLUCOSE METER Routine 04/07/2018 6:40 PM 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 POCT-GLUCOSE METER Routine 04/07/2018 3:45 PM 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 POCT-GLUCOSE METER Routine 04/07/2018 12:10 PM 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 XR CHEST 1 VIEW Routine 04/07/2018 PORTABLE/BEDSIDE 9:29 AM 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 POCT-GLUCOSE METER Routine 04/07/2018 7:08 AM 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 PHOSPHORUS Routine 04/07/2018 5:41 AM 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 MAGNESIUM Routine 04/07/2018 5:41 AM 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 BASIC METABOLIC PANEL (7) Routine 04/07/2018 5:41 AM 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 CBC W/PLT COUNT & AUTO Routine 04/07/2018 DIFFERENTIAL 5:38 AM 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 CBC W/PLT COUNT & AUTO Routine 04/07/2018 DIFFERENTIAL 5:38 AM 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 POCT-GLUCOSE METER Routine 04/07/2018 4:38 AM 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 POCT-GLUCOSE METER Routine 04/07/2018 3:21 AM 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 POCT-GLUCOSE METER Routine 04/07/2018 1:24 AM 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 POCT-GLUCOSE METER Routine 04/06/2018 11:09 PM 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 POCT-GLUCOSE METER Routine 04/06/2018 9:23 PM 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 POCT-GLUCOSE METER Routine 04/06/2018 7:08 PM 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 POCT-GLUCOSE METER Routine 04/06/2018 6:17 PM 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 POCT-GLUCOSE METER Routine 04/06/2018 11:55 AM 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 BLOOD GAS, ARTERIAL Routine 04/06/2018 10:45 AM 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 OXYGEN SATURATION, Routine 04/06/2018 MEASURED 10:45 AM 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 POCT-GLUCOSE METER Routine 04/06/2018 8:45 AM 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 POCT-GLUCOSE METER Routine 04/06/2018 7:28 AM 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 POCT-GLUCOSE METER Routine 04/06/2018 3:58 AM 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 XR CHEST 1 VIEW Routine 04/06/2018 PORTABLE/BEDSIDE 3:27 AM 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 POCT-GLUCOSE METER Routine 04/06/2018 3:25 AM 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 CBC W/PLT COUNT & AUTO Routine 04/06/2018 DIFFERENTIAL 3:14 AM 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 BLOOD GAS, ARTERIAL Routine 04/06/2018 3:14 AM 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 LACTIC ACID, ARTERIAL Routine 04/06/2018 3:14 AM 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 CBC W/PLT COUNT & AUTO Routine 04/06/2018 DIFFERENTIAL 3:14 AM 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 PHOSPHORUS Routine 04/06/2018 3:14 AM 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 MAGNESIUM Routine 04/06/2018 3:14 AM 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 BASIC METABOLIC PANEL (7) Routine 04/06/2018 3:14 AM 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 TROPONIN I Routine 04/06/2018 3:14 AM 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 POCT-GLUCOSE METER Routine 04/06/2018 2:13 AM 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 POCT-GLUCOSE METER Routine 04/06/2018 1:02 AM 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 POCT-GLUCOSE METER Routine 04/05/2018 11:54 PM 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 POCT-GLUCOSE METER Routine 04/05/2018 10:47 PM 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 POCT-GLUCOSE METER Routine 04/05/2018 9:08 PM 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 HGB/HCT (H&H) - STAT LAB STAT 04/05/2018 8:38 PM 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 POTASSIUM-STAT LAB STAT 04/05/2018 8:38 PM 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 SODIUM NA-STAT LAB STAT 04/05/2018 8:38 PM 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 BLOOD GAS, ARTERIAL STAT 04/05/2018 8:38 PM 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 MAGNESIUM STAT 04/05/2018 8:38 PM 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 LACTIC ACID, ARTERIAL STAT 04/05/2018 8:38 PM 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 POCT-GLUCOSE METER Routine 04/05/2018 7:57 PM 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 POCT-GLUCOSE METER Routine 04/05/2018 6:58 PM 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 POCT-GLUCOSE METER Routine 04/05/2018 6:17 PM 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 POCT-GLUCOSE METER Routine 04/05/2018 4:55 PM 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 CBC W/PLT COUNT & AUTO STAT 04/05/2018 DIFFERENTIAL 3:04 PM 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 PROTHROMBIN TIME/INR STAT 04/05/2018 3:04 PM 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 CALCIUM, IONIZED Routine 04/05/2018 3:04 PM 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 BLOOD GAS, ARTERIAL STAT 04/05/2018 3:04 PM 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 LACTIC ACID, ARTERIAL STAT 04/05/2018 3:04 PM 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 OXYGEN SATURATION, STAT 04/05/2018 MEASURED 3:04 PM 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 CBC W/PLT COUNT & AUTO STAT 04/05/2018 DIFFERENTIAL 3:04 PM 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 PHOSPHORUS STAT 04/05/2018 3:04 PM 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 MAGNESIUM STAT 04/05/2018 3:04 PM 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 BASIC METABOLIC PANEL (7) STAT 04/05/2018 3:04 PM 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 TROPONIN I Routine 04/05/2018 3:04 PM 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 XR CHEST 1 VIEW STAT 04/05/2018 PORTABLE/BEDSIDE 2:56 PM 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 HGB/HCT (H&H) - STAT LAB STAT 04/05/2018 2:21 PM 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 GLUCOSE-STAT LAB STAT 04/05/2018 2:21 PM 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 POTASSIUM-STAT LAB STAT 04/05/2018 2:21 PM 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 SODIUM NA-STAT LAB STAT 04/05/2018 2:21 PM 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 BLOOD GAS, ARTERIAL STAT 04/05/2018 2:21 PM 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 CALCIUM, IONIZED STAT 04/05/2018 2:21 PM 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 RRL CRITICAL LABS STAT 04/05/2018 (ABG,NA,K,H&H,GLUCOSE) 2:21 PM 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 XR X-RAY NO CHARGE Routine 04/05/2018 2:16 PM 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 HGB/HCT (H&H) - STAT LAB STAT 04/05/2018 1:05 PM 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 GLUCOSE-STAT LAB STAT 04/05/2018 1:05 PM 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 POTASSIUM-STAT LAB STAT 04/05/2018 1:05 PM 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 SODIUM NA-STAT LAB STAT 04/05/2018 1:05 PM 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 BLOOD GAS, ARTERIAL STAT 04/05/2018 1:05 PM ARMATURE VARNISHER CALCIUM, IONIZED STAT 04/05/2018 1:05 PM ARMATURE VARNISHER RRL CRITICAL LABS STAT 04/05/2018 (ABG,NA,K,H&H,GLUCOSE) 1:05 PM ARMATURE VARNISHER POCT-ACT Routine 04/05/2018 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) - STAT LAB STAT 04/05/2018 12:14 PM [employer]ER GLUCOSE-STAT LAB STAT 04/05/2018 12:14 PM [employer]ER POTASSIUM-STAT LAB STAT 04/05/2018 12:14 PM [employer]ER SODIUM NA-STAT LAB STAT 04/05/2018 12:14 PM [employer] BLOOD GAS, ARTERIAL STAT 04/05/2018 12:14 PM [employer] CALCIUM, IONIZED STAT 04/05/2018 12:14 PM [employer] RRL CRITICAL LABS STAT 04/05/2018 (ABG,NA,K,H&H,GLUCOSE) 12:14 PM [employer] POCT-ACT Routine 04/05/2018 12:05 PM [employer]ER POCT-ACT Routine 04/05/2018 11:21 AM [employer]ARN[employer]ER HGB/HCT (H&H) - STAT LAB STAT 04/05/2018 10:46 AM [employer]ER GLUCOSE-STAT LAB STAT 04/05/2018 10:46 AM [employer]ER POTASSIUM-STAT LAB STAT 04/05/2018 10:46 AM 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 NA-STAT LAB STAT 04/05/2018 10:46 AM 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 GAS, ARTERIAL STAT 04/05/2018 10:46 AM 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 CALCIUM, IONIZED STAT 04/05/2018 10:46 AM ARMATURE VARNISHER RRL CRITICAL LABS STAT 04/05/2018 (ABG,NA,K,H&H,GLUCOSE) 10:46 AM ARMATURE VARNISHER POCT-ACT Routine 04/05/2018 10:25 AM ARMATURE VARNISHER POCT-ACT Routine 04/05/2018 9:44 AM ARMATURE VARNISHER ANESTHESIA MACIE Routine 04/05/2018 8:49 AM ARMATURE VARNISHER HGB/HCT (H&H) - STAT LAB STAT 04/05/2018 8:19 AM ARMATURE VARNISHER GLUCOSE-STAT LAB STAT 04/05/2018 8:19 AM ARMATURE VARNISHER POTASSIUM-STAT LAB STAT 04/05/2018 8:19 AM ARMATURE VARNISHER SODIUM NA-STAT LAB STAT 04/05/2018 8:19 AM ARMATURE VARNISHER BLOOD GAS, ARTERIAL STAT 04/05/2018 8:19 AM ARMATURE VARNISHER CALCIUM, IONIZED STAT 04/05/2018 8:19 AM ARMATURE VARNISHER RRL CRITICAL LABS STAT 04/05/2018 (ABG,NA,K,H&H,GLUCOSE) 8:19 AM ARMATURE VARNISHER ENDOSCOPIC HARVEST,VEIN 04/05/2018 Coronary artery disease 8:00 AM ARMATURE VARNISHER with angina pectoris, unspecified vessel or lesion type, unspecified whether [place] or transplanted heart (HCC) Case Notes 4 TO 5 [facility]SC[facility] Y ARTERY BYPASS SURGERY BYPASS,AORTO CORONARY ARTEM 04/05/2018 Coronary artery disease 8:00 AM ARMATURE VARNISHER with angina pectoris, unspecified vessel or lesion type, unspecified whether [place] or transplanted heart (HCC) Case Notes 4 TO 5 [facility]SC[facility]ON[facility] Y ARTERY BYPASS SURGERY CBC W/PLT COUNT & AUTO Routine 04/05/2018 DIFFERENTIAL 4:42 AM ARMATURE VARNISHER CBC W/PLT COUNT & AUTO Routine 04/05/2018 DIFFERENTIAL 4:42 AM ARMATURE VARNISHER BASIC METABOLIC PANEL (7) Routine 04/05/2018 4:42 AM ARMATURE VARNISHER APTT Routine 04/05/2018 4:42 AM ARMATURE VARNISHER PROTHROMBIN TIME/INR Routine 04/05/2018 4:42 AM ARMATURE VARNISHER MAGNESIUM Routine 04/05/2018 4:42 AM ARMATURE VARNISHER BLOOD GAS, ARTERIAL Routine 04/05/2018 4:42 AM ARMATURE VARNISHER POCT-GLUCOSE METER Routine 04/04/2018 9:58 PM ARMATURE VARNISHER APTT Routine 04/04/2018 8:07 PM ARMATURE VARNISHER POCT-GLUCOSE METER Routine 04/04/2018 5:28 PM ARMATURE VARNISHER ECG 12-LEAD Routine 04/04/2018 4:28 PM ARMATURE VARNISHER POCT-GLUCOSE METER Routine 04/04/2018 3:41 PM ARMATURE VARNISHER URINALYSIS W/ MICROSCOPIC Routine 04/04/2018 1:36 PM ARMATURE VARNISHER PT/APTT Routine 04/04/2018 12:56 PM ARMATURE VARNISHER HEMOGLOBIN A1C Routine 04/04/2018 12:56 PM ARMATURE VARNISHER POCT-GLUCOSE METER Routine 04/04/2018 11:43 AM ARMATURE VARNISHER POCT-GLUCOSE METER Routine 04/04/2018 7:34 AM ARMATURE VARNISHER APTT Routine 04/04/2018 5:03 AM ARMATURE VARNISHER POCT-GLUCOSE METER Routine 04/03/2018 8:14 PM ARMATURE VARNISHER POCT-GLUCOSE METER Routine 04/03/2018 5:02 PM ARMATURE VARNISHER APTT Routine 04/03/2018 2:55 PM ARMATURE VARNISHER POCT-GLUCOSE METER Routine 04/03/2018 12:24 PM ARMATURE VARNISHER ECHOCARDIOGRAM REPORT - 04/03/2018 SCAN 10:50 AM ARMATURE VARNISHER PT/APTT Routine 04/03/2018 7:57 AM ARMATURE VARNISHER POCT-GLUCOSE METER Routine 04/03/2018 7:31 AM ARMATURE VARNISHER PT/APTT Routine 04/03/2018 2:00 AM ARMATURE VARNISHER POCT-GLUCOSE METER Routine 04/02/2018 10:10 PM ARMATURE VARNISHER PT/APTT Routine 04/02/2018 6:21 PM ARMATURE VARNISHER POCT-GLUCOSE METER Routine 04/02/2018 5:20 PM ARMATURE VARNISHER 2D ECHO W/ DOPPLER CATHY 04/02/2018 (CW/PW/COLOR) 1:23 PM ARMATURE VARNISHER POCT-GLUCOSE METER Routine 04/02/2018 12:05 PM ARMATURE VARNISHER APTT Routine 04/02/2018 9:21 AM ARMATURE VARNISHER POCT-GLUCOSE METER Routine 04/02/2018 7:51 AM ARMATURE VARNISHER APTT Routine 04/02/2018 12:38 AM ARMATURE VARNISHER FERRITIN Routine 04/02/2018 12:38 AM ARMATURE VARNISHER IRON, TIBC, % SAT. Routine 04/02/2018 (WITHOUT FERRITIN) 12:38 AM ARMATURE VARNISHER POCT-GLUCOSE METER Routine 04/01/2018 10:07 PM ARMATURE VARNISHER POCT-GLUCOSE METER Routine 04/01/2018 4:32 PM ARMATURE VARNISHER APTT Routine 04/01/2018 2:33 PM ARMATURE VARNISHER PLATELET AGGREGATION: AP Routine 04/01/2018 FUNCTION SCREEN 2:33 PM ARMATURE VARNISHER POCT-GLUCOSE METER Routine 04/01/2018 12:43 PM ARMATURE VARNISHER POCT-GLUCOSE METER Routine 04/01/2018 7:35 AM ARMATURE VARNISHER APTT Routine 04/01/2018 7:20 AM ARMATURE VARNISHER CBC W/PLT COUNT & AUTO Routine 04/01/2018 DIFFERENTIAL 5:47 AM ARMATURE VARNISHER APTT Routine 04/01/2018 5:47 AM ARMATURE VARNISHER PROTHROMBIN TIME/INR Routine 04/01/2018 5:47 AM ARMATURE VARNISHER MAGNESIUM Routine 04/01/2018 5:47 AM ARMATURE VARNISHER BASIC METABOLIC PANEL (7) Routine 04/01/2018 5:47 AM ARMATURE VARNISHER CBC W/PLT COUNT & AUTO Routine 04/01/2018 DIFFERENTIAL 5:47 AM ARMATURE VARNISHER APTT Routine 03/31/2018 10:58 PM ARMATURE VARNISHER PROTHROMBIN TIME/INR Routine 03/31/2018 10:58 PM ARMATURE VARNISHER POCT-GLUCOSE METER Routine 03/31/2018 9:09 PM ARMATURE VARNISHER APTT Routine 03/31/2018 4:02 PM ARMATURE VARNISHER POCT-GLUCOSE METER Routine 03/31/2018 4:01 PM ARMATURE VARNISHER URINALYSIS W/ MICROSCOPIC Routine 03/31/2018 2:28 PM ARMATURE VARNISHER ARTERIAL DOPPLER ARMS Routine 03/31/2018 BILATERAL 10:40 AM ARMATURE VARNISHER APTT Routine 03/31/2018 8:44 AM ARMATURE VARNISHER PLATELET AGGREGATION: Routine 03/31/2018 FUNCTION SCREEN 8:43 AM ARMATURE VARNISHER VENOUS DOPPLER LEGS Routine 03/31/2018 BILATERAL 7:35 AM ARMATURE VARNISHER POCT-GLUCOSE METER Routine 03/31/2018 6:34 AM ARMATURE VARNISHER CAROTID DOPPLER BILATERAL Routine 03/31/2018 6:15 AM ARMATURE VARNISHER XR CHEST 2 VIEWS Routine 03/31/2018 5:20 AM ARMATURE VARNISHER ECG 12-LEAD Routine 03/30/2018 11:26 PM ARMATURE VARNISHER HEPATITIS C PCR, Routine 03/30/2018 QUANTITATIVE 10:35 PM ARMATURE VARNISHER PFA-100 Routine 03/30/2018 10:34 PM ARMATURE VARNISHER PLATELET AGGREGATION: AP Routine 03/30/2018 FUNCTION SCREEN 10:34 PM ARMATURE VARNISHER CBC W/PLT COUNT & AUTO Routine 03/30/2018 DIFFERENTIAL 10:18 PM ARMATURE VARNISHER MAGNESIUM Routine 03/30/2018 10:18 PM ARMATURE VARNISHER APTT Routine 03/30/2018 10:18 PM ARMATURE VARNISHER COMPREHENSIVE METABOLIC Routine 03/30/2018 PANEL 10:18 PM ARMATURE VARNISHER CBC W/PLT COUNT & AUTO Routine 03/30/2018 DIFFERENTIAL 10:18 PM ARMATURE VARNISHER after 10/08/2017 Results * RHYTHM STRIP - SCAN (07/12/2018 8:40 AM CDT) Only the most recent of 3 results within the time period is included. Narrative Performed At * EKG-SCANNED (05/18/2018 11:40 AM ARMATURE VARNISHER) Narrative Performed At * POC-Glucose meter (04/28/2018 7:10 AM ARMATURE VARNISHER) Only the most recent of 96 results within the time period is included. POC-Glucose Meter 246 (H)Comment: TESTED AT 70 - 110 mg/dL [facility] [address] [facility] [address] Specimen Blood Performing Organization Address City/State/Zipcode Phone Number [facility] [address] [place] [address] [facility] * BUN and Creatinine (04/28/2018 5:46 AM ARMATURE VARNISHER) BUN 54 (H) 7 - 21 mg/dL [facility] Creatinine 1.64 (H) 0.57 - 1.25 mg/dL [facility] EGFR 32Comment: ESTIMATED GFR IS mL/min/1.[address] [facility] NOT ACCURATE CREATININE [facility] CLEARANCE IN PREDICTING GLOMERULAR FILTRATION RATE. ESTIMATED GFR IS NOT APPLICABLE FOR DIALYSIS PATIENTS. Specimen Blood Performing Organization Address City/[facility]/Zipcode Phone Number [facility] [address] [place] [address] [facility] * CBC with platelet count + automated diff (04/27/2018 3:41 AM ARMATURE VARNISHER) Only the most recent of 14 results within the time period is included. WBC 7.2 3.5 - 10.5 K/L [facility] RBC 3.44 (L) 3.93 - 5.22 M/L [facility] Hemoglobin 9.9 (L) 11.2 - 15.7 GM/DL [facility] Hematocrit 32.6 (L) 34.1 - 44.9 % [facility] MCV 94.8 79.4 - 94.8 fL [facility] MCH 28.8 25.6 - 32.2 pg [facility] MCHC 30.4 (L) 32.2 - 35.5 GM/DL [facility] RDW 13.4 11.7 - 14.4 % [facility] Platelets 303 150 - 450 K/CU MM [facility] MPV 10.2 9.4 - 12.3 fL [facility] nRBC 0 0 - 0 /100 WBC [facility] % Neutros 54 % [facility] % Lymphs 34 % [facility] % Monos 6 % [facility] % Eos 5 % [facility] % Baso 1 % [facility] # Neutros 3.89 1.56 - 6.13 K/L [facility] # Lymphs 2.45 1.18 - 3.74 K/L [facility] # Monos 0.43 (H) 0.24 - 0.36 K/L [facility] # Eos 0.39 (H) 0.04 - 0.36 K/L [facility] # Baso 0.07 0.01 - 0.08 K/L [facility] Immature 0 0 - 1 % [facility] Granulocytes-[facility] Specimen Blood Performing Organization Address City/State/[place] [address] [phone] [place] [address] * Phosphorus (04/27/2018 3:41 AM ARMATURE VARNISHER) Only the most recent of 7 results within the time period is included. Phosphorus 4.7 2.3 - 4.7 mg/dL [facility] Specimen Blood Performing Organization Address City/[facility]/Zipcode Phone Number [address] [address] [facility] * Magnesium (04/27/2018 3:41 AM ARMATURE VARNISHER) Only the most recent of 15 results within the time period is included. Magnesium 2.2 1.6 - 2.6 mg/dL [facility] Specimen Blood Performing Organization Address City/[facility]/[place] [address] [facility] * Basic Metabolic Panel (04/27/2018 3:41 AM ARMATURE VARNISHER) Only the most recent of 14 results within the time period is included. Sodium 136 136 - 145 meq/L [facility] Potassium 4.2 3.5 - 5.1 meq/L [facility] Chloride 100 98 - 107 meq/L [facility] CO2 27 22 - 29 meq/L [facility] BUN 48 (H) 7 - 21 mg/dL [facility] Creatinine 1.70 (H) 0.57 - 1.25 mg/dL [facility] Glucose 218 (H) 70 - 105 mg/dL [facility] Calcium 9.7 8.4 - 10.2 mg/dL [facility] EGFR 30Comment: ESTIMATED GFR IS mL/min/1.[address] [facility] NOT ACCURATE CREATININE [facility] CLEARANCE IN PREDICTING GLOMERULAR FILTRATION RATE. ESTIMATED GFR IS NOT APPLICABLE FOR DIALYSIS PATIENTS. Specimen Blood Performing Organization Address City/State/Zipcode Phone Number [facility] [address] [place] [address] [facility] * US renal complete (04/26/2018 9:14 PM ARMATURE VARNISHER) Specimen Narrative Performed At FINAL REPORT [facility] INDICATION: Acute kidney injury. TECHNIQUE: Renal ultrasound complete. COMPARISON: None. FINDINGS: Right kidney measures 10.9 x 4.6 x 4.4 cm. Left kidney measures 10.1 x 5.6 x 4.9 cm. Cortical thickness of both kidneys appears normal. No renal mass or hydronephrosis is demonstrated. Bladder is minimally distended measuring 6 x 6 x 2 cm (estimated volume 42 cc). No bladder mass demonstrated. IMPRESSION: Unremarkable renal ultrasound exam. Signed: Dakotah Alvarado MD Report Verified Date/Time:04/26/2018 22:00:23 Reading Location: [facility] C013W Consult Reading Room Procedure Note Interface, External Ris In - 04/26/2018 10:02 PM ARMATURE VARNISHER FINAL REPORT INDICATION: Acute kidney injury. TECHNIQUE: Renal ultrasound complete. COMPARISON: None. FINDINGS: Right kidney measures 10.9 x 4.6 x 4.4 cm. Left kidney measures 10.1 x 5.6 x 4.9 cm. Cortical thickness of both kidneys appears normal. No renal mass or hydronephrosis is demonstrated. Bladder is minimally distended measuring 6 x 6 x 2 cm (estimated volume 42 cc). No bladder mass demonstrated. IMPRESSION: Unremarkable renal ultrasound exam. Signed: Dakotah Alvarado MD Report Verified Date/Time: 04/26/2018 22:00:23 Reading Location: [address] Consult Reading Room Performing Organization Address [facility] Phone Number [facility] * Sodium, random urine (04/26/2018 4:49 AM ARMATURE VARNISHER) Sodium Urine 56 meq/L [facility] Specimen Urine Narrative Performed At Reference Range: No Normals [facility] Performing Organization Address [facility] Phone Number [place] [phone] * Protein, random urine (04/26/2018 4:49 AM ARMATURE VARNISHER) Protein, Urine 56 (H) 0 - 14 mg/dL [facility] Specimen Urine Performing Organization Address [facility] Phone Number [place] [phone] [place] [address] * Creatinine, random urine (04/26/2018 4:49 AM ARMATURE VARNISHER) Creatinine, Ur 110.0 mg/dL [facility] Specimen Urine Narrative Performed At Reference Range: No Normals [facility] Performing Organization Address [facility] [place] [address] [phone] [place] [address] * Urinalysis w/Microscopic (04/26/2018 4:49 AM ARMATURE VARNISHER) Only the most recent of 3 results within the time period is included. Color, UA Yellow [facility] Clarity, UA Clear [facility] Specific [place], UA 1.016 1.001 - 1.035 [facility] pH, UA 5.5 5.0 - 8.0 [facility] Protein, UA 50 mg/dL (A) Negative [facility] Glucose, UA 500 mg/dL (A) Negative [facility] Ketones, UA Negative Negative [facility] Bilirubin, UA Negative Negative [facility] Blood, UA Negative Negative [facility] Nitrite, UA Negative Negative [facility] Leukocytes, UA Negative Negative [facility] Urobilinogen, UA 0.2 0.2 - 1.0 mg/dL [facility] RBC, UA 1 /HPF [facility] WBC, UA <1 /HPF [facility] Bacteria, UA Rare [facility] Squam Epithel, UA 1 /HPF [facility] Hyaline Casts, UA 2 /LPF [facility] Amorphous Crystals Rare [facility] Specimen Source [facility] Specimen Urine Performing Organization Address City/State/Zipcode Phone Number [facility] [address] [place] [address] [facility] * XR chest 1 view portable / bedside (04/25/2018 5:57 PM ARMATURE VARNISHER) Only the most recent of 5 results within the time period is included. Specimen Narrative Performed At FINAL REPORT [facility] INDICATION: CHF COMPARISON: April 22 TECHNIQUE: Chest radiograph, single view, portable technique. FINDINGS / IMPRESSION: Enlarged heart shadow and pulmonary venous congestion. Previously there was suggestion of mild interstitial pulmonary edema and this is no longer appreciated. No pleural effusion demonstrated. Intact median sternotomy wires noted. Signed: Dakotah Alvarado MD Report Verified Date/Time:04/25/2018 19:27:26 Reading Location: [facility] B1 C013W Consult Reading Room Procedure Note Interface, External Ris In - 04/25/2018 7:29 PM ARMATURE VARNISHER FINAL REPORT INDICATION: CHF COMPARISON: April 22 TECHNIQUE: Chest radiograph, single view, portable technique. FINDINGS / IMPRESSION: Enlarged heart shadow and pulmonary venous congestion. Previously there was suggestion of mild interstitial pulmonary edema and this is no longer appreciated. No pleural effusion demonstrated. Intact median sternotomy wires noted. Signed: Dakotah Alvarado MD Report Verified Date/Time: 04/25/2018 19:27:26 Reading Location: [facility] B1 C013W Consult Reading Room Performing Organization Address City/[facility]/Zipcode Phone Number [facility] * Troponin I (not available at [facility]) (04/23/2018 4:43 PM ARMATURE VARNISHER) Only the most recent of 4 results within the time period is included. Troponin I 0.04 (H) 0.00 - 0.03 ng/mL [facility] Specimen Blood Narrative Performed At Troponin I (TnI) levels must be interpreted in the context of the presenting [facility] symptoms and the clinical findings. Elevated TnI levels indicate myocardial [facility] damage, but are not specific for ischemic heart disease. Elevated TnI levels are seen in patients with other cardiac conditions (including myocarditis and congestive heart failure), and slight TnI elevations occur in patients with other conditions, including sepsis, renal failure, acidosis, acute neurological disease, and persistent tachyarrhythmia. Performing Organization Address City/State/Zipcode Phone Number [address] [address] [facility] * Comprehensive metabolic panel (04/23/2018 4:43 PM ARMATURE VARNISHER) Only the most recent of 2 results within the time period is included. Protein, Total 7.3 6.0 - 8.3 gm/dL [facility] Albumin 3.6 3.5 - 5.0 g/dL [facility] Alkaline Phosphatase 88 40 - 150 U/L [facility] Total Bilirubin 0.4 0.2 - 1.2 mg/dL [facility] Sodium 138 136 - 145 meq/L [facility] Potassium 3.5 3.5 - 5.1 meq/L [facility] Chloride 102 98 - 107 meq/L [facility] CO2 26 22 - 29 meq/L [facility] BUN 27 (H) 7 - 21 mg/dL [facility] Creatinine 1.30 (H) 0.57 - 1.25 mg/dL [facility] Glucose 177 (H) 70 - 105 mg/dL [facility] Calcium 9.9 8.4 - 10.2 mg/dL [facility] AST 26 5 - 34 U/L [facility] ALT 16 6 - 55 U/L [facility] EGFR 41Comment: ESTIMATED GFR IS mL/min/1.[address] [facility] NOT ACCURATE CREATININE [facility] CLEARANCE IN PREDICTING GLOMERULAR FILTRATION RATE. ESTIMATED GFR IS NOT APPLICABLE FOR DIALYSIS PATIENTS. Specimen Blood Performing Organization Address City/State/Zipcode Phone Number [facility] [address] [place] [address] [facility] * ECHOCARDIOGRAM REPORT - SCAN (04/23/2018 3:51 PM ARMATURE VARNISHER) Narrative Performed At * 2D Echo W/Doppler(CW/PW/Color) (04/23/2018 12:20 PM ARMATURE VARNISHER) Ejection Fraction [facility] ECHO HEARTLAB [facility] Specimen Narrative Performed At Transthoracic Echocardiography Report (TTE) [facility] ECHO [facility]ART[facility] Demographics [facility] Patient Name Sara BUTLER of Study 04/23/2018 TRISTA [id number] GenderFemale Visit Number [id number] RaceHispanic [id number] Number [id number] Number Date of Birth1955 Referring Physician Dae Jeffries Age62 year(s) Medical Secretary Teacher Rossi Hernandez RDCS InterpretingBasant MD Dae Physician Procedure Type of Study TTE procedure:2DECHO W DOPPLER(CW/PW/COLOR) (STAT) Indications:Shortness of breath. Clinical History CKD;DM;HEPC;HTN;ME;STROKE;BYPASSX2 04/05/18. HGB 10.4 HCT 33.9 % Contrast Medium: Definity. Height: 60 inches Weight: 99.79 kg (220 lbs) BSA: 1.94 m^2 BMI: 42.97 kg/m^2 HR: 73 bpm BP: 107/49 mmHg Summary Technically difficult study. LV endocardium is well visualized with IV ultrasound enhancing agent. Parasternal long axis measurements not possible. 1. Grossly the LV is normal in size. All of the LV segments contract normally . Borderline concentric LV hypertrophy. Abnormal septal motion due to prior cardiac surgery. Otherwise normal segmental wall motion. Estimated LVEF by qualitative assessment is normal (55-60%) . Grade 2 diastolic dysfunction (moderately increased LA pressure). 2. RV is partially visualized. In the limited views, the RV appears normal in size. Global RV systolic function is mild to moderately depressed. S' 5 cm/sec. TAPSE 1 cm. 3. Imaging is suboptimal for accurate measurement of the LA volumes. Based on the PLAX diameter of 4.2 cm, the LA is dilated. RA size is normal. 4. Mild tricuspid regurgitation. Estimated peak systolic PA pressure is cannot be determined due to inadequate TR velocity signal . The estimated RA pressure by IVC dynamics 0-5mmHg . 5. A circumferential moderate pericardial effusion is present . Greatest pericardial end-diastolic size is approx. 1.7-1.8 cm around lateral and posterior LV . Trivial effusion anterior to RV in the limited views. . Pericardial tamponade physiology is not evident. Previous Study Compared to the prior study dated 04/12/2018, the moderate size pericardial effusion is new. Findings discussed with Dr [place] DRAPER. Signature Findings Left Ventricle Technically difficult study. LV endocardium is well visualized with IV ultrasound enhancing agent. Parasternal long axis measurements not possible. Grossly the LV is normal in size. All of the LV segments contract normally . Borderline concentric LV hypertrophy. Abnormal septal motion due to prior cardiac surgery. Otherwise normal segmental wall motion. Estimated LVEF by qualitative assessment is normal (55-60%) . Grade 2 diastolic dysfunction (moderately increased LA pressure). Left AtriumImaging is suboptimal for accurate measurement of the LA volumes. Based on the PLAX diameter of 4.2 cm, the LA is dilated. Right VentricleRV is partially visualized. In the limited views, the RV appears normal in size. Global RV systolic function is mild to moderately depressed. S' 5 cm/sec. TAPSE 1 cm. Right Atrium RA size is normal. Aortic Valve Normal AoV structure. No evidence of aortic stenosis. No evidence of aortic regurgitation. Mitral Valve Mild MV leaflet thickening. Trace mitral regurgitation. Tricuspid ValveMild tricuspid regurgitation. Estimated peak systolic PA pressure is cannot be determined due to inadequate TR velocity signal . Pulmonic Valve Normal PV structure and function by limited views and Doppler. AortaAortic root size (SInus of Valsalva diameter) is normal . Proximal ascending aorta size is normal . PericardiumA circumferential moderate pericardial effusion is present . Greatest pericardial end-diastolic size is approx. 1.7-1.8 cm around lateral and posterior LV . Trivial effusion anterior to RV in the limited views. . Pericardial tamponade physiology is not evident. IVC/SVC/PA/PV/PleuralThe estimated RA pressure by IVC dynamics 0-5mmHg . The inferior vena cava size is normal . Chambers/Structures Left Atrium LA Dimension: 4.2 cm Left Ventricle LVEDV Burgos's:88 ml LVESV Burgos's:37 ml LVEF Burgos's: 57 % LVEDVI: 45 ml/m^2 LVESVI: 19 ml/m^2 Right Ventricle RV Diast Dim.: 3.8 cm TAPSE: 1.01 cm Aorta Ao Root S of Yamilex.: 2.8 cm Ascending Aorta: 3 cm Doppler/Quantitative Measurements Mitral Valve MV Peak E-Wave: 1.02 m/sMV Peak A-Wave: 1.11 m/s E/A Ratio: 0.92 Peak Gradient: 4.17 mmHg Deceleration Time: 164.5 msec MV Elias. Peak: Tissue Doppler E' Lateral Velocity: 0.07 m/s E/E': 15.33 Aortic Valve Peak Velocity: 1.6 m/sMean Velocity: 1.04 m/s Peak Gradient: 10.22 mmHg Mean Gradient: 5.11 mmHg AV VTI: 30.67 cm AV DVI: 0.92 LVOT Peak Velocity: 1.3 m/s Peak Gradient: 6.79 mmHg Mean Velocity: 0.9 m/s Mean Gradient: 3.73 mmHg LVOT VTI: 28.11 cm RVOT RVOT VTI (PW): 22.53 cm Procedure Note Interface, External Ris In - 04/23/2018 3:15 PM ARMATURE VARNISHER Transthoracic Echocardiography Report (TTE) Demographics Patient Name MICA BUTLER Date of Study 04/23/2018 TRISTA Gender Female Visit Number [id number] Race Room Number [id number] Number Date of 1955 Referring Physician Dae Jeffries Age 62 year(s) 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 Clinical History CKD;DM;HEPC;HTN;ME;STROKE;BYPASSX2 04/05/18. HGB 10.4 HCT 33.9 % Contrast Medium: Definity. Height: 60 inches Weight: 99.79 kg (220 lbs) BSA: 1.94 m^2 BMI: 42.97 kg/m^2 HR: 73 bpm BP: 107/49 mmHg Summary Technically difficult study. LV endocardium is well visualized with IV ultrasound enhancing agent. Parasternal long axis measurements not possible. 1. Grossly the LV is normal in size. All of the LV segments contract normally . Borderline concentric LV hypertrophy. Abnormal septal motion due to prior cardiac surgery. Otherwise normal segmental wall motion. Estimated LVEF by qualitative assessment is normal (55-60%) . Grade 2 diastolic dysfunction (moderately increased LA pressure). 2. RV is partially visualized. In the limited views, the RV appears normal in size. Global RV systolic function is mild to moderately depressed. S' 5 cm/sec. TAPSE 1 cm. 3. Imaging is suboptimal for accurate measurement of the LA volumes. Based on the PLAX diameter of 4.2 cm, the LA is dilated. RA size is normal. 4. Mild tricuspid regurgitation. Estimated peak systolic PA pressure is cannot be determined due to inadequate TR velocity signal . The estimated RA pressure by IVC dynamics 0-5mmHg . 5. A circumferential moderate pericardial effusion is present . Greatest pericardial end-diastolic size is approx. 1.7-1.8 cm around lateral and posterior LV . Trivial effusion anterior to RV in the limited views. . Pericardial tamponade physiology is not evident. Previous Study Compared to the prior study dated 04/12/2018, the moderate size pericardial effusion is new. Findings discussed with Dr India DRAPER. Signature Findings Left Ventricle Technically difficult study. LV endocardium is well visualized with IV ultrasound enhancing agent. Parasternal long axis measurements not possible. Grossly the LV is normal in size. All of the LV segments contract normally . Borderline concentric LV hypertrophy. Abnormal septal motion due to prior cardiac surgery. Otherwise normal segmental wall motion. Estimated LVEF by qualitative assessment is normal (55-60%) . Grade 2 diastolic dysfunction (moderately increased LA pressure). Left Atrium Imaging is suboptimal for accurate measurement of the LA volumes. Based on the PLAX diameter of 4.2 cm, the LA is dilated. Right Ventricle RV is partially visualized. In the limited views, the RV appears normal in size. Global RV systolic function is mild to moderately depressed. S' 5 cm/sec. TAPSE 1 cm. Right Atrium RA size is normal. Aortic Valve Normal AoV structure. No evidence of aortic stenosis. No evidence of aortic regurgitation. Mitral Valve Mild MV leaflet thickening. Trace mitral regurgitation. Tricuspid Valve Mild tricuspid regurgitation. Estimated peak systolic PA pressure is cannot be determined due to inadequate TR velocity signal . Pulmonic Valve Normal PV structure and function by limited views and Doppler. Aorta Aortic root size (SInus of Valsalva diameter) is normal . Proximal ascending aorta size is normal . Pericardium A circumferential moderate pericardial effusion is present . Greatest pericardial end-diastolic size is approx. 1.7-1.8 cm around lateral and posterior LV . Trivial effusion anterior to RV in the limited views. . Pericardial tamponade physiology is not evident. IVC/SVC/PA/PV/Pleural The estimated RA pressure by IVC dynamics 0-5mmHg . The inferior vena cava size is normal . Chambers/Structures Left Atrium LA Dimension: 4.2 cm Left Ventricle LVEDV Burgos's:88 ml LVESV Burgos's:37 ml LVEF Burgos's: 57 % LVEDVI: 45 ml/m^2 LVESVI: 19 ml/m^2 Right Ventricle RV Diast Dim.: 3.8 cm TAPSE: 1.01 cm Aorta Ao Root S of Yamilex.: 2.8 cm Ascending Aorta: 3 cm Doppler/Quantitative Measurements Mitral Valve MV Peak E-Wave: 1.02 m/s MV Peak A-Wave: 1.11 m/s E/A Ratio: 0.92 Peak Gradient: 4.17 mmHg Deceleration Time: 164.5 msec MV Elias. Peak: Tissue Doppler E' Lateral Velocity: 0.07 m/s E/E': 15.33 Aortic Valve Peak Velocity: 1.6 m/s Mean Velocity: 1.04 m/s Peak Gradient: 10.22 mmHg Mean Gradient: 5.11 mmHg AV VTI: 30.67 cm AV DVI: 0.92 LVOT Peak Velocity: 1.3 m/s Peak Gradient: 6.79 mmHg Mean Velocity: 0.9 m/s Mean Gradient: 3.73 mmHg LVOT VTI: 28.11 cm RVOT RVOT VTI (PW): 22.53 cm Performing Organization Address City/State/Zipcode Phone Number [facility] * ECG 12 lead (04/23/2018 11:20 AM ARMATURE VARNISHER) Only the most recent of 4 results within the time period is included. Specimen Narrative Performed At Ventricular Rate 73 BPM GE MUSE Atrial Rate 73 BPM P-R Interval 144 ms QRS Duration 82 ms Q-T Interval 438 ms QTC Calculation(Bazett) 482 ms P [place] 32 degrees R [place] -21 degrees T Arlington 130 degrees Normal sinus rhythm ST & Marked T wave abnormality, consider anterolateral ischemia Prolonged QT Abnormal ECG When compared with ECG of 22-APR-2018 19:24, No significant change was found Confirmed by Yoan PEARL, SABRINA ([id number]) on 04/24/2018 8:34:03 AM Procedure Note Interface, External Ris In - 04/24/2018 8:34 AM ARMATURE VARNISHER Ventricular Rate 73 BPM Atrial Rate 73 BPM P-R Interval 144 ms QRS Duration 82 ms Q-T Interval 438 ms QTC Calculation(Bazett) 482 ms P [place] 32 degrees R [place] -21 degrees T [place] 130 degrees Normal sinus rhythm ST & Marked T wave abnormality, consider anterolateral ischemia Prolonged QT Abnormal ECG When compared with ECG of 22-APR-2018 19:24, No significant change was found Confirmed by Yoan PEALR, SABRINA ([id number]) on 04/24/2018 8:34:03 AM Performing Organization Address [facility] Phone Number Results Scorecard MUSE * POC-Lactic Acid, Venous (04/23/2018 2:49 AM ARMATURE VARNISHER) POC-Lactic Acid, Venous 0.9Comment: [facility] [place] [place] 0.9 - 1.7 mmol/L [address] Specimen Blood Performing Organization Address [facility] [place] [place] [address] [facility] * B-type Natriuretic Factor (BNP) (04/22/2018 11:47 PM ARMATURE VARNISHER) BNP 204 (H) 0 - 100 pg/mL [facility] Specimen Blood Performing Organization Address City/State/Zipcode Phone Number [facility] [address] [place] [address] [facility] * PT/PTT (04/22/2018 8:34 PM ARMATURE VARNISHER) Only the most recent of 5 results within the time period is included. Protime 13.3 11.7 - 14.7 seconds [facility] INR 1.0 <=5.9 [facility] PTT 29.4 22.5 - 36.0 seconds [facility] Specimen Blood Narrative Performed At RECOMMENDED COUMADIN/WARFARIN INR THERAPY RANGES [facility] STANDARD DOSE: 2.0 - 3.0 Includes: PROPHYLAXIS for venous thrombosis, [facility] systemic embolization; TREATMENT for venous thrombosis and/or pulmonary embolus. HIGH RISK: Target INR is 2.5-3.5 for patients with mechanical heart valves. Performing Organization Address City/[facility]/Zipcode Phone Number [facility] [address] [place], [place] [id number] [phone] [place] [address] * ECHOCARDIOGRAM REPORT - SCAN (04/12/2018 3:45 PM ARMATURE VARNISHER) Narrative Performed At * 2D Echo W/Doppler(CW/PW/Color) (04/12/2018 9:50 AM ARMATURE VARNISHER) Ejection Fraction [facility] ECHO HEARTLAB [facility] Specimen Narrative Performed At Transthoracic Echocardiography Report (TTE) [facility] ECHO HEARTLAB Demographics [facility] Patient NameSara BUTLER of Study 04/12/2018 E GenderFemale Visit [id number] RaceHispanic Number [id number] Number Date of 1955 Referring Dorothea Johnson Physician Age 62 year(s) 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 Clinical History CAD,HTN,DM,CKD,S/P ACS Height: 60 inches Weight: 97.07 kg (214 lbs) BSA: 1.92 m^2 BMI: 41.79 kg/m^2 HR: 82 bpm BP: 128/58 mmHg Summary The left ventricle is chamber size (by vol index) is normal (female - LVED vol - 29-61ml/m2). Mild concentric LV hypertrophy. All of the LV segments contract normally . LVEF by Burgos's method of disk assessment is normal (55-60%) . Grade 1 diastolic dysfunction (impaired relaxation and low-normal LA pressure). Unable to estimate PA systolic pressure due to lack of significant TR jet. No significant pericardial effusion is visualized. Signature Findings Technical Quality: Technically difficult exam. Rhythm/BPRegular sinus rhythm during the exam. Left Ventricle The LV endocardium is adequately visualized. The left ventricle is chamber size (by vol index) is normal (female - LVED vol - 29-61ml/m2). Mild concentric LV hypertrophy. All of the LV segments contract normally . LVEF by Burgos's method of disk assessment is normal (55-60%) . Grade 1 diastolic dysfunction (impaired relaxation and low-normal LA pressure). Left AtriumLA size is normal . Right VentricleRV chamber size is normal . Global RV systolic function is normal . Right Atrium RA size is probably normal based on available views. Atrial SeptumNormal interatrial septum by available views. Aortic Valve Normal AoV structure and function by limited views and Doppler. Mitral Valve Normal MV structure and function by available views and Doppler. Tricuspid ValveNormal TV structure and function by available views and Doppler. Unable to estimate PA systolic pressure due to lack of significant TR jet. Pulmonic Valve Normal PV structure and function by limited views and Doppler. AortaThe ascending aorta and aortic root are not well visualized but appear normal by limited views. PericardiumNo significant pericardial effusion is visualized. IVC/SVC/PA/PV/PleuralThe inferior vena cava is not well visualized. Chambers/Structures Left Atrium LA Volume: 52.46 ml LA Area: 17.75 cm^2 LA Vol. Index: 27 ml/m^2 Left Ventricle LVEDV Burgos's:81.52 ml LVESV Burgos's:39.98 ml LVEF Burgos's: 51 % LVEDVI: 42 ml/m^2 LVESVI: 21 ml/m^2 Doppler/Quantitative Measurements Mitral Valve MV Peak E-Wave: 0.75 m/sMV Peak A-Wave: 0.88 m/s E/A Ratio: 0.85 Mean Velocity: 0.41 m/s Peak Gradient: 2.22 mmHg Mean Gradient: 0.86 mmHgDeceleration Time: 168 msec MV VTI: 20.17 cm MV Elias. Peak: 0.83 m/s Tissue Doppler E' Septal Velocity: 0.05 m/sA' Septal Velocity: 0.07 m/s E' Lateral Velocity: 0.06 m/s A' Lateral Velocity: 0.04 m/s E/E': 14.47 Aortic Valve Peak Velocity: 0.85 m/sMean Velocity: 0.69 m/s Peak Gradient: 2.88 mmHg Mean Gradient: 1.99 mmHg AV VTI: 17.32 cm AV DVI: 1.34 LVOT Peak Velocity: 1.15 m/s Peak Gradient: 5.27 mmHg Mean Velocity: 0.72 m/s Mean Gradient: 2.54 mmHg LVOT VTI: 23.27 cm RVOT RVOT VTI (PW): 11.69 cm Pulmonic Valve Peak Velocity: 0.65 m/s Peak Gradient: 1.68 mmHg Mean Velocity: 0.48 m/s Mean Gradient: 0.92 mmHg Procedure Note Interface, External Ris In - 04/12/2018 2:42 PM ARMATURE VARNISHER Transthoracic Echocardiography Report (TTE) Demographics Patient Name MICA BUTLER Date of Study 04/12/2018 E Gender Female Visit Number [id number] Race Room Number [id number] Number Date of 1955 Referring Dorothea Johnson Physician Age 62 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 Clinical History CAD,HTN,DM,CKD,S/P ACS Height: 60 inches Weight: 97.07 kg (214 lbs) BSA: 1.92 m^2 BMI: 41.79 kg/m^2 HR: 82 bpm BP: 128/58 mmHg Summary The left ventricle is chamber size (by vol index) is normal (female - LVED vol - 29-61ml/m2). Mild concentric LV hypertrophy. All of the LV segments contract normally . LVEF by Burgos's method of disk assessment is normal (55-60%) . Grade 1 diastolic dysfunction (impaired relaxation and low-normal LA pressure). Unable to estimate PA systolic pressure due to lack of significant TR jet. No significant pericardial effusion is visualized. Signature Findings Technical Quality: Technically difficult exam. Rhythm/BP Regular sinus rhythm during the exam. Left Ventricle The LV endocardium is adequately visualized. The left ventricle is chamber size (by vol index) is normal (female - LVED vol - 29-61ml/m2). Mild concentric LV hypertrophy. All of the LV segments contract normally . LVEF by Burgos's method of disk assessment is normal (55-60%) . Grade 1 diastolic dysfunction (impaired relaxation and low-normal LA pressure). Left Atrium LA size is normal . Right Ventricle RV chamber size is normal . Global RV systolic function is normal . Right Atrium RA size is probably normal based on available views. Atrial Septum Normal interatrial septum by available views. Aortic Valve Normal AoV structure and function by limited views and Doppler. Mitral Valve Normal MV structure and function by available views and Doppler. Tricuspid Valve Normal TV structure and function by available views and Doppler. Unable to estimate PA systolic pressure due to lack of significant TR jet. Pulmonic Valve Normal PV structure and function by limited views and Doppler. Aorta The ascending aorta and aortic root are not well visualized but appear normal by limited views. Pericardium No significant pericardial effusion is visualized. IVC/SVC/PA/PV/Pleural The inferior vena cava is not well visualized. Chambers/Structures Left Atrium LA Volume: 52.46 ml LA Area: 17.75 cm^2 LA Vol. Index: 27 ml/m^2 Left Ventricle LVEDV Burgos's:81.52 ml LVESV Burgos's:39.98 ml LVEF Burgos's: 51 % LVEDVI: 42 ml/m^2 LVESVI: 21 ml/m^2 Doppler/Quantitative Measurements Mitral Valve MV Peak E-Wave: 0.75 m/s MV Peak A-Wave: 0.88 m/s E/A Ratio: 0.85 Mean Velocity: 0.41 m/s Peak Gradient: 2.22 mmHg Mean Gradient: 0.86 mmHg Deceleration Time: 168 msec MV VTI: 20.17 cm MV Elias. Peak: 0.83 m/s Tissue Doppler E' Septal Velocity: 0.05 m/s A' Septal Velocity: 0.07 m/s E' Lateral Velocity: 0.06 m/s A' Lateral Velocity: 0.04 m/s E/E': 14.47 Aortic Valve Peak Velocity: 0.85 m/s Mean Velocity: 0.69 m/s Peak Gradient: 2.88 mmHg Mean Gradient: 1.99 mmHg AV VTI: 17.32 cm AV DVI: 1.34 LVOT Peak Velocity: 1.15 m/s Peak Gradient: 5.27 mmHg Mean Velocity: 0.72 m/s Mean Gradient: 2.54 mmHg LVOT VTI: 23.27 cm RVOT RVOT VTI (PW): 11.69 cm Pulmonic Valve Peak Velocity: 0.65 m/s Peak Gradient: 1.68 mmHg Mean Velocity: 0.48 m/s Mean Gradient: 0.92 mmHg Performing Organization Address City/State/Zipcode Phone Number [facility] * NM muga study (rest) (04/11/2018 5:20 PM ARMATURE VARNISHER) Specimen Narrative Performed At FINAL REPORT Results Scorecard [facility] PROCEDURE:Resting RADIONUCLIDE VENTRICULOGRAM (MUGA Scan) CPT CODE:[id number] INDICATION: CAD, ACB 04/05/2018 PROTOCOL:Autologous red blood cells were labeled with Tc-99m pertechnetate by the in vivo method, because the patient refused in vitro labeling. After appropriate preparation by injection of stannous pyrophosphate, 21.0 mCi of Tc-99m pertechnetate was injected intravenously. Equilibrium gated planar cardiac images were subsequently obtained in multiple views at rest. IMAGING FINDINGS:Study quality is good. LV volume appears normal. RV volume appears normal. Gated images obtained at rest show normal LV wall motion and thickening. LVEF is >65%. IMPRESSION: 1. Normal resting radionuclide ventriculogram. 2. No prior study. Signed: Blank Erickson MD Report Verified Date/Time:04/11/2018 17:34:57 Reading Location: [address] Reading Room Procedure Note Interface, External Ris In - 04/11/2018 5:37 PM ARMATURE VARNISHER FINAL REPORT PROCEDURE: Resting RADIONUCLIDE VENTRICULOGRAM (MUGA Scan) CPT CODE: [id number] INDICATION: CAD, ACB 04/05/2018 PROTOCOL: Autologous red blood cells were labeled with Tc-99m pertechnetate by the in vivo method, because the patient refused in vitro labeling. After appropriate preparation by injection of stannous pyrophosphate, 21.0 mCi of Tc-99m pertechnetate was injected intravenously. Equilibrium gated planar cardiac images were subsequently obtained in multiple views at rest. IMAGING FINDINGS: Study quality is good. LV volume appears normal. RV volume appears normal. Gated images obtained at rest show normal LV wall motion and thickening. LVEF is >65%. IMPRESSION: 1. Normal resting radionuclide ventriculogram. 2. No prior study. Signed: Blank Erickson MD Report Verified Date/Time: 04/11/2018 17:34:57 Reading Location: [address] [address] [facility] Reading Room Performing Organization Address City/[facility] Phone Number GE RIS * Lipid panel (04/08/2018 10:56 AM ARMATURE VARNISHER) Triglycerides 208 mg/dL [facility] Cholesterol 152 mg/dL [facility] HDL 31 mg/dL [facility] LDL Calculated 79 mg/dL [facility] Specimen Blood Narrative Performed At Triglyceride Reference Range: [facility] Low Risk <150 [facility] [id number] High Risk 200-499 Very High Risk>=500 Cholesterol Reference Range: Low Risk <200 [id number] High Risk>240 HDL Cholesterol Reference Range: Low Risk >=60 High Risk <40 LDL Cholesterol Reference Range: Optimal<100 Near [id number] Very High >=190 Performing Organization Address City/[facility]/[place] [address] [phone] [place] [address] * Oxygen saturation, measured (04/06/2018 10:45 AM ARMATURE VARNISHER) Only the most recent of 2 results within the time period is included. O2 Saturation (Measured) 66.7 % [facility] Specimen Blood Performing Organization Address City/[facility] Phone Number [address] [address] [phone] [place] [address] * Blood gas, arterial (04/06/2018 10:45 AM ARMATURE VARNISHER) Only the most recent of 10 results within the time period is included. pH, Arterial 7.41 7.35 - 7.45 [facility] pCO2, Arterial 36 35 - 45 mmHg [facility] pO2, Arterial 91 (H) 80 - 90 mmHg [facility] O2 Sat, Arterial 97.0 96.0 - 97.0 % [facility] HCO3, Arterial 22 21 - 29 mmol/L [facility] Base Excess, Arterial -1.8 -2.0 - 3.0 mmol/L [facility] Patient Temperature 37.2 C [facility] FIO2 40.0 % [facility] Specimen Blood, Arterial Performing Organization Address City/[facility] Phone Number [address] * Lactic acid, arterial, whole blood (04/06/2018 3:14 AM ARMATURE VARNISHER) Only the most recent of 3 results within the time period is included. Lactate, Art 2.2 0.5 - 2.2 mmol/L [facility] Specimen Blood, Arterial Performing Organization Address [facility] Phone Number [address] * Potassium-Stat Lab (04/05/2018 8:38 PM ARMATURE VARNISHER) Only the most recent of 6 results within the time period is included. Potassium 4.4 3.6 - 5.5 meq/L [facility] Specimen Blood, Arterial Performing Organization Address City/[facility] Phone Number [address] * Sodium Na-Stat Lab (04/05/2018 8:38 PM ARMATURE VARNISHER) Only the most recent of 6 results within the time period is included. Sodium 135 135 - 148 meq/L [facility] Specimen Blood, Arterial Performing Organization Address City/[facility] Phone Number [address] * HGB/HCT (H&H)-Stat Lab (04/05/2018 8:38 PM ARMATURE VARNISHER) Only the most recent of 6 results within the time period is included. Hemoglobin 11.9 (L) 12.0 - 15.0 g/dL [facility] Hematocrit 35.0 (L) 36.0 - 45.0 % [facility] Specimen Blood, Arterial Performing Organization Address City/[facility] Phone Number [address] [address] [facility] * Calcium, Ionized (04/05/2018 3:04 PM ARMATURE VARNISHER) Only the most recent of 6 results within the time period is included. Calcium, Ion 1.43 (H) 1.12 - 1.27 mmol/L [facility] pH, Blood 7.30 [facility] Specimen Blood Performing Organization Address [facility] Phone Number [address] [address] [facility] * Prothrombin time/INR (04/05/2018 3:04 PM ARMATURE VARNISHER) Only the most recent of 4 results within the time period is included. Protime 14.2 11.7 - 14.7 seconds [facility] INR 1.1 <=5.9 [facility] Specimen Blood Narrative Performed At RECOMMENDED COUMADIN/WARFARIN INR THERAPY RANGES [facility] STANDARD DOSE: 2.0 - 3.0 Includes: PROPHYLAXIS for venous thrombosis, [facility] systemic embolization; TREATMENT for venous thrombosis and/or pulmonary embolus. HIGH RISK: Target INR is 2.5-3.5 for patients with mechanical heart valves. Performing Organization Address City/[facility] Phone Number [address] [address] [facility] * Glucose-Stat Lab (04/05/2018 2:21 PM ARMATURE VARNISHER) Only the most recent of 5 results within the time period is included. Glucose 231 (H) 70 - 110 mg/dL [facility] Specimen Blood, Arterial Performing Organization Address City/[facility] Phone Number [address] [address] [facility] * XR X-RAY NO CHARGE (04/05/2018 2:16 PM ARMATURE VARNISHER) Specimen Narrative Performed At FINAL REPORT GE [facility] Radiograph of the chest Reason for exam: Incorrect needle count Comparison:March 31, 2018 Discussion: ET, feeding tube right IJ line, mediastinal drain and left-sided chest tubes are present. Status post median sternotomy. There are surgical clips that project over the left mediastinum. The reportedly missing curved needle are not identified on the radiograph. Results called to the OR. Signed: Young Dallas MD Report Verified Date/Time:04/05/2018 14:30:11 Reading Location: [address] Consult Reading Room Procedure Note Interface, External Ris In - 04/05/2018 2:32 PM ARMATURE VARNISHER FINAL REPORT Radiograph of the chest Reason for exam: Incorrect needle count Comparison: March 31, 2018 Discussion: ET, feeding tube right IJ line, mediastinal drain and left-sided chest tubes are present. Status post median sternotomy. There are surgical clips that project over the left mediastinum. The reportedly missing curved needle are not identified on the radiograph. Results called to the OR. Signed: Young Dallas MD Report Verified Date/Time: 04/05/2018 14:30:11 Reading Location: [address] Consult Reading Room Performing Organization Address City/State/Zipcode Phone Number GE RIS * POC ACTIVATED CLOTTING TIME (04/05/2018 12:18 PM ARMATURE VARNISHER) Only the most recent of 5 results within the time period is included. Activated Clotting Time 103Comment: [facility] [facility] sec [address] Specimen Blood Performing Organization Address City/State/Zipcode Phone Number [place] [phone] [place] [address] * MACIE (04/05/2018 8:49 AM ARMATURE VARNISHER) Narrative Performed At Dick Mccormack MD 04/05/2018 12:26 PM MACIE Date: 04/05/2018 8:49 AM Sex: Female Location: OR Requesting Physician: Dillon Osborne MD Examiner: Dick Mccormack MD Shih, Dani Munoz MD Intubated Insertion: easy Modalities: 2D, CFM, PWD and CWD Pre Intervention Summary: Aorta: No aneurysm, no dissection, grade II atheroma (arch, descending aorta) AV: trileaflet morphology, no aortic stenosis, no aortic regurgitation LV: normal chamber size , noraml LVH, normal systolic function (EF 55% by 3D assessment), grade I diastolic dysfxn, no RWMA, no thrombus MV: normal morphology, trace mitral regurgitation, no mitral stenosis LA: no BETTY thrombus, normal size and function PV: limited visualization RV: normal sized chamber, normal function, no thrombus TV: normal morphology, trace tricuspid regurgitation RA: no thrombus no PFO by color dopper flow All findings communicated to surgical team. Post Intervention Summary:S/p ACB x2 Aorta:no dissection AV: no aortic regurgitation LV: low volume, unchanged function MV: mild MR, no MS RV: unchanged function TV: trace TR Trace pericardial effusion All findings communicated to surgical team. Procedure Note Dick Mccormack MD - 04/05/2018 8:49 AM ARMATURE VARNISHER MACIE Date: 04/05/2018 8:49 AM Sex: Female Location: OR Requesting Physician: Dillon Osborne MD Examiner: Dikc Mccormack MD Shih, Dani Munoz MD Intubated Insertion: easy Modalities: 2D, CFM, PWD and CWD Pre Intervention Summary: Aorta: No aneurysm, no dissection, grade II atheroma (arch, descending aorta) AV: trileaflet morphology, no aortic stenosis, no aortic regurgitation LV: normal chamber size , noraml LVH, normal systolic function (EF 55% by 3D assessment), grade I diastolic dysfxn, no RWMA, no thrombus MV: normal morphology, trace mitral regurgitation, no mitral stenosis LA: no BETTY thrombus, normal size and function PV: limited visualization RV: normal sized chamber, normal function, no thrombus TV: normal morphology, trace tricuspid regurgitation RA: no thrombus no PFO by color dopper flow All findings communicated to surgical team. Post Intervention Summary: S/p ACB x2 Aorta: no dissection AV: no aortic regurgitation LV: low volume, unchanged function MV: mild MR, no MS RV: unchanged function TV: trace TR Trace pericardial effusion All findings communicated to surgical team. * aPTT (04/05/2018 4:42 AM ARMATURE VARNISHER) Only the most recent of 13 results within the time period is included. PTT 70.1 (H) 22.5 - 36.0 seconds [facility] Specimen Blood Performing Organization Address City/[facility]/Zipcode Phone Number [facility] [address] [place] [address] [phone] [place] [address] * Hemoglobin A1c (04/04/2018 12:56 PM ARMATURE VARNISHER) Hemoglobin A1C 10.3 (H) 4.3 - 6.1 % [facility] Specimen Blood Performing Organization Address City/[facility] Phone Number [address] [address] [phone] * ECHOCARDIOGRAM REPORT - SCAN (04/03/2018 10:50 AM ARMATURE VARNISHER) Narrative Performed At * 2D Echo W/Doppler(CW/PW/Color) (04/02/2018 1:23 PM ARMATURE VARNISHER) Ejection Fraction [facility] ECHO HEARTLAB [facility] Specimen Narrative Performed At Transthoracic Echocardiography Report (TTE) [facility] ECHO HEARTLAB Demographics [facility] Patient NameMICA BUTLER Date of Study04/02/2018 Female Visit [id number] Room [id number] Number Date of 1955Referring Tri Spencer Age 62 year(s)SonographerNatividad Felder RDCS Data Processing Clerk MD Vane LayolanPhysician Procedure Type of Study TTE procedure:2DECHO W DOPPLER(CW/PW/COLOR) (CATHY) Indications:Pre OP CABG. Clinical History 3 vessel CAD, CP, SOB, ME, TIA, HTN, DM II, CKD Stg III, HLD HGB 13.8 HCT 41.8 % Contrast Medium: Definity. Amount - 3 ml Height: 60 inches Weight: 97.07 kg (214 lbs) BSA: 1.92 m^2 BMI: 41.79 kg/m^2 HR: 80 bpm BP: 115/54 mmHg Summary Technically difficult study. 1. The left ventricle is chamber size (by PSLAX dimension) is normal (female - LVIDd 3.8-5.2cm) . Mild basal septal hypertrophy is present. The following segment(s) appear hypokinetic: basal-mid inferior. Estimated LVEF by qualitative assessment is normal (>60%) . Grade 1 diastolic dysfunction (impaired relaxation and low-normal LA pressure). 2. Normal RV size and systolic function. 3. No significant valvular abnormalities. 4. Unable to estimate peak systolic PA pressure; inadequate TR velocity signal. Previous Study No prior exam available for comparison. Signature Findings Technical Quality: Technically difficult exam. Left Ventricle The left ventricle is chamber size (by PSLAX dimension) is normal (female - LVIDd 3.8-5.2cm) . Mild basal septal hypertrophy is present. The following segment(s) appear hypokinetic: basal-mid inferior. The other segments contract normally. Global LV systolic function normal . Estimated LVEF by qualitative assessment is normal (>60%) . Grade 1 diastolic dysfunction (impaired relaxation and low-normal LA pressure). Left AtriumLA size is normal (16-34 ml/m2) . Right VentricleThe right ventricular chamber size and systolic function are within normal limits. Right Atrium RA cavity size is normal . Aortic Valve AoV is not well visualized. AV appears normal. There is no aortic stenosis. There is no aortic regurgitation. Mitral Valve Mild MV leaflet thickening. No evidence of mitral regurgitation. Tricuspid ValveUnable to estimate peak systolic PA pressure; inadequate TR velocity signal. No evidence of tricuspid regurgitation. Pulmonic Valve Normal PV structure and function by limited views and Doppler. AortaAortic root size (SInus of Valsalva diameter) is normal . PericardiumNo significant pericardial effusion is visualized based on limited views. IVC/SVC/PA/PV/PleuralThe right upper pulmonary vein (RUPV) is normal . The estimated RA pressure by IVC dynamics indeterminate . The inferior vena cava is not visualized. Chambers/Structures Left Atrium LA Volume: 44.64 ml LA Area: 14.47 cm^2 LA Vol. Index: 23 ml/m^2 Left Ventricle LVIDd: 4.44 cm LV Septum Diastolic: 1.31 cm LV PW Diastolic: 1.02 cm LVOT Diameter: 1.88 cm Aorta Ao Root S of Yamilex.: 2.94 cm Doppler/Quantitative Measurements Mitral Valve MV Peak E-Wave: 0.61 m/sMV Peak A-Wave: 1.06 m/s E/A Ratio: 0.57 Peak Gradient: 1.48 mmHg Deceleration Time: 246.6 msec MV Elias. Peak: Tissue Doppler E' Lateral Velocity: 0.06 m/s E/E': 10.76 Aortic Valve Peak Velocity: 1.38 m/sMean Velocity: 1.02 m/s Peak Gradient: 7.63 mmHg Mean Gradient: 4.58 mmHg AV Area (continuity): 3.19 cm^2 AV VTI: 25.43 cm AV DVI: 1.15 LVOT Peak Velocity: 1.42 m/s Peak Gradient: 8.08 mmHg Mean Velocity: 1.03 m/s Mean Gradient: 4.74 mmHg LVOT Diameter: 1.88 cmLVOT VTI: 29.25 cm LVOT Area: 2.78 cm^2LVOT SV:81.15 ml LVOT CO: 6.49 l/min LVOT CI: 3.38 l/min/m^2 Procedure Note Interface, External Ris In - 04/04/2018 9:51 AM ARMATURE VARNISHER Transthoracic Echocardiography Report (TTE) Demographics Patient Name MICA BUTLER Date of Study 04/02/2018 Gender Female Visit Number [id number] Race Room Number [id number] Number Date of 1955 Referring Physician Tj Spencer Age 62 year(s) Medical Secretary Teacher Natividad Felder [facility] Data Processing Clerk Leigh Ann Nolasco Interpreting Stu Gardner MD [place] Physician Procedure Type of Study TTE procedure:2DECHO W DOPPLER(CW/PW/COLOR) (CATHY) Indications:Pre OP CABG. Clinical History 3 vessel CAD, CP, SOB, ME, TIA, HTN, DM II, CKD Stg III, HLD HGB 13.8 HCT 41.8 % Contrast Medium: Definity. Amount - 3 ml Height: 60 inches Weight: 97.07 kg (214 lbs) BSA: 1.92 m^2 BMI: 41.79 kg/m^2 HR: 80 bpm BP: 115/54 mmHg Summary Technically difficult study. 1. The left ventricle is chamber size (by PSLAX dimension) is normal (female - LVIDd 3.8-5.2cm) . Mild basal septal hypertrophy is present. The following segment(s) appear hypokinetic: basal-mid inferior. Estimated LVEF by qualitative assessment is normal (>60%) . Grade 1 diastolic dysfunction (impaired relaxation and low-normal LA pressure). 2. Normal RV size and systolic function. 3. No significant valvular abnormalities. 4. Unable to estimate peak systolic PA pressure; inadequate TR velocity signal. Previous Study No prior exam available for comparison. Signature Findings Technical Quality: Technically difficult exam. Left Ventricle The left ventricle is chamber size (by PSLAX dimension) is normal (female - LVIDd 3.8-5.2cm) . Mild basal septal hypertrophy is present. The following segment(s) appear hypokinetic: basal-mid inferior. The other segments contract normally. Global LV systolic function normal . Estimated LVEF by qualitative assessment is normal (>60%) . Grade 1 diastolic dysfunction (impaired relaxation and low-normal LA pressure). Left Atrium LA size is normal (16-34 ml/m2) . Right Ventricle The right ventricular chamber size and systolic function are within normal limits. Right Atrium RA cavity size is normal . Aortic Valve AoV is not well visualized. AV appears normal. There is no aortic stenosis. There is no aortic regurgitation. Mitral Valve Mild MV leaflet thickening. No evidence of mitral regurgitation. Tricuspid Valve Unable to estimate peak systolic PA pressure; inadequate TR velocity signal. No evidence of tricuspid regurgitation. Pulmonic Valve Normal PV structure and function by limited views and Doppler. Aorta Aortic root size (SInus of Valsalva diameter) is normal . Pericardium No significant pericardial effusion is visualized based on limited views. IVC/SVC/PA/PV/Pleural The right upper pulmonary vein (RUPV) is normal . The estimated RA pressure by IVC dynamics indeterminate . The inferior vena cava is not visualized. Chambers/Structures Left Atrium LA Volume: 44.64 ml LA Area: 14.47 cm^2 LA Vol. Index: 23 ml/m^2 Left Ventricle LVIDd: 4.44 cm LV Septum Diastolic: 1.31 cm LV PW Diastolic: 1.02 cm LVOT Diameter: 1.88 cm Aorta Ao Root S of Yamilex.: 2.94 cm Doppler/Quantitative Measurements Mitral Valve MV Peak E-Wave: 0.61 m/s MV Peak A-Wave: 1.06 m/s E/A Ratio: 0.57 Peak Gradient: 1.48 mmHg Deceleration Time: 246.6 msec MV Elias. Peak: Tissue Doppler E' Lateral Velocity: 0.06 m/s E/E': 10.76 Aortic Valve Peak Velocity: 1.38 m/s Mean Velocity: 1.02 m/s Peak Gradient: 7.63 mmHg Mean Gradient: 4.58 mmHg AV Area (continuity): 3.19 cm^2 AV VTI: 25.43 cm AV DVI: 1.15 LVOT Peak Velocity: 1.42 m/s Peak Gradient: 8.08 mmHg Mean Velocity: 1.03 m/s Mean Gradient: 4.74 mmHg LVOT Diameter: 1.88 cm LVOT VTI: 29.25 cm LVOT Area: 2.78 cm^2 LVOT SV:81.15 ml LVOT CO: 6.49 l/min LVOT CI: 3.38 l/min/m^2 Performing Organization Address City/[facility] Phone Number [facility] ECHO HEART[facility] MKCKESSON CP[facility] * Iron, TIBC, % sat. (without ferritin) (04/02/2018 12:38 AM ARMATURE VARNISHER) Iron 70.0 40.0 - 160.0 ug/dL [facility] TIBC 269 250 - 450 ug/dL [facility] Iron % Saturation 26 20 - 55 % [facility] Specimen Blood Performing Organization Address [facility] Phone Number [address] [address] [facility] * Ferritin (04/02/2018 12:38 AM ARMATURE VARNISHER) Ferritin 91 5 - 275 ng/mL [facility] Specimen Blood Performing Organization Address [facility] Phone Number [address] [address] [facility] * Platelet Aggregation: Function Screen (04/01/2018 2:33 PM ARMATURE VARNISHER) Only the most recent of 3 results within the time period is included. Weak ADP 66 60 - 91 % [facility] Plt. Function Screen 60-100% indicates normal [facility] Interpretation platelet function [facility] Pathologist: Karey Christine MD [facility] (electronic signature) [facility] Platelets 300 150 - 450 K/CU MM [facility] Specimen Blood Narrative Performed At Platelet Function Screen results may be falsely low with platelet counts [facility] <100,000/cu mm. [facility] Performing Organization Address City/[facility] Phone Number [address] [address] [facility] * Arterial doppler arms bilateral (03/31/2018 10:40 AM ARMATURE VARNISHER) Ejection Fraction [facility] Specimen Impressions Performed At Right Impression [facility] ECHO HEARTLAB 1. There are normal triphasic Doppler waveforms in the brachial, radial and [facility] ulnar arteries. 2. The arterial pressures and indices are as follows: brachial 142 mmHg, radial 149 mmHg (1.05) and ulnar 155 mmHg (1.09). 3. The index finger pressure is 141 mmHg with a normal finger/brachial index of 0.99. 4. The digits have adequate flow by PPG waveforms. 5. The palmar arch is intact. 6. The radial artery measurements are as follows: Proximal - 0.31 cm, Mid - 0.28 cm, Distal - 0.25 cm. 7. The ulnar artery measurements are as follows: Proximal - 0.24 cm, Mid - 0.25 cm, Distal - 0.21 cm. Left Impression 1. There are normal triphasic Doppler waveforms in the brachial, radial and ulnar arteries. 2. The arterial pressures and indices are as follows: brachial 142 mmHg, radial 142 mmHg (1.00) and ulnar 158 mmHg (1.11). 3. The index finger pressure is 142 mmHg with a normal finger/brachial index of 1.00. 4. The digits have adequate flow by PPG waveforms. 5. The palmar arch is intact. 6. The radial artery measurements are as follows: Proximal - 0.22 cm, Mid - 0.22 cm, Distal - 0.45 cm. 7. The ulnar artery measurements are as follows: Proximal - 0.20 cm, Mid - 0.19 cm, Distal - 0.19 cm. Conclusions Summary Arterial segmental pressures, diameter measurements, palmar arch test, index finger digital pressure and digital PPG flow were performed bilaterally. The right and left arterial systems had normal triphasic Doppler waveforms and normal digital flow without obstruction. The Ga's test demonstrated an intact palmar arch bilaterally. Arterial measurements are shown above. Signature Narrative Performed At LAB - Upper Extremity Arterial Procedure [facility] ECHO HEARTLAB Demographics MKCKESSON [facility] Patient MICA Harding Date of Study 03/31/2018 62 Visit [id number] male of 1955 Referring Dillon Osborne, Room Number 6215 Physician Medical Secretary Teacher Petar Retana [facility] Physician Procedure Type of Study: Extremities Arteries: Upper Extremity Arterial Procedure, ARTERY PRESSURES ARMS, BILATERAL. Indications for Study:Pre OP CABG. Patient Status:Routine. Study Location:Portable. Technical Quality:Adequate visualization. Risk Factors History of Disease + + +--------+ !Diagnosis !Date!Comments! + + +--------+ !History/Risk Factors: !03/31/2018!CAD ! ! !!DM! ! !!Hx of ME! + + +--------+ Procedure Note Interface, External Ris In - 03/31/2018 3:18 PM ARMATURE VARNISHER PV LAB - Upper Extremity Arterial Procedure Demographics Patient Name MICA BUTLER Date of Study 03/31/2018 Age 62 Visit Number [id number] Gender Female Accession Number [id number] Date of 1955 Referring Dillon Osborne, Room Number 6215 Physician Medical Secretary Teacher Petar Graham Interpreting Laura Retana, S Physician Procedure Type of Study: Extremities Arteries: Upper Extremity Arterial Procedure, ARTERY PRESSURES ARMS, BILATERAL. Indications for Study:Pre OP CABG. Patient Status:Routine. Study Location:Portable. Technical Quality:Adequate visualization. Risk Factors History of Disease + + +--------+ !Diagnosis !Date !Comments! + + +--------+ !History/Risk Factors: !03/31/2018!CAD ! ! ! !DM ! ! ! !Hx of ME! + + +--------+ Impressions Right Impression 1. There are normal triphasic Doppler waveforms in the brachial, radial and ulnar arteries. 2. The arterial pressures and indices are as follows: brachial 142 mmHg, radial 149 mmHg (1.05) and ulnar 155 mmHg (1.09). 3. The index finger pressure is 141 mmHg with a normal finger/brachial index of 0.99. 4. The digits have adequate flow by PPG waveforms. 5. The palmar arch is intact. 6. The radial artery measurements are as follows: Proximal - 0.31 cm, Mid - 0.28 cm, Distal - 0.25 cm. 7. The ulnar artery measurements are as follows: Proximal - 0.24 cm, Mid - 0.25 cm, Distal - 0.21 cm. Left Impression 1. There are normal triphasic Doppler waveforms in the brachial, radial and ulnar arteries. 2. The arterial pressures and indices are as follows: brachial 142 mmHg, radial 142 mmHg (1.00) and ulnar 158 mmHg (1.11). 3. The index finger pressure is 142 mmHg with a normal finger/brachial index of 1.00. 4. The digits have adequate flow by PPG waveforms. 5. The palmar arch is intact. 6. The radial artery measurements are as follows: Proximal - 0.22 cm, Mid - 0.22 cm, Distal - 0.45 cm. 7. The ulnar artery measurements are as follows: Proximal - 0.20 cm, Mid - 0.19 cm, Distal - 0.19 cm. Conclusions Summary Arterial segmental pressures, diameter measurements, palmar arch test, index finger digital pressure and digital PPG flow were performed bilaterally. The right and left arterial systems had normal triphasic Doppler waveforms and normal digital flow without obstruction. The Ga's test demonstrated an intact palmar arch bilaterally. Arterial measurements are shown above. Signature Performing Organization Address City/State/Zipcode Phone Number [facility] [employer] * Venous doppler legs bilateral (03/31/2018 7:35 AM ARMATURE VARNISHER) Ejection Fraction [facility] [employer] Specimen Impressions Performed At [facility] ECHO HEARTLAB 1. There is no deep venous obstruction in the common femoral, profunda [facility] femoral, femoral, popliteal, posterior tibial or peroneal veins. 2. There is no superficial venous obstruction in the great saphenous vein. 3. Venous measurements stated below. Left Impression 1. There is no deep venous obstruction in the common femoral, profunda femoral, femoral, popliteal, posterior tibial or peroneal veins. 2. There is no superficial venous obstruction in the great saphenous vein. 3. Venous measurements stated below. Conclusions Summary Venous duplex imaging and compression of the bilateral lower extremities were performed. The veins were technically difficult to visualize due to edema and patient body habitus. The bilateral venous systems were patent and compressible with no evidence of thrombus where visualized. The venous Doppler waveforms were phasic with respiration . Venous measurements stated below. Signature Velocities are measured in cm/s ; Diameters are measured in cm LE Vein Mapping Superficial - Great Saphenous Vein Right Left + + + + + + + + !Location ! !Diameter!Depth ! !Diameter!Depth ! + + + + + + + + !GSV High Thigh ! !0.79! ! !0.9 ! ! + + + + + + + + !GSV Mid Thigh ! !0.38! ! !0.42! ! + + + + + + + + !GSV Low Thigh ! !0.32! ! !0.43! ! + + + + + + + + !GSV High Calf ! !0.33! ! !0.34! ! + + + + + + + + !GSV Mid Calf ! !0.23! ! !0.26! ! + + + + + + + + !GSV Low Calf ! !0.37! ! !0.33! ! + + + + + + + + Narrative Performed At PV LAB - Lower Extremities Vein Mapping [facility] ECHO HEARTLAB Demographics [facility] Patient NameMICA BUTLER Date of Study 03/31/2018 62 Visit [id number] male of 1955 Referring Dillon BergmanAshkan Antonioparminder, Room Number 6215 Physician Medical Secretary Teacher Siobhan Retana [facility] Physician Procedure Type of Study: Veins: Lower Extremity Vein Mapping, VEIN MAPPING, LOWER EXTREMITY, BILATERAL. Indications for Study:Pre-op evaluation. Patient Status:Routine. Study Location:Portable. Technical Quality:Technically Difficult. Risk Factors History of Disease + + +--------+ !Diagnosis !Date!Comments! + + +--------+ !History/Risk Factors: !03/31/2018!CAD ! ! !!DM! ! !!Hx of ME! + + +--------+ Procedure Note Interface, External Ris In - 03/31/2018 3:18 PM ARMATURE VARNISHER PV LAB - Lower Extremities Vein Mapping Demographics Patient Name MICA BUTLER Date of Study 03/31/2018 Age 62 Visit Number [id number] Gender Female Accession Number [id number] Date of 1955 Referring Dillon Osborne, Room Number 6215 Physician Medical Secretary Teacher Siobhan Coffey Interpreting Laura Retana T Physician Procedure Type of Study: Veins: Lower Extremity Vein Mapping, VEIN MAPPING, LOWER EXTREMITY, BILATERAL. Indications for Study:Pre-op evaluation. Patient Status:Routine. Study Location:Portable. Technical Quality:Technically Difficult. Risk Factors History of Disease + + +--------+ !Diagnosis !Date !Comments! + + +--------+ !History/Risk Factors: !03/31/2018!CAD ! ! ! !DM ! ! ! !Hx of ME! + + +--------+ Impressions Right Impression 1. There is no deep venous obstruction in the common femoral, profunda femoral, femoral, popliteal, posterior tibial or peroneal veins. 2. There is no superficial venous obstruction in the great saphenous vein. 3. Venous measurements stated below. Left Impression 1. There is no deep venous obstruction in the common femoral, profunda femoral, femoral, popliteal, posterior tibial or peroneal veins. 2. There is no superficial venous obstruction in the great saphenous vein. 3. Venous measurements stated below. Conclusions Summary Venous duplex imaging and compression of the bilateral lower extremities were performed. The veins were technically difficult to visualize due to edema and patient body habitus. The bilateral venous systems were patent and compressible with no evidence of thrombus where visualized. The venous Doppler waveforms were phasic with respiration . Venous measurements stated below. Signature Velocities are measured in cm/s ; Diameters are measured in cm LE Vein Mapping Superficial - Great Saphenous Vein Right Left + + + + + + + + !Location ! !Diameter !Depth ! !Diameter !Depth ! + + + + + + + + !GSV High Thigh ! !0.79 ! ! !0.9 ! ! + + + + + + + + !GSV Mid Thigh ! !0.38 ! ! !0.42 ! ! + + + + + + + + !GSV Low Thigh ! !0.32 ! ! !0.43 ! ! + + + + + + + + !GSV High Calf ! !0.33 ! ! !0.34 ! ! + + + + + + + + !GSV Mid Calf ! !0.23 ! ! !0.26 ! ! + + + + + + + + !GSV Low Calf ! !0.37 ! ! !0.33 ! ! + + + + + + + + Performing Organization Address City/State/Zipcode Phone Number [facility] [employer] MKNYLA MENSAHCS * Carotid doppler bilateral (03/31/2018 6:15 AM ARMATURE VARNISHER) Ejection Fraction SLE [employer] [facility] Specimen Impressions Performed At Right Impression [facility] [employer] 1. There is <50% diameter reduction (approximately 14% by 2-D measurement) [facility] in the internal carotid artery with a peak velocity of 82/31 cm/sec and heterogeneous shadowing plaque. 2. There is >50% stenosis in the external carotid artery with a velocity of 168/15cm/sec. 3. There is non-occluding plaque in the common carotid artery. 4. The vertebral artery is not visualized. Left Impression 1. There is <50% diameter reduction (approximately 21% by 2-D measurement) in the internal carotid artery with a peak velocity of 56/23 cm/sec and heterogeneous shadowing plaque. 2. There is >50% stenosis in the external carotid artery with a velocity of 274/17cm/sec. 3. There is non-occluding plaque in the common carotid artery. 4. The vertebral artery flow is antegrade . Conclusions Summary Carotid duplex scanning and color flow imaging were performed bilaterally. The arteries were adequately visualized. The bilateral internal carotid arteries had <50% hemodynamically insignificant stenosis (approximately 14% by 2-D measurement on the right, approximately 21% by 2-D measurement on the left) with heterogeneous plaque. The vertebral artery was not visualized on the right. The left vertebral artery flow was antegrade and normal. Technically difficult exam due to body habitus. Signature Velocities are measured in cm/s ; Diameters are measured in cm Carotid Right Measurements +--------+----+----+-----+ + + + !Location!PSV !EDV !Angle!%Stenosis 2D!%Stenosis Doppler !Tortuosity ! +--------+----+----+-----+ + + + !Prox CCA!59!14.3!60 !!! ! +--------+----+----+-----+ + + + !Dist CCA!69.6!16.8!60 !!! ! +--------+----+----+-----+ + + + !Prox ICA!82.3!31.2!60 !14% !<50%! ! +--------+----+----+-----+ + + + !Dist ICA!99.6!35.5!60 !!! ! +--------+----+----+-----+ + + + !Prox ECA!168 !15.6!60 !!>50%! ! +--------+----+----+-----+ + + + - Additional Measurements:ICAPSV/CCAPSV 1.43.ICAEDV/CCAEDV 2.48. Carotid Left Measurements +---------+----+----+-----+ + + + !Location !PSV !EDV !Angle!%Stenosis 2D !%Stenosis Doppler !Tortuosity ! +---------+----+----+-----+ + + + !Prox CCA !72.9!16.8!60 ! !! ! +---------+----+----+-----+ + + + !Dist CCA !80.6!20.3!60 ! !! ! +---------+----+----+-----+ + + + !Prox ICA !56!23.1!60 !21%!<50%! ! +---------+----+----+-----+ + + + !Dist ICA !62.3!26.6!60 ! !! ! +---------+----+----+-----+ + + + !Prox ECA !274 !17.2!60 ! !>50%! ! +---------+----+----+-----+ + + + !Vertebral!74.3!28!60 ! !! ! +---------+----+----+-----+ + + + - There is antegrade vertebral flow noted on the left side. - Additional Measurements:ICAPSV/CCAPSV 0.77.ICAEDV/CCAEDV 1.58. Narrative Performed At LAB - Carotid Duplex Study [facility] Demographics [facility] Patient MICA Harding Date of Study 03/31/2018 62 Visit [id number] male of 1955 Referring Dillon Osborne, Room Number 6215 Physician Medical Secretary Teacher Siobhan Retana, [facility] Physician Procedure Type of Study: Cerebral: Carotid, CAROTID DOPPLER, BILATERAL. Indications for Study:Pre-op CABG. Patient Status:Routine. Study Location:Portable. Technical Quality:Technically Difficult. Risk Factors History of Disease + + +--------+ !Diagnosis !Date!Comments! + + +--------+ !History/Risk Factors: !03/31/2018!CAD ! ! !!DM! ! !!Hx of ME! + + +--------+ Procedure Note Interface, External Ris In - 03/31/2018 3:18 PM [facility] - Carotid Duplex Study Demographics Patient Name MICA BUTLER Date of Study 03/31/2018 Age 62 Visit Number [id number] Gender Female Accession Number [id number] Date of 1955 Referring Dillon Osborne, Room Number 15 Physician Medical Secretary Teacher Siobhan Coffey Interpreting Laura Retana Carlin Physician Procedure Type of Study: Cerebral: Carotid, CAROTID DOPPLER, BILATERAL. Indications for Study:Pre-op CABG. Patient Status:Routine. Study Location:Portable. Technical Quality:Technically Difficult. Risk Factors History of Disease + + +--------+ !Diagnosis !Date !Comments! + + +--------+ !History/Risk Factors: !03/31/2018!CAD ! ! ! !DM ! ! ! !Hx of ME! + + +--------+ Impressions Right Impression 1. There is <50% diameter reduction (approximately 14% by 2-D measurement) in the internal carotid artery with a peak velocity of 82/31 cm/sec and heterogeneous shadowing plaque. 2. There is >50% stenosis in the external carotid artery with a velocity of 168/15cm/sec. 3. There is non-occluding plaque in the common carotid artery. 4. The vertebral artery is not visualized. Left Impression 1. There is <50% diameter reduction (approximately 21% by 2-D measurement) in the internal carotid artery with a peak velocity of 56/23 cm/sec and heterogeneous shadowing plaque. 2. There is >50% stenosis in the external carotid artery with a velocity of 274/17cm/sec. 3. There is non-occluding plaque in the common carotid artery. 4. The vertebral artery flow is antegrade . Conclusions Summary Carotid duplex scanning and color flow imaging were performed bilaterally. The arteries were adequately visualized. The bilateral internal carotid arteries had <50% hemodynamically insignificant stenosis (approximately 14% by 2-D measurement on the right, approximately 21% by 2-D measurement on the left) with heterogeneous plaque. The vertebral artery was not visualized on the right. The left vertebral artery flow was antegrade and normal. Technically difficult exam due to body habitus. Signature Velocities are measured in cm/s ; Diameters are measured in cm Carotid Right Measurements +--------+----+----+-----+ + + + !Location!PSV !EDV !Angle!%Stenosis 2D !%Stenosis Doppler !Tortuosity ! +--------+----+----+-----+ + + + !Prox CCA!59 !14.3!60 ! ! ! ! +--------+----+----+-----+ + + + !Dist CCA!69.6!16.8!60 ! ! ! ! +--------+----+----+-----+ + + + !Prox ICA!82.3!31.2!60 !14% !<50% ! ! +--------+----+----+-----+ + + + !Dist ICA!99.6!35.5!60 ! ! ! ! +--------+----+----+-----+ + + + !Prox ECA!168 !15.6!60 ! !>50% ! ! +--------+----+----+-----+ + + + - Additional Measurements:ICAPSV/CCAPSV 1.43.ICAEDV/CCAEDV 2.48. Carotid Left Measurements +---------+----+----+-----+ + + + !Location !PSV !EDV !Angle!%Stenosis 2D !%Stenosis Doppler !Tortuosity ! +---------+----+----+-----+ + + + !Prox CCA !72.9!16.8!60 ! ! ! ! +---------+----+----+-----+ + + + !Dist CCA !80.6!20.3!60 ! ! ! ! +---------+----+----+-----+ + + + !Prox ICA !56 !23.1!60 !21% !<50% ! ! +---------+----+----+-----+ + + + !Dist ICA !62.3!26.6!60 ! ! ! ! +---------+----+----+-----+ + + + !Prox ECA !274 !17.2!60 ! !>50% ! ! +---------+----+----+-----+ + + + !Vertebral!74.3!28 !60 ! ! ! ! +---------+----+----+-----+ + + + - There is antegrade vertebral flow noted on the left side. - Additional Measurements:ICAPSV/CCAPSV 0.77.ICAEDV/CCAEDV 1.58. Performing Organization Address City/[facility]/Zipcode Phone Number [facility] * XR chest 2 views (03/31/2018 5:20 AM [facility]) Specimen Narrative Performed At FINAL REPORT [facility] Chest 2 views 03/31/2018 7:57 AM CLINICAL HISTORY: Preop imaging. COMPARISON: None available FINDINGS: The lungs are clear. Cardiomediastinal contours are within normal limits. The central pulmonary vasculature is not engorged. The visualized skeleton is intact. IMPRESSION: No acute radiographic abnormalities. Signed: Leo Treadwell MD Report Verified Date/Time:03/31/2018 07:57:26 Reading Location: [address] Neuro Reading Room Procedure Note Interface, External Ris In - 03/31/2018 7:59 AM [facility] FINAL REPORT Chest 2 views 03/31/2018 7:57 AM CLINICAL HISTORY: Preop imaging. COMPARISON: None available FINDINGS: The lungs are clear. Cardiomediastinal contours are within normal limits. The central pulmonary vasculature is not engorged. The visualized skeleton is intact. IMPRESSION: No acute radiographic abnormalities. Signed: Leo Treadwell MD Report Verified Date/Time: 03/31/2018 07:57:26 Reading Location: [address] Neuro Reading Room Performing Organization Address City/[facility]/Zipcode Phone Number [facility] * Hepatitis C PCR, Quantitative (03/30/2018 10:35 PM [facility]) HCV PCR, Quantitative HCV RNA not detected HCV RNA not detected [facility] Specimen Blood Narrative Performed At This test uses a Real-Time Polymerase Chain Reaction (RT-PCR) methodology and [facility] was performed using [employer] TaqMan HCV test kit version 2.0 [facility] ([employer] Reportable range for this assay is 15 - 100,000,000 IU per mL (1.18 - 8.00 Log IU/mL). This test uses a Real-Time Polymerase Chain Reaction (RT-PCR) methodology and was performed using [employer] TaqMan HCV test kit version 2.0 ([employer] Reportable range for this assay is 15 - 100,000,000 IU per mL (1.18 - 8.00 Log IU/mL). Performing Organization Address City/[facility] Phone Number [address] [address] [facility] * PFA-100 (03/30/2018 10:34 PM [facility]) COL/EPI Closure Time 150 78 - 191 Seconds [facility] COL/ADP Closure Time 73 43 - 122 Seconds [facility] Platelets 292 150 - 450 K/CU MM [facility] Specimen Blood Narrative Performed At Hematocrit <35% or platelet count <150,000/CU MM may contribute to falsely [facility] elevated PFA-100. [facility] Performing Organization Address [facility] Phone Number [place] [phone] [facility] after 10/08/2017 Insurance Payer Benefit Subscriber ID Type Phone Address Plan / Group [employer] xxxxxxxxx [facility] Directives For more information, please contact: [address] [phone] Date Inactivated Comments Code Status Date Activated Full Code 04/23/2018 9:11 AM This code status was determined by: Patient 04/22/2018 7:13 PM Full Code 03/30/2018 9:18 PM This code status was determined by: Patient
--- OUTSIDE RECORDS SUMMARY | 2018-10-09 14:03 | XMS REPORT | Continuity of Care Document ---
Author Author [employer] Address Unknown Phone Unavailable Care Team Providers Care Intermediate Teacher Name Role Phone [facility] Information Exchange Unavailable Unavailable Problems Problem Status Onset Date Classification Date Reported Comments Source Mammographic calcification found on diagnostic imaging of breast 06/06/2017 09/06/2017 [facility] [place] [facility] Encounter for screening for osteoporosis 05/31/2017 08/31/2017 [facility] [place] Other chest pain 05/17/2017 08/17/2017 [facility] [place] CHEST PAINS Active 05/04/2017 [facility] CHEST PAIN Active 05/04/2017 [facility] Unspecified lump in the right breast, unspecified quadrant 09/06/2017 [facility] [place] Encounter for screening mammogram for malignant neoplasm of breast 09/29/2018 [facility] [place] Age-related osteoporosis without current pathological fracture 08/31/2017 [facility] [place] Asymptomatic menopausal state 08/31/2017 [facility] [place] Chest pain, unspecified 08/13/2017 [facility] Acute bronchitis due to other specified organisms 08/13/2017 [facility] Other specified bacterial agents as the cause of diseases classified elsewhere 08/13/2017 [facility] Hypo-osmolality and hyponatremia 08/13/2017 [facility] Type 2 diabetes mellitus with hyperglycemia 08/13/2017 [facility] Type 2 diabetes mellitus with diabetic nephropathy 08/13/2017 [facility] Disorder of breast, unspecified 08/13/2017 [facility] Hypotension, unspecified 08/13/2017 [facility] Acute respiratory distress 08/13/2017 [facility] Hypertensive chronic kidney disease with stage 1 through stage 4 chronic kidney disease, or unspecified chronic kidney disease 08/13/2017 [facility] Chronic kidney disease, unspecified 08/13/2017 [facility] Acute kidney failure, unspecified 08/13/2017 [facility] Type 2 diabetes mellitus with diabetic chronic kidney disease 08/13/2017 [facility] Metabolic syndrome 08/13/2017 [facility] Hyperlipidemia, unspecified 08/13/2017 [facility] Atherosclerotic heart disease of [place] coronary artery without angina pectoris 08/13/2017 [facility] Old myocardial infarction 08/13/2017 [facility] Obesity, unspecified 08/13/2017 [facility] Tachycardia, unspecified 08/13/2017 [facility] Left anterior fascicular block 08/13/2017 [facility] Fatty liver, not elsewhere classified 08/13/2017 [facility] FPC use of insulin 08/13/2017 [facility] CHEST PAIN, UNSPECIFIED Active [facility] Medications Medication Details Route Status Patient Instructions Ordering Provider Order Date Source morphine Sulfate 6 mg, 3 mL, Route: PO, Drug form: SOLN, Q2H, PRN Chest Pain, Start date: 05/07/17 14:49:00 LATRINE CLEANER, Duration: 30 day, Stop date: 06/06/17 14:48:00 CSTNotes: (Same as:MORPhine Sulfate) Inactive 05/07/2017 [facility] Terbutaline 0.25 mg, 0.25 mL, Route: SUB-Q, Drug form: INJ, Q6H, Dosing Weight 90, kg, PRN Bradycardia, Start date: 05/07/17 14:35:00 [employer]RINE CLEANER, Duration: 30 day, Stop date: 06/06/17 14:34:00 CSTNotes: DO NOT USE IN [employer] (Same As: Brethine) Inactive 05/07/2017 [facility] Lopressor 2.5 mg, 2.5 mL, Route: IVP, Drug form: INJ, Q3H, Dosing Weight 90, kg, PRN Tachycardia, Start date: 05/07/17 14:35:00 [employer]INE CLE[employer]ER, Duration: 30 day, Stop date: 06/06/17 14:34:00 CSTNotes: (Same as: Lopressor) Push over 2 minutes Inactive 05/07/2017 [facility] Nitroglycerin 0.4 MG Sublingual Tablet [Nitrostat] 0.4 mg, 1 tab, Route: SL, Drug form: TAB, Q5Min, Dosing Weight 90, kg, PRN Chest Pain, Start date: 05/07/17 14:35:00 [employer]INE CLEANER, Duration: 3 doses or times, Stop date: 06/06/17 14:34:00 CSTNotes: (Same as:Nitroquick, Nitrostat) "Do Not Crush" Sublingual tablet Inactive 05/07/2017 [facility] Morphine 2 mg, Route: IVP, Q2H, Dosing Weight 90, kg, PRN Chest Pain, Start date: 05/07/17 14:34:00 [employer]INE CLE[employer]ER, Duration: 30 day, Stop date: 06/06/17 14:33:00 [employer]INE CLE[employer]ER Inactive 05/07/2017 [facility] Hydralazine 10 mg, 0.5 mL, Route: IV, Drug form: INJ, Q4H, Dosing Weight 90, kg, PRN Hypertension, Start date: 05/07/17 14:34:00 [employer]RINE CLEANER, Duration: 30 day, Stop date: 06/06/17 14:33:00 CSTNotes: (Same as: Apresoline) Push over 5 minutes Inactive 05/07/2017 [facility] Sodium Chloride 0.9% IV 1,000 mL 1,000 mL, Rate: 100 ml/hr, Infuse over: 10 hr, Route: IV, Dosing Weight 90 kg, Total Volume: 1,000, Start date: 05/06/17 19:23:00 [employer]RINE CLE[employer]ER, Duration: 30 day, Stop date: 06/05/17 19:22:00 [employer]INE CLE[employer]ER, 1.99, m2 No Longer Active 05/07/2017 [facility] Glipizide 10 MG Oral Tablet 10 mg=1 tab, PO, BID, # 30 tab, 0 Refill(s) Active 05/06/2017 [facility] Humalog 30 unit, 0.3 mL, Route: SUB-Q, Drug form: SOLN, TID-Before Meals, Start date: 05/06/17 11:30:00 [employer]RINE CLEANER, Duration: 30 day, Stop date: 06/05/17 7:30:00 CSTNotes: Roll in palms of hands gently; Do not shake `vigorously. (Same as: Humalog ) "Single Patient Use Only " WASTE: F/P - Black; E - eTapestry Trash Bin Stable for 28 days at room temperature. Expires in days from Date No Longer Active 05/06/2017 [facility] Aspirin 325 MG Oral Tablet 325 mg, 1 tab, Route: PO, Drug form: TAB, Daily, Dosing Weight 86.364, kg, Start date: 05/06/17 9:00:00 [employer]RINE CLE[employer]ER, Duration: 30 day, Stop date: 06/04/17 9:00:00 CSTNotes: Take with food. No Longer Active 05/06/2017 [facility] NovoLOG FlexPen 24 unit, Route: SUB-Q, Breakfast, Dosing Weight 86.364, kg, Start date: 05/06/17 8:00:00 [employer]RINE CLE[employer]ER, Duration: 30 day, Stop date: 06/04/17 8:00:00 [employer]INE CLE[employer]ER No Longer Active 05/06/2017 [facility] insulin glargine 45 unit, 0.45 mL, Route: SUB-Q, Drug form: SOLN, Breakfast, Start date: 05/06/17 8:00:00 [employer]RINE CLEANER, Stop date: 06/04/17 8:00:00 CSTNotes: (Same as: Lantus) Do not hold insulin without contacting prescriber W ASTE: F/P - Black; E - Municipal Trash Bin "single patient use only" No Longer Active 05/06/2017 [facility] 3 ML Insulin Glargine 100 UNT/ML Prefilled Syringe [Lantus] 35 unit, Route: SUB-Q, Drug form: SOLN, Before Breakfast, Dosing Weight 86.364, kg, Start date: 05/06/17 7:30:00 LATRINE CLEANER, Duration: 30 day, Stop date: 06/04/17 7:30:00 [employer]RINE CLEANER No Longer Active 05/06/2017 [facility] 3 ML Insulin Glargine 100 UNT/ML Prefilled Syringe [Lantus] Route: SUB-Q, Drug form: SOLN, Bedtime, Dosing Weight 86.364, kg, Start date: 05/05/17 21:00:00 LATRINE CLEANER, Duration: 30 day, Stop date: 06/03/17 21:00:00 [employer]RINE CLEANER Inactive 05/06/2017 [facility] insulin glargine 55 unit, 0.55 mL, Route: SUB-Q, Drug form: SOLN, Bedtime, Start date: 05/05/17 21:00:00 [employer]RINE CLEANER, Stop date: 06/03/17 21:00:00 CSTNotes: (Same as: Lantus) Do not hold insulin without contacting prescriber W ASTE: F/P - Black; E - Municipal Trash Bin "single patient use only" No Longer Active 05/06/2017 [facility] rosuvastatin 20 mg, 1 tab, Route: PO, Drug form: TAB, Bedtime, Dosing Weight 86.364, kg, Start date: 05/05/17 21:00:00 [employer]RINE CLEANER, Duration: 30 day, Stop date: 06/03/17 21:00:00 CSTNotes: Same as Crestor No Longer Active 05/06/2017 [facility] Hydralazine Hydrochloride 25 MG Oral Tablet 25 mg=1 tab, PO, TID, # 90 tab, 1 Refill(s), Pharmacy: [facility] [id number] Active 05/06/2017 [facility] benzonatate 100 MG Oral Capsule [Tessalon Perles] 100 mg=1 cap, PO, Q8H, PRN cough, do not crush or chew, X 10 day, # 30 cap, 0 Refill(s), Pharmacy: [facility] [id number] No Longer Active 05/06/2017 [facility] doxycycline hyclate 100 MG Oral Capsule 100 mg=1 cap, PO, Q12H, X 10 day, # 20 cap, 0 Refill(s), Pharmacy: [facility] [id number] No Longer Active 05/06/2017 [facility] 3 ML Insulin, Aspart, Human 100 UNT/ML Pen Injector [NovoLog] 25 unit, SUB-Q, Lunch, # 3 pen(s), 0 Refill(s), Pharmacy: [facility] [id number] Active 05/06/2017 [facility] Insulin Lispro 15 unit, 0.15 mL, Route: SUB-Q, Drug form: SOLN, ONCE, Dosing Weight 86.364, kg, Priority: NOW, Start date: 05/05/17 18:32:00 LATRINE CLEANER, Stop date: 05/05/17 18:32:00 CSTNotes: Roll in palms of hands gently; Do not shake `vigorously. (Same as: Humalog ) "Single Patient Use Only " WASTE: F/P - Black; E - Municipal Trash Bin Stable for 28 days at room temperature. Expires in days from Date Inactive 05/06/2017 [facility] Insulin, Aspart, Human 15 unit, Route: SUB-Q, ONCE, Dosing Weight 86.364, kg, Start date: 05/05/17 17:24:00 LATRINE CLEANER, Stop date: 05/05/17 17:24:00 [employer]RINE CLEANER Inactive 05/05/2017 [facility] Humalog 25 unit, 0.25 mL, Route: SUB-Q, Drug form: SOLN, ONCE, Start date: 05/05/17 15:01:00 LATRINE CLEANER, Stop date: 05/05/17 15:01:00 [employer]INE CLE[employer]ER Inactive 05/05/2017 [facility] Insulin, Aspart, Human 25 unit, Route: SUB-Q, ONCE, Dosing Weight 86.364, kg, Priority: NOW, Start date: 05/05/17 14:41:00 LATRINE CLEANER, Stop date: 05/05/17 14:41:00 [employer]RINE CLEANER Inactive 05/05/2017 [facility] Clonidine Hydrochloride 0.2 MG Oral Tablet 0.2 mg, 1 tab, Route: PO, Drug form: TAB, TID, Dosing Weight 86.364, kg, Start date: 05/05/17 13:00:00 [employer]RINE CLEANER, Duration: 30 day, Stop date: 06/04/17 9:00:00 CSTNotes: (Same As: Catapres) No Longer Active 05/05/2017 [facility] NovoLOG FlexPen 24 unit, Route: SUB-Q, Lunch, Dosing Weight 86.364, kg, Start date: 05/05/17 12:00:00 LATRINE CLEANER, Duration: 30 day, Stop date: 06/03/17 12:00:00 LATRINE CLEANER Inactive 05/05/2017 [facility] Humalog 30 unit, 0.3 mL, Route: SUB-Q, Drug form: SOLN, BID-Before Meals, Start date: 05/05/17 12:00:00 LATRINE CLEANER, Duration: 30 day, Stop date: 06/04/17 7:30:00 CSTNotes: Roll in palms of hands gently; Do not shake `vigorously. (Same as: Humalog ) "Single Patient Use Only " WASTE: F/P - Black; E - Municipal Trash Bin Stable for 28 days at room temperature. Expires in days from Date No Longer Active 05/05/2017 [facility] Humalog 20 unit, 0.2 mL, Route: SUB-Q, Drug form: SOLN, ONCE, Start date: 05/05/17 11:31:00 LATRINE CLEANER, Stop date: 05/05/17 11:31:00 CSTNotes: Roll in palms of hands gently; Do not shake `vigorously. (Same as: Humalog ) "Single Patient Use Only " WASTE: F/P - Black; E - Municipal Trash Bin Stable for 28 days at room temperature. Expires in days from Date Inactive 05/05/2017 [facility] NovoLOG FlexPen 21 unit, Route: SUB-Q, TID-Before Meals, Dosing Weight 86.364, kg, Start date: 05/05/17 11:30:00 LATRINE CLEANER, Duration: 30 day, Stop date: 06/04/17 7:30:00 LATRINE CLEANER Inactive 05/05/2017 [facility] Insulin, Aspart, Human 20 unit, Route: SUB-Q, ONCE, Dosing Weight 86.364, kg, Start date: 05/05/17 11:22:00 LATRINE CLEANER, Stop date: 05/05/17 11:22:00 LATRINE CLEANER Inactive 05/05/2017 [facility] Insulin Glargine 100 UNT/ML Injectable Solution [Lantus] 35 unit, 0.35 mL, Route: SUB-Q, Drug form: SOLN, ONCE, Dosing Weight 86.364, kg, Start date: 05/05/17 11:22:00 LATRINE CLEANER, Stop date: 05/05/17 11:22:00 CSTNotes: (Same as: Lantus) Do not hold insulin without contacting prescriber WASTE: F/P - Black; E - Municipal Trash Bin "single patient use only" Inactive 05/05/2017 [facility] Humalog 9 unit, 0.09 mL, Route: SUB-Q, Drug form: SOLN, ONCE, Start date: 05/05/17 10:18:00 LATRINE CLEANER, Stop date: 05/05/17 10:18:00 CSTNotes: Roll in palms of hands gently; Do not shake `vigorously. (Same as: Humalog ) "Single Patient Use Only " WASTE: F/P - Black; E - Municipal Trash Bin Stable for 28 days at room temperature. Expires in days from Date Inactive 05/05/2017 [facility] NovoLOG FlexPen 9 unit, Route: SUB-Q, ONCE, Dosing Weight 86.364, kg, Priority: STAT, Start date: 05/05/17 9:44:00 LATRINE CLEANER, Stop date: 05/05/17 9:44:00 [employer]RINE CLEANER Inactive 05/05/2017 [facility] Insulin Lispro 2 unit, 0.02 mL, Route: SUB-Q, Drug form: SOLN, TID-Before Meals, Dosing Weight 86.364, kg, PRN Blood Glucose Results, Start date: 05/05/17 9:19:00 LATRINE CLEANER, Duration: 30 day, Stop date: 06/04/17 9:18:00 CSTNotes: Roll in palms of hands gently; Do not shake `vigorously. (Same as: Humalog ) "Single Patient Use Only " WASTE: F/P - Black; E - Municipal Trash Bin Stable for 28 days at room temperature. Expires in days from Date No Longer Active 05/05/2017 [facility] Glucagon 1 mg, Route: IM, Drug form: PDR/INJ, PRN, Dosing Weight 86.364, kg, PRN Blood Glucose Results, Start date: 05/05/17 9:19:00 LATRINE CLEANER, Duration: 30 day, Stop date: 06/04/17 9:18:00 [employer]RINE CLEANER No Longer Active 05/05/2017 [facility] Dextrose 50% Syringe 25 gm, 50 mL, Route: IVP, Drug Form: INJ, Dosing Weight 86.364, kg, PRN, PRN Blood Glucose Results, Start date: 05/05/17 9:19:00 LATRINE CLEANER, Duration: 30 day, Stop date: 06/04/17 9:18:00 [employer]RINE CLEANER No Longer Active 05/05/2017 [facility] Dextromethorphan Hydrobromide 2 MG/ML / Guaifenesin 20 MG/ML Oral Solution 10 mL, Route: PO, Drug Form: LIQ, Dosing Weight 86.364, kg, Q4H, PRN as needed for cough, Start date: 05/05/17 9:18:00 LATRINE CLEANER, Stop date: 06/04/17 9:17:00 CSTNotes: (dextromethorphan-guaifenesin 10-100/5 ml LIQ) (Same as: Robitussin-DM) No Longer Active 05/05/2017 [facility] pneumococcal capsular polysaccharide type 1 vaccine / pneumococcal capsular polysaccharide type 10A vaccine / pneumococcal capsular polysaccharide type 11A vaccine / pneumococcal capsular polysaccharide type 12F vaccine / pneumococcal capsular polysacchar 0.5 mL, Route: IM, Drug Form: INJ, Daily, Start date: 05/05/17 9:00:00 LATRINE CLEANER, Duration: 1 doses or times, Stop date: 05/05/17 9:00:00 CSTNotes: (Same as: Pneumovax 23) Refrigerate Inactive 05/05/2017 [facility] methylPREDNISolone SODium SUCCinate 40 mg, 1 mL, Route: IVP, Drug form: INJ, Q12H, Dosing Weight 113.636, kg, Start date: 05/05/17 9:00:00 LATRINE CLEANER, Duration: 30 day, Stop date: 06/03/17 21:00:00 CSTNotes: (Same as:Solu-MEDROL, A-Methapred) Inactive 05/05/2017 [facility] Albuterol 0.833 MG/ML / Ipratropium Bronson 0.167 MG/ML Inhalant Solution 3 mL, Route: NEB, Drug Form: SOLN, Dosing Weight 113.636, kg, RQ6H, Start date: 05/05/17 8:00:00 LATRINE CLEANER, Duration: 30 day, Stop date: 06/04/17 2:00:00 CSTNotes: (Same as: Duoneb) No Longer Active 05/05/2017 [facility] Insulin Lispro 3 unit, 0.03 mL, Route: SUB-Q, Drug form: SOLN, Bedtime, Dosing Weight 113.636, kg, PRN Blood Glucose Results, Start date: 05/05/17 6:27:00 LATRINE CLEANER, Duration: 30 day, Stop date: 06/04/17 6:26:00 CSTNotes: Roll in palms of hands gently; Do not shake `vigorously. (Same as: Humalog ) "Single Patient Use Only " WASTE: F/P - Black; E - Municipal Trash Bin Stable for 28 days at room temperature. Expires in days from Date Inactive 05/05/2017 [facility] Dextrose 50% Syringe 25 gm, 50 mL, Route: IVP, Drug Form: INJ, Dosing Weight 113.636, kg, PRN, PRN Blood Glucose Results, Start date: 05/05/17 6:27:00 LATRINE CLEANER, Duration: 30 day, Stop date: 06/04/17 6:26:00 LATRINE CLEANER Inactive 05/05/2017 [facility] Glucagon 1 mg, Route: IM, Drug form: PDR/INJ, PRN, Dosing Weight 113.636, kg, PRN Blood Glucose Results, Start date: 05/05/17 6:27:00 LATRINE CLEANER, Duration: 30 day, Stop date: 06/04/17 6:26:00 LATRINE CLEANER Inactive 05/05/2017 [facility] Aspirin 325 MG Oral Tablet 325 mg=1 tab, PO, Daily, 0 Refill(s) Active 05/05/2017 [facility] rosuvastatin 20 mg oral tablet 20 mg=1 tab, PO, Bedtime, # 30 tab, 0 Refill(s) Active 05/05/2017 [facility] Hydrochlorothiazide 50 MG Oral Tablet 50 mg=1 tab, PO, BID, 0 Refill(s) Inactive 05/05/2017 [facility] Clonidine Hydrochloride 0.2 MG Oral Tablet 0.2 mg=1 tab, PO, TID, 0 Refill(s) Active 05/05/2017 [facility] 3 ML Insulin Glargine 100 UNT/ML Prefilled Syringe [Lantus] 32, SUB-Q, Bedtime, 32 units at bedtime, 0 Refill(s) Active 05/05/2017 [facility] escitalopram 20 mg oral tablet 20 mg=1 tab, PO, Daily, # 30 tab, 0 Refill(s) Active 05/05/2017 [facility] cefdinir 300 MG Oral Capsule 300 mg=1 cap, PO, Q12H, # 20 cap, 0 Refill(s) Inactive 05/05/2017 [facility] lisinopril 2.5 mg oral tablet 2.5 mg=1 tab, PO, Daily, # 30 tab, 0 Refill(s) Inactive 05/05/2017 [facility] NovoLOG FlexPen 24 unit, SUB-Q, Lunch, 0 Refill(s) Inactive 05/05/2017 [facility] Levaquin 500 mg, 2 tab, Route: PO, Drug form: TAB, [id number], Dosing Weight 113.636, kg, Start date: 05/05/17 6:00:00 LATRINE CLEANER, Duration: 5 day, Stop date: 05/09/17 6:00:00 LATRINE CLEANER, ABX Indication: Non-PNA Respiratory Tract InfectionNotes: Do not give w/antacids, dairy pdt & minerals Take 1 hr before or 2 hr after dairy pdt (Same as:Levaquin) No Longer Active 05/05/2017 [facility] Albuterol 0.83 MG/ML Inhalant Solution 2.49 mg, 3 mL, Route: NEB, Drug form: SOLN, PRN, Dosing Weight 113.636, kg, PRN Respiratory Protocol, Start date: 05/05/17 5:25:00 LATRINE CLEANER, Duration: 30 day, Stop date: 06/04/17 5:24:00 CSTNotes: SEE RT DOCUMENTATION (Same as: Proventil) No Longer Active 05/05/2017 [facility] Aspirin 325 mg, Route: PO, Drug form: TAB, ONCE, Dosing Weight 113.636, kg, Priority: STAT, Start date: 05/05/17 3:48:00 LATRINE CLEANER, Stop date: 05/05/17 3:48:00 LATRINE CLEANER Inactive 05/05/2017 [facility] Insulin regular 5 unit, Route: IV, ONCE, Dosing Weight 113.636, kg, Priority: STAT, Start date: 05/05/17 3:40:00 LATRINE CLEANER, Stop date: 05/05/17 3:40:00 LATRINE CLEANER Inactive 05/05/2017 [facility] Prednisone 60 mg, Route: PO, Drug form: TAB, ONCE, Dosing Weight 113.636, kg, Priority: STAT, Start date: 05/05/17 2:16:00 LATRINE CLEANER, Stop date: 05/05/17 2:16:00 LATRINE CLEANER Inactive 05/05/2017 [facility] Albuterol 0.833 MG/ML / Ipratropium Bronson 0.167 MG/ML Inhalant Solution 3 mL, Route: NEB, Drug Form: SOLN, Dosing Weight 113.636, kg, ONCE, STAT, Start date: 05/05/17 2:16:00 LATRINE CLEANER, Stop date: 05/05/17 2:16:00 LATRINE CLEANER Inactive 05/05/2017 [facility] Sodium Chloride 0.9% (Bolus) IV 1,000 mL, Infuse Over: 1 hr, Route: IV, ONCE, Priority: STAT, Dosing Weight 113.636 kg, Start date: 05/05/17 2:16:00 LATRINE CLEANER, Stop date: 05/05/17 2:16:00 LATRINE CLEANER Inactive 05/05/2017 [facility] Saline Flush 0.9% 10 mL, Route: IVP, Drug Form: INJ, Dosing Weight 113.636, kg, PRN, PRN Line Flush, Start date: 05/05/17 2:16:00 LATRINE CLEANER, Duration: 30 day, Stop date: 06/04/17 2:15:00 CSTNotes: (Same as: BD Posiflush) No Longer Active 05/05/2017 [facility] Allergies, Adverse Reactions, Alerts Substance Category Reaction Severity Reaction type Status Date Reported Comments Source No Known Medication Allergies Assertion Drug allergy [facility] [place] Immunizations Immunization Date Given Site Status Last Updated Comments Source pneumococcal 23-valent vaccine 05/05/2017 Not Given [facility] [place],[facility] pneumococcal 23-valent vaccine<sup>1</sup> 05/05/2017 Not Given [facility] [place] Results Order Name Results Value Reference Range Date Interpretation Comments Source CHEM PANEL A/G Ratio 0.9 0.7 - 1.6 05/07/2017 [facility] CHEM PANEL Globulin 3.7 2.7 - 4.2 05/07/2017 [facility] CHEM PANEL AGAP 15.7 10.0 - 20.0 05/07/2017 [facility] CHEM PANEL B/C Ratio 27 6 - 25 05/07/2017 [facility] CHEM PANEL eGFR 24 05/07/2017 Result Comment: The eGFR is calculated [...] should be multiplied by the estimated BMI. [facility] CHEM PANEL Alk Phos 107 39 - 136 05/07/2017 [facility] CHEM PANEL Bili Total 0.2 0.2 - 1.3 05/07/2017 [facility] CHEM PANEL Calcium Lvl 9.0 8.5 - 10.5 05/07/2017 [facility] CHEM PANEL Total Protein 7.1 6.4 - 8.4 05/07/2017 [facility] CHEM PANEL Albumin Lvl 3.4 3.5 - 5.0 05/07/2017 [facility] CHEM PANEL ALT 37 0 - 65 05/07/2017 [facility] CHEM PANEL AST 39 0 - 37 05/07/2017 [facility] CHEM PANEL BUN 58 7 - 22 05/07/2017 [facility] CHEM PANEL Creatinine Lvl 2.17 0.50 - 1.40 05/07/2017 [facility] CHEM PANEL Glucose Lvl 257 70 - 99 05/07/2017 [facility] CHEM PANEL CO2 25 24 - 32 05/07/2017 [facility] CHEM PANEL Sodium Lvl 136 135 - 145 05/07/2017 [facility] CHEM PANEL Potassium Lvl 3.7 3.5 - 5.1 05/07/2017 [facility] CHEM PANEL Chloride Lvl 99 95 - 109 05/07/2017 [facility] HEMATOLOGY RBC 4.75 4.20 - 5.40 05/07/2017 [facility] HEMATOLOGY WBC 9.7 3.7 - 10.4 05/07/2017 [facility] HEMATOLOGY Hgb 14.2 12.0 - 16.0 05/07/2017 [facility] HEMATOLOGY Hct 42.1 36.0 - 48.0 05/07/2017 [facility] HEMATOLOGY MPV 8.6 7.4 - 10.4 05/07/2017 [facility] HEMATOLOGY MCV 88.5 80.0 - 98.0 05/07/2017 [facility] HEMATOLOGY MCH 29.9 27.0 - 31.0 05/07/2017 [facility] HEMATOLOGY MCHC 33.8 32.0 - 36.0 05/07/2017 [facility] HEMATOLOGY RDW 12.9 11.5 - 14.5 05/07/2017 [facility] HEMATOLOGY Platelet 199 133 - 450 05/07/2017 [facility] HEMATOLOGY Lymphocytes # 4.0 1.0 - 5.5 05/07/2017 [facility] HEMATOLOGY Monocytes # 0.5 0.0 - 0.8 05/07/2017 [facility] HEMATOLOGY Basophils 0.6 0.0 - 1.0 05/07/2017 [facility] HEMATOLOGY Segs-Bands # 5.0 1.5 - 8.1 05/07/2017 [facility] HEMATOLOGY Eosinophils # 0.1 0.0 - 0.5 05/07/2017 [facility] HEMATOLOGY Basophils # 0.1 0.0 - 0.2 05/07/2017 [facility] HEMATOLOGY Monocytes 5.3 2.0 - 12.0 05/07/2017 [facility] HEMATOLOGY Lymphocytes 41.3 20.0 - 40.0 05/07/2017 [facility] HEMATOLOGY Eosinophils 0.8 0.0 - 4.0 05/07/2017 [facility] HEMATOLOGY Segs 52.0 45.0 - 75.0 05/07/2017 [facility] SPECIAL CHEMISTRY Hgb A1C 14.8 <=5.6 % 05/06/2017 [facility] CHEM PANEL Creatinine Lvl 2.76 0.50 - 1.40 05/05/2017 [facility] CHEM PANEL Potassium Lvl 4.2 3.5 - 5.1 05/05/2017 [facility] CHEM PANEL Sodium Lvl 130 135 - 145 05/05/2017 [facility] CHEM PANEL Calcium Lvl 8.8 8.5 - 10.5 05/05/2017 [facility] CHEM PANEL eGFR 18 05/05/2017 Result Comment: The eGFR is calculated [...] should be multiplied by the estimated BMI. [facility] CHEM PANEL Chloride Lvl 95 95 - 109 05/05/2017 [facility] CHEM PANEL CO2 21 24 - 32 05/05/2017 [facility] CHEM PANEL AGAP 18.2 10.0 - 20.0 05/05/2017 [facility] CHEM PANEL Glucose Lvl 515 70 - 99 05/05/2017 Result Comment: Critical Result(s) called to DOMINIC bourgeois 05/05/2017 11:58_ by_MEKHI. Read back OK. [facility] CHEM PANEL BUN 67 7 - 22 05/05/2017 [facility] CARDIAC ENZYMES Troponin-I 0.20 0.00 - 0.40 05/05/2017 [facility] CARDIAC ENZYMES Troponin-I 0.24 0.00 - 0.40 05/05/2017 [facility] HEMATOLOGY D-Dimer 1.02 05/05/2017 [facility] CARDIAC ENZYMES Total CK 186 12 - 191 05/05/2017 [facility] CARDIAC ENZYMES BNP 18 <=100 pg/mL 05/05/2017 [facility] CARDIAC ENZYMES Troponin-I 0.23 0.00 - 0.40 05/05/2017 [facility] CARDIAC ENZYMES CK MB 3.2 0.5 - 3.6 05/05/2017 [facility] CARDIAC ENZYMES CK MB Index 1.7 0.0 - 2.5 05/05/2017 [facility] CHEM PANEL Glucose Lvl 427 70 - 99 05/05/2017 Result Comment: Critical Result(s) called to Miguel Angel Mckeon at 05/05/2017 03:21 by BE. Read back OK. [facility] CHEM PANEL Bili Total 0.3 0.2 - 1.3 05/05/2017 [facility] CHEM PANEL Creatinine Lvl 3.40 0.50 - 1.40 05/05/2017 [facility] CHEM PANEL BUN 77 7 - 22 05/05/2017 [facility] CHEM PANEL Sodium Lvl 128 135 - 145 05/05/2017 [facility] CHEM PANEL eGFR 14 05/05/2017 Result Comment: The eGFR is calculated [...] should be multiplied by the estimated BMI. [facility] CHEM PANEL Alk Phos 188 39 - 136 05/05/2017 [facility] CHEM PANEL ALT 37 0 - 65 05/05/2017 [facility] CHEM PANEL AST 26 0 - 37 05/05/2017 [facility] CHEM PANEL AGAP 17.7 10.0 - 20.0 05/05/2017 [facility] CHEM PANEL CO2 24 24 - 32 05/05/2017 [facility] CHEM PANEL Calcium Lvl 9.2 8.5 - 10.5 05/05/2017 [facility] CHEM PANEL Chloride Lvl 90 95 - 109 05/05/2017 [facility] CHEM PANEL Potassium Lvl 3.7 3.5 - 5.1 05/05/2017 [facility] CHEM PANEL Total Protein 8.9 6.4 - 8.4 05/05/2017 [facility] CHEM PANEL A/G Ratio 0.7 0.7 - 1.6 05/05/2017 [facility] CHEM PANEL Globulin 5.3 2.7 - 4.2 05/05/2017 [facility] CHEM PANEL B/C Ratio 23 6 - 25 05/05/2017 [facility] CHEM PANEL Albumin Lvl 3.6 3.5 - 5.0 05/05/2017 [facility] HEMATOLOGY Hgb 15.1 12.0 - 16.0 05/05/2017 [facility] HEMATOLOGY RBC 5.09 4.20 - 5.40 05/05/2017 [facility] HEMATOLOGY Platelet 235 133 - 450 05/05/2017 [facility] HEMATOLOGY MCH 29.7 27.0 - 31.0 05/05/2017 [facility] HEMATOLOGY MPV 8.8 7.4 - 10.4 05/05/2017 [facility] HEMATOLOGY MCHC 33.7 32.0 - 36.0 05/05/2017 [facility] HEMATOLOGY RDW 12.7 11.5 - 14.5 05/05/2017 [facility] HEMATOLOGY Hct 44.9 36.0 - 48.0 05/05/2017 [facility] HEMATOLOGY MCV 88.2 80.0 - 98.0 05/05/2017 [facility] HEMATOLOGY WBC 8.7 3.7 - 10.4 05/05/2017 [facility] HEMATOLOGY Basophils # 0.1 0.0 - 0.2 05/05/2017 [facility] HEMATOLOGY Lymphocytes # 3.2 1.0 - 5.5 05/05/2017 [facility] HEMATOLOGY Basophils 0.7 0.0 - 1.0 05/05/2017 [facility] HEMATOLOGY Lymphocytes 37.2 20.0 - 40.0 05/05/2017 [facility] HEMATOLOGY Eosinophils # 0.1 0.0 - 0.5 05/05/2017 [facility] HEMATOLOGY Segs-Bands # 5.0 1.5 - 8.1 05/05/2017 [facility] HEMATOLOGY Eosinophils 0.8 0.0 - 4.0 05/05/2017 [facility] HEMATOLOGY Monocytes 4.4 2.0 - 12.0 05/05/2017 [facility] HEMATOLOGY Monocytes # 0.4 0.0 - 0.8 05/05/2017 [facility] HEMATOLOGY Segs 56.9 45.0 - 75.0 05/05/2017 [facility] VIRAL - SEROLOGY Influ B Negative (05/05/17 2:33 AM) Negative 05/05/2017 [facility] VIRAL - SEROLOGY Influ A Negative (05/05/17 2:33 AM) Negative 05/05/2017 [facility] Pathology Reports No Data Provided for This Section Diagnostic Reports Report Value Date Source Breast Mammo Scrn KARLY incl CAD MA BILATERAL DIGITAL SCREENING MAMMOGRAM WITH CAD: 09/27/2018 CLINICAL: Routine/Screening. Current study was evaluated with a Computer Aided Detection (CAD) system. COMPARISON:Comparison is made to exams dated: 05/31/2017 mammogram, 05/15/2016 mammogram, and 09/08/2013 mammogram - [facility]. TECHNIQUE: Mammographic views were obtained using digital acquisition. Current study was also evaluated with a Computer Aided Detection (CAD) system. FINDINGS: There are scattered fibroglandular densities in both breasts. There is a small stable mass in the right breast when accounting for differences in technique and positioning. There are benign calcifications in both breasts. No significant masses, calcifications, or other findings are seen in either breast. There has been no significant interval change. IMPRESSION: BENIGN RECOMMENDATION:There is no mammographic evidence of malignancy. A 1 year screening mammogram is recommended.(09/28/2019) This exam was interpreted at [id number] for CHIQUIS Joseph, SL 15. Professional services are provided by the [facility] of Diagnostic Imaging. Cooper Arredondo M.D., cm/andrew:09/27/2018 15:16:18 Milk House Worker(s): RT Orion(R)(M), [facility] letter sent: BI-RADS 1/2 Mammogram BI-RADS: 2 Benign 09/27/2018 CHIQUIS CASSANDRA Joseph Chest 4 views DX EXAM: Chest 4 views DX DATE: 06/19/2018 15:55 CDT . ORDERING PHYSICIAN: Dillon Osborne MD CLINICAL INDICATION: - R06.02 Shortness of breath; TECHNIQUE: Frontal, lateral, and oblique views of chest COMPARISON: 04/22/2018 chest x-ray FINDINGS: The lungs are well inflated and clear. Heart size and mediastinal contours are stable including sternotomy changes.. There is no acute bony abnormality. IMPRESSION: 1. Interval resolution of pulmonary venous congestion 2. Clear lungs 3. No focal bony or obvious soft tissue abnormalities 06/19/2018 CASSANDRA Joseph Chest 2 views DX Exam: Chest 2 views DX Reason for Exam: - Z00.00 Encounter for general adult medical examination without abnormal findings Comparison Exam: CT scan 05/05/2017 and x-ray 05/05/2017 Discussion: Cardiac silhouette is enlarged. Mild pulmonary vascular congestion. No pleural effusion identified. No focal lung consolidations appreciated. No appreciable evidence seen for pneumothorax. The patient is status post median sternotomy. Benign calcified granuloma seen overlying the right mid lung. Impression: 1. Cardiac silhouette is enlarged. Mild pulmonary vascular congestion. 04/22/2018 CASSANDRA Joseph Breast Limited Uni US LIMITED ULTRASOUND OF RIGHT BREAST: 05/31/2017 CLINICAL: Right Breast Lesion Seen On Ct Scan/R92.8 Other Abnormal And Inconclusive Findings On Diagnostic Imaging Of Breast. COMPARISON:Comparison is made to exams dated: 05/31/2017 mammogram, 05/15/2016 mammogram, and 09/08/2013 mammogram - [facility]. TECHNIQUE: Color flow and real-time ultrasound of [...] is recommended.(06/01/2018) This exam was interpreted at [id number] for CHIQUIS Joseph. Professional services are provided by the [facility] Division of Diagnostic Imaging. Cooper Arredondo M.D., cm/penrad:05/31/2017 11:40:54 Milk House Worker(s): Roz Willis, [facility] letter sent: BI-RADS 1/2 Ultrasound BI-RADS: 2 Benign 05/31/2017 CHIQUIS Joseph Breast Mammo Diag KARLY incl [...] is recommended. This exam was interpreted at [id number] for CHIQUIS Joseph. Professional services are provided by the [facility] Division of Diagnostic Imaging. Cooper Arredondo M.D., cm/penrad:05/31/2017 11:41:39 Milk House Worker(s): Wilma Ballesteros RT(R)(M), [facility] Mammogram BI-RADS: 0 Indeterminate 05/31/2017 CASSANDRA Joseph Bone Density [employer] MA BONE [...] fracture. The scan was performed on a [employer] C machine. This scan was performed on a [employer] DEXA scanner. IMPRESSION: OSTEOPOROSIS Patient is at high risk for fracture. Patient consult w/primary care provider is recommended. This exam was interpreted at [id number] for CHIQUIS Thompson. Danette jc/andrew:05/25/2017 09:26:18 Milk House Worker(s): Kasie Avalos [facility] 05/25/2017 CHIQUIS Joseph Chest wo contrast CT Clinical Indication: - pneumonia/shortness of breath. Comparison: None. TECHNIQUE: Sequential trans-axial images were obtained through the chest without the administration of IV iodinated contrast. Coronal and sagittal reconstructions were obtained. Dose: KYK=073 mGy-cm Findings: Lungs: Calcified granuloma within the [...] correlation with mammography. No acute findings. SL: NLITTMANLaura 05/05/2017 [facility] Chest 1view DX Clinical Indication: - cough Comparison: None FINDINGS: The frontal chest radiograph shows normal lung volumes without interstitial or airspace opacities, pleural effusions or pneumothorax. The cardiomediastinal contours are normal for the age of the patient with aortic tortuosity. There are degenerative changes in the spine. IMPRESSION: No chest radiographic evidence of acute cardiopulmonary disease. SL: 82 05/05/2017 [facility] Consultation Notes No Data Provided for This Section Discharge Summaries No Data Provided for This Section History and Physicals No Data Provided for This Section Vital Signs Vital Sign Value Date Comments Source Systolic (mm Hg) 111 05/07/2017 [facility] Diastolic (mm Hg) 70 05/07/2017 [facility] Respitory Rate 18 05/07/2017 [facility] Temperature Oral (F) 98.9 F 05/07/2017 [facility] Heart Rate 112 05/07/2017 [facility] Temperature Oral (F) 98.8 F 05/07/2017 [facility] Systolic (mm Hg) 114 05/07/2017 [facility] Diastolic (mm Hg) 72 05/07/2017 [facility] Respitory Rate 18 05/07/2017 [facility] Heart Rate 111 05/07/2017 [facility] Respitory Rate 21 05/07/2017 [facility] Temperature Oral (F) 98.2 F 05/07/2017 [facility] Systolic (mm Hg) 116 05/07/2017 [facility] Diastolic (mm Hg) 71 05/07/2017 [facility] Heart Rate 96 05/07/2017 [facility] Weight 90 05/06/2017 [facility] Weight 86.364 05/05/2017 [facility] BMI Calculated 37.18 05/05/2017 [facility] Height 152.4 cm 05/05/2017 [facility] Weight 113.636 05/05/2017 [facility] Encounters Location Location Details Encounter Type Encounter Number Reason For Visit Attending Provider ADM Date DC Date Status Source [facility] Observation [id number] 05/05/2017 05/07/2017 [facility] [place] [facility] [id number] Geoffrey Vega 05/11/2017 05/12/2017 [facility] [place] [facility] [place] [facility] [id number] Geoffrey Vega 05/25/2017 05/26/2017 [facility] [place] [facility] [place] [facility] [id number] Goeffrey Vega 05/31/2017 06/01/2017 [facility] [place] [facility] [place] [facility] [id number] Dillon Letsou 06/19/2018 06/20/2018 [facility] [place] [facility] [place] [facility] [id number] Geoffrey Vega 09/27/2018 09/28/2018 [facility] [place] Procedures Procedure Code Date Perfomer Comments Source Cataract surgery [id number] [facility] [place] Cataract surgery [id number] [facility] Assessment and Plan Assessment and Plan Date Source Extracted from:Title: [facility] Discharge Summary Author: Mark Anthony Flaherty MD Date: 05/07/17 [facility] Discharge Summary PATIENT NAME:KARENA SCHMITT ATTENDING: MARK ANTHONY SHEIKH JR, MD ADMISSION DATE: 05/04/2017 23:37 DISCHARGE DATE: 05/07/2017 17:33 DISCHARGE DIAGNOSIS: Acute chest pain Acute bacterial bronchitis Pseudohyponatremia due to hyperglycemia Diabetes mellitus II, uncontrolled with nephropathy Right breast lesion Hypertension, presently with hypotension CONSULTING PHYSICIANS/SERVICES: Bassem Ruggiero MD Office: Service: Cardiology DISCHARGE CONDITION: Fair HISTORY OF [...] of tight glycemic control, and requested the semiconductor packages platemaker see her as well. Her blood glucose was better controlled at time of discharge, albeit not ideal. I expressed to her that she is quite insulin resistant and would benefit from being under the care of an chemistry teacher. This should be requested through her primary [...] Diet Carbohydrate Controlled DISCHARGE MEDICATIONS: PLEASE SEE R FOR DETAILS PERTAINING TO DISCHARGE MEDICATIONS DISCHARGE FOLLOWUP: Follow Up With Geoffrey Vega MD, Call for appointment, within: 1 Week, reason: Primary Care Physician follow up post hospitalization/ blood work Bassem Ruggiero MD, Call for appointment, within: 2 Weeks, reason: Follow Up On Treatment A total of 40 minutes was spent planning discharge which included bedside counseling. Extracted from:Title: [facility] Hospital[facility] Progress Note Author: Mark Anthony Flaherty MD Date: 05/06/17 [facility] Hospital[facility] Progress Note Attending: Mark Anthony Sheikh Jr, MD, Spectralink #[id number] [facility] or #[id number] [facility] Subjective: No overnight events. I spoke with the patient extensively about the plan of care as well as her poorly controlled diabetes. We also discussed the finding of a right breast lesion and need for outpatient follow up. Denies further chest pain. Objective: Vitals and Temp: Vitals Tmp(F) Pulse BP RR SpO2 FIO2 05/06 16:00 ---- 91 103/68 18 --- --- 05/06 15:43 97.6 116 98/63 18 94 --- 05/06 13:05 ---- 99 94/62 18 --- --- 05/06 11:58 98.1 105 105/67 18 94 --- 05/06 08:28 ---- --- ----- 18 96 21% 24 Hr Tmax: 98.4F (36.89c) at 05/05 19:36 Vital Signs are the last 5 in the [...] edema Labs (Last four charted values) WBC 8.7 (MAY 05) Hgb 15.1 (MAY 05) Hct 44.9 (MAY 05) Plt 235 (MAY 05) Na L 130 (MAY 05) L 128 (MAY 05) K 4.2 (MAY 05) 3.7 (MAY 05) CO2 L 21 (MAY 05) 24 (MAY 05) Cl 95 (MAY 05) L 90 (MAY 05) Cr H 2.76 (MAY 05) H 3.40 (MAY 05) BUN H 67 (MAY 05) H 77 (MAY 05) Glucose Random C 515 (MAY 05) C 427 (MAY 05) Ca 8.8 (MAY 05) 9.2 (MAY 05) Troponin 0.20 (MAY 05) 0.24 (MAY 05) 0.23 (MAY 05) CK MB 3.2 (MAY 05) Total CK 186 (MAY 05) Surgery Schedule: (no surgical procedures documented) [...] have ordered. She will also need an chemistry teacher as an outpatient. She is quite insulin [...] hospitalization. She needs diabetes optimization and education. [facility] Hospitalist Service is primary. Call [phone] (SE) or [phone] (PL) with questions. Extracted from:Title: General Admission H&P * Author: Sonu Ambriz [...] will need to be made inpatient status 05/07/2017 [facility] Plan of Care No Data Provided for This Section Social History Social History Date Source Social History TypeResponse Smoking Status Never smoker; Exposure to Tobacco Smoke None; Cigarette Smoking Last 365 Days No; Reg Smoking Cessation Counseling No entered on: 05/05/17 05/05/2017 CASSANDRA Joseph Social History TypeResponse Smoking Status Never smoker; Exposure to Tobacco Smoke None; Cigarette Smoking Last 365 Days No; Reg Smoking Cessation Counseling No entered on: 05/05/17 05/05/2017 [facility] Family History No Data Provided for This Section Advance Directives No Data Provided for This Section Functional Status No Data Provided for This Section
--- OUTSIDE RECORDS SUMMARY | 2018-10-09 14:04 | XMS REPORT | Summary of Care ---
Author Author [facility] [place] Organization [facility] [place] Address Unknown Phone Unavailable Encounter [facility](FIN) [id number] Date(s): 09/27/18 - 09/27/18 [facility] [place] [address] [place] [phone] Encounter Diagnosis Encounter for screening mammogram for malignant neoplasm of breast (Final) - Discharge Disposition: Home or Self Care Attending Physician: Geoffrey Vega MD Referring Physician: Geoffrey Vega MD Vital Signs No data available for this section Problem List No data available for this section Allergies, Adverse Reactions, Alerts No Known Medication Allergies Medications No data available for this section Results No data available for this section Immunizations Not Given Vaccine Date Status Refusal Reason pneumococcal 23-valent vaccine1 05/05/17 Not Given Patient Refuses 1Result Note: has already had this vaccination Procedures Procedure Date Related Diagnosis Body Site Status Cataract surgery Completed Social History Social History Type Response Smoking Status Never smoker; Exposure to Tobacco Smoke None; Cigarette Smoking Last 365 Days No; Reg Smoking Cessation Counseling No entered on: 05/05/17 Assessment and Plan No data available for this section
--- OUTSIDE RECORDS SUMMARY | 2018-10-09 14:04 | XMS REPORT | Summary of Care ---
Author Author [facility] [place] Organization [facility] [place] Address Unknown Phone Unavailable Encounter [facility]encia(FIN) [id number] Date(s): 06/19/18 - 06/19/18 [facility] [place] [address] [place] [phone] Discharge Disposition: Home or Self Care Attending Physician: Dillon Osborne MD Referring Physician: Dillon Osborne MD Vital Signs No data available for [...]
[2018-10-09] MEDS ORDERED: ONDANSETRON HCL INJ 2MG/ML 2ML 2 MG/ML VIAL IV STA (14:23)
[2018-10-09] MEDS ORDERED: MECLIZINE HCL 12.5 MG TAB PO ONE (14:30)
[2018-10-09] MEDS ORDERED: SODIUM CHLORIDE 0.9% 500ML 500 ML IV ONE (14:30)
[2018-10-09 15:03] LABS: BASOPHILS # (AUTO) 0.1 (0.0-0.1); BASOPHILS % 0.5 % (0.0-1.0); EOSINOPHILS # (AUTO) 0.1 (0.0-0.4); EOSINOPHILS % 0.7 % (0.0-6.0); HEMATOCRIT 48.5 % (34.2-44.1); HEMOGLOBIN 15.4 g/dL (12.0-16.0); LYMPHOCYTES # (AUTO) 2.3 (1.0-3.2); LYMPHOCYTES % 23.4 % (18.0-39.1); MEAN CORPUSCULAR HEMOGLOBIN 28.2 pg (28-32); MEAN CORPUSCULAR HGB CONC 31.8 g/dL (31-35); MEAN CORPUSCULAR VOLUME 88.8 fL (81-99); MONOCYTES # (AUTO) 0.4 (0.2-0.8); MONOCYTES % 4.1 % (4.4-11.3); NEUTROPHILS # (AUTO) 7.1 (2.1-6.9); NEUTROPHILS % 71.1 % (38.7-80.0); PLATELET COUNT 267 x10e3/uL (140-360); RED BLOOD COUNT 5.46 x10e6/uL (3.6-5.1); RED CELL DISTRIBUTION WIDTH 15.2 % (11.7-14.4)
[2018-10-09 15:09] LABS: INR 0.87; PROTHROMBIN TIME 12.3 seconds (11.9-14.5)
[2018-10-09 15:10] LABS: PARTIAL THROMBOPLASTIN TIME 25.9 seconds (23.8-35.5)
[2018-10-09 15:19] LABS: ALBUMIN 4.3 g/dL (3.5-5.0); ALBUMIN/GLOBULIN RATIO 1.1 (0.8-2.0); ANION GAP 18.1 mmol/L (8-16); CREATININE, SERUM 1.59 mg/dL (0.57-1.11); MAGNESIUM 2.5 MG/DL (1.3-2.1); POTASSIUM 4.1 mmol/L (3.5-5.1)
--- NOTE | 2018-10-09 15:20 | NUR ---
meds given per dr's ordrs; pt has refused the meclizne at this time due to nausea. dr. chavarria informed
[2018-10-09 15:26] LABS: CLARITY,URINE HAZY (CLEAR); COLOR,URINE YELLOW (YELLOW)
[2018-10-09 15:28] LABS: BACTERIA,URINE FEW /HPF; BILIRUBIN,URINE NEGATIVE (NEGATIVE); EPITHELIAL CELLS,URINE FEW /LPF; KETONES,URINE NEGATIVE (NEGATIVE); LEUKOCYTE ESTERASE ,URINE NEGATIVE (NEGATIVE); NITRITE,URINE NEGATIVE (NEGATIVE); PROTEIN,URINE DIPSTICK 1+ (NEGATIVE); URINE UROBILINOGEN 0.2 mg/dL (0.2 - 1); WBC,URINE (MAN) 0-5 /HPF (0-5)
[2018-10-09 15:38] LABS: CREATINE KINASE MB 0.8 ng/mL (0-5.0); THYROID STIMULATING HORMONE 2.718 uIU/mL (0.350-4.940)
--- NOTE | 2018-10-09 15:44 | NUR ---
37.5mg of meclizine given per dr's orders.
--- NOTE | 2018-10-09 15:53 | Diagnostic Imaging Report ---
EXAMINATION: Head CT HISTORY: Nausea and dizziness for the last 2 days COMPARISON: None. TECHNIQUE: Multidetector axial images were obtained without contrast from the foramen magnum to the vertex . The images were reconstructed using brain and bone algorithms. Thin section brain images were reformatted into coronal and sagittal planes. Image quality: Motion/streaking artifact limits the evaluation of the skull base and posterior cranial fossa. Dose modulation, iterative reconstruction, and/or weight based adjustment of the mA/kV was utilized to reduce the radiation dose to as low as reasonably achievable. FINDINGS: Parenchyma: 1. Cortical subcortical encephalomalacia in the right posterior middle frontal and precentral gyri, likely the sequela from remote insult such as ischemia/infarction, a smaller similar focal area in the right superior parietal lobule cortex. 2. No mass or hemorrhage. No CT evidence of acute territorial vascular insult. Extra-axial spaces:No abnormal density. No extra-axial fluid collections Brain volume: Normal for age. Ventricles: No hydrocephalus or displacement. Arteries: No density suggestive of thrombus. Prominent atherosclerotic calcification of the bilateral cavernous ICAs. Dural sinuses: No abnormal density. Extra-axial spaces: No abnormal density. Foramen magnum: No mass, Chiari malformation, or basilar invagination. Sella: No obvious mass. Paranasal/mastoid sinuses: Imaged portions unremarkable. Skull/Scalp: No lytic or blastic lesions. No fractures. IMPRESSION: 1. No acute intracranial abnormalities. 2. Chronic right frontoparietal cortical infarcts. Signed by: Dr. Park Solis M.D. on 10/09/2018 3:50 PM
--- NOTE | 2018-10-09 16:24 | Diagnostic Imaging Report ---
EXAMINATION: CHEST SINGLE (PORTABLE) INDICATION: Dizziness COMPARISON: Chest radiograph of 03/24/2018 FINDINGS: TUBES and LINES: Interval postoperative changes with median sternotomy wires and surgical clips overlying the midline thorax. LUNGS: The lung volumes are low. No focal consolidation. There is mild perihilar fullness and indistinctness of the pulmonary vasculature. PLEURA: No pleural effusion or pneumothorax. HEART AND MEDIASTINUM: The cardiomediastinal silhouette is normal in size and contour. BONES AND SOFT TISSUES: No acute fracture or dislocation. UPPER ABDOMEN: No free air under the diaphragm. IMPRESSION: Mild pulmonary edema. No focal pneumonia. Signed by: Stephen Quan MD on 10/09/2018 4:21 PM
[2018-12-18] MEDS ORDERED: ZIOPTAN 0.00151 EACH OU (10:39)
[2018-12-18] MEDS ORDERED: COSOPT PF EYE1 EACH OU (10:39)
[2018-12-18] MEDS ORDERED: FUROSEMIDE40 MG PO (10:39)
[2018-12-18] MEDS ORDERED: INSULIN PUMP SC (10:39)
[2018-12-18] MEDS ORDERED: LOSARTAN POTASS25 MG PO (10:39)
[2018-12-18] MEDS ORDERED: METOPROLOL TART25 MG PO (10:39)
[2018-12-18] MEDS ORDERED: NIACIN500 M1 PO (10:39)
[2018-12-18] MEDS ORDERED: [UNRECOGNIZED DRUG - OTHER] SC (10:39)
[2018-12-18] MEDS ORDERED: TRESIBA SC (10:39)
[2019-01-01] MEDS ORDERED: PLAVIX75 MG PO (10:52)
== END 2018-10-09 18:26 | disposition home or self-care (01) ==
LOC: ER 13:57
DX: H81.20 Vestibular neuronitis, unspecified ear (principal); I12.9 Hypertensive chronic kidney disease with stage 1 through stage 4 chronic kidney disease, or unspecified chronic kidney disease; E11.22 Type 2 diabetes mellitus with diabetic chronic kidney disease; N18.9 Chronic kidney disease, unspecified; Z86.73 Personal history of transient ischemic attack (TIA), and cerebral infarction without residual deficits
CPT/HCPCS: 36415; 70450; 71045; 80053; 81001; 82550; 82553; 83735; 84443; 84484; 85025; 85610; 85730; 87086; 93005; 99284; J2405; J7040; J8597

== ENCOUNTER → 2018-12-20 | Day surgery (SDC) | payer MEDICARE ==
--- NOTE | 2018-12-18 10:30 | NUR ---
Reviewed patient's medications with Florence Oneill RN with Dr. Lopez's office in regards to which medications patient to take on morning of procedure. Florence Oneill RN stated to hold Aspirin 325mg po and Furosemide 40 mg po on SundayDecember 20. Florence Oneill RN stated Okay for patient to take Citalopram 20mg po, Losartan 25mg po, niacin 500mg, Rosuvastatin 20mg, and the zioptan eye drops at bedtime on 12/20/18. Florence Oneill RN stated ok for patient to take Metoprolol Tartrate 12.5mg po on Sunday12/20/18 with sips of water and okay for patient to continue Cosopt eye drops. Florence Oneill RN instructed for Patient to hold short acting insulin after midnight. Florence Oneill RN also instructed for patient to take 16 units of Tresiba insulin at bedtime on 12/19/18. Relayed this information to patient and patient's . Also wrote down medication instructions on pre-op instructions form and copy provided to patient and patient's Sivakumar. Patient and verbalized understanding and had no questions at this time.
[2018-12-18 11:51] LABS: BASOPHILS # (AUTO) 0.1 (0.0-0.1); BASOPHILS % 0.5 % (0.0-1.0); EOSINOPHILS # (AUTO) 0.2 (0.0-0.4); EOSINOPHILS % 1.8 % (0.0-6.0); HEMATOCRIT 45.1 % (34.2-44.1); HEMOGLOBIN 14.5 g/dL (12.0-16.0); LYMPHOCYTES # (AUTO) 3.9 (1.0-3.2); LYMPHOCYTES % 41.4 % (18.0-39.1); MEAN CORPUSCULAR HEMOGLOBIN 29.2 pg (28-32); MEAN CORPUSCULAR HGB CONC 32.2 g/dL (31-35); MEAN CORPUSCULAR VOLUME 90.7 fL (81-99); MONOCYTES # (AUTO) 0.6 (0.2-0.8); MONOCYTES % 6.3 % (4.4-11.3); NEUTROPHILS # (AUTO) 4.7 (2.1-6.9); NEUTROPHILS % 49.7 % (38.7-80.0); PLATELET COUNT 252 x10e3/uL (140-360); RED BLOOD COUNT 4.97 x10e6/uL (3.6-5.1); RED CELL DISTRIBUTION WIDTH 14.1 % (11.7-14.4)
[2018-12-18 12:17] LABS: CHOL/HDL RATIO 3.1 (3.0-3.6)
[2018-12-18 12:19] LABS: ANION GAP 15.5 mmol/L (8-16); CALCIUM 10.4 mg/dL (8.4-10.2); CREATININE, SERUM 1.69 mg/dL (0.57-1.11); POTASSIUM 4.5 mmol/L (3.5-5.1)
[2018-12-18 12:28] LABS: INR 0.88; PROTHROMBIN TIME 12.4 seconds (11.9-14.5)
[2018-12-18 12:29] LABS: PARTIAL THROMBOPLASTIN TIME 27.4 seconds (23.8-35.5)
--- NOTE | 2018-12-18 14:52 | Diagnostic Imaging Report ---
EXAMINATION: CHEST 2 VIEWS INDICATION: Pre-operative COMPARISON: Chest radiograph of 10/09/2018 FINDINGS: LINES/TUBES:None LUNGS:The lungs are moderately inflated. No focal consolidation or pulmonary edema. PLEURA:No pleural effusion or pneumothorax. MEDIASTINUM:The cardiomediastinal silhouette appears normal in size and shape. Atherosclerotic calcifications of the thoracic aorta. BONES/SOFT TISSUES:Sternotomy wires intact. ABDOMEN:No free air under the diaphragm. IMPRESSION: No focal pneumonia or pulmonary edema. Signed by: Stephen Quan MD on 12/18/2018 2:49 PM
--- NOTE | 2018-12-19 10:13 | NUR ---
Notified Florence Oneill RN with Dr. Lopez's office of BUN 30, creatinine 1.69 and eGFR 30 and patient has history of Chronic Kidney Disease. Florence Oneill RN ordered to start IV fluids Normal Saline 100ml/hr at time of IV placement and to run Normal Saline IV at 100ml/hr for four hours post procedure.
[2018-12-20] VITALS (8 sets, daily range): BP systolic 101–157; BP diastolic 59–76
[~2018-12-20] VITALS: Ht 152.4 cm; Wt 103.0 kg
[~2018-12-20] MED LIST changes: +ACETAMINOPHEN 325 MG TAB ONE; +BIVALRIUDIN 250 MG/VIAL VIAL IV ONE; +COSOPT PF EYE1 EACH OU; +FENTANYL CITRATE/PF 100MCG/2 ML INJ ONE; +FUROSEMIDE40 MG PO; +HEPARIN SOD (PORCINE) 1000 UNIT/ML 30ML ONE; +HEPARIN SOD/SOD CHLORIDE 2,000 ML ONE; +INSULIN PUMP SC; +IOPAMIDOL 300MG/ML 100 ML INFUS..BTL IV ONE; +LIDOCAINE HCL 2% LOCAL 20 ML VIAL ONE; +LOSARTAN POTASS25 MG PO; +METOPROLOL TART25 MG PO; +MIDAZOLAM HCL 2 MG/2 ML VIAL ONE; +NIACIN500 M1 PO; +NITROGLYCERIN/D5W 200 MCG/ML 0 ML ONE; +SODIUM CHLORIDE 0.9% 1000ML 1,000 ML ONE; +SODIUM CHLORIDE 0.9% 50ML 50 ML ONE; +TRESIBA SC; +ZIOPTAN 0.00151 EACH OU; +[UNRECOGNIZED DRUG - OTHER] SC
--- OUTSIDE RECORDS SUMMARY | 2018-12-20 06:33 | XMS REPORT | Clinical Summary ---
Author Author MANUEL [facility] Address Unknown Phone Unavailable Care Team Providers Care Airborne Electronics Analyst Name Role Phone Geoffrey Vega PCP Allergies [...] (six) hours for 7 days. 04/22/2018 Discontinued [id number] Apply 1 25 packet 0 myxnB (NEOSPORIN) packet 9 3.5-400-5,000 topically 3 ce-yqfp-bwss OiPk packet (three) times daily. 04/28/2018 Discontinued [...] Refusal of blood transfusions as patient is Jehovah's witness 04/05/2018 Acute pulmonary insufficiency 04/05/2018 Vasogenic shock [...] edema; Transient hypotension; Coronary artery disease involving [place] coronary artery, angina presence unspecified, unspecified whether [place] or transplanted heart; S/P CABG x 2; Acute pulmonary insufficiency; Chronic kidney disease, unspecified CKD stage; Hypervolemia, unspecified hypervolemia type; Coronary artery disease involving [place] coronary artery of [place] heart without angina pectoris; Pericardial effusion; SOB (shortness of breath) 04/22/2018 Hospital Cardiology - Encounter 04/28/2018 04/22/2018 Travel Dillon Osborne MD BYPASS,[place] CORONARY ARTEM 04/05/2018 Surgery Bautista Santana MD 04/05/2018 Anesthesia Event Sarah Kohler MD 04/02/2018 Anesthesia Cardiac Intensive Care Event 03/31/2018 Travel Dillon Osborne MD Coronary artery disease involving [place] coronary artery of [place] heart without angina pectoris; Coronary artery disease involving [place] coronary artery, angina presence unspecified, unspecified whether [place] or transplanted heart; Dyslipidemia; Preoperative cardiovascular examination; Refusal of blood transfusions as patient is Jehovah's witness; Acute blood loss anemia; Acute pulmonary insufficiency; Chronic kidney disease, unspecified CKD stage; Diabetic nephropathy associated with type 2 diabetes mellitus (HCC); Hyperglycemia; Poorly controlled diabetes mellitus (HCC); S/P CABG x 2; SIRS (systemic inflammatory response syndrome) (HCC); Vasogenic shock (HCC) 03/30/2018 Hospital Cardiology - Encounter 04/15/2018 03/30/2018 Orders Only General Internal Medicine after 12/19/2017 Family History Medical History Relation Name Comments [...] Taken Vital Sign Reading 04/28/2018 11:39 AM REFRIGERATION SERVICE INSPECTOR Blood Pressure 93/55 04/28/2018 11:39 AM REFRIGERATION SERVICE INSPECTOR Pulse 65 04/28/2018 11:39 AM REFRIGERATION SERVICE INSPECTOR Temperature 36.1 C (97 F) 04/28/2018 11:39 AM REFRIGERATION SERVICE INSPECTOR Respiratory Rate 18 04/28/2018 11:39 AM REFRIGERATION SERVICE INSPECTOR Oxygen Saturation 98% 04/06/2018 11:40 AM REFRIGERATION SERVICE INSPECTOR Inhaled Oxygen 40% Concentration 04/26/2018 7:40 AM REFRIGERATION SERVICE INSPECTOR Weight 100.8 kg (222 lb 3.2 oz) 04/23/2018 9:25 PM REFRIGERATION SERVICE INSPECTOR Height 152.4 cm (5') 04/26/2018 7:40 AM REFRIGERATION SERVICE INSPECTOR Body Mass Index 43.4 Plan of Treatment Not on file Implants Device Identifier Shelf Expiration Date Model / Serial / Lot Implanted Type Area Manufactur er 10/06/2022 [id number] / / [id number] Sternal Zipfix Ndl Strl Cardiovasc SYNTHES:SY [id number] - [id number] [facility] Implanted: Qty: 2 on 04/05/2018 by Dillon Osborne MD Procedures Comments Procedure Name Priority Date/Time Associated Diagnosis RHYTHM STRIP - SCAN 07/12/2018 8:40 AM CDT REPORT OF PROCEDURE - 05/18/2018 ENDOSCOPY SCAN 11:40 AM REFRIGERATION SERVICE INSPECTOR RHYTHM STRIP - SCAN 05/18/2018 11:40 AM REFRIGERATION SERVICE INSPECTOR RHYTHM STRIP - SCAN 05/06/2018 10:00 AM REFRIGERATION SERVICE INSPECTOR POCT-GLUCOSE METER Routine 04/28/2018 7:10 AM REFRIGERATION SERVICE INSPECTOR BUN AND CREATININE Routine 04/28/2018 5:46 AM REFRIGERATION SERVICE INSPECTOR POCT-GLUCOSE METER Routine 04/27/2018 7:51 PM REFRIGERATION SERVICE INSPECTOR POCT-GLUCOSE METER Routine 04/27/2018 12:58 PM REFRIGERATION SERVICE INSPECTOR POCT-GLUCOSE METER Routine 04/27/2018 9:06 AM REFRIGERATION SERVICE INSPECTOR CBC W/PLT COUNT & AUTO Routine 04/27/2018 DIFFERENTIAL 3:41 AM REFRIGERATION SERVICE INSPECTOR MAGNESIUM Routine 04/27/2018 3:41 AM REFRIGERATION SERVICE INSPECTOR CBC W/PLT COUNT & AUTO Routine 04/27/2018 DIFFERENTIAL 3:41 AM REFRIGERATION SERVICE INSPECTOR BASIC METABOLIC PANEL (7) Routine 04/27/2018 3:41 AM REFRIGERATION SERVICE INSPECTOR PHOSPHORUS Routine 04/27/2018 3:41 AM REFRIGERATION SERVICE INSPECTOR POCT-GLUCOSE METER Routine 04/26/2018 9:39 PM REFRIGERATION SERVICE INSPECTOR US RENAL COMPLETE Routine 04/26/2018 9:14 PM REFRIGERATION SERVICE INSPECTOR POCT-GLUCOSE METER Routine 04/26/2018 5:49 PM REFRIGERATION SERVICE INSPECTOR POCT-GLUCOSE METER Routine 04/26/2018 2:04 PM REFRIGERATION SERVICE INSPECTOR POCT-GLUCOSE METER Routine 04/26/2018 7:39 AM REFRIGERATION SERVICE INSPECTOR SODIUM, RANDOM URINE Routine 04/26/2018 4:49 AM REFRIGERATION SERVICE INSPECTOR CREATININE, RANDOM URINE Routine 04/26/2018 4:49 AM REFRIGERATION SERVICE INSPECTOR URINALYSIS W/ MICROSCOPIC Routine 04/26/2018 4:49 AM REFRIGERATION SERVICE INSPECTOR PROTEIN, RANDOM URINE Routine 04/26/2018 4:49 AM REFRIGERATION SERVICE INSPECTOR PHOSPHORUS Routine 04/26/2018 4:34 AM REFRIGERATION SERVICE INSPECTOR POCT-GLUCOSE METER Routine 04/25/2018 9:15 PM REFRIGERATION SERVICE INSPECTOR XR CHEST 1 VIEW Routine 04/25/2018 PORTABLE/BEDSIDE 5:57 PM REFRIGERATION SERVICE INSPECTOR POCT-GLUCOSE METER Routine 04/25/2018 5:44 PM REFRIGERATION SERVICE INSPECTOR POCT-GLUCOSE METER Routine 04/25/2018 11:15 AM REFRIGERATION SERVICE INSPECTOR POCT-GLUCOSE METER Routine 04/25/2018 7:56 AM REFRIGERATION SERVICE INSPECTOR CBC W/PLT COUNT & AUTO Routine 04/25/2018 DIFFERENTIAL 5:00 AM REFRIGERATION SERVICE INSPECTOR MAGNESIUM Routine 04/25/2018 5:00 AM REFRIGERATION SERVICE INSPECTOR CBC W/PLT COUNT & AUTO Routine 04/25/2018 DIFFERENTIAL 5:00 AM REFRIGERATION SERVICE INSPECTOR BASIC METABOLIC PANEL (7) Routine 04/25/2018 5:00 AM REFRIGERATION SERVICE INSPECTOR POCT-GLUCOSE METER Routine 04/24/2018 9:19 PM REFRIGERATION SERVICE INSPECTOR POCT-GLUCOSE METER Routine 04/24/2018 6:10 PM REFRIGERATION SERVICE INSPECTOR POCT-GLUCOSE METER Routine 04/24/2018 1:49 PM REFRIGERATION SERVICE INSPECTOR POCT-GLUCOSE METER Routine 04/24/2018 7:33 AM REFRIGERATION SERVICE INSPECTOR CBC W/PLT COUNT & AUTO Routine 04/24/2018 DIFFERENTIAL 4:16 AM REFRIGERATION SERVICE INSPECTOR PHOSPHORUS Routine 04/24/2018 4:16 AM REFRIGERATION SERVICE INSPECTOR MAGNESIUM Routine 04/24/2018 4:16 AM REFRIGERATION SERVICE INSPECTOR CBC W/PLT COUNT & AUTO Routine 04/24/2018 DIFFERENTIAL 4:16 AM REFRIGERATION SERVICE INSPECTOR POCT-GLUCOSE METER Routine 04/23/2018 9:34 PM REFRIGERATION SERVICE INSPECTOR TROPONIN I STAT 04/23/2018 4:43 PM REFRIGERATION SERVICE INSPECTOR COMPREHENSIVE METABOLIC STAT 04/23/2018 PANEL 4:43 PM REFRIGERATION SERVICE INSPECTOR POCT-GLUCOSE METER Routine 04/23/2018 4:34 PM REFRIGERATION SERVICE INSPECTOR CBC W/PLT COUNT & AUTO Routine 04/23/2018 DIFFERENTIAL 4:30 PM REFRIGERATION SERVICE INSPECTOR CBC W/PLT COUNT & AUTO Routine 04/23/2018 DIFFERENTIAL 4:30 PM REFRIGERATION SERVICE INSPECTOR ECHOCARDIOGRAM REPORT - 04/23/2018 SCAN 3:51 PM REFRIGERATION SERVICE INSPECTOR 2D ECHO W/ DOPPLER STAT 04/23/2018 (CW/PW/COLOR) 12:20 PM REFRIGERATION SERVICE INSPECTOR POCT-GLUCOSE METER Routine 04/23/2018 11:58 AM REFRIGERATION SERVICE INSPECTOR ECG 12-LEAD Routine 04/23/2018 11:20 AM REFRIGERATION SERVICE INSPECTOR Procedure Note - Interface, External Ris In - 04/23/2018 11:03 PM REFRIGERATION SERVICE INSPECTOR Ventricula r Rate 73 BPM Atrial Rate 73 BPM P-R Interval 144 ms QRS Duration 82 ms Q-T Interval 438 ms QTC Calculatio n([place]azett) 482 ms P [place] 32 degrees R [place] -21 degrees T [place] 130 degrees Normal sinus rhythm ST & T wave abnormalit y, consider lateral ischemia Prolonged QT Abnormal ECG When compared with ECG of 9 19:24, No significan t change was found ECG 12-LEAD Routine 04/23/2018 11:20 AM REFRIGERATION SERVICE INSPECTOR POCT-LACTIC ACID, VENOUS Routine 04/23/2018 2:49 AM REFRIGERATION SERVICE INSPECTOR POCT-GLUCOSE METER Routine 04/23/2018 2:48 AM REFRIGERATION SERVICE INSPECTOR B-TYPE NATRIURETIC FACTOR STAT 04/22/2018 (BNP) 11:47 PM REFRIGERATION SERVICE INSPECTOR CBC W/PLT COUNT & AUTO STAT 04/22/2018 DIFFERENTIAL 8:34 PM REFRIGERATION SERVICE INSPECTOR PT/APTT STAT 04/22/2018 8:34 PM REFRIGERATION SERVICE INSPECTOR CBC W/PLT COUNT & AUTO STAT 04/22/2018 DIFFERENTIAL 8:34 PM REFRIGERATION SERVICE INSPECTOR TROPONIN I STAT 04/22/2018 8:34 PM REFRIGERATION SERVICE INSPECTOR MAGNESIUM STAT 04/22/2018 8:34 PM REFRIGERATION SERVICE INSPECTOR BASIC METABOLIC PANEL (7) STAT 04/22/2018 8:34 PM REFRIGERATION SERVICE INSPECTOR XR CHEST 1 VIEW STAT 04/22/2018 PORTABLE/BEDSIDE 8:20 PM REFRIGERATION SERVICE INSPECTOR ECG 12-LEAD Routine 04/22/2018 7:24 PM REFRIGERATION SERVICE INSPECTOR Procedure Note - Interface, External Ris In - 04/22/2018 8:45 PM REFRIGERATION SERVICE INSPECTOR Ventricula r Rate 83 BPM Atrial Rate 83 BPM P-R Interval 142 ms QRS Duration 72 ms Q-T Interval 386 ms QTC Calculatio n(Bazett) 453 ms P [place] 27 degrees R [place] -26 degrees T [place] 123 degrees Normal sinus rhythm Left ventricula r hypertroph y with repolariza tion abnormalit y Abnormal ECG When compared with ECG of 9 19:24, No significan t change was found ECG 12-LEAD STAT 04/22/2018 7:24 PM REFRIGERATION SERVICE INSPECTOR ECG 12-LEAD Routine 04/22/2018 7:24 PM REFRIGERATION SERVICE INSPECTOR Procedure Note - Interface, External Ris In - 04/22/2018 8:45 PM REFRIGERATION SERVICE INSPECTOR Ventricula r Rate 83 BPM Atrial Rate 83 BPM P-R Interval 148 ms QRS Duration 70 ms Q-T Interval 392 ms QTC Calculatio n(Bazett) 460 ms P [place] 30 degrees R [place] -24 degrees T [place] 121 degrees Normal sinus rhythm Left ventricula r hypertroph y with repolariza tion abnormalit y Abnormal ECG When compared with ECG of 8 16:28, T wave inversion now evident in Anterior leads POCT-GLUCOSE METER Routine 04/15/2018 12:48 PM REFRIGERATION SERVICE INSPECTOR POCT-GLUCOSE METER Routine 04/15/2018 8:29 AM REFRIGERATION SERVICE INSPECTOR MAGNESIUM Routine 04/15/2018 6:14 AM REFRIGERATION SERVICE INSPECTOR BASIC METABOLIC PANEL (7) Routine 04/15/2018 6:14 AM REFRIGERATION SERVICE INSPECTOR POCT-GLUCOSE METER Routine 04/14/2018 9:46 PM REFRIGERATION SERVICE INSPECTOR POCT-GLUCOSE METER Routine 04/14/2018 6:05 PM REFRIGERATION SERVICE INSPECTOR MAGNESIUM Routine 04/14/2018 4:28 PM REFRIGERATION SERVICE INSPECTOR BASIC METABOLIC PANEL (7) Routine 04/14/2018 4:28 PM REFRIGERATION SERVICE INSPECTOR POCT-GLUCOSE METER Routine 04/14/2018 12:54 PM REFRIGERATION SERVICE INSPECTOR POCT-GLUCOSE METER Routine 04/14/2018 8:39 AM REFRIGERATION SERVICE INSPECTOR CBC W/PLT COUNT & AUTO Routine 04/14/2018 DIFFERENTIAL 4:04 AM REFRIGERATION SERVICE INSPECTOR CBC W/PLT COUNT & AUTO Routine 04/14/2018 DIFFERENTIAL 4:04 AM REFRIGERATION SERVICE INSPECTOR POCT-GLUCOSE METER Routine 04/13/2018 10:42 PM REFRIGERATION SERVICE INSPECTOR POCT-GLUCOSE METER Routine 04/13/2018 7:08 PM REFRIGERATION SERVICE INSPECTOR POCT-GLUCOSE METER Routine 04/13/2018 12:24 PM REFRIGERATION SERVICE INSPECTOR POCT-GLUCOSE METER Routine 04/13/2018 10:04 AM REFRIGERATION SERVICE INSPECTOR POCT-GLUCOSE METER Routine 04/12/2018 9:47 PM REFRIGERATION SERVICE INSPECTOR POCT-GLUCOSE METER Routine 04/12/2018 6:42 PM REFRIGERATION SERVICE INSPECTOR ECHOCARDIOGRAM REPORT - 04/12/2018 SCAN 3:45 PM REFRIGERATION SERVICE INSPECTOR POCT-GLUCOSE METER Routine 04/12/2018 12:42 PM REFRIGERATION SERVICE INSPECTOR 2D ECHO W/ DOPPLER Routine 04/12/2018 (CW/PW/COLOR) 9:50 AM REFRIGERATION SERVICE INSPECTOR POCT-GLUCOSE METER Routine 04/12/2018 8:41 AM REFRIGERATION SERVICE INSPECTOR BASIC METABOLIC PANEL (7) Routine 04/12/2018 5:28 AM REFRIGERATION SERVICE INSPECTOR POCT-GLUCOSE METER Routine 04/11/2018 10:51 PM REFRIGERATION SERVICE INSPECTOR POCT-GLUCOSE METER Routine 04/11/2018 5:55 PM REFRIGERATION SERVICE INSPECTOR NM MUGA CARD IMAGING EQ Routine 04/11/2018 REST WM EF 5:20 PM REFRIGERATION SERVICE INSPECTOR POCT-GLUCOSE METER Routine 04/11/2018 11:47 AM REFRIGERATION SERVICE INSPECTOR BASIC METABOLIC PANEL (7) Routine 04/11/2018 8:27 AM REFRIGERATION SERVICE INSPECTOR POCT-GLUCOSE METER Routine 04/11/2018 7:46 AM REFRIGERATION SERVICE INSPECTOR POCT-GLUCOSE METER Routine 04/10/2018 9:03 PM REFRIGERATION SERVICE INSPECTOR POCT-GLUCOSE METER Routine 04/10/2018 11:56 AM REFRIGERATION SERVICE INSPECTOR POCT-GLUCOSE METER Routine 04/10/2018 9:35 AM REFRIGERATION SERVICE INSPECTOR MAGNESIUM Routine 04/10/2018 3:29 AM REFRIGERATION SERVICE INSPECTOR BASIC METABOLIC PANEL (7) Routine 04/10/2018 3:29 AM REFRIGERATION SERVICE INSPECTOR POCT-GLUCOSE METER Routine 04/09/2018 10:46 PM REFRIGERATION SERVICE INSPECTOR POCT-GLUCOSE METER Routine 04/09/2018 7:30 PM REFRIGERATION SERVICE INSPECTOR POCT-GLUCOSE METER Routine 04/09/2018 2:04 PM REFRIGERATION SERVICE INSPECTOR POCT-GLUCOSE METER Routine 04/09/2018 10:12 AM REFRIGERATION SERVICE INSPECTOR CBC W/PLT COUNT & AUTO Routine 04/09/2018 DIFFERENTIAL 4:30 AM REFRIGERATION SERVICE INSPECTOR CBC W/PLT COUNT & AUTO Routine 04/09/2018 DIFFERENTIAL 4:30 AM REFRIGERATION SERVICE INSPECTOR POCT-GLUCOSE METER Routine 04/08/2018 9:23 PM REFRIGERATION SERVICE INSPECTOR POCT-GLUCOSE METER Routine 04/08/2018 5:13 PM REFRIGERATION SERVICE INSPECTOR LIPID PANEL Routine 04/08/2018 10:56 AM REFRIGERATION SERVICE INSPECTOR POCT-GLUCOSE METER Routine 04/08/2018 7:46 AM REFRIGERATION SERVICE INSPECTOR POCT-GLUCOSE METER Routine 04/08/2018 6:20 AM REFRIGERATION SERVICE INSPECTOR CBC W/PLT COUNT & AUTO Routine 04/08/2018 DIFFERENTIAL 3:38 AM REFRIGERATION SERVICE INSPECTOR PHOSPHORUS Routine 04/08/2018 3:38 AM REFRIGERATION SERVICE INSPECTOR MAGNESIUM Routine 04/08/2018 3:38 AM REFRIGERATION SERVICE INSPECTOR BASIC METABOLIC PANEL (7) Routine 04/08/2018 3:38 AM REFRIGERATION SERVICE INSPECTOR CBC W/PLT COUNT & AUTO Routine 04/08/2018 DIFFERENTIAL 3:38 AM REFRIGERATION SERVICE INSPECTOR POCT-GLUCOSE METER Routine 04/08/2018 2:33 AM REFRIGERATION SERVICE INSPECTOR POCT-GLUCOSE METER Routine 04/08/2018 12:07 AM REFRIGERATION SERVICE INSPECTOR POCT-GLUCOSE METER Routine 04/07/2018 6:40 PM REFRIGERATION SERVICE INSPECTOR POCT-GLUCOSE METER Routine 04/07/2018 3:45 PM REFRIGERATION SERVICE INSPECTOR POCT-GLUCOSE METER Routine 04/07/2018 12:10 PM REFRIGERATION SERVICE INSPECTOR XR CHEST 1 VIEW Routine 04/07/2018 PORTABLE/BEDSIDE 9:29 AM REFRIGERATION SERVICE INSPECTOR POCT-GLUCOSE METER Routine 04/07/2018 7:08 AM REFRIGERATION SERVICE INSPECTOR PHOSPHORUS Routine 04/07/2018 5:41 AM REFRIGERATION SERVICE INSPECTOR MAGNESIUM Routine 04/07/2018 5:41 AM REFRIGERATION SERVICE INSPECTOR BASIC METABOLIC PANEL (7) Routine 04/07/2018 5:41 AM REFRIGERATION SERVICE INSPECTOR CBC W/PLT COUNT & AUTO Routine 04/07/2018 DIFFERENTIAL 5:38 AM REFRIGERATION SERVICE INSPECTOR CBC W/PLT COUNT & AUTO Routine 04/07/2018 DIFFERENTIAL 5:38 AM REFRIGERATION SERVICE INSPECTOR POCT-GLUCOSE METER Routine 04/07/2018 4:38 AM REFRIGERATION SERVICE INSPECTOR POCT-GLUCOSE METER Routine 04/07/2018 3:21 AM REFRIGERATION SERVICE INSPECTOR POCT-GLUCOSE METER Routine 04/07/2018 1:24 AM REFRIGERATION SERVICE INSPECTOR POCT-GLUCOSE METER Routine 04/06/2018 11:09 PM REFRIGERATION SERVICE INSPECTOR POCT-GLUCOSE METER Routine 04/06/2018 9:23 PM REFRIGERATION SERVICE INSPECTOR POCT-GLUCOSE METER Routine 04/06/2018 7:08 PM REFRIGERATION SERVICE INSPECTOR POCT-GLUCOSE METER Routine 04/06/2018 6:17 PM REFRIGERATION SERVICE INSPECTOR POCT-GLUCOSE METER Routine 04/06/2018 11:55 AM REFRIGERATION SERVICE INSPECTOR BLOOD GAS, ARTERIAL Routine 04/06/2018 10:45 AM REFRIGERATION SERVICE INSPECTOR OXYGEN SATURATION, Routine 04/06/2018 MEASURED 10:45 AM REFRIGERATION SERVICE INSPECTOR POCT-GLUCOSE METER Routine 04/06/2018 8:45 AM REFRIGERATION SERVICE INSPECTOR POCT-GLUCOSE METER Routine 04/06/2018 7:28 AM REFRIGERATION SERVICE INSPECTOR POCT-GLUCOSE METER Routine 04/06/2018 3:58 AM REFRIGERATION SERVICE INSPECTOR XR CHEST 1 VIEW Routine 04/06/2018 PORTABLE/BEDSIDE 3:27 AM REFRIGERATION SERVICE INSPECTOR POCT-GLUCOSE METER Routine 04/06/2018 3:25 AM REFRIGERATION SERVICE INSPECTOR CBC W/PLT COUNT & AUTO Routine 04/06/2018 DIFFERENTIAL 3:14 AM REFRIGERATION SERVICE INSPECTOR BLOOD GAS, ARTERIAL Routine 04/06/2018 3:14 AM REFRIGERATION SERVICE INSPECTOR LACTIC ACID, ARTERIAL Routine 04/06/2018 3:14 AM REFRIGERATION SERVICE INSPECTOR CBC W/PLT COUNT & AUTO Routine 04/06/2018 DIFFERENTIAL 3:14 AM REFRIGERATION SERVICE INSPECTOR PHOSPHORUS Routine 04/06/2018 3:14 AM REFRIGERATION SERVICE INSPECTOR MAGNESIUM Routine 04/06/2018 3:14 AM REFRIGERATION SERVICE INSPECTOR BASIC METABOLIC PANEL (7) Routine 04/06/2018 3:14 AM REFRIGERATION SERVICE INSPECTOR TROPONIN I Routine 04/06/2018 3:14 AM REFRIGERATION SERVICE INSPECTOR POCT-GLUCOSE METER Routine 04/06/2018 2:13 AM REFRIGERATION SERVICE INSPECTOR POCT-GLUCOSE METER Routine 04/06/2018 1:02 AM REFRIGERATION SERVICE INSPECTOR POCT-GLUCOSE METER Routine 04/05/2018 11:54 PM REFRIGERATION SERVICE INSPECTOR POCT-GLUCOSE METER Routine 04/05/2018 10:47 PM REFRIGERATION SERVICE INSPECTOR POCT-GLUCOSE METER Routine 04/05/2018 9:08 PM REFRIGERATION SERVICE INSPECTOR HGB/HCT (H&H) - STAT LAB STAT 04/05/2018 8:38 PM REFRIGERATION SERVICE INSPECTOR POTASSIUM-STAT LAB STAT 04/05/2018 8:38 PM REFRIGERATION SERVICE INSPECTOR SODIUM NA-STAT LAB STAT 04/05/2018 8:38 PM REFRIGERATION SERVICE INSPECTOR BLOOD GAS, ARTERIAL STAT 04/05/2018 8:38 PM REFRIGERATION SERVICE INSPECTOR MAGNESIUM STAT 04/05/2018 8:38 PM REFRIGERATION SERVICE INSPECTOR LACTIC ACID, ARTERIAL STAT 04/05/2018 8:38 PM REFRIGERATION SERVICE INSPECTOR POCT-GLUCOSE METER Routine 04/05/2018 7:57 PM REFRIGERATION SERVICE INSPECTOR POCT-GLUCOSE METER Routine 04/05/2018 6:58 PM REFRIGERATION SERVICE INSPECTOR POCT-GLUCOSE METER Routine 04/05/2018 6:17 PM REFRIGERATION SERVICE INSPECTOR POCT-GLUCOSE METER Routine 04/05/2018 4:55 PM REFRIGERATION SERVICE INSPECTOR CBC W/PLT COUNT & AUTO STAT 04/05/2018 DIFFERENTIAL 3:04 PM REFRIGERATION SERVICE INSPECTOR PROTHROMBIN TIME/INR STAT 04/05/2018 3:04 PM REFRIGERATION SERVICE INSPECTOR CALCIUM, IONIZED Routine 04/05/2018 3:04 PM REFRIGERATION SERVICE INSPECTOR BLOOD GAS, ARTERIAL STAT 04/05/2018 3:04 PM REFRIGERATION SERVICE INSPECTOR LACTIC ACID, ARTERIAL STAT 04/05/2018 3:04 PM REFRIGERATION SERVICE INSPECTOR OXYGEN SATURATION, STAT 04/05/2018 MEASURED 3:04 PM REFRIGERATION SERVICE INSPECTOR CBC W/PLT COUNT & AUTO STAT 04/05/2018 DIFFERENTIAL 3:04 PM REFRIGERATION SERVICE INSPECTOR PHOSPHORUS STAT 04/05/2018 3:04 PM REFRIGERATION SERVICE INSPECTOR MAGNESIUM STAT 04/05/2018 3:04 PM REFRIGERATION SERVICE INSPECTOR BASIC METABOLIC PANEL (7) STAT 04/05/2018 3:04 PM REFRIGERATION SERVICE INSPECTOR TROPONIN I Routine 04/05/2018 3:04 PM REFRIGERATION SERVICE INSPECTOR XR CHEST 1 VIEW STAT 04/05/2018 PORTABLE/BEDSIDE 2:56 PM REFRIGERATION SERVICE INSPECTOR HGB/HCT (H&H) - STAT LAB STAT 04/05/2018 2:21 PM REFRIGERATION SERVICE INSPECTOR GLUCOSE-STAT LAB STAT 04/05/2018 2:21 PM REFRIGERATION SERVICE INSPECTOR POTASSIUM-STAT LAB STAT 04/05/2018 2:21 PM REFRIGERATION SERVICE INSPECTOR SODIUM NA-STAT LAB STAT 04/05/2018 2:21 PM REFRIGERATION SERVICE INSPECTOR BLOOD GAS, ARTERIAL STAT 04/05/2018 2:21 PM REFRIGERATION SERVICE INSPECTOR CALCIUM, IONIZED STAT 04/05/2018 2:21 PM REFRIGERATION SERVICE INSPECTOR RRL CRITICAL LABS STAT 04/05/2018 (ABG,NA,K,H&H,GLUCOSE) 2:21 PM REFRIGERATION SERVICE INSPECTOR XR X-RAY NO CHARGE Routine 04/05/2018 2:16 PM REFRIGERATION SERVICE INSPECTOR HGB/HCT (H&H) - STAT LAB STAT 04/05/2018 1:05 PM REFRIGERATION SERVICE INSPECTOR GLUCOSE-STAT LAB STAT 04/05/2018 1:05 PM REFRIGERATION SERVICE INSPECTOR POTASSIUM-STAT LAB STAT 04/05/2018 1:05 PM REFRIGERATION SERVICE INSPECTOR SODIUM NA-STAT LAB STAT 04/05/2018 1:05 PM REFRIGERATION SERVICE INSPECTOR BLOOD GAS, ARTERIAL STAT 04/05/2018 1:05 PM REFRIGERATION SERVICE INSPECTOR CALCIUM, IONIZED STAT 04/05/2018 1:05 PM REFRIGERATION SERVICE INSPECTOR RRL CRITICAL LABS STAT 04/05/2018 (ABG,NA,K,H&H,GLUCOSE) 1:05 PM REFRIGERATION SERVICE INSPECTOR POCT-ACT Routine 04/05/2018 12:18 PM REFRIGERATION SERVICE INSPECTOR HGB/HCT (H&H) - STAT LAB STAT 04/05/2018 12:14 PM REFRIGERATION SERVICE INSPECTOR GLUCOSE-STAT LAB STAT 04/05/2018 12:14 PM REFRIGERATION SERVICE INSPECTOR POTASSIUM-STAT LAB STAT 04/05/2018 12:14 PM REFRIGERATION SERVICE INSPECTOR SODIUM NA-STAT LAB STAT 04/05/2018 12:14 PM REFRIGERATION SERVICE INSPECTOR BLOOD GAS, ARTERIAL STAT 04/05/2018 12:14 PM REFRIGERATION SERVICE INSPECTOR CALCIUM, IONIZED STAT 04/05/2018 12:14 PM REFRIGERATION SERVICE INSPECTOR RRL CRITICAL LABS STAT 04/05/2018 (ABG,NA,K,H&H,GLUCOSE) 12:14 PM REFRIGERATION SERVICE INSPECTOR POCT-ACT Routine 04/05/2018 12:05 PM REFRIGERATION SERVICE INSPECTOR POCT-ACT Routine 04/05/2018 11:21 AM REFRIGERATION SERVICE INSPECTOR HGB/HCT (H&H) - STAT LAB STAT 04/05/2018 10:46 AM REFRIGERATION SERVICE INSPECTOR GLUCOSE-STAT LAB STAT 04/05/2018 10:46 AM REFRIGERATION SERVICE INSPECTOR POTASSIUM-STAT LAB STAT 04/05/2018 10:46 AM REFRIGERATION SERVICE INSPECTOR SODIUM NA-STAT LAB STAT 04/05/2018 10:46 AM REFRIGERATION SERVICE INSPECTOR BLOOD GAS, ARTERIAL STAT 04/05/2018 10:46 AM REFRIGERATION SERVICE INSPECTOR CALCIUM, IONIZED STAT 04/05/2018 10:46 AM REFRIGERATION SERVICE INSPECTOR RRL CRITICAL LABS STAT 04/05/2018 (ABG,NA,K,H&H,GLUCOSE) 10:46 AM REFRIGERATION SERVICE INSPECTOR POCT-ACT Routine 04/05/2018 10:25 AM REFRIGERATION SERVICE INSPECTOR POCT-ACT Routine 04/05/2018 9:44 AM REFRIGERATION SERVICE INSPECTOR ANESTHESIA MACIE Routine 04/05/2018 8:49 AM REFRIGERATION SERVICE INSPECTOR HGB/HCT (H&H) - STAT LAB STAT 04/05/2018 8:19 AM REFRIGERATION SERVICE INSPECTOR GLUCOSE-STAT LAB STAT 04/05/2018 8:19 AM REFRIGERATION SERVICE INSPECTOR POTASSIUM-STAT LAB STAT 04/05/2018 8:19 AM REFRIGERATION SERVICE INSPECTOR SODIUM NA-STAT LAB STAT 04/05/2018 8:19 AM REFRIGERATION SERVICE INSPECTOR BLOOD GAS, ARTERIAL STAT 04/05/2018 8:19 AM REFRIGERATION SERVICE INSPECTOR CALCIUM, IONIZED STAT 04/05/2018 8:19 AM REFRIGERATION SERVICE INSPECTOR RRL CRITICAL LABS STAT 04/05/2018 (ABG,NA,K,H&H,GLUCOSE) 8:19 AM REFRIGERATION SERVICE INSPECTOR ENDOSCOPIC HARVEST,VEIN 04/05/2018 Coronary artery disease 8:00 AM REFRIGERATION SERVICE INSPECTOR with angina pectoris, unspecified vessel or lesion type, unspecified whether [place] or transplanted heart (HCC) Case Notes 4 TO 5 [facility] Y ARTERY BYPASS SURGERY BYPASS,[place] CORONARY ARTEM 04/05/2018 Coronary artery disease 8:00 AM REFRIGERATION SERVICE INSPECTOR with angina pectoris, unspecified vessel or lesion type, unspecified whether [place] or transplanted heart (HCC) Case Notes 4 TO 5 [facility] Y ARTERY BYPASS SURGERY CBC W/PLT COUNT & AUTO Routine 04/05/2018 DIFFERENTIAL 4:42 AM REFRIGERATION SERVICE INSPECTOR CBC W/PLT COUNT & AUTO Routine 04/05/2018 DIFFERENTIAL 4:42 AM REFRIGERATION SERVICE INSPECTOR BASIC METABOLIC PANEL (7) Routine 04/05/2018 4:42 AM REFRIGERATION SERVICE INSPECTOR APTT Routine 04/05/2018 4:42 AM REFRIGERATION SERVICE INSPECTOR PROTHROMBIN TIME/INR Routine 04/05/2018 4:42 AM REFRIGERATION SERVICE INSPECTOR MAGNESIUM Routine 04/05/2018 4:42 AM REFRIGERATION SERVICE INSPECTOR BLOOD GAS, ARTERIAL Routine 04/05/2018 4:42 AM REFRIGERATION SERVICE INSPECTOR POCT-GLUCOSE METER Routine 04/04/2018 9:58 PM REFRIGERATION SERVICE INSPECTOR APTT Routine 04/04/2018 8:07 PM REFRIGERATION SERVICE INSPECTOR POCT-GLUCOSE METER Routine 04/04/2018 5:28 PM REFRIGERATION SERVICE INSPECTOR ECG 12-LEAD Routine 04/04/2018 4:28 PM REFRIGERATION SERVICE INSPECTOR POCT-GLUCOSE METER Routine 04/04/2018 3:41 PM REFRIGERATION SERVICE INSPECTOR URINALYSIS W/ MICROSCOPIC Routine 04/04/2018 1:36 PM REFRIGERATION SERVICE INSPECTOR PT/APTT Routine 04/04/2018 12:56 PM REFRIGERATION SERVICE INSPECTOR HEMOGLOBIN A1C Routine 04/04/2018 12:56 PM REFRIGERATION SERVICE INSPECTOR POCT-GLUCOSE METER Routine 04/04/2018 11:43 AM REFRIGERATION SERVICE INSPECTOR POCT-GLUCOSE METER Routine 04/04/2018 7:34 AM REFRIGERATION SERVICE INSPECTOR APTT Routine 04/04/2018 5:03 AM REFRIGERATION SERVICE INSPECTOR POCT-GLUCOSE METER Routine 04/03/2018 8:14 PM REFRIGERATION SERVICE INSPECTOR POCT-GLUCOSE METER Routine 04/03/2018 5:02 PM REFRIGERATION SERVICE INSPECTOR APTT Routine 04/03/2018 2:55 PM REFRIGERATION SERVICE INSPECTOR POCT-GLUCOSE METER Routine 04/03/2018 12:24 PM REFRIGERATION SERVICE INSPECTOR ECHOCARDIOGRAM REPORT - 04/03/2018 SCAN 10:50 AM REFRIGERATION SERVICE INSPECTOR PT/APTT Routine 04/03/2018 7:57 AM REFRIGERATION SERVICE INSPECTOR POCT-GLUCOSE METER Routine 04/03/2018 7:31 AM REFRIGERATION SERVICE INSPECTOR PT/APTT Routine 04/03/2018 2:00 AM REFRIGERATION SERVICE INSPECTOR POCT-GLUCOSE METER Routine 04/02/2018 10:10 PM REFRIGERATION SERVICE INSPECTOR PT/APTT Routine 04/02/2018 6:21 PM REFRIGERATION SERVICE INSPECTOR POCT-GLUCOSE METER Routine 04/02/2018 5:20 PM REFRIGERATION SERVICE INSPECTOR 2D ECHO W/ DOPPLER CATHY 04/02/2018 (CW/PW/COLOR) 1:23 PM REFRIGERATION SERVICE INSPECTOR POCT-GLUCOSE METER Routine 04/02/2018 12:05 PM REFRIGERATION SERVICE INSPECTOR APTT Routine 04/02/2018 9:21 AM REFRIGERATION SERVICE INSPECTOR POCT-GLUCOSE METER Routine 04/02/2018 7:51 AM REFRIGERATION SERVICE INSPECTOR APTT Routine 04/02/2018 12:38 AM REFRIGERATION SERVICE INSPECTOR FERRITIN Routine 04/02/2018 12:38 AM REFRIGERATION SERVICE INSPECTOR IRON, TIBC, % SAT. Routine 04/02/2018 (WITHOUT FERRITIN) 12:38 AM REFRIGERATION SERVICE INSPECTOR POCT-GLUCOSE METER Routine 04/01/2018 10:07 PM REFRIGERATION SERVICE INSPECTOR POCT-GLUCOSE METER Routine 04/01/2018 4:32 PM REFRIGERATION SERVICE INSPECTOR APTT Routine 04/01/2018 2:33 PM REFRIGERATION SERVICE INSPECTOR PLATELET AGGREGATION: AP Routine 04/01/2018 FUNCTION SCREEN 2:33 PM REFRIGERATION SERVICE INSPECTOR POCT-GLUCOSE METER Routine 04/01/2018 12:43 PM REFRIGERATION SERVICE INSPECTOR POCT-GLUCOSE METER Routine 04/01/2018 7:35 AM REFRIGERATION SERVICE INSPECTOR APTT Routine 04/01/2018 7:20 AM REFRIGERATION SERVICE INSPECTOR CBC W/PLT COUNT & AUTO Routine 04/01/2018 DIFFERENTIAL 5:47 AM REFRIGERATION SERVICE INSPECTOR APTT Routine 04/01/2018 5:47 AM REFRIGERATION SERVICE INSPECTOR PROTHROMBIN TIME/INR Routine 04/01/2018 5:47 AM REFRIGERATION SERVICE INSPECTOR MAGNESIUM Routine 04/01/2018 5:47 AM REFRIGERATION SERVICE INSPECTOR BASIC METABOLIC PANEL (7) Routine 04/01/2018 5:47 AM REFRIGERATION SERVICE INSPECTOR CBC W/PLT COUNT & AUTO Routine 04/01/2018 DIFFERENTIAL 5:47 AM REFRIGERATION SERVICE INSPECTOR APTT Routine 03/31/2018 10:58 PM REFRIGERATION SERVICE INSPECTOR PROTHROMBIN TIME/INR Routine 03/31/2018 10:58 PM REFRIGERATION SERVICE INSPECTOR POCT-GLUCOSE METER Routine 03/31/2018 9:09 PM REFRIGERATION SERVICE INSPECTOR APTT Routine 03/31/2018 4:02 PM REFRIGERATION SERVICE INSPECTOR POCT-GLUCOSE METER Routine 03/31/2018 4:01 PM REFRIGERATION SERVICE INSPECTOR URINALYSIS W/ MICROSCOPIC Routine 03/31/2018 2:28 PM REFRIGERATION SERVICE INSPECTOR ARTERIAL DOPPLER ARMS Routine 03/31/2018 BILATERAL 10:40 AM REFRIGERATION SERVICE INSPECTOR APTT Routine 03/31/2018 8:44 AM REFRIGERATION SERVICE INSPECTOR PLATELET AGGREGATION: Routine 03/31/2018 FUNCTION SCREEN 8:43 AM REFRIGERATION SERVICE INSPECTOR VENOUS DOPPLER LEGS Routine 03/31/2018 BILATERAL 7:35 AM REFRIGERATION SERVICE INSPECTOR POCT-GLUCOSE METER Routine 03/31/2018 6:34 AM REFRIGERATION SERVICE INSPECTOR CAROTID DOPPLER BILATERAL Routine 03/31/2018 6:15 AM REFRIGERATION SERVICE INSPECTOR XR CHEST 2 VIEWS Routine 03/31/2018 5:20 AM REFRIGERATION SERVICE INSPECTOR ECG 12-LEAD Routine 03/30/2018 11:26 PM REFRIGERATION SERVICE INSPECTOR HEPATITIS C PCR, Routine 03/30/2018 QUANTITATIVE 10:35 PM REFRIGERATION SERVICE INSPECTOR PFA-100 Routine 03/30/2018 10:34 PM REFRIGERATION SERVICE INSPECTOR PLATELET AGGREGATION: AP Routine 03/30/2018 FUNCTION SCREEN 10:34 PM REFRIGERATION SERVICE INSPECTOR CBC W/PLT COUNT & AUTO Routine 03/30/2018 DIFFERENTIAL 10:18 PM REFRIGERATION SERVICE INSPECTOR MAGNESIUM Routine 03/30/2018 10:18 PM REFRIGERATION SERVICE INSPECTOR APTT Routine 03/30/2018 10:18 PM REFRIGERATION SERVICE INSPECTOR COMPREHENSIVE METABOLIC Routine 03/30/2018 PANEL 10:18 PM REFRIGERATION SERVICE INSPECTOR CBC W/PLT COUNT & AUTO Routine 03/30/2018 DIFFERENTIAL 10:18 PM REFRIGERATION SERVICE INSPECTOR after 12/19/2017 Results * RHYTHM STRIP - SCAN (07/12/2018 8:40 AM CDT) Only the most recent of 3 results within the time period is included. Narrative Performed At * EKG-SCANNED (05/18/2018 11:40 AM REFRIGERATION SERVICE INSPECTOR) Narrative Performed At * POC-Glucose meter (04/28/2018 7:10 AM REFRIGERATION SERVICE INSPECTOR) Only the most recent of 96 results within the time period is included. POC-Glucose Meter 246 (H)Comment: TESTED AT 70 - 110 mg/dL [facility] [address] [facility] [id number] Specimen Blood Performing Organization Address City/State/Zipcode Phone Number [facility] [address] [place] [address] [facility] * BUN and Creatinine (04/28/2018 5:46 AM REFRIGERATION SERVICE INSPECTOR) BUN 54 (H) 7 - 21 mg/dL [facility] Creatinine 1.64 (H) 0.57 - 1.25 mg/dL [facility] EGFR 32Comment: ESTIMATED GFR IS mL/min/1.73 sq m [facility] NOT ACCURATE CREATININE [facility] CLEARANCE IN PREDICTING GLOMERULAR FILTRATION RATE. ESTIMATED GFR IS NOT APPLICABLE FOR DIALYSIS PATIENTS. Specimen Blood Performing Organization Address City/[facility]/Zipcode Phone Number [facility] [address] [place] [address] [facility] * CBC with platelet count + automated diff (04/27/2018 3:41 AM REFRIGERATION SERVICE INSPECTOR) Only the most recent of 14 results within the time period is included. WBC 7.2 3.5 - 10.5 K/L [facility] RBC 3.44 (L) 3.93 - 5.22 M/L [facility] Hemoglobin 9.9 (L) 11.2 - 15.7 GM/DL [facility] Hematocrit 32.6 (L) 34.1 - 44.9 % [facility] MCV 94.8 79.4 - 94.8 fL [facility] MCH 28.8 25.6 - 32.2 pg [facility] MCHC 30.4 (L) 32.2 - 35.5 GM/DL [facility] RDW 13.4 11.7 - 14.4 % [facility] Platelets 303 150 - 450 K/CU MM [facility] MPV 10.2 9.4 - 12.3 fL [facility] nRBC 0 0 - 0 /100 WBC [facility] % Neutros 54 % [facility] % Lymphs 34 % [facility] % Monos 6 % [facility] % Eos 5 % [facility] % Baso 1 % [facility] # Neutros 3.89 1.56 - 6.13 K/L [facility] # Lymphs 2.45 1.18 - 3.74 K/L [facility] # Monos 0.43 (H) 0.24 - 0.36 K/L [facility] # Eos 0.39 (H) 0.04 - 0.36 K/L [facility] # Baso 0.07 0.01 - 0.08 K/L [facility] Immature 0 0 - 1 % [facility] Granulocytes-[facility] Specimen Blood Performing Organization Address City/State/[place] [address] [phone] [place] [address] * Phosphorus (04/27/2018 3:41 AM REFRIGERATION SERVICE INSPECTOR) Only the most recent of 7 results within the time period is included. Phosphorus 4.7 2.3 - 4.7 mg/dL [facility] Specimen Blood Performing Organization Address City/[facility]/Zipcode Phone Number [address] [address] [facility] * Magnesium (04/27/2018 3:41 AM REFRIGERATION SERVICE INSPECTOR) Only the most recent of 15 results within the time period is included. Magnesium 2.2 1.6 - 2.6 mg/dL [facility] Specimen Blood Performing Organization Address City/[facility]/[place] [address] [facility] * Basic Metabolic Panel (04/27/2018 3:41 AM REFRIGERATION SERVICE INSPECTOR) Only the most recent of 14 results within the time period is included. Sodium 136 136 - 145 meq/L [facility] Potassium 4.2 3.5 - 5.1 meq/L [facility] Chloride 100 98 - 107 meq/L [facility] CO2 27 22 - 29 meq/L [facility] BUN 48 (H) 7 - 21 mg/dL [facility] Creatinine 1.70 (H) 0.57 - 1.25 mg/dL [facility] Glucose 218 (H) 70 - 105 mg/dL [facility] Calcium 9.7 8.4 - 10.2 mg/dL [facility] EGFR 30Comment: ESTIMATED GFR IS mL/min/1.73 sq m [facility] NOT ACCURATE CREATININE [facility] CLEARANCE IN PREDICTING GLOMERULAR FILTRATION RATE. ESTIMATED GFR IS NOT APPLICABLE FOR DIALYSIS PATIENTS. Specimen Blood Performing Organization Address City/State/Zipcode Phone Number [facility] [address] [place] [address] [facility] * US renal complete (04/26/2018 9:14 PM REFRIGERATION SERVICE INSPECTOR) Specimen Narrative Performed At FINAL REPORT [employer] INDICATION: Acute kidney injury. TECHNIQUE: Renal ultrasound [...] MD Report Verified Date/Time:04/26/2018 22:00:23 Reading Location: [facility] [id number] Consult Reading Room Procedure Note Interface, External Ris In - 04/26/2018 10:02 PM REFRIGERATION SERVICE INSPECTOR FINAL REPORT INDICATION: Acute kidney injury. TECHNIQUE: [...] Report Verified Date/Time: 04/26/2018 22:00:23 Reading Location: [address] Consult Reading Room Performing Organization Address [facility] Phone Number [facility] * Sodium, random urine (04/26/2018 4:49 AM REFRIGERATION SERVICE INSPECTOR) Sodium Urine 56 meq/L [facility] Specimen Urine Narrative Performed At Reference Range: No Normals [facility] Performing Organization Address [facility] Phone Number [place] [phone] * Protein, random urine (04/26/2018 4:49 AM REFRIGERATION SERVICE INSPECTOR) Protein, Urine 56 (H) 0 - 14 mg/dL [facility] Specimen Urine Performing Organization Address [facility] Phone Number [place] [phone] [place] [address] * Creatinine, random urine (04/26/2018 4:49 AM REFRIGERATION SERVICE INSPECTOR) Creatinine, Ur 110.0 mg/dL [facility] Specimen Urine Narrative Performed At Reference Range: No Normals [facility] Performing Organization Address [facility] [place] [address] [phone] [place] [address] * Urinalysis w/Microscopic (04/26/2018 4:49 AM REFRIGERATION SERVICE INSPECTOR) Only the most recent of 3 results within the time period is included. Color, UA Yellow [facility] Clarity, UA Clear [facility] Specific [place], UA 1.016 1.001 - 1.035 [facility] pH, UA 5.5 5.0 - 8.0 [facility] Protein, UA 50 mg/dL (A) Negative [facility] Glucose, UA 500 mg/dL (A) Negative [facility] Ketones, UA Negative Negative [facility] Bilirubin, UA Negative Negative [facility] Blood, UA Negative Negative [facility] Nitrite, UA Negative Negative [facility] Leukocytes, UA Negative Negative [facility] Urobilinogen, UA 0.2 0.2 - 1.0 mg/dL [facility] RBC, UA 1 /HPF [facility] WBC, UA <1 /HPF [facility] Bacteria, UA Rare [facility] Squam Epithel, UA 1 /HPF [facility] Hyaline Casts, UA 2 /LPF [facility] Amorphous Crystals Rare [facility] Specimen Source [facility] Specimen Urine Performing Organization Address City/State/Zipcode Phone Number [facility] [address] [place] [address] [facility] * XR chest 1 view portable / bedside (04/25/2018 5:57 PM REFRIGERATION SERVICE INSPECTOR) Only the most recent of 5 results within the time period is included. Specimen Narrative Performed At FINAL REPORT [employer] INDICATION: CHF COMPARISON: April 22 TECHNIQUE: Chest radiograph, single view, portable technique. FINDINGS / IMPRESSION: Enlarged heart shadow and pulmonary venous congestion. Previously there was suggestion of mild interstitial pulmonary edema and this is no longer appreciated. No pleural effusion demonstrated. Intact median sternotomy wires noted. Signed: Dakotah Alvarado MD Report Verified Date/Time:04/25/2018 19:27:26 Reading Location: [facility] B1 C013W Consult Reading Room Procedure Note Interface, External Ris In - 04/25/2018 7:29 PM REFRIGERATION SERVICE INSPECTOR FINAL REPORT INDICATION: CHF COMPARISON: April 22 TECHNIQUE: Chest radiograph, single view, portable technique. FINDINGS / IMPRESSION: Enlarged heart shadow and pulmonary venous congestion. Previously there was suggestion of mild interstitial pulmonary edema and this is no longer appreciated. No pleural effusion demonstrated. Intact median sternotomy wires noted. Signed: Dakotah Alvarado MD Report Verified Date/Time: 04/25/2018 19:27:26 Reading Location: [facility] B1 C013W Consult Reading Room Performing Organization Address City/[facility]/Zipcode Phone Number [facility] * Troponin I (not available at [facility]) (04/23/2018 4:43 PM REFRIGERATION SERVICE INSPECTOR) Only the most recent of 4 results within the time period is included. Troponin I 0.04 (H) 0.00 - 0.03 ng/mL [facility] Specimen Blood Narrative Performed At Troponin I (TnI) levels must be interpreted in the context of the presenting [facility] symptoms and the clinical findings. Elevated TnI levels indicate myocardial [facility] damage, but are not specific for ischemic heart disease. Elevated TnI levels are seen in patients with other cardiac conditions (including myocarditis and congestive heart failure), and slight TnI elevations occur in patients with other conditions, including sepsis, renal failure, acidosis, acute neurological disease, and persistent tachyarrhythmia. Performing Organization Address City/State/Zipcode Phone Number [address] [address] [facility] * Comprehensive metabolic panel (04/23/2018 4:43 PM REFRIGERATION SERVICE INSPECTOR) Only the most recent of 2 results within the time period is included. Protein, Total 7.3 6.0 - 8.3 gm/dL [facility] Albumin 3.6 3.5 - 5.0 g/dL [facility] Alkaline Phosphatase 88 40 - 150 U/L [facility] Total Bilirubin 0.4 0.2 - 1.2 mg/dL [facility] Sodium 138 136 - 145 meq/L [facility] Potassium 3.5 3.5 - 5.1 meq/L [facility] Chloride 102 98 - 107 meq/L [facility] CO2 26 22 - 29 meq/L [facility] BUN 27 (H) 7 - 21 mg/dL [facility] Creatinine 1.30 (H) 0.57 - 1.25 mg/dL [facility] Glucose 177 (H) 70 - 105 mg/dL [facility] Calcium 9.9 8.4 - 10.2 mg/dL [facility] AST 26 5 - 34 U/L [facility] ALT 16 6 - 55 U/L [facility] EGFR 41Comment: ESTIMATED GFR IS mL/min/1.73 sq m [facility] NOT ACCURATE CREATININE [facility] CLEARANCE IN PREDICTING GLOMERULAR FILTRATION RATE. ESTIMATED GFR IS NOT APPLICABLE FOR DIALYSIS PATIENTS. Specimen Blood Performing Organization Address City/State/Zipcode Phone Number [facility] [address] [place] [address] [facility] * ECHOCARDIOGRAM REPORT - SCAN (04/23/2018 3:51 PM REFRIGERATION SERVICE INSPECTOR) Narrative Performed At * 2D Echo W/Doppler(CW/PW/Color) (04/23/2018 12:20 PM REFRIGERATION SERVICE INSPECTOR) Ejection Fraction [facility] ECHO [facility] Specimen Narrative Performed At Transthoracic Echocardiography Report (TTE) [facility]CHO [facility]ART[facility] Demographics [facility] Patient Name Sara BUTLER of Study 04/23/2018 [facility] [id number] GenderFemale Visit Number [id number] RaceHispanic [id number] Number ED17 Number Date of Birth1955 Referring Physician Dae Jeffries Age62 year(s) Research Quality Assurance Analyst Rossi Hernandez RDCS InterpretingBasant MD Dae Physician Procedure Type of Study TTE procedure:2DECHO W DOPPLER(CW/PW/COLOR) (STAT) Indications:Shortness of breath. Clinical History CKD;DM;HEPC;HTN;WV;STROKE;BYPASSX2 04/05/18. HGB 10.4 HCT 33.9 % Contrast [...] External Ris In - 04/23/2018 3:15 PM REFRIGERATION SERVICE INSPECTOR Transthoracic Echocardiography Report (TTE) Demographics Patient Name MICA BUTLER Date of Study 04/23/2018 [facility] Gender Female Visit Number [id number] Race Room Number ED17 Number Date of 1955 Referring Physician Dae Jeffries Age 62 year(s) Research Quality Assurance Analyst Rossi Hernandez [facility] Interpreting Sabrina Pearl MD Physician Procedure Type of Study TTE procedure:2DECHO W DOPPLER(CW/PW/COLOR) (STAT) Indications:Shortness of breath. Clinical History CKD;DM;HEPC;HTN;WV;STROKE;BYPASSX2 04/05/18. HGB 10.4 HCT 33.9 % Contrast [...] 1.01 cm Aorta Ao Root S of Yamliex.: 2.8 cm Ascending Aorta: 3 cm Doppler/Quantitative [...] City/State/Zipcode Phone Number [facility] * ECG 12 lead (04/23/2018 11:20 AM REFRIGERATION SERVICE INSPECTOR) Only the most recent of 4 results within the time period is included. Specimen Narrative Performed At Ventricular Rate 73 BPM [facility] Atrial Rate 73 BPM P-R Interval 144 ms QRS Duration 82 ms Q-T Interval 438 ms QTC Calculation(Bazett) 482 ms P [place] 32 degrees R [place] -21 degrees T [place] 130 degrees Normal sinus rhythm ST & Marked T wave abnormality, consider anterolateral ischemia Prolonged QT Abnormal ECG When compared with ECG of 22-APR-2018 19:24, No significant change was found Confirmed by Yoan PEARL, SABRINA ([id number]) on 04/24/2018 8:34:03 AM Procedure Note Interface, External Ris In - 04/24/2018 8:34 AM REFRIGERATION SERVICE INSPECTOR Ventricular Rate 73 BPM Atrial Rate 73 BPM P-R Interval 144 ms QRS Duration 82 ms Q-T Interval 438 ms QTC Calculation(Bazett) 482 ms P [place] 32 degrees R [place] -21 degrees T [place] 130 degrees Normal sinus rhythm ST & Marked T wave abnormality, consider anterolateral ischemia Prolonged QT Abnormal ECG When compared with ECG of 22-APR-2018 19:24, No significant change was found Confirmed by Yoan PEARL, SABRINA ([id number]) on 04/24/2018 8:34:03 AM Performing Organization Address [facility] Phone Number [employer] MUSE * POC-Lactic Acid, Venous (04/23/2018 2:49 AM REFRIGERATION SERVICE INSPECTOR) POC-Lactic Acid, Venous 0.9Comment: [place] [facility] [place] 1.7 mmol/L [address] Specimen Blood Performing Organization Address [facility] [place] [address] [facility] * B-type Natriuretic Factor (BNP) (04/22/2018 11:47 PM REFRIGERATION SERVICE INSPECTOR) BNP 204 (H) 0 - 100 pg/mL [facility] Specimen Blood Performing Organization Address City/State/Zipcode Phone Number [facility] [address] [place] [address] [facility] * PT/PTT (04/22/2018 8:34 PM REFRIGERATION SERVICE INSPECTOR) Only the most recent of 5 results within the time period is included. Protime 13.3 11.7 - 14.7 seconds [facility] INR 1.0 <=5.9 [facility] PTT 29.4 22.5 - 36.0 seconds [facility] Specimen Blood Narrative Performed At RECOMMENDED COUMADIN/WARFARIN INR THERAPY RANGES [facility] STANDARD DOSE: 2.0 - 3.0 Includes: PROPHYLAXIS for venous thrombosis, [facility] systemic embolization; TREATMENT for venous thrombosis and/or pulmonary embolus. HIGH RISK: Target INR is 2.5-3.5 for patients with mechanical heart valves. Performing Organization Address City/[facility]/Zipcode Phone Number [facility] [address] [place], [place] [address] [phone] [place] [address] * ECHOCARDIOGRAM REPORT - SCAN (04/12/2018 3:45 PM REFRIGERATION SERVICE INSPECTOR) Narrative Performed At * 2D Echo W/Doppler(CW/PW/Color) (04/12/2018 9:50 AM REFRIGERATION SERVICE INSPECTOR) Ejection Fraction [facility] ECHO [facility]ART[facility] Specimen Narrative Performed At Transthoracic Echocardiography Report (TTE) [facility] ECHO [facility] Demographics [facility] Patient NameSara BUTLER of Study 04/12/2018 E GenderFemale Visit [id number] RaceHispanic Number [id number] Number Date of 1955 Referring Dorothea Johnson Physician Age 62 year(s) Research Quality Assurance Analyst YUE Barrett, RDCS,RVT,RDMS Interpreting Akbar Calvo MD [...] External Ris In - 04/12/2018 2:42 PM REFRIGERATION SERVICE INSPECTOR Transthoracic Echocardiography Report (TTE) Demographics Patient Name MICA BUTLER Date of Study 04/12/2018 E Gender Female Visit Number [id number] Race Room Number 1143 Number Date of 1955 Referring Dorothea Johnson Physician Age 62 year(s) Research Quality Assurance Analyst Princess Mauricio, NB, RDCS,RVT,RDMS Interpreting Akbar Calvo [...] NM muga study (rest) (04/11/2018 5:20 PM REFRIGERATION SERVICE INSPECTOR) Specimen Narrative Performed At FINAL REPORT [employer] [facility] PROCEDURE:Resting RADIONUCLIDE VENTRICULOGRAM (MUGA Scan) CPT CODE:[id number] INDICATION: CAD, ACB 04/05/2018 PROTOCOL:Autologous red blood [...] MD Report Verified Date/Time:04/11/2018 17:34:57 Reading Location: [address] Reading Room Procedure Note Interface, External Ris In - 04/11/2018 5:37 PM REFRIGERATION SERVICE INSPECTOR FINAL REPORT PROCEDURE: Resting RADIONUCLIDE VENTRICULOGRAM (MUGA Scan) CPT CODE: [id number] INDICATION: CAD, ACB 04/05/2018 PROTOCOL: Autologous red [...] Report Verified Date/Time: 04/11/2018 17:34:57 Reading Location: [address] [address] [facility] Reading Room Performing Organization Address City/[facility] Phone Number [facility] * Lipid panel (04/08/2018 10:56 AM REFRIGERATION SERVICE INSPECTOR) Triglycerides 208 mg/dL [facility] Cholesterol 152 mg/dL [facility] HDL 31 mg/dL [facility] LDL Calculated 79 mg/dL [facility] Specimen Blood Narrative Performed At Triglyceride Reference Range: [facility] Low Risk <150 [facility] [id number] High Risk 200-499 Very High Risk>=500 Cholesterol Reference Range: Low Risk <200 [id number] High Risk>240 HDL Cholesterol Reference Range: Low Risk >=60 High Risk <40 LDL Cholesterol Reference Range: Optimal<100 Near [id number] [id number] [id number] Very High >=190 Performing Organization Address City/[facility]/[place] [address] [phone] [place] [address] * Oxygen saturation, measured (04/06/2018 10:45 AM REFRIGERATION SERVICE INSPECTOR) Only the most recent of 2 results within the time period is included. O2 Saturation (Measured) 66.7 % [facility] Specimen Blood Performing Organization Address City/[facility] Phone Number [address] [address] [phone] [place] [address] * Blood gas, arterial (04/06/2018 10:45 AM REFRIGERATION SERVICE INSPECTOR) Only the most recent of 10 results within the time period is included. pH, Arterial 7.41 7.35 - 7.45 [facility] pCO2, Arterial 36 35 - 45 mmHg [facility] pO2, Arterial 91 (H) 80 - 90 mmHg [facility] O2 Sat, Arterial 97.0 96.0 - 97.0 % [facility] HCO3, Arterial 22 21 - 29 mmol/L [facility] Base Excess, Arterial -1.8 -2.0 - 3.0 mmol/L [facility] Patient Temperature 37.2 C [facility] FIO2 40.0 % [facility] Specimen Blood, Arterial Performing Organization Address City/[facility] Phone Number [address] * Lactic acid, arterial, whole blood (04/06/2018 3:14 AM REFRIGERATION SERVICE INSPECTOR) Only the most recent of 3 results within the time period is included. Lactate, Art 2.2 0.5 - 2.2 mmol/L [facility] Specimen Blood, Arterial Performing Organization Address [facility] Phone Number [address] * Potassium-Stat Lab (04/05/2018 8:38 PM REFRIGERATION SERVICE INSPECTOR) Only the most recent of 6 results within the time period is included. Potassium 4.4 3.6 - 5.5 meq/L [facility] Specimen Blood, Arterial Performing Organization Address City/[facility] Phone Number [address] * Sodium Na-Stat Lab (04/05/2018 8:38 PM REFRIGERATION SERVICE INSPECTOR) Only the most recent of 6 results within the time period is included. Sodium 135 135 - 148 meq/L [facility] Specimen Blood, Arterial Performing Organization Address City/[facility] Phone Number [address] * HGB/HCT (H&H)-Stat Lab (04/05/2018 8:38 PM REFRIGERATION SERVICE INSPECTOR) Only the most recent of 6 results within the time period is included. Hemoglobin 11.9 (L) 12.0 - 15.0 g/dL [facility] Hematocrit 35.0 (L) 36.0 - 45.0 % [facility] Specimen Blood, Arterial Performing Organization Address City/[facility] Phone Number [address] [address] [facility] * Calcium, Ionized (04/05/2018 3:04 PM REFRIGERATION SERVICE INSPECTOR) Only the most recent of 6 results within the time period is included. Calcium, Ion 1.43 (H) 1.12 - 1.27 mmol/L [facility] pH, Blood 7.30 [facility] Specimen Blood Performing Organization Address [facility] Phone Number [address] [address] [facility] * Prothrombin time/INR (04/05/2018 3:04 PM REFRIGERATION SERVICE INSPECTOR) Only the most recent of 4 results within the time period is included. Protime 14.2 11.7 - 14.7 seconds [facility] INR 1.1 <=5.9 [facility] Specimen Blood Narrative Performed At RECOMMENDED COUMADIN/WARFARIN INR THERAPY RANGES [facility] STANDARD DOSE: 2.0 - 3.0 Includes: PROPHYLAXIS for venous thrombosis, [facility] systemic embolization; TREATMENT for venous thrombosis and/or pulmonary embolus. HIGH RISK: Target INR is 2.5-3.5 for patients with mechanical heart valves. Performing Organization Address City/[facility] Phone Number [address] [address] [facility] * Glucose-Stat Lab (04/05/2018 2:21 PM REFRIGERATION SERVICE INSPECTOR) Only the most recent of 5 results within the time period is included. Glucose 231 (H) 70 - 110 mg/dL [facility] Specimen Blood, Arterial Performing Organization Address City/[facility] Phone Number [address] [address] [facility] * XR X-RAY NO CHARGE (04/05/2018 2:16 PM REFRIGERATION SERVICE INSPECTOR) Specimen Narrative Performed At FINAL REPORT GE [...] MD Report Verified Date/Time:04/05/2018 14:30:11 Reading Location: [address] Consult Reading Room Procedure Note Interface, External Ris In - 04/05/2018 2:32 PM REFRIGERATION SERVICE INSPECTOR FINAL REPORT Radiograph of the chest Reason [...] Report Verified Date/Time: 04/05/2018 14:30:11 Reading Location: [address] Consult Reading Room Performing Organization Address City/State/Zipcode Phone Number [facility] * POC ACTIVATED CLOTTING TIME (04/05/2018 12:18 PM REFRIGERATION SERVICE INSPECTOR) Only the most recent of 5 results within the time period is included. Activated Clotting Time 103Comment: TESTED AT [facility] sec [address] Specimen Blood Performing Organization Address City/State/Zipcode Phone Number [place] [phone] [place] [address] * MACIE (04/05/2018 8:49 AM REFRIGERATION SERVICE INSPECTOR) Narrative Performed At Dick Mccormack MD 04/05/2018 [...] Dick Mccormack MD - 04/05/2018 8:49 AM REFRIGERATION SERVICE INSPECTOR MACIE Date: 04/05/2018 8:49 AM Sex: Female [...] surgical team. * aPTT (04/05/2018 4:42 AM REFRIGERATION SERVICE INSPECTOR) Only the most recent of 13 results within the time period is included. PTT 70.1 (H) 22.5 - 36.0 seconds [facility] Specimen Blood Performing Organization Address City/[facility]/Zipcode Phone Number [facility] [address] [place] [address] [phone] [place] [address] * Hemoglobin A1c (04/04/2018 12:56 PM REFRIGERATION SERVICE INSPECTOR) Hemoglobin A1C 10.3 (H) 4.3 - 6.1 % [facility] Specimen Blood Performing Organization Address City/[facility] Phone Number [address] [address] [phone] * ECHOCARDIOGRAM REPORT - SCAN (04/03/2018 10:50 AM REFRIGERATION SERVICE INSPECTOR) Narrative Performed At * 2D Echo W/Doppler(CW/PW/Color) (04/02/2018 1:23 PM REFRIGERATION SERVICE INSPECTOR) Ejection Fraction [facility] ECHO HEARTLAB [facility] Specimen Narrative Performed At Transthoracic Echocardiography Report (TTE) [facility] ECHO [facility]ART[facility] Demographics [facility] Patient NameMICA BUTLER Date of Study04/02/2018 Female Visit [id number] Room [id number] Number Date of 1955Referring Tri Spencer Age 62 year(s)SonographerNatividad Felder RDCS Video Tape Duplicator MD Vane LayolanPhysician Procedure Type of Study TTE procedure:2DECHO W DOPPLER(CW/PW/COLOR) (CATHY) Indications:Pre OP CABG. Clinical History 3 vessel CAD, CP, SOB, WV, TIA, HTN, DM II, CKD Stg III, [...] External Ris In - 04/04/2018 9:51 AM REFRIGERATION SERVICE INSPECTOR Transthoracic Echocardiography Report (TTE) Demographics Patient Name MICA BUTLER Date of Study 04/02/2018 Gender Female Visit Number [id number] Race Room Number 6215 Number Date of 1955 Referring Physician Tj Spencer Age 62 year(s) Research Quality Assurance Analyst Natividad Felder [facility] Video Tape Duplicator Leigh Ann Nolasco Interpreting Stu Gardner MD [place] Physician Procedure Type of Study TTE procedure:2DECHO W DOPPLER(CW/PW/COLOR) (CATHY) Indications:Pre OP CABG. Clinical History 3 vessel CAD, CP, SOB, WV, TIA, HTN, DM II, CKD Stg III, [...] LVOT CI: 3.38 l/min/m^2 Performing Organization Address City/[facility] Phone Number [facility] ECHO HEARTLAB [facility] * Iron, TIBC, % sat. (without ferritin) (04/02/2018 12:38 AM REFRIGERATION SERVICE INSPECTOR) Iron 70.0 40.0 - 160.0 ug/dL [facility] TIBC 269 250 - 450 ug/dL [facility] Iron % Saturation 26 20 - 55 % [facility] Specimen Blood Performing Organization Address [facility] Phone Number [address] [address] [facility] * Ferritin (04/02/2018 12:38 AM REFRIGERATION SERVICE INSPECTOR) Ferritin 91 5 - 275 ng/mL [facility] Specimen Blood Performing Organization Address [facility] Phone Number [address] [address] [facility] * Platelet Aggregation: Function Screen (04/01/2018 2:33 PM REFRIGERATION SERVICE INSPECTOR) Only the most recent of 3 results within the time period is included. Weak ADP 66 60 - 91 % [facility] Plt. Function Screen 60-100% indicates normal [facility] Interpretation platelet function [facility] Pathologist: Karey Christine MD [facility] (electronic signature) [facility] Platelets 300 150 - 450 K/CU MM [facility] Specimen Blood Narrative Performed At Platelet Function Screen results may be falsely low with platelet counts [facility] <100,000/cu mm. [facility] Performing Organization Address City/[facility] Phone Number [address] [address] [facility] * Arterial doppler arms bilateral (03/31/2018 10:40 AM REFRIGERATION SERVICE INSPECTOR) Ejection Fraction [facility] Specimen Impressions Performed At Right Impression [facility] ECHO HEART[facility] 1. There are normal triphasic Doppler waveforms in the brachial, radial and [facility] ulnar arteries. 2. The arterial pressures and [...] At LAB - Upper Extremity Arterial Procedure [facility] ECHO HEARTLAB Demographics [facility] Patient MICA Harding Date of Study 03/31/2018 62 Visit [id number] male of 1955 Referring Dillon Osborne, Room Number 6215 Physician Research Quality Assurance Analyst Petar Retana RUST Physician Procedure Type of Study: Extremities Arteries: Upper Extremity Arterial Procedure, ARTERY PRESSURES ARMS, BILATERAL. Indications for Study:Pre OP CABG. Patient Status:Routine. Study Location:Portable. Technical Quality:Adequate visualization. Risk Factors History of Disease + + +--------+ !Diagnosis !Date!Comments! + + +--------+ !History/Risk Factors: !03/31/2018!CAD ! ! !!DM! ! !!Hx of WV! + + +--------+ Procedure Note Interface, External Ris In - 03/31/2018 3:18 PM REFRIGERATION SERVICE INSPECTOR PV LAB - Upper Extremity Arterial Procedure Demographics Patient Name MICA BUTLER Date of Study 03/31/2018 Age 62 Visit Number [id number] Gender Female Accession Number [id number] Date of 1955 Referring Dillon Osborne, Room Number 6215 Physician Research Quality Assurance Analyst Petar Graham Interpreting Laura Retana, S Physician Procedure Type of Study: Extremities Arteries: Upper Extremity Arterial Procedure, ARTERY PRESSURES ARMS, BILATERAL. Indications for Study:Pre OP CABG. Patient Status:Routine. Study Location:Portable. Technical Quality:Adequate visualization. Risk Factors History of Disease + + +--------+ !Diagnosis !Date !Comments! + + +--------+ !History/Risk Factors: !03/31/2018!CAD ! ! ! !DM ! ! ! !Hx of WV! + + +--------+ Impressions Right Impression 1. [...] Signature Performing Organization Address City/State/Zipcode Phone Number [facility] [employer] * Venous doppler legs bilateral (03/31/2018 7:35 AM REFRIGERATION SERVICE INSPECTOR) Ejection Fraction [facility] [employer] Specimen Impressions Performed At [facility] ECHO HEARTLAB 1. There is no deep venous obstruction in the common femoral, profunda [facility] femoral, femoral, popliteal, posterior tibial or peroneal [...] PV LAB - Lower Extremities Vein Mapping [facility] ECHO HEARTLAB Demographics [place] [facility] Patient NameMICA BUTLER Date of Study 03/31/2018 62 Visit [id number] male of 1955 Referring Dillon BergmanAshkan Antonioparminder, Room Number 6215 Physician Research Quality Assurance Analyst Siobhan Retana [facility] Physician Procedure Type of Study: Veins: Lower Extremity Vein Mapping, VEIN MAPPING, LOWER EXTREMITY, BILATERAL. Indications for Study:Pre-op evaluation. Patient Status:Routine. Study Location:Portable. Technical Quality:Technically Difficult. Risk Factors History of Disease + + +--------+ !Diagnosis !Date!Comments! + + +--------+ !History/Risk Factors: !03/31/2018!CAD ! ! !!DM! ! !!Hx of WV! + + +--------+ Procedure Note Interface, External Ris In - 03/31/2018 3:18 PM REFRIGERATION SERVICE INSPECTOR PV LAB - Lower Extremities Vein Mapping Demographics Patient Name MICA BUTLER Date of Study 03/31/2018 Age 62 Visit Number [id number] Gender Female Accession Number [id number] Date of 1955 Referring Dillon Osborne, Room Number 6215 Physician Research Quality Assurance Analyst Siobhan Coffey Interpreting Laura Retana T Physician Procedure Type of Study: Veins: Lower Extremity Vein Mapping, VEIN MAPPING, LOWER EXTREMITY, BILATERAL. Indications for Study:Pre-op evaluation. Patient Status:Routine. Study Location:Portable. Technical Quality:Technically Difficult. Risk Factors History of Disease + + +--------+ !Diagnosis !Date !Comments! + + +--------+ !History/Risk Factors: !03/31/2018!CAD ! ! ! !DM ! ! ! !Hx of WV! + + +--------+ Impressions Right Impression 1. [...] + Performing Organization Address City/State/Zipcode Phone Number [facility] [place] MKNYLA MENSAHCS * Carotid doppler bilateral (03/31/2018 6:15 AM REFRIGERATION SERVICE INSPECTOR) Ejection Fraction [facility] [place] [facility] Specimen Impressions Performed At Right Impression [employer] [place] 1. There is <50% diameter reduction (approximately [...] Performed At LAB - Carotid Duplex Study [facility] HEARTLAB Demographics [facility] Patient MICA Harding Date of Study 03/31/2018 62 Visit [id number] male of 1955 Referring Dillon Osborne, Room Number 6215 Physician Research Quality Assurance Analyst Siobhan Retana, [facility] Physician Procedure Type of Study: Cerebral: Carotid, CAROTID DOPPLER, BILATERAL. Indications for Study:Pre-op CABG. Patient Status:Routine. Study Location:Portable. Technical Quality:Technically Difficult. Risk Factors History of Disease + + +--------+ !Diagnosis !Date!Comments! + + +--------+ !History/Risk Factors: !03/31/2018!CAD ! ! !!DM! ! !!Hx of WV! + + +--------+ Procedure Note Interface, External Ris In - 03/31/2018 3:18 PM REFRIGERATION SERVICE INSPECTOR PV LAB - Carotid Duplex Study Demographics Patient Name MICA BUTLER Date of Study 03/31/2018 Age 62 Visit Number [id number] Gender Female Accession Number [id number] Date of 1955 Referring Dillon Osborne, Room Number 15 Physician Research Quality Assurance Analyst Siobhan Coffey Interpreting Laura Retana [place] Physician Procedure Type of Study: Cerebral: Carotid, CAROTID DOPPLER, BILATERAL. Indications for Study:Pre-op CABG. Patient Status:Routine. Study Location:Portable. Technical Quality:Technically Difficult. Risk Factors History of Disease + + +--------+ !Diagnosis !Date !Comments! + + +--------+ !History/Risk Factors: !03/31/2018!CAD ! ! ! !DM ! ! ! !Hx of WV! + + +--------+ Impressions Right Impression 1. [...] Additional Measurements:ICAPSV/CCAPSV 0.77.ICAEDV/CCAEDV 1.58. Performing Organization Address City/[facility]/Zipcode Phone Number ERICA R[facility]AN HEARTLAB [facility] * XR chest 2 views (03/31/2018 5:20 AM REFRIGERATION SERVICE INSPECTOR) Specimen Narrative Performed At FINAL REPORT [facility] Chest 2 views 03/31/2018 7:57 AM CLINICAL HISTORY: Preop imaging. COMPARISON: None available FINDINGS: The lungs are clear. Cardiomediastinal contours are within normal limits. The central pulmonary vasculature is not engorged. The visualized skeleton is intact. IMPRESSION: No acute radiographic abnormalities. Signed: Leo Treadwell MD Report Verified Date/Time:03/31/2018 07:57:26 Reading Location: [address] Neuro Reading Room Procedure Note Interface, External Ris In - 03/31/2018 7:59 AM REFRIGERATION SERVICE INSPECTOR FINAL REPORT Chest 2 views 03/31/2018 7:57 AM CLINICAL HISTORY: Preop imaging. COMPARISON: None available FINDINGS: The lungs are clear. Cardiomediastinal contours are within normal limits. The central pulmonary vasculature is not engorged. The visualized skeleton is intact. IMPRESSION: No acute radiographic abnormalities. Signed: Leo Treadwell MD Report Verified Date/Time: 03/31/2018 07:57:26 Reading Location: [address] Neuro Reading Room Performing Organization Address City/[facility]/Zipcode Phone Number [facility] * Hepatitis C PCR, Quantitative (03/30/2018 10:35 PM REFRIGERATION SERVICE INSPECTOR) HCV PCR, Quantitative HCV RNA not detected HCV RNA not detected [facility] Specimen Blood Narrative Performed At This test uses a Real-Time Polymerase Chain Reaction (RT-PCR) methodology and [facility] was performed using [employer] Ampl[employer]ANC[employer] TaqMan HCV test kit version 2.0 [facility] ([employer] Reportable range for this assay is 15 - 100,000,000 IU per mL (1.18 - 8.00 Log IU/mL). This test uses a Real-Time Polymerase Chain Reaction (RT-PCR) methodology and was performed using [employer] TaqMan HCV test kit version 2.0 ([employer] Reportable range for this assay is 15 - 100,000,000 IU per mL (1.18 - 8.00 Log IU/mL). Performing Organization Address City/[facility] Phone Number [address] [address] [facility] * PFA-100 (03/30/2018 10:34 PM REFRIGERATION SERVICE INSPECTOR) COL/EPI Closure Time 150 78 - 191 Seconds [facility] COL/ADP Closure Time 73 43 - 122 Seconds [facility] Platelets 292 150 - 450 K/CU MM [facility] Specimen Blood Narrative Performed At Hematocrit <35% or platelet count <150,000/CU MM may contribute to falsely [facility] elevated PFA-100. [facility] Performing Organization Address [facility] Phone Number [address] [phone] [facility] after 12/19/2017 Insurance Payer Benefit Subscriber ID Type Phone Address Plan / Group [employer] [facility] [facility] Advance Directives For more information, please contact: [address] [phone] Date Inactivated Comments Code Status Date Activated Full Code 04/23/2018 9:11 AM This code status was determined by: Patient 04/22/2018 7:13 PM Full Code 03/30/2018 9:18 PM This code status was determined by: Patient
--- OUTSIDE RECORDS SUMMARY | 2018-12-20 06:34 | XMS REPORT | Continuity of Care Document ---
Author Author Wen[place] Address Unknown Phone Unavailable Care Team Providers Care Staff Radiation Therapist Name Role Phone [facility] Unavailable Unavailable Problems Problem Status Onset Date Classification Date Reported Comments Source VERTIGO Active 11/22/2018 [facility] [place] Encounter for general adult medical examination without abnormal findings 04/26/2018 11/10/2018 [facility] Mammographic calcification found on diagnostic imaging of breast 06/06/2017 09/06/2017 [facility] Encounter for screening for osteoporosis 05/31/2017 08/31/2017 [facility] Other chest pain 05/17/2017 08/17/2017 [facility] CHEST PAINS Active 05/04/2017 [facility] CHEST PAIN Active 05/04/2017 [facility] Unspecified lump in the right breast, unspecified quadrant 09/06/2017 [facility] [place] Encounter for screening mammogram for malignant neoplasm of breast 09/29/2018 [facility] Age-related osteoporosis without current pathological fracture 08/31/2017 [facility] Asymptomatic menopausal state 08/31/2017 [facility] Chest pain, unspecified 08/13/2017 [facility] Acute bronchitis due to other specified organisms 08/13/2017 [facility] Other specified bacterial agents as the cause of diseases classified elsewhere 08/13/2017 [facility] Hypo-osmolality and hyponatremia 08/13/2017 [facility] Type 2 diabetes mellitus with hyperglycemia 08/13/2017 [facility] Type 2 diabetes mellitus with diabetic nephropathy 08/13/2017 [facility] Disorder of breast, unspecified 08/13/2017 [facility] Hypotension, unspecified 08/13/2017 [facility] Acute respiratory distress 08/13/2017 [facility] Hypertensive chronic kidney disease with stage 1 through stage 4 chronic kidney disease, or unspecified chronic kidney disease 08/13/2017 [facility] Chronic kidney disease, unspecified 08/13/2017 [facility] Acute kidney failure, unspecified 08/13/2017 [facility] Type 2 diabetes mellitus with diabetic chronic kidney disease 08/13/2017 [facility] Metabolic syndrome 08/13/2017 [facility] Hyperlipidemia, unspecified 08/13/2017 [facility] Atherosclerotic heart disease of [place] coronary artery without angina pectoris 08/13/2017 [facility] Old myocardial infarction 08/13/2017 [facility] Obesity, unspecified 08/13/2017 [facility] Tachycardia, unspecified 08/13/2017 [facility] Left anterior fascicular block 08/13/2017 [facility] Fatty liver, not elsewhere classified 08/13/2017 [facility] detention use of insulin 08/13/2017 [facility] CHEST PAIN, UNSPECIFIED Active [facility] Medications Medication Details Route Status Patient Instructions Ordering Provider Order Date Source morphine Sulfate 6 mg, 3 mL, Route: PO, Drug form: SOLN, Q2H, PRN Chest Pain, Start date: 05/07/17 14:49:00 LICENSED APPRAISER, Duration: 30 day, Stop date: 06/06/17 14:48:00 CSTNotes: (Same as:MORPhine Sulfate) Inactive 05/07/2017 [facility] Terbutaline 0.25 mg, 0.25 mL, Route: SUB-Q, Drug form: INJ, Q6H, Dosing Weight 90, kg, PRN Bradycardia, Start date: 05/07/17 14:35:00 LICENSED APPRAISER, Duration: 30 day, Stop date: 06/06/17 14:34:00 CSTNotes: DO NOT USE IN SOLE PAINTER AREA (Same As: Brethine) Inactive 05/07/2017 [facility] Lopressor 2.5 mg, 2.5 mL, Route: IVP, Drug form: INJ, Q3H, Dosing Weight 90, kg, PRN Tachycardia, Start date: 05/07/17 14:35:00 LICENSED APPRAISER, Duration: 30 day, Stop date: 06/06/17 14:34:00 CSTNotes: (Same as: Lopressor) Push over 2 minutes Inactive 05/07/2017 [facility] Nitroglycerin 0.4 MG Sublingual Tablet [Nitrostat] 0.4 mg, 1 tab, Route: SL, Drug form: TAB, Q5Min, Dosing Weight 90, kg, PRN Chest Pain, Start date: 05/07/17 14:35:00 LICENSED APPRAISER, Duration: 3 doses or times, Stop date: 06/06/17 14:34:00 CSTNotes: (Same as:Nitroquick, Nitrostat) "Do Not Crush" Sublingual tablet Inactive 05/07/2017 [facility] Morphine 2 mg, Route: IVP, Q2H, Dosing Weight 90, kg, PRN Chest Pain, Start date: 05/07/17 14:34:00 LICENSED APPRAISER, Duration: 30 day, Stop date: 06/06/17 14:33:00 LICENSED APPRAISER Inactive 05/07/2017 [facility] Hydralazine 10 mg, 0.5 mL, Route: IV, Drug form: INJ, Q4H, Dosing Weight 90, kg, PRN Hypertension, Start date: 05/07/17 14:34:00 LICENSED APPRAISER, Duration: 30 day, Stop date: 06/06/17 14:33:00 CSTNotes: (Same as: Apresoline) Push over 5 minutes Inactive 05/07/2017 [facility] Sodium Chloride 0.9% IV 1,000 mL 1,000 mL, Rate: 100 ml/hr, Infuse over: 10 hr, Route: IV, Dosing Weight 90 kg, Total Volume: 1,000, Start date: 05/06/17 19:23:00 LICENSED APPRAISER, Duration: 30 day, Stop date: 06/05/17 19:22:00 LICENSED APPRAISER, 1.99, m2 No Longer Active 05/07/2017 [facility] Glipizide 10 MG Oral Tablet 10 mg=1 tab, PO, BID, # 30 tab, 0 Refill(s) Active 05/06/2017 [facility] Humalog 30 unit, 0.3 mL, Route: SUB-Q, Drug form: SOLN, TID-Before Meals, Start date: 05/06/17 11:30:00 LICENSED APPRAISER, Duration: 30 day, Stop date: 06/05/17 7:30:00 CSTNotes: Roll in palms of hands gently; Do not shake `vigorously. (Same as: Humalog ) "Single Patient Use Only " WASTE: F/P - Black; E - Municipal Trash Bin Stable for 28 days at room temperature. Expires in days from Date No Longer Active 05/06/2017 [facility] Aspirin 325 MG Oral Tablet 325 mg, 1 tab, Route: PO, Drug form: TAB, Daily, Dosing Weight 86.364, kg, Start date: 05/06/17 9:00:00 LICENSED APPRAISER, Duration: 30 day, Stop date: 06/04/17 9:00:00 CSTNotes: Take with food. No Longer Active 05/06/2017 [facility] NovoLOG FlexPen 24 unit, Route: SUB-Q, Breakfast, Dosing Weight 86.364, kg, Start date: 05/06/17 8:00:00 LICENSED APPRAISER, Duration: 30 day, Stop date: 06/04/17 8:00:00 LICENSED APPRAISER No Longer Active 05/06/2017 [facility] insulin glargine 45 unit, 0.45 mL, Route: SUB-Q, Drug form: SOLN, Breakfast, Start date: 05/06/17 8:00:00 LICENSED APPRAISER, Stop date: 06/04/17 8:00:00 CSTNotes: (Same as: Lantus) Do not hold insulin without contacting prescriber W ASTE: F/P - Black; E - Municipal Trash Bin "single patient use only" No Longer Active 05/06/2017 [facility] 3 ML Insulin Glargine 100 UNT/ML Prefilled Syringe [Lantus] 35 unit, Route: SUB-Q, Drug form: SOLN, Before Breakfast, Dosing Weight 86.364, kg, Start date: 05/06/17 7:30:00 LICENSED APPRAISER, Duration: 30 day, Stop date: 06/04/17 7:30:00 LICENSED APPRAISER No Longer Active 05/06/2017 [facility] 3 ML Insulin Glargine 100 UNT/ML Prefilled Syringe [Lantus] Route: SUB-Q, Drug form: SOLN, Bedtime, Dosing Weight 86.364, kg, Start date: 05/05/17 21:00:00 LICENSED APPRAISER, Duration: 30 day, Stop date: 06/03/17 21:00:00 LICENSED APPRAISER Inactive 05/06/2017 [facility] insulin glargine 55 unit, 0.55 mL, Route: SUB-Q, Drug form: SOLN, Bedtime, Start date: 05/05/17 21:00:00 LICENSED APPRAISER, Stop date: 06/03/17 21:00:00 CSTNotes: (Same as: Lantus) Do not hold insulin without contacting prescriber W ASTE: F/P - Black; E - Municipal Trash Bin "single patient use only" No Longer Active 05/06/2017 [facility] rosuvastatin 20 mg, 1 tab, Route: PO, Drug form: TAB, Bedtime, Dosing Weight 86.364, kg, Start date: 05/05/17 21:00:00 LICENSED APPRAISER, Duration: 30 day, Stop date: 06/03/17 21:00:00 CSTNotes: Same as Crestor No Longer Active 05/06/2017 [facility] Hydralazine Hydrochloride 25 MG Oral Tablet 25 mg=1 tab, PO, TID, # 90 tab, 1 Refill(s), Pharmacy: [facility] [id number] Active 05/06/2017 [facility] benzonatate 100 MG Oral Capsule [Tessalon Perles] 100 mg=1 cap, PO, Q8H, PRN cough, do not crush or chew, X 10 day, # 30 cap, 0 Refill(s), Pharmacy: [place] [id number] No Longer Active 05/06/2017 [facility] doxycycline hyclate 100 MG Oral Capsule 100 mg=1 cap, PO, Q12H, X 10 day, # 20 cap, 0 Refill(s), Pharmacy: [place] [id number] No Longer Active 05/06/2017 [facility] 3 ML Insulin, Aspart, Human 100 UNT/ML Pen Injector [NovoLog] 25 unit, SUB-Q, Lunch, # 3 pen(s), 0 Refill(s), Pharmacy: [place] [id number] Active 05/06/2017 [facility] Insulin Lispro 15 unit, 0.15 mL, Route: SUB-Q, Drug form: SOLN, ONCE, Dosing Weight 86.364, kg, Priority: NOW, Start date: 05/05/17 18:32:00 LICENSED APPRAISER, Stop date: 05/05/17 18:32:00 CSTNotes: Roll in palms of hands gently; Do not shake `vigorously. (Same as: Humalog ) "Single Patient Use Only " WASTE: F/P - Black; E - Municipal Trash Bin Stable for 28 days at room temperature. Expires in days from Date Inactive 05/06/2017 [facility] Insulin, Aspart, Human 15 unit, Route: SUB-Q, ONCE, Dosing Weight 86.364, kg, Start date: 05/05/17 17:24:00 LICENSED APPRAISER, Stop date: 05/05/17 17:24:00 LICENSED APPRAISER Inactive 05/05/2017 [facility] Humalog 25 unit, 0.25 mL, Route: SUB-Q, Drug form: SOLN, ONCE, Start date: 05/05/17 15:01:00 LICENSED APPRAISER, Stop date: 05/05/17 15:01:00 LICENSED APPRAISER Inactive 05/05/2017 [facility] Insulin, Aspart, Human 25 unit, Route: SUB-Q, ONCE, Dosing Weight 86.364, kg, Priority: NOW, Start date: 05/05/17 14:41:00 LICENSED APPRAISER, Stop date: 05/05/17 14:41:00 LICENSED APPRAISER Inactive 05/05/2017 [facility] Clonidine Hydrochloride 0.2 MG Oral Tablet 0.2 mg, 1 tab, Route: PO, Drug form: TAB, TID, Dosing Weight 86.364, kg, Start date: 05/05/17 13:00:00 LICENSED APPRAISER, Duration: 30 day, Stop date: 06/04/17 9:00:00 CSTNotes: (Same As: Catapres) No Longer Active 05/05/2017 [facility] NovoLOG FlexPen 24 unit, Route: SUB-Q, Lunch, Dosing Weight 86.364, kg, Start date: 05/05/17 12:00:00 LICENSED APPRAISER, Duration: 30 day, Stop date: 06/03/17 12:00:00 LICENSED APPRAISER Inactive 05/05/2017 [facility] Humalog 30 unit, 0.3 mL, Route: SUB-Q, Drug form: SOLN, BID-Before Meals, Start date: 05/05/17 12:00:00 LICENSED APPRAISER, Duration: 30 day, Stop date: 06/04/17 7:30:00 CSTNotes: Roll in palms of hands gently; Do not shake `vigorously. (Same as: Humalog ) "Single Patient Use Only " WASTE: F/P - Black; E - Municipal Trash Bin Stable for 28 days at room temperature. Expires in days from Date No Longer Active 05/05/2017 [facility] Humalog 20 unit, 0.2 mL, Route: SUB-Q, Drug form: SOLN, ONCE, Start date: 05/05/17 11:31:00 LICENSED APPRAISER, Stop date: 05/05/17 11:31:00 CSTNotes: Roll in palms of hands gently; Do not shake `vigorously. (Same as: Humalog ) "Single Patient Use Only " WASTE: F/P - Black; E - Municipal Trash Bin Stable for 28 days at room temperature. Expires in days from Date Inactive 05/05/2017 [facility] NovoLOG FlexPen 21 unit, Route: SUB-Q, TID-Before Meals, Dosing Weight 86.364, kg, Start date: 05/05/17 11:30:00 LICENSED APPRAISER, Duration: 30 day, Stop date: 06/04/17 7:30:00 LICENSED APPRAISER Inactive 05/05/2017 [facility] Insulin, Aspart, Human 20 unit, Route: SUB-Q, ONCE, Dosing Weight 86.364, kg, Start date: 05/05/17 11:22:00 LICENSED APPRAISER, Stop date: 05/05/17 11:22:00 LICENSED APPRAISER Inactive 05/05/2017 [facility] Insulin Glargine 100 UNT/ML Injectable Solution [Lantus] 35 unit, 0.35 mL, Route: SUB-Q, Drug form: SOLN, ONCE, Dosing Weight 86.364, kg, Start date: 05/05/17 11:22:00 LICENSED APPRAISER, Stop date: 05/05/17 11:22:00 CSTNotes: (Same as: Lantus) Do not hold insulin without contacting prescriber WASTE: F/P - Black; E - Municipal Trash Bin "single patient use only" Inactive 05/05/2017 [facility] Humalog 9 unit, 0.09 mL, Route: SUB-Q, Drug form: SOLN, ONCE, Start date: 05/05/17 10:18:00 LICENSED APPRAISER, Stop date: 05/05/17 10:18:00 CSTNotes: Roll in palms of hands gently; Do not shake `vigorously. (Same as: Humalog ) "Single Patient Use Only " WASTE: F/P - Black; E - Municipal Trash Bin Stable for 28 days at room temperature. Expires in days from Date Inactive 05/05/2017 [facility] NovoLOG FlexPen 9 unit, Route: SUB-Q, ONCE, Dosing Weight 86.364, kg, Priority: STAT, Start date: 05/05/17 9:44:00 LICENSED APPRAISER, Stop date: 05/05/17 9:44:00 LICENSED APPRAISER Inactive 05/05/2017 [facility] Insulin Lispro 2 unit, 0.02 mL, Route: SUB-Q, Drug form: SOLN, TID-Before Meals, Dosing Weight 86.364, kg, PRN Blood Glucose Results, Start date: 05/05/17 9:19:00 LICENSED APPRAISER, Duration: 30 day, Stop date: 06/04/17 9:18:00 CSTNotes: Roll in palms of hands gently; Do not shake `vigorously. (Same as: Humalog ) "Single Patient Use Only " WASTE: F/P - Black; E - Municipal Trash Bin Stable for 28 days at room temperature. Expires in days from Date No Longer Active 05/05/2017 [facility] Glucagon 1 mg, Route: IM, Drug form: PDR/INJ, PRN, Dosing Weight 86.364, kg, PRN Blood Glucose Results, Start date: 05/05/17 9:19:00 LICENSED APPRAISER, Duration: 30 day, Stop date: 06/04/17 9:18:00 LICENSED APPRAISER No Longer Active 05/05/2017 [facility] Dextrose 50% Syringe 25 gm, 50 mL, Route: IVP, Drug Form: INJ, Dosing Weight 86.364, kg, PRN, PRN Blood Glucose Results, Start date: 05/05/17 9:19:00 LICENSED APPRAISER, Duration: 30 day, Stop date: 06/04/17 9:18:00 LICENSED APPRAISER No Longer Active 05/05/2017 [facility] Dextromethorphan Hydrobromide 2 MG/ML / Guaifenesin 20 MG/ML Oral Solution 10 mL, Route: PO, Drug Form: LIQ, Dosing Weight 86.364, kg, Q4H, PRN as needed for cough, Start date: 05/05/17 9:18:00 LICENSED APPRAISER, Stop date: 06/04/17 9:17:00 CSTNotes: (dextromethorphan-guaifenesin 10-100/5 ml LIQ) (Same as: Robitussin-DM) No Longer Active 05/05/2017 [facility] pneumococcal capsular polysaccharide type 1 vaccine / pneumococcal capsular polysaccharide type 10A vaccine / pneumococcal capsular polysaccharide type 11A vaccine / pneumococcal capsular polysaccharide type 12F vaccine / pneumococcal capsular polysacchar 0.5 mL, Route: IM, Drug Form: INJ, Daily, Start date: 05/05/17 9:00:00 LICENSED APPRAISER, Duration: 1 doses or times, Stop date: 05/05/17 9:00:00 CSTNotes: (Same as: Pneumovax 23) Refrigerate Inactive 05/05/2017 [facility] methylPREDNISolone SODium SUCCinate 40 mg, 1 mL, Route: IVP, Drug form: INJ, Q12H, Dosing Weight 113.636, kg, Start date: 05/05/17 9:00:00 LICENSED APPRAISER, Duration: 30 day, Stop date: 06/03/17 21:00:00 CSTNotes: (Same as:Solu-MEDROL, A-Methapred) Inactive 05/05/2017 [facility] Albuterol 0.833 MG/ML / Ipratropium [place] 0.167 MG/ML Inhalant Solution 3 mL, Route: NEB, Drug Form: SOLN, Dosing Weight 113.636, kg, RQ6H, Start date: 05/05/17 8:00:00 LICENSED APPRAISER, Duration: 30 day, Stop date: 06/04/17 2:00:00 CSTNotes: (Same as: Duoneb) No Longer Active 05/05/2017 [facility] Insulin Lispro 3 unit, 0.03 mL, Route: SUB-Q, Drug form: SOLN, Bedtime, Dosing Weight 113.636, kg, PRN Blood Glucose Results, Start date: 05/05/17 6:27:00 LICENSED APPRAISER, Duration: 30 day, Stop date: 06/04/17 6:26:00 CSTNotes: Roll in palms of hands gently; Do not shake `vigorously. (Same as: Humalog ) "Single Patient Use Only " WASTE: F/P - Black; E - Municipal Trash Bin Stable for 28 days at room temperature. Expires in days from Date Inactive 05/05/2017 [facility] Dextrose 50% Syringe 25 gm, 50 mL, Route: IVP, Drug Form: INJ, Dosing Weight 113.636, kg, PRN, PRN Blood Glucose Results, Start date: 05/05/17 6:27:00 LICENSED APPRAISER, Duration: 30 day, Stop date: 06/04/17 6:26:00 LICENSED APPRAISER Inactive 05/05/2017 [facility] Glucagon 1 mg, Route: IM, Drug form: PDR/INJ, PRN, Dosing Weight 113.636, kg, PRN Blood Glucose Results, Start date: 05/05/17 6:27:00 LICENSED APPRAISER, Duration: 30 day, Stop date: 06/04/17 6:26:00 LICENSED APPRAISER Inactive 05/05/2017 [facility] Aspirin 325 MG Oral Tablet 325 mg=1 tab, PO, Daily, 0 Refill(s) Active 05/05/2017 [facility] rosuvastatin 20 mg oral tablet 20 mg=1 tab, PO, Bedtime, # 30 tab, 0 Refill(s) Active 05/05/2017 [facility] Hydrochlorothiazide 50 MG Oral Tablet 50 mg=1 tab, PO, BID, 0 Refill(s) Inactive 05/05/2017 [facility] Clonidine Hydrochloride 0.2 MG Oral Tablet 0.2 mg=1 tab, PO, TID, 0 Refill(s) Active 05/05/2017 [facility] 3 ML Insulin Glargine 100 UNT/ML Prefilled Syringe [Lantus] 32, SUB-Q, Bedtime, 32 units at bedtime, 0 Refill(s) Active 05/05/2017 [facility] escitalopram 20 mg oral tablet 20 mg=1 tab, PO, Daily, # 30 tab, 0 Refill(s) Active 05/05/2017 [facility] cefdinir 300 MG Oral Capsule 300 mg=1 cap, PO, Q12H, # 20 cap, 0 Refill(s) Inactive 05/05/2017 [facility] lisinopril 2.5 mg oral tablet 2.5 mg=1 tab, PO, Daily, # 30 tab, 0 Refill(s) Inactive 05/05/2017 [facility] NovoLOG FlexPen 24 unit, SUB-Q, Lunch, 0 Refill(s) Inactive 05/05/2017 [facility] Levaquin 500 mg, 2 tab, Route: PO, Drug form: TAB, [id number], Dosing Weight 113.636, kg, Start date: 05/05/17 6:00:00 LICENSED APPRAISER, Duration: 5 day, Stop date: 05/09/17 6:00:00 LICENSED APPRAISER, ABX Indication: Non-PNA Respiratory Tract InfectionNotes: Do not give w/antacids, dairy pdt & minerals Take 1 hr before or 2 hr after dairy pdt (Same as:Levaquin) No Longer Active 05/05/2017 [facility] Albuterol 0.83 MG/ML Inhalant Solution 2.49 mg, 3 mL, Route: NEB, Drug form: SOLN, PRN, Dosing Weight 113.636, kg, PRN Respiratory Protocol, Start date: 05/05/17 5:25:00 LICENSED APPRAISER, Duration: 30 day, Stop date: 06/04/17 5:24:00 CSTNotes: SEE RT DOCUMENTATION (Same as: Proventil) No Longer Active 05/05/2017 [facility] Aspirin 325 mg, Route: PO, Drug form: TAB, ONCE, Dosing Weight 113.636, kg, Priority: STAT, Start date: 05/05/17 3:48:00 LICENSED APPRAISER, Stop date: 05/05/17 3:48:00 LICENSED APPRAISER Inactive 05/05/2017 [facility] Insulin regular 5 unit, Route: IV, ONCE, Dosing Weight 113.636, kg, Priority: STAT, Start date: 05/05/17 3:40:00 LICENSED APPRAISER, Stop date: 05/05/17 3:40:00 LICENSED APPRAISER Inactive 05/05/2017 [facility] Prednisone 60 mg, Route: PO, Drug form: TAB, ONCE, Dosing Weight 113.636, kg, Priority: STAT, Start date: 05/05/17 2:16:00 LICENSED APPRAISER, Stop date: 05/05/17 2:16:00 LICENSED APPRAISER Inactive 05/05/2017 [facility] Albuterol 0.833 MG/ML / Ipratropium [place] 0.167 MG/ML Inhalant Solution 3 mL, Route: NEB, Drug Form: SOLN, Dosing Weight 113.636, kg, ONCE, STAT, Start date: 05/05/17 2:16:00 LICENSED APPRAISER, Stop date: 05/05/17 2:16:00 LICENSED APPRAISER Inactive 05/05/2017 [facility] Sodium Chloride 0.9% (Bolus) IV 1,000 mL, Infuse Over: 1 hr, Route: IV, ONCE, Priority: STAT, Dosing Weight 113.636 kg, Start date: 05/05/17 2:16:00 LICENSED APPRAISER, Stop date: 05/05/17 2:16:00 LICENSED APPRAISER Inactive 05/05/2017 [facility] Saline Flush 0.9% 10 mL, Route: IVP, Drug Form: INJ, Dosing Weight 113.636, kg, PRN, PRN Line Flush, Start date: 05/05/17 2:16:00 LICENSED APPRAISER, Duration: 30 day, Stop date: 06/04/17 2:15:00 CSTNotes: (Same as: BD Posiflush) No Longer Active 05/05/2017 [facility] Alendronate Sodium 70 Mg Tablet Use As Directed Active [facility] Aspirin (Aspirin Enteric Coated) 325 Mg Tabec Daily Active [facility] Citalopram Hydrobromide (Citalopram Hbr) 20 Mg Tablet Daily Active [facility] Clonidine Hcl 0.2 Mg Tablet Three Times A Day Active [facility] Dorzolamide/Timolol/Pf (Cosopt Pf Eye Drops) 1 Each Droperette Daily Active [facility] Furosemide 20 Mg Tablet Daily Active [facility] Naltrexone Hcl 50 Mg Tablet Daily Active [facility] Rosuvastatin Calcium (Crestor) 20 Mg Tablet Daily Active [facility] Sodium Polystyrene Sulfonate (Kionex) 15 Gm/60 Ml Oral.susp Daily Active [facility] Allergies, Adverse Reactions, Alerts Substance Category Reaction Severity Reaction type Status Date Reported Comments Source No Known Medication Allergies Assertion Drug allergy CASSANDRA Joseph Immunizations Immunization Date Given Site Status Last Updated Comments Source pneumococcal 23-valent vaccine 05/05/2017 Not Given CASSANDRA Joseph,[facility] pneumococcal 23-valent vaccine<sup>1</sup> 05/05/2017 Not Given CASSANDRA Joseph Results Order Name Results Value Reference Range Date Interpretation Comments Source Blood leukocytes automated count (number/volume) 9.98 4.8 - 10.8 10/09/2018 [facility] Blood erythrocytes automated count (number/volume) 5.46 3.6 - 5.1 10/09/2018 [facility] Blood hemoglobin measurement (moles/volume) 15.4 12.0 - 16.0 10/09/2018 [facility] Automated blood hematocrit (volume fraction) 48.5 34.2 - 44.1 10/09/2018 [facility] Automated erythrocyte mean corpuscular volume 88.8 81 - 99 10/09/2018 [facility] Automated erythrocyte mean corpuscular hemoglobin (mass per erythrocyte) 28.2 28 - 32 10/09/2018 [facility] Automated erythrocyte mean corpuscular hemoglobin concentration measurement (mass/volume) 31.8 31 - 35 10/09/2018 [facility] RDW BldCo-Rto 15.2 11.7 - 14.4 10/09/2018 [facility] Automated blood platelet count (count/volume) 267 140 - 360 10/09/2018 [facility] Automated blood segmented neutrophil count as percentage of total leukocytes 71.1 38.7 - 80.0 10/09/2018 [facility] Automated blood lymphocyte count as percentage ot total leukocytes 23.4 18.0 - 39.1 10/09/2018 [facility] Automated blood monocyte count as percentage of total leukocytes 4.1 4.4 - 11.3 10/09/2018 [facility] Automated blood eosinophil count as percentage of total leukocytes 0.7 0.0 - 6.0 10/09/2018 [facility] Automated blood basophil count as percentage of total leukocytes 0.5 0.0 - 1.0 10/09/2018 [facility] IM GRANULOCYTES % 0.2 0.0 - 1.0 10/09/2018 [facility] Automated blood neutrophil count 7.1 2.1 - 6.9 10/09/2018 [facility] Blood lymphocytes count (number/volume) 2.3 1.0 - 3.2 10/09/2018 [facility] Blood monocytes automated count (number/volume) 0.4 0.2 - 0.8 10/09/2018 [facility] Automated blood eosinophil count 0.1 0.0 - 0.4 10/09/2018 [facility] Automated blood basophil count (count/volume) 0.1 0.0 - 0.1 10/09/2018 [facility] Absolute Immature Granulocyte (auto 0.02 0 - 0.1 10/09/2018 [facility] Prothrombin time (PT) in platelet poor plasma by coagulation assay 12.3 11.9 - 14.5 10/09/2018 [facility] INR in Platelet poor plasma by Coagulation assay 0.87 10/09/2018 [facility] Activated partial thromboplastin time (aPTT) in platelet poor plasma bycoagulation assay 25.9 23.8 - 35.5 10/09/2018 [facility] Serum or plasma sodium measurement (moles/volume) 142 136 - 145 10/09/2018 [facility] Serum or plasma potassium measurement (moles/volume) 4.1 3.5 - 5.1 10/09/2018 [facility] Serum or plasma chloride measurement (moles/volume) 100 98 - 107 10/09/2018 [facility] Serum or plasma carbon dioxide, total measurement (moles/volume) 28 22 - 29 10/09/2018 [facility] Serum or plasma anion gap 18.1 8 - 16 10/09/2018 [facility] Serum or plasma urea nitrogen measurement (mass/volume) 39 7 - 26 10/09/2018 [facility] Serum or plasma creatinine measurement (mass/volume) 1.59 0.57 - 1.11 10/09/2018 [facility] Serum or plasma urea nitrogen/creatinine mass ratio 25 6 - 25 10/09/2018 [facility] Estimated glomerular filtration rate (GFR) determination 33 60 10/09/2018 [facility] Glucose measurement 161 74 - 118 10/09/2018 [facility] Serum or plasma calcium measurement (mass/volume) 11.0 8.4 - 10.2 10/09/2018 [facility] Serum or plasma magnesium measurement (mass/volume) 2.5 1.3 - 2.1 10/09/2018 [facility] Serum or plasma total bilirubin measurement (mass/volume) 0.5 0.2 - 1.2 10/09/2018 [facility] Aspartate Amino Transf (AST/SGOT) 33 5 - 34 10/09/2018 [facility] Serum or plasma alanine aminotransferase measurement (enzymatic activity/volume) 30 0 - 55 10/09/2018 [facility] Serum or plasma protein measurement (mass/volume) 8.2 6.5 - 8.1 10/09/2018 [facility] Serum or plasma albumin measurement (mass/volume) 4.3 3.5 - 5.0 10/09/2018 [facility] Plasma globulin measurement (mass/volume) 3.9 2.3 - 3.5 10/09/2018 [facility] Serum or plasma albumin/globulin mass ratio 1.1 0.8 - 2.0 10/09/2018 [facility] Serum or plasma alkaline phosphatase measurement (enzymatic activity/volume) 87 40 - 150 10/09/2018 [facility] Serum or plasma creatine kinase measurement (enzymatic activity/volume) 229 29 - 168 10/09/2018 [facility] Serum or plasma creatine kinase MB measurement (mass/volume) 0.80 0 - 5.0 10/09/2018 [facility] Troponin I measurement by highly sensitive enzyme immunoassay 0.001 0 - 0.300 10/09/2018 [facility] Serum or plasma thyrotropin measurement by detection limit <=0.005 miu/l (units/volume) 2.718 0.350 - 4.940 10/09/2018 [facility] Urine color determination YELLOW YELLOW 10/09/2018 [facility] Urine clarity HAZY CLEAR 10/09/2018 [facility] Specific gravity of Urine by Test strip 1.015 1.010 - 1.025 10/09/2018 [facility] Urine pH measurement by automated test strip 5 5 - 7 10/09/2018 [facility] Urine leukocyte esterase detection by dipstick NEGATIVE NEGATIVE 10/09/2018 [facility] Urine nitrite detection NEGATIVE NEGATIVE 10/09/2018 [facility] Urine protein measurement by test strip (mass/volume) 1+ NEGATIVE 10/09/2018 [facility] Urine glucose detection NEGATIVE NEGATIVE 10/09/2018 [facility] Urine ketones detection by automated test strip NEGATIVE NEGATIVE 10/09/2018 [facility] Urine urobilinogen measurement by test strip (mass/volume) 0.2 0.2 - 1 10/09/2018 [facility] Urine total bilirubin measurement (mass/volume) NEGATIVE NEGATIVE 10/09/2018 [facility] Urine erythrocytes detection NEGATIVE NEGATIVE 10/09/2018 [facility] Automated urine sediment leukocyte count by microscopy (number/high power field) 0-5 0 - 5 10/09/2018 [facility] Erythrocytes detection in urine sediment by light microscopy NONE 0 - 5 10/09/2018 [facility] Bacteria detection in urine sediment by light microscopy FEW NONE 10/09/2018 [facility] Epithelial cells detection in urine sediment by light microscopy FEW NONE 10/09/2018 [facility] Capillary blood glucose measurement by glucometer (mass/volume) 168 70 - 120 03/30/2018 [facility] Capillary blood glucose measurement by glucometer (mass/volume) 168 70 - 120 03/30/2018 [facility] Activated partial thromboplastin time (aPTT) in platelet poor plasma bycoagulation assay 27.5 23.8 - 35.5 03/30/2018 [facility] Serum or plasma sodium measurement (moles/volume) 137 136 - 145 03/30/2018 [facility] Serum or plasma potassium measurement (moles/volume) 4.4 3.5 - 5.1 03/30/2018 [facility] Serum or plasma chloride measurement (moles/volume) 108 98 - 107 03/30/2018 [facility] Serum or plasma carbon dioxide, total measurement (moles/volume) 20 22 - 29 03/30/2018 [facility] Serum or plasma anion gap 13.4 8 - 16 03/30/2018 [facility] Serum or plasma urea nitrogen measurement (mass/volume) 21 7 - 26 03/30/2018 [facility] Serum or plasma creatinine measurement (mass/volume) 1.32 0.57 - 1.11 03/30/2018 [facility] Serum or plasma urea nitrogen/creatinine mass ratio 16 6 - 25 03/30/2018 [facility] Estimated glomerular filtration rate (GFR) determination 41 60 03/30/2018 [facility] Glucose measurement 232 74 - 118 03/30/2018 [facility] Serum or plasma calcium measurement (mass/volume) 9.7 8.4 - 10.2 03/30/2018 [facility] Phosphorus measurement 3.5 2.3 - 4.7 03/29/2018 [facility] Blood leukocytes automated count (number/volume) 10.34 4.8 - 10.8 03/29/2018 [facility] Blood erythrocytes automated count (number/volume) 4.50 3.6 - 5.1 03/29/2018 [facility] Blood hemoglobin measurement (moles/volume) 13.4 12.0 - 16.0 03/29/2018 [facility] Automated blood hematocrit (volume fraction) 42.1 34.2 - 44.1 03/29/2018 [facility] Automated erythrocyte mean corpuscular volume 93.6 81 - 99 03/29/2018 [facility] Automated erythrocyte mean corpuscular hemoglobin (mass per erythrocyte) 29.8 28 - 32 03/29/2018 [facility] Automated erythrocyte mean corpuscular hemoglobin concentration measurement (mass/volume) 31.8 31 - 35 03/29/2018 [facility] RDW BldCo-Rto 12.7 11.7 - 14.4 03/29/2018 [facility] Automated blood platelet count (count/volume) 220 140 - 360 03/29/2018 [facility] Automated blood segmented neutrophil count as percentage of total leukocytes 57.6 38.7 - 80.0 03/29/2018 [facility] Automated blood lymphocyte count as percentage ot total leukocytes 33.0 18.0 - 39.1 03/29/2018 [facility] Automated blood monocyte count as percentage of total leukocytes 6.3 4.4 - 11.3 03/29/2018 [facility] Automated blood eosinophil count as percentage of total leukocytes 2.2 0.0 - 6.0 03/29/2018 [facility] Automated blood basophil count as percentage of total leukocytes 0.4 0.0 - 1.0 03/29/2018 [facility] IM GRANULOCYTES % 0.5 0.0 - 1.0 03/29/2018 [facility] Blood lymphocytes count (number/volume) 3.4 1.0 - 3.2 03/29/2018 [facility] Blood monocytes automated count (number/volume) 0.7 0.2 - 0.8 03/29/2018 [facility] Automated blood eosinophil count 0.2 0.0 - 0.4 03/29/2018 [facility] Automated blood basophil count (count/volume) 0.0 0.0 - 0.1 03/29/2018 [facility] Absolute Immature Granulocyte (auto 0.05 0 - 0.1 03/29/2018 [facility] Phosphorus measurement 3.5 2.3 - 4.7 03/29/2018 [facility] Serum or plasma magnesium measurement (mass/volume) 2.0 1.3 - 2.1 03/29/2018 [facility] Serum or plasma total bilirubin measurement (mass/volume) 0.4 0.2 - 1.2 03/29/2018 [facility] Aspartate Amino Transf (AST/SGOT) 27 5 - 34 03/29/2018 [facility] Serum or plasma alanine aminotransferase measurement (enzymatic activity/volume) 33 0 - 55 03/29/2018 [facility] Serum or plasma protein measurement (mass/volume) 6.9 6.5 - 8.1 03/29/2018 [facility] Serum or plasma albumin measurement (mass/volume) 3.1 3.5 - 5.0 03/29/2018 [facility] Plasma globulin measurement (mass/volume) 3.8 2.3 - 3.5 03/29/2018 [facility] Serum or plasma albumin/globulin mass ratio 0.8 0.8 - 2.0 03/29/2018 [facility] Serum or plasma alkaline phosphatase measurement (enzymatic activity/volume) 90 40 - 150 03/29/2018 [facility] Differential Total Cells Counted 100 03/28/2018 [facility] Manual blood neutrophils/100 leukocytes 64 40 - 74 03/28/2018 [facility] Manual blood lymphocytes/100 leukocytes 25 19 - 48 03/28/2018 [facility] Manual blood monocytes/100 leukocytes 5 3.4 - 9.0 03/28/2018 [facility] Manual blood eosinophil count as percentage of total leukocytes 2 0 - 7 03/28/2018 [facility] Manual basophil percentage 1 0 - 1.5 03/28/2018 [facility] Blood lymphocytes variant count (number/volume) 3 03/28/2018 [facility] Blood platelets count by estimate (number/volume) ADEQUATE 03/28/2018 [facility] Platelet morphology NORMAL 03/28/2018 [facility] Blood anisocytosis detection by light microscopy SLIGHT 03/28/2018 [facility] Blood macrocytes detection by light microscopy SLIGHT 03/28/2018 [facility] RBC morphology NORMAL 03/28/2018 [facility] Differential Total Cells Counted 100 03/28/2018 [facility] Manual blood neutrophils/100 leukocytes 64 40 - 74 03/28/2018 [facility] Manual blood lymphocytes/100 leukocytes 25 19 - 48 03/28/2018 [facility] Manual blood monocytes/100 leukocytes 5 3.4 - 9.0 03/28/2018 [facility] Manual blood eosinophil count as percentage of total leukocytes 2 0 - 7 03/28/2018 [facility] Manual basophil percentage 1 0 - 1.5 03/28/2018 [facility] Blood lymphocytes variant count (number/volume) 3 03/28/2018 [facility] Blood platelets count by estimate (number/volume) ADEQUATE 03/28/2018 [facility] Platelet morphology NORMAL 03/28/2018 [facility] Blood anisocytosis detection by light microscopy SLIGHT 03/28/2018 [facility] Blood macrocytes detection by light microscopy SLIGHT 03/28/2018 [facility] RBC morphology NORMAL 03/28/2018 [facility] Serum or plasma creatine kinase measurement (enzymatic activity/volume) 241 29 - 168 03/27/2018 [facility] Serum or plasma creatine kinase MB measurement (mass/volume) 1.10 0 - 5.0 03/27/2018 [facility] Troponin I measurement by highly sensitive enzyme immunoassay 0.288 0 - 0.300 03/27/2018 [facility] Hemoglobin A1c Percent 9.5 4.0 - 7.0 03/26/2018 [facility] Hemoglobin A1c Percent 9.5 4.0 - 7.0 03/26/2018 [facility] Serum or plasma thyrotropin measurement by detection limit <=0.005 miu/l (units/volume) 2.152 0.350 - 4.940 03/26/2018 [facility] Serum or plasma triglyceride measurement (mass/volume) 223 0 - 149 03/25/2018 [facility] Serum or plasma cholesterol measurement (mass/volume) 158 0 - 199 03/25/2018 [facility] Serum or plasma cholesterol in LDL measurement (mass/volume) 86 60 - 130 03/25/2018 [facility] Serum or plasma cholesterol in HDL measurement (mass/volume) 27 40 - 60 03/25/2018 [facility] Serum or plasma total cholesterol/cholesterol in HDL mass ratio 5.9 3.0 - 3.6 03/25/2018 [facility] Serum or plasma triglyceride measurement (mass/volume) 223 0 - 149 03/25/2018 [facility] Serum or plasma cholesterol measurement (mass/volume) 158 0 - 199 03/25/2018 [facility] Serum or plasma cholesterol in LDL measurement (mass/volume) 86 60 - 130 03/25/2018 [facility] Serum or plasma cholesterol in HDL measurement (mass/volume) 27 40 - 60 03/25/2018 [facility] Serum or plasma total cholesterol/cholesterol in HDL mass ratio 5.9 3.0 - 3.6 03/25/2018 [facility] Urine color determination YELLOW YELLOW 03/24/2018 [facility] Urine clarity CLEAR CLEAR 03/24/2018 [facility] Specific gravity of Urine by Test strip 1.025 1.010 - 1.025 03/24/2018 [facility] Urine pH measurement by automated test strip 6 5 - 7 03/24/2018 [facility] Urine leukocyte esterase detection by dipstick NEGATIVE NEGATIVE 03/24/2018 [facility] Urine nitrite detection POSITIVE NEGATIVE 03/24/2018 [facility] Urine protein measurement by test strip (mass/volume) 2+ NEGATIVE 03/24/2018 [facility] Urine glucose detection 3+ NEGATIVE 03/24/2018 [facility] Urine ketones detection by automated test strip NEGATIVE NEGATIVE 03/24/2018 [facility] Urine urobilinogen measurement by test strip (mass/volume) 0.2 0.2 - 1 03/24/2018 [facility] Urine total bilirubin measurement (mass/volume) NEGATIVE NEGATIVE 03/24/2018 [facility] Urine erythrocytes detection 2+ NEGATIVE 03/24/2018 [facility] Automated urine sediment leukocyte count by microscopy (number/high power field) 6-10 0 - 5 03/24/2018 [facility] Erythrocytes detection in urine sediment by light microscopy 0-5 0 - 5 03/24/2018 [facility] Bacteria detection in urine sediment by light microscopy MODERATE NONE 03/24/2018 [facility] Epithelial cells detection in urine sediment by light microscopy FEW NONE 03/24/2018 [facility] Fibrin D-dimer DDU measurement in platelet poor plasma (mass/volume) 2.28 0.00 - 0.45 03/24/2018 [facility] BNP Bld-mCnc 26.7 0 - 100 03/24/2018 [facility] Blood culture NO GROWTH AFTER 5 DAYS, FINAL REPORT 03/24/2018 [facility] Prothrombin time (PT) in platelet poor plasma by coagulation assay 12.5 11.9 - 14.5 03/24/2018 [facility] INR in Platelet poor plasma by Coagulation assay 0.86 03/24/2018 [facility] Fibrin D-dimer DDU measurement in platelet poor plasma (mass/volume) 2.28 0.00 - 0.45 03/24/2018 [facility] BNP Bld-mCnc 26.7 0 - 100 03/24/2018 [facility] CHEM PANEL A/G Ratio 0.9 0.7 - 1.6 05/07/2017 [facility] CHEM PANEL Globulin 3.7 2.7 - 4.2 05/07/2017 [facility] CHEM PANEL AGAP 15.7 10.0 - 20.0 05/07/2017 [facility] CHEM PANEL B/C Ratio 27 6 - 25 05/07/2017 [facility] CHEM PANEL eGFR 24 05/07/2017 Result Comment: [...] should be multiplied by the estimated BMI. [facility] CHEM PANEL Alk Phos 107 39 - 136 05/07/2017 [facility] CHEM PANEL Bili Total 0.2 0.2 - 1.3 05/07/2017 [facility] CHEM PANEL Calcium Lvl 9.0 8.5 - 10.5 05/07/2017 [facility] CHEM PANEL Total Protein 7.1 6.4 - 8.4 05/07/2017 [facility] CHEM PANEL Albumin Lvl 3.4 3.5 - 5.0 05/07/2017 [facility] CHEM PANEL ALT 37 0 - 65 05/07/2017 [facility] CHEM PANEL AST 39 0 - 37 05/07/2017 [facility] CHEM PANEL BUN 58 7 - 22 05/07/2017 [facility] CHEM PANEL Creatinine Lvl 2.17 0.50 - 1.40 05/07/2017 [facility] CHEM PANEL Glucose Lvl 257 70 - 99 05/07/2017 [facility] CHEM PANEL CO2 25 24 - 32 05/07/2017 [facility] CHEM PANEL Sodium Lvl 136 135 - 145 05/07/2017 [facility] CHEM PANEL Potassium Lvl 3.7 3.5 - 5.1 05/07/2017 [facility] CHEM PANEL Chloride Lvl 99 95 - 109 05/07/2017 [facility] HEMATOLOGY RBC 4.75 4.20 - 5.40 05/07/2017 [facility] HEMATOLOGY WBC 9.7 3.7 - 10.4 05/07/2017 [facility] HEMATOLOGY Hgb 14.2 12.0 - 16.0 05/07/2017 [facility] HEMATOLOGY Hct 42.1 36.0 - 48.0 05/07/2017 [facility] HEMATOLOGY MPV 8.6 7.4 - 10.4 05/07/2017 [facility] HEMATOLOGY MCV 88.5 80.0 - 98.0 05/07/2017 [facility] MCH 29.9 27.0 - 31.0 05/07/2017 [facility] MCHC 33.8 32.0 - 36.0 05/07/2017 [facility] HEMATOLOGY RDW 12.9 11.5 - 14.5 05/07/2017 [facility] Platelet 199 133 - 450 05/07/2017 [facility] Lymphocytes # 4.0 1.0 - 5.5 05/07/2017 [facility] HEMATOLOGY Monocytes # 0.5 0.0 - 0.8 05/07/2017 [facility] HEMATOLOGY Basophils 0.6 0.0 - 1.0 05/07/2017 [facility] Segs-Bands # 5.0 1.5 - 8.1 05/07/2017 [facility] Eosinophils # 0.1 0.0 - 0.5 05/07/2017 [facility] Basophils # 0.1 0.0 - 0.2 05/07/2017 [facility] Monocytes 5.3 2.0 - 12.0 05/07/2017 [facility] Lymphocytes 41.3 20.0 - 40.0 05/07/2017 [facility] Eosinophils 0.8 0.0 - 4.0 05/07/2017 [facility] Segs 52.0 45.0 - 75.0 05/07/2017 [facility] SPECIAL CHEMISTRY Hgb A1C 14.8 <=5.6 % 05/06/2017 [facility] CHEM PANEL Creatinine Lvl 2.76 0.50 - 1.40 05/05/2017 [facility] CHEM PANEL Potassium Lvl 4.2 3.5 - 5.1 05/05/2017 [facility] CHEM PANEL Sodium Lvl 130 135 - 145 05/05/2017 [facility] CHEM PANEL Calcium Lvl 8.8 8.5 - 10.5 05/05/2017 [facility] CHEM PANEL eGFR 18 05/05/2017 Result Comment: [...] should be multiplied by the estimated BMI. [facility] CHEM PANEL Chloride Lvl 95 95 - 109 05/05/2017 [facility] CHEM PANEL CO2 21 24 - 32 05/05/2017 [facility] CHEM PANEL AGAP 18.2 10.0 - 20.0 05/05/2017 [facility] CHEM PANEL Glucose Lvl 515 70 - 99 05/05/2017 Result Comment: Critical Result(s) called to DOMINIC Barrett at 05/05/2017 11:58_ by[facility]. Read back OK. [facility] CHEM PANEL BUN 67 7 - 22 05/05/2017 [facility] CARDIAC ENZYMES Troponin-I 0.20 0.00 - 0.40 05/05/2017 [facility] CARDIAC ENZYMES Troponin-I 0.24 0.00 - 0.40 05/05/2017 [facility] HEMATOLOGY D-Dimer 1.02 05/05/2017 [facility] CARDIAC ENZYMES Total CK 186 12 - 191 05/05/2017 [facility] CARDIAC ENZYMES BNP 18 <=100 pg/mL 05/05/2017 [facility] CARDIAC ENZYMES Troponin-I 0.23 0.00 - 0.40 05/05/2017 [facility] CARDIAC ENZYMES CK MB 3.2 0.5 - 3.6 05/05/2017 [facility] CARDIAC ENZYMES CK MB Index 1.7 0.0 - 2.5 05/05/2017 [facility] CHEM PANEL Glucose Lvl 427 70 - 99 05/05/2017 Result Comment: Critical Result(s) called to Miguel Angel Mckeon at 05/05/2017 03:21 by BE. Read back OK. [facility] CHEM PANEL Bili Total 0.3 0.2 - 1.3 05/05/2017 [facility] CHEM PANEL Creatinine Lvl 3.40 0.50 - 1.40 05/05/2017 [facility] CHEM PANEL BUN 77 7 - 22 05/05/2017 [facility] CHEM PANEL Sodium Lvl 128 135 - 145 05/05/2017 [facility] CHEM PANEL eGFR 14 05/05/2017 Result Comment: [...] should be multiplied by the estimated BMI. [facility] CHEM PANEL Alk Phos 188 39 - 136 05/05/2017 [facility] CHEM PANEL ALT 37 0 - 65 05/05/2017 [facility] CHEM PANEL AST 26 0 - 37 05/05/2017 [facility] CHEM PANEL AGAP 17.7 10.0 - 20.0 05/05/2017 [facility] CHEM PANEL CO2 24 24 - 32 05/05/2017 [facility] CHEM PANEL Calcium Lvl 9.2 8.5 - 10.5 05/05/2017 [facility] CHEM PANEL Chloride Lvl 90 95 - 109 05/05/2017 [facility] CHEM PANEL Potassium Lvl 3.7 3.5 - 5.1 05/05/2017 [facility] CHEM PANEL Total Protein 8.9 6.4 - 8.4 05/05/2017 [facility] CHEM PANEL A/G Ratio 0.7 0.7 - 1.6 05/05/2017 [facility] CHEM PANEL Globulin 5.3 2.7 - 4.2 05/05/2017 [facility] CHEM PANEL B/C Ratio 23 6 - 25 05/05/2017 [facility] CHEM PANEL Albumin Lvl 3.6 3.5 - 5.0 05/05/2017 [facility] HEMATOLOGY Hgb 15.1 12.0 - 16.0 05/05/2017 [facility] HEMATOLOGY RBC 5.09 4.20 - 5.40 05/05/2017 [facility] HEMATOLOGY Platelet 235 133 - 450 05/05/2017 [facility] HEMATOLOGY MCH 29.7 27.0 - 31.0 05/05/2017 [facility] HEMATOLOGY MPV 8.8 7.4 - 10.4 05/05/2017 [facility] MCHC 33.7 32.0 - 36.0 05/05/2017 [facility] RDW 12.7 11.5 - 14.5 05/05/2017 [facility] Hct 44.9 36.0 - 48.0 05/05/2017 [facility] MCV 88.2 80.0 - 98.0 05/05/2017 [facility] WBC 8.7 3.7 - 10.4 05/05/2017 [facility] Basophils # 0.1 0.0 - 0.2 05/05/2017 [facility] Lymphocytes # 3.2 1.0 - 5.5 05/05/2017 [facility] Basophils 0.7 0.0 - 1.0 05/05/2017 [facility] Lymphocytes 37.2 20.0 - 40.0 05/05/2017 [facility] Eosinophils # 0.1 0.0 - 0.5 05/05/2017 [facility] Segs-Bands # 5.0 1.5 - 8.1 05/05/2017 [facility] Eosinophils 0.8 0.0 - 4.0 05/05/2017 [facility] Monocytes 4.4 2.0 - 12.0 05/05/2017 [facility] Monocytes # 0.4 0.0 - 0.8 05/05/2017 [facility] Segs 56.9 45.0 - 75.0 05/05/2017 [facility] VIRAL - SEROLOGY Influ B Negative (05/05/17 2:33 AM) Negative 05/05/2017 [facility] VIRAL - SEROLOGY Influ A Negative (05/05/17 2:33 AM) Negative 05/05/2017 [facility] Bacterial urine culture Urine Culture [facility] Pathology Reports No Data Provided for This Section Diagnostic Reports Report Value Date Source Breast Mammo Scrn KARLY incl CAD MA BILATERAL DIGITAL SCREENING MAMMOGRAM WITH CAD: 09/27/2018 CLINICAL: Routine/Screening. Current study was evaluated with a Computer Aided Detection (CAD) system. COMPARISON:Comparison is made to exams dated: 05/31/2017 mammogram, 05/15/2016 mammogram, and 09/08/2013 mammogram - [facility]. TECHNIQUE: Mammographic views were obtained using digital [...] is recommended.(09/28/2019) This exam was interpreted at [id number] for CHIQUIS Joseph, SL 15. Professional services are provided by the [facility]. Cooper Arredondo M.D., cm/penrad:09/27/2018 15:16:18 [employer]er(s): RT Orion(R)(M), St. [facility] [place] letter sent: BI-RADS 1/2 Mammogram BI-RADS: 2 [...] bony or obvious soft tissue abnormalities 06/19/2018 CHIQUIS CASSANDRA Joseph Chest 2 views DX Exam: [...] is enlarged. Mild pulmonary vascular congestion. 04/22/2018 CHIQUIS CASSANDRA Joseph Breast Limited Uni US LIMITED ULTRASOUND OF RIGHT BREAST: 05/31/2017 CLINICAL: Right Breast Lesion Seen On Ct Scan/R92.8 Other Abnormal And Inconclusive Findings On Diagnostic Imaging Of Breast. COMPARISON:Comparison is made to exams dated: 05/31/2017 mammogram, 05/15/2016 mammogram, and 09/08/2013 mammogram - [facility]. TECHNIQUE: Color flow and real-time [...] is recommended.(06/01/2018) This exam was interpreted at [id number] for [place]. Professional services are provided by the [facility] M.Anisha [facility] Division of Diagnostic Imaging. Cooper Arredondo M.D. cm/penrad:05/31/2017 11:40:54 Crochet Beader(s): Roz Willis [facility] letter sent: BI-RADS 1/2 Ultrasound BI-RADS: 2 Benign 05/31/2017 CASSANDRA Joseph Breast Mammo Diag KARLY incl CAD [...] is recommended. This exam was interpreted at [id number] for CHIQUIS Joseph. Professional services are provided by the [facility] M.D. Fernando Division of Diagnostic Imaging. Cooper Arredondo M.D., cm/andrew:05/31/2017 11:41:39 Crochet Beader(s): Wilma Ballesteros RT(R)(M), [facility] Mammogram BI-RADS: 0 Indeterminate 05/31/2017 CASSANDRA Joseph [...] fracture. The scan was performed on a [employer] Discovery C machine. This scan was performed on a [employer] DEXA scanner. IMPRESSION: OSTEOPOROSIS Patient is at high risk for fracture. Patient consult w/primary care provider is recommended. This exam was interpreted at [id number] for [facility]. Danette jc/penrad:05/25/2017 09:26:18 Crochet Beader(s): Sharonda Forrester 05/25/2017 C[facility]DR[facility] [place] Chest wo contrast CT Clinical Indication: - pneumonia/shortness of breath. Comparison: None. TECHNIQUE: Sequential trans-axial images were obtained through the chest without the administration of IV iodinated contrast. Coronal and sagittal reconstructions were obtained. Dose: HHF=398 mGy-cm Findings: Lungs: Calcified granuloma within the [...] correlation with mammography. No acute findings. SL: ANSHUL 05/05/2017 [facility] Chest 1view DX Clinical Indication: - cough Comparison: None FINDINGS: The frontal chest radiograph shows normal lung volumes without interstitial or airspace opacities, pleural effusions or pneumothorax. The cardiomediastinal contours are normal for the age of the patient with aortic tortuosity. There are degenerative changes in the spine. IMPRESSION: No chest radiographic evidence of acute cardiopulmonary disease. SL: 82 05/05/2017 [facility] Consultation Notes No Data Provided for This Section Discharge Summaries No Data Provided for This Section History and Physicals No Data Provided for This Section Vital Signs Vital Sign Value Date Comments Source Systolic (mm Hg) 111 05/07/2017 [facility] Diastolic (mm Hg) 70 05/07/2017 [facility] Rate 18 05/07/2017 [facility] Temperature Oral (F) 98.9 F 05/07/2017 [facility] Heart Rate 112 05/07/2017 [facility] Temperature Oral (F) 98.8 F 05/07/2017 [facility] Systolic (mm Hg) 114 05/07/2017 [facility] Diastolic (mm Hg) 72 05/07/2017 [facility] Respitory Rate 18 05/07/2017 [facility] Heart Rate 111 05/07/2017 [facility] Respitory Rate 21 05/07/2017 [facility] Temperature Oral (F) 98.2 F 05/07/2017 [facility] Systolic (mm Hg) 116 05/07/2017 [facility] Diastolic (mm Hg) 71 05/07/2017 [facility] Heart Rate 96 05/07/2017 [facility] Weight 90 05/06/2017 [facility] Weight 86.364 05/05/2017 [facility] BMI Calculated 37.18 05/05/2017 [facility] Height 152.4 cm 05/05/2017 [facility] Weight 113.636 05/05/2017 [facility] Encounters Location Location Details Encounter Type Encounter Number Reason For Visit Attending Provider ADM Date DC Date Status Source [facility] Observation [id number] 05/05/2017 05/07/2017 [facility] [place] [facility] [id number] Geoffrey Vega 05/11/2017 05/12/2017 [facility] [place] [facility] [place] [facility] [id number] Geoffrey Vega 05/25/2017 05/26/2017 [facility] [place] [facility] [place] [facility] [id number] Geoffrey Vega 05/31/2017 06/01/2017 [facility] [place] Discharged Inpatient [id number] SHAYY TRINIDAD MD 03/24/2018 03/30/2018 [facility] [place] [facility] [id number] Geoffrey Vega 04/22/2018 04/23/2018 [facility] [place] [facility] [place] [facility] [id number] Dillon Osborne 06/19/2018 06/20/2018 CASSANDRA Joseph [facility] [place] [facility] [id number] Geoffrey Brooksr 09/27/2018 09/28/2018 CASSANDRA Joseph Departed Emergency Room [id number] CHRIS DAS MD 10/09/2018 10/09/2018 [facility] Procedures Procedure Code Date Perfomer Comments Source Computed tomography of brain without radiopaque contrast [id number] 10/09/2018 [facility] MEASURE OF CARDIAC SAMPL & PRESSURE, L HEART, PERC APPROACH [id number] 03/29/2018 [facility] FLUOROSCOPY OF MULT COR ART USING L OSM CONTRAST [id number] 03/29/2018 [facility] Cataract [facility] [id number] [facility] Assessment and Plan Date Source Extracted from:Title: [facility] Discharge Summary Author: Mark Anthony Flaherty MD Date: 05/07/17 [facility] Discharge Summary PATIENT [...] of tight glycemic control, and requested the rn diabetes educator see her as well. Her blood glucose was better controlled at time of discharge, albeit not ideal. I expressed to her that she is quite insulin resistant and would benefit from being under the care of an line driver. This should be requested through her primary [...] discharge which included bedside counseling. Extracted from:Title: [facility] Progress Note Author: Mark Anthony Flaherty MD Date: 05/06/17 [facility] Progress Note Attending: Mark Anthony Sheikh Jr, MD, Spectralink #[id number] [facility] or #[id number] [facility] Subjective: No overnight events. I spoke [...] have ordered. She will also need an line driver as an outpatient. She is quite insulin [...] hospitalization. She needs diabetes optimization and education. [facility] Providers Hospitalist Service is primary. Call [phone] ([place]) [place] [phone] ([place]) with questions. Extracted from:Title: General Admission [...] need to be made inpatient status 05/07/2017 [facility] Plan of Care Plan of Care Date Source Discharge Date 10/09/18 6:26pm Disposition HOME, SELF-CARE Condition at Discharge Stable Instructions/Education Provided Vertigo Forms Provided Work/School Excuse Prescriptions See Medication Section Referrals JOHN FORD MD Address: [address] [place] [address] [address] [place], [place] [id number] Additional Instructions/Education dc home follow up with pcp take meds as directed return to the er with any emergent conditions drink plenty of fluids 10/09/2018 [facility] Discharge Date 03/30/18 7:14pm Disposition [facility]ANS [facility] OTHER [facility] Prescriptions See Medication Section 03/30/2018 [facility] Social History Social History Date Source No social history information available. 10/09/2018 [facility] Social History TypeResponse Smoking Status Never smoker; Exposure to Tobacco Smoke None; Cigarette Smoking Last 365 Days No; Reg Smoking Cessation Counseling No entered on: 05/05/17 05/05/2017 CASSANDR[facility] Joseph Social History TypeResponse Smoking Status Never smoker; Exposure to Tobacco Smoke None; Cigarette Smoking Last 365 Days No; Reg Smoking Cessation Counseling No entered on: 05/05/17 05/05/2017 [facility] Family History No Data Provided for This Section Advance Directives Order Name Results Value Date Source Advance Directives Advance Directives Directive Response Recorded Date/Time Does the patient have an advance directive? Yes 03/24/18 7:30pm If yes, is advance directive on file with [facility]? No 03/24/18 7:30pm If not on file with [facility] will patient provide a copy? Yes 03/24/18 7:30pm Do you have a Directive to Physician? Yes 10/09/18 2:44pm Do you have a Medical Power of Dry Cell And Battery Assembler? Yes 10/09/18 2:44pm Do you have an out of hospital Do Not Resuscitate Order? Yes 10/09/18 2:44pm Do you have any special needs we should be aware of? Yes 10/09/18 2:44pm Do you have a support person here with you today? Yes 10/09/18 2:44pm Did patient receive Notice of Privacy Practices? Yes 10/09/18 2:44pm Did patient receive patient rights and responsibilities? Yes 10/09/18 2:44pm 10/09/2018 [facility] Advance Directives Advance Directives Directive Response Recorded Date/Time Does the patient have an advance directive? Yes 03/24/18 7:30pm If yes, is advance directive on file with [facility]? No 03/24/18 7:30pm If not on file with [facility] will patient provide a copy? Yes 03/24/18 7:30pm Do you have a Directive to Physician? Yes 03/24/18 11:20am Do you have a Medical Power of Dry Cell And Battery Assembler? Yes 03/24/18 11:20am Do you have an out of hospital Do Not Resuscitate Order? Yes 03/24/18 11:20am Do you have any special needs we should be aware of? No 03/24/18 11:03am Do you have a support person here with you today? Yes 03/24/18 11:03am Did patient receive Notice of Privacy Practices? Yes 03/24/18 11:03am Did patient receive patient rights and responsibilities? Yes 03/24/18 11:03am 03/30/2018 [facility] Functional Status No Data Provided for This Section
--- OUTSIDE RECORDS SUMMARY | 2018-12-20 06:34 | XMS REPORT | Summary of Care ---
Author Author [facility] [place] Organization [facility] [place] Address Unknown Phone Unavailable Encounter HQ Hortencia(FIN) [id number] Date(s): 04/22/18 - 04/22/18 [facility] [place] [address] [place] [phone] Encounter Diagnosis Encounter for general adult medical examination without abnormal findings (Final) - 04/25/18 Discharge Disposition: Home or Self Care Attending [...]
--- OUTSIDE RECORDS SUMMARY | 2018-12-20 06:35 | XMS REPORT | Summary of Care ---
Author Author DARREL RAWLS M.D. Organization Unknown Address [facility] Phone Unavailable Care Team Providers Care Freight Loading Supervisor Name Role Phone DARREL RAWLS M.D. Unavailable Unavailable GALI PANG MD Unavailable Unavailable DARREL RAWLS MD Unavailable Unavailable Unavailable Unavailable Functional Status Name Dates Details Functional status health issues are not documented Status: Name Dates Details Cognitive status health issues are not documented Status: Problems Name Dates Details Depression (311, F32.9) Status: Active Diabetes (250.00, E11.9) Status: Active Unspecified glaucoma (365.9, H40.9) Status: Active Hepatitis (573.3, K75.9) Status: Active Kidney disease (593.9, N28.9) Status: Active BPPV (benign paroxysmal positional vertigo) (386.11, H81.10) Status: Active Medications Name Dates Details Medications not documented Allergies and Adverse Reactions Name Dates Details No Known Allergies (Allergy) Status: Active Procedures Procedure Dates Details History of Eye Surgery Completed History of Hysterectomy Completed History of Tubal ligation Completed Immunization Name Dates Details Immunizations not documented Family History Name Dates Details Family history of Allergy (995.3, T78.40XA) Comments: Other Status: Active Family history of asthma (V17.5, Z82.5) Comments: Other Status: Active Social History Name Dates Details - Status: Name Dates Details Never smoker Vital Signs Date Test Result Details [id number] BP Systolic 123 mm[Hg] Status: BP Diastolic 75 mm[Hg] Status: Weight 225 lb Status: Heart Rate 86 /min Status: Results Date Description Value Details Results not documented Plan of Care Name Dates Details Planned Observations Planned Goals not documented Planned Encounters [PT] Vestibular/Balance Therapy Interventions Provided Labs/Procedures/Imaging* Tobacco Use Screening; Done: 22 Nov 2018 Plan* 1. It sounds like BPPV. Will begin vestibular rehab. Fu after rehab. Instructions Name Dates Details Instructions not documented Encounters Appointment; GENERAL, AUDIOLOGY Encounter Diagnosis: Problem not documented On: 06-Nov-2018 9:00 Appointment; DARREL RAWLS M.D. Encounter Diagnosis: Problem not documented On: 22-Nov-2018 14:45
--- NOTE | 2018-12-20 08:45 | NUR ---
0845am Bedside report received from WADE Singleton.Identiferx2. Alert oriented and appropriate, PERRLA, respirations even and unlabored to room air. Pulses x4 extremities equal and strong. Pedal pulses PT/DP x3. Rt post tib only doppler. Cap fill brisk < 3 sec. Rt Angioseal. No Gross issue pain,pallor,or dysrhythmia. Skin warm and dry integrity appears D/I IV 20g to left hand dialflow in place Connected to conrtolerr 200cchr til dc (Has CrCL 1.69) presents healthy w/o s/s of infiltration or complaint. Abdomen soft and supple. pt offered toileting, denies need to urinate or defecate. No personal affects with patient. Family [phone]. Pt and family verbalizes understanding of POC. Currently w/o complaint of pain or need. ds/wade
--- NOTE | 2018-12-20 09:20 | NUR ---
0920 C?O lower back pain (11/16)wants plain only,Called DR Chang MULLEN verbal tylenol [id number] now given as ordered
--- NOTE | 2018-12-20 09:47 | NUR ---
0948 states back pain easing / family at bedside tolerated po snack tray resting w/o needs dc time remains 11am ds/rn
--- NOTE | 2018-12-20 11:00 | NUR ---
1100Pt meets DC criteria. Rt groin angioseal site.Assessed for s/s of complication and presecence of hematoma. D/I warm, dry, no discolor, and pulses present. IV removed from left hand. Distal tip appears intact. VS WNL. Pt denies pain, sob, or need at this time. Family at XXXXX. Review of discharge paperwork and follow up instructions. verbalized understanding. Pt to wheelchair and transported to front of hospital. Transferred to private vehicle under own strength w/o incident with DC paperwork in hand. - ds/rn
--- NOTE | 2018-12-20 15:14 | Operative Report ---
DATE OF PROCEDURE: SURGEON: Morris Lopez MD PROCEDURES: 1. Atherectomy of the left tibioperoneal trunk. 2. Percutaneous transluminal angioplasty of the left tibioperoneal trunk. 3. Third-order angiogram of the left leg. INDICATIONS: 1. Claudication. 2. Peripheral vascular disease. COMPLICATIONS: None. ANESTHESIA: Versed, fentanyl, and lidocaine. TECHNIQUE: The right groin was draped and prepped in the usual fashion. The area was anesthetized with lidocaine. Standard Seldinger technique was used to place a 6-Slovenian sheath into the right femoral artery without difficulty. Destination sheath was then placed over the Advantage wire from the right common femoral artery to the left common femoral artery. A BMW wire was used to cross the area of 90% stenosis in the tibioperoneal trunk. The patient was bolused with Angiomax and Angiomax drip was started. Atherectomy using a HawkOne device was done in the left tibioperoneal trunk and then the left tibioperoneal trunk was dilated with a 3.5 mm x 40 mm balloon. There were no complications. RESULTS: As follows: 1. The left common iliac, left internal iliac, left external iliac, left common femoral, left dorsalis pedis, left profunda femoral artery, and left superficial femoral artery all had no disease. 2. The left popliteal artery had some mild disease. 3. The left tibioperoneal trunk 90% narrowing and then the posterior tibial vessel extended down to the foot. The left peroneal artery was 100% occluded and the left anterior tibial artery was 100% occluded. The patient had one vessel runoff. CONCLUSION: Successful atherectomy and percutaneous transluminal angioplasty of the left tibioperoneal trunk. Morris Lopez MD DSH/MODL /[id number]
--- NOTE | 2018-12-23 04:01 | Operative Report ---
DATE OF PROCEDURE: 12/20/2018 SURGEON: Morris Lopez MD PROCEDURES PERFORMED: 1. Atherectomy of the tibioperoneal trunk of the right leg. 2. Percutaneous transluminal angioplasty of the tibial peroneal trunk on the right leg. 3. Third order peripheral angiogram of the left DICTATION ENDS HERE Morris Lopez MD DS/MODL /[id number] cc: Morris Lopez MD
== END | disposition home or self-care (01) ==
LOC: CATH LAB 06:22
PROVIDERS: ATTEND Internal Medicine Cardiovascular Disease
DX: I70.213 Atherosclerosis of native arteries of extremities with intermittent claudication, bilateral legs (principal); I25.810 Atherosclerosis of coronary artery bypass graft(s) without angina pectoris; E78.00 Pure hypercholesterolemia, unspecified; R03.0 Elevated blood-pressure reading, without diagnosis of hypertension; E11.9 Type 2 diabetes mellitus without complications; Z01.810 Encounter for preprocedural cardiovascular examination; Z01.812 Encounter for preprocedural laboratory examination; Z01.818 Encounter for other preprocedural examination; Z79.4 Long term (current) use of insulin; Z79.82 Long term (current) use of aspirin; Z68.41 Body mass index [BMI] 40.0-44.9, adult; Z95.1 Presence of aortocoronary bypass graft
CPT/HCPCS: 36415; 37229; 71046; 75710; 80053; 80061; 85025; 85610; 85730; 93005; C1760; C1769 ×2; C1887 ×2; J0583; J2001; J2250; J3010; J7030; Q9967; 36247; J1644

== ENCOUNTER → 2019-01-03 | Day surgery (SDC) | payer MEDICARE ==
[2019-01-01 11:39] LABS: BASOPHILS % 0.5 % (0.0-1.0); EOSINOPHILS # (AUTO) 0.2 (0.0-0.4); EOSINOPHILS % 1.8 % (0.0-6.0); HEMATOCRIT 43.1 % (34.2-44.1); HEMOGLOBIN 13.8 g/dL (12.0-16.0); LYMPHOCYTES # (AUTO) 3.6 (1.0-3.2); LYMPHOCYTES % 42.5 % (18.0-39.1); MEAN CORPUSCULAR HEMOGLOBIN 29.4 pg (28-32); MEAN CORPUSCULAR VOLUME 91.9 fL (81-99); MONOCYTES # (AUTO) 0.6 (0.2-0.8); PLATELET COUNT 217 x10e3/uL (140-360); RED BLOOD COUNT 4.69 x10e6/uL (3.6-5.1); RED CELL DISTRIBUTION WIDTH 14.2 % (11.7-14.4)
[2019-01-01 11:51] LABS: INR 0.88; PROTHROMBIN TIME 12.4 seconds (11.9-14.5)
[2019-01-01 11:52] LABS: PARTIAL THROMBOPLASTIN TIME 26.8 seconds (23.8-35.5)
[2019-01-01 12:00] LABS: ALBUMIN 3.6 g/dL (3.5-5.0); ALBUMIN/GLOBULIN RATIO 0.9 (0.8-2.0); ANION GAP 13.9 mmol/L (8-16); CALCIUM 10.3 mg/dL (8.4-10.2); CREATININE, SERUM 1.68 mg/dL (0.57-1.11); POTASSIUM 3.9 mmol/L (3.5-5.1)
[2019-01-03] VITALS (25 sets, daily range): BP systolic 89–168; BP diastolic 54–89
[~2019-01-03] VITALS: Ht 152.4 cm; Wt 102.1 kg
[~2019-01-03] MED LIST changes: -ACETAMINOPHEN 325 MG TAB ONE; +ATROPINE SULFATE 0.1 MG/ML 10ML SYR ONE; +HYDROCODONE/APAP 5MG-325MG TAB ONE; +IOPAMIDOL 370 MG/ML 200 ML INFUS..BTL INJ ONE; -NITROGLYCERIN/D5W 200 MCG/ML 0 ML ONE; +NITROGLYCERIN/D5W 200 MCG/ML 250 ML ONE; +PLAVIX75 MG PO
--- OUTSIDE RECORDS SUMMARY | 2019-01-03 06:30 | XMS REPORT | Clinical Summary ---
Author Author [facility] Address Unknown Phone Unavailable Care Team Providers Care Caustics Loader Name Role Phone Geoffrey Vega PCP Allergies [...] (six) hours for 7 days. 04/22/2018 Discontinued [id number] Apply 1 25 packet 0 myxnB (NEOSPORIN) packet 9 3.5-400-5,000 topically 3 [id number]-[id number] OiPk packet (three) times daily. 04/28/2018 Discontinued [...] Refusal of blood transfusions as patient is Hoahaoism 04/05/2018 Acute pulmonary insufficiency 04/05/2018 Vasogenic shock [...] edema; Transient hypotension; Coronary artery disease involving inaja coronary artery, angina presence unspecified, unspecified whether inaja or transplanted heart; S/P CABG x 2; Acute pulmonary insufficiency; Chronic kidney disease, unspecified CKD stage; Hypervolemia, unspecified hypervolemia type; Coronary artery disease involving inaja coronary artery of inaja heart without angina pectoris; Pericardial effusion; SOB (shortness of breath) 04/22/2018 Hospital Cardiology - Encounter 04/28/2018 04/22/2018 Travel Dillon Osborne MD BYPASS,[place] CORONARY ARTEM 04/05/2018 Surgery Bautista Santana MD 04/05/2018 Anesthesia Event Sarah Kohler MD 04/02/2018 Anesthesia Cardiac Intensive Care Event 03/31/2018 Travel Dillon Osborne MD Coronary artery disease involving inaja coronary artery of inaja heart without angina pectoris; Coronary artery disease involving inaja coronary artery, angina presence unspecified, unspecified whether inaja or transplanted heart; Dyslipidemia; Preoperative cardiovascular examination; Refusal of blood transfusions as patient is Hoahaoism; Acute blood loss anemia; Acute pulmonary insufficiency; Chronic kidney disease, unspecified CKD stage; Diabetic nephropathy associated with type 2 diabetes mellitus (HCC); Hyperglycemia; Poorly controlled diabetes mellitus (HCC); S/P CABG x 2; SIRS (systemic inflammatory response syndrome) (HCC); Vasogenic shock (HCC) 03/30/2018 Hospital Cardiology - Encounter 04/15/2018 03/30/2018 Orders Only General Internal Medicine after 01/02/2018 Family History Medical History Relation Name Comments [...] Taken Vital Sign Reading 04/28/2018 11:39 AM LOCKSMITH HELPER Blood Pressure 93/55 04/28/2018 11:39 AM LOCKSMITH HELPER Pulse 65 04/28/2018 11:39 AM LOCKSMITH HELPER Temperature 36.1 C (97 F) 04/28/2018 11:39 AM LOCKSMITH HELPER Respiratory Rate 18 04/28/2018 11:39 AM LOCKSMITH HELPER Oxygen Saturation 98% 04/06/2018 11:40 AM LOCKSMITH HELPER Inhaled Oxygen 40% Concentration 04/26/2018 7:40 AM LOCKSMITH HELPER Weight 100.8 kg (222 lb 3.2 oz) 04/23/2018 9:25 PM LOCKSMITH HELPER Height 152.4 cm (5') 04/26/2018 7:40 AM LOCKSMITH HELPER Body Mass Index 43.4 Plan of Treatment Not on file Implants Device Identifier Shelf Expiration Date Model / Serial / Lot Implanted Type Area Manufactur er 10/06/2022 [id number] / / [id number] Sternal Zipfix Ndl Strl Cardiovasc SYNTHES:SY [id number] - [id number] [facility] Implanted: Qty: 2 on 04/05/2018 by Dillon Osborne MD Procedures Comments Procedure Name Priority Date/Time Associated Diagnosis RHYTHM STRIP - SCAN 07/12/2018 8:40 AM CDT REPORT OF PROCEDURE - 05/18/2018 ENDOSCOPY SCAN 11:40 AM LOCKSMITH HELPER RHYTHM STRIP - SCAN 05/18/2018 11:40 AM LOCKSMITH HELPER RHYTHM STRIP - SCAN 05/06/2018 10:00 AM LOCKSMITH HELPER POCT-GLUCOSE METER Routine 04/28/2018 7:10 AM LOCKSMITH HELPER BUN AND CREATININE Routine 04/28/2018 5:46 AM LOCKSMITH HELPER POCT-GLUCOSE METER Routine 04/27/2018 7:51 PM LOCKSMITH HELPER POCT-GLUCOSE METER Routine 04/27/2018 12:58 PM LOCKSMITH HELPER POCT-GLUCOSE METER Routine 04/27/2018 9:06 AM LOCKSMITH HELPER CBC W/PLT COUNT & AUTO Routine 04/27/2018 DIFFERENTIAL 3:41 AM LOCKSMITH HELPER MAGNESIUM Routine 04/27/2018 3:41 AM LOCKSMITH HELPER CBC W/PLT COUNT & AUTO Routine 04/27/2018 DIFFERENTIAL 3:41 AM LOCKSMITH HELPER BASIC METABOLIC PANEL (7) Routine 04/27/2018 3:41 AM LOCKSMITH HELPER PHOSPHORUS Routine 04/27/2018 3:41 AM LOCKSMITH HELPER POCT-GLUCOSE METER Routine 04/26/2018 9:39 PM LOCKSMITH HELPER US RENAL COMPLETE Routine 04/26/2018 9:14 PM LOCKSMITH HELPER POCT-GLUCOSE METER Routine 04/26/2018 5:49 PM LOCKSMITH HELPER POCT-GLUCOSE METER Routine 04/26/2018 2:04 PM LOCKSMITH HELPER POCT-GLUCOSE METER Routine 04/26/2018 7:39 AM LOCKSMITH HELPER SODIUM, RANDOM URINE Routine 04/26/2018 4:49 AM LOCKSMITH HELPER CREATININE, RANDOM URINE Routine 04/26/2018 4:49 AM LOCKSMITH HELPER URINALYSIS W/ MICROSCOPIC Routine 04/26/2018 4:49 AM LOCKSMITH HELPER PROTEIN, RANDOM URINE Routine 04/26/2018 4:49 AM LOCKSMITH HELPER PHOSPHORUS Routine 04/26/2018 4:34 AM LOCKSMITH HELPER POCT-GLUCOSE METER Routine 04/25/2018 9:15 PM LOCKSMITH HELPER XR CHEST 1 VIEW Routine 04/25/2018 PORTABLE/BEDSIDE 5:57 PM LOCKSMITH HELPER POCT-GLUCOSE METER Routine 04/25/2018 5:44 PM LOCKSMITH HELPER POCT-GLUCOSE METER Routine 04/25/2018 11:15 AM LOCKSMITH HELPER POCT-GLUCOSE METER Routine 04/25/2018 7:56 AM LOCKSMITH HELPER CBC W/PLT COUNT & AUTO Routine 04/25/2018 DIFFERENTIAL 5:00 AM LOCKSMITH HELPER MAGNESIUM Routine 04/25/2018 5:00 AM LOCKSMITH HELPER CBC W/PLT COUNT & AUTO Routine 04/25/2018 DIFFERENTIAL 5:00 AM LOCKSMITH HELPER BASIC METABOLIC PANEL (7) Routine 04/25/2018 5:00 AM LOCKSMITH HELPER POCT-GLUCOSE METER Routine 04/24/2018 9:19 PM LOCKSMITH HELPER POCT-GLUCOSE METER Routine 04/24/2018 6:10 PM LOCKSMITH HELPER POCT-GLUCOSE METER Routine 04/24/2018 1:49 PM LOCKSMITH HELPER POCT-GLUCOSE METER Routine 04/24/2018 7:33 AM LOCKSMITH HELPER CBC W/PLT COUNT & AUTO Routine 04/24/2018 DIFFERENTIAL 4:16 AM LOCKSMITH HELPER PHOSPHORUS Routine 04/24/2018 4:16 AM LOCKSMITH HELPER MAGNESIUM Routine 04/24/2018 4:16 AM LOCKSMITH HELPER CBC W/PLT COUNT & AUTO Routine 04/24/2018 DIFFERENTIAL 4:16 AM LOCKSMITH HELPER POCT-GLUCOSE METER Routine 04/23/2018 9:34 PM LOCKSMITH HELPER TROPONIN I STAT 04/23/2018 4:43 PM LOCKSMITH HELPER COMPREHENSIVE METABOLIC STAT 04/23/2018 PANEL 4:43 PM LOCKSMITH HELPER POCT-GLUCOSE METER Routine 04/23/2018 4:34 PM LOCKSMITH HELPER CBC W/PLT COUNT & AUTO Routine 04/23/2018 DIFFERENTIAL 4:30 PM LOCKSMITH HELPER CBC W/PLT COUNT & AUTO Routine 04/23/2018 DIFFERENTIAL 4:30 PM LOCKSMITH HELPER ECHOCARDIOGRAM REPORT - 04/23/2018 SCAN 3:51 PM LOCKSMITH HELPER 2D ECHO W/ DOPPLER STAT 04/23/2018 (CW/PW/COLOR) 12:20 PM LOCKSMITH HELPER POCT-GLUCOSE METER Routine 04/23/2018 11:58 AM LOCKSMITH HELPER ECG 12-LEAD Routine 04/23/2018 11:20 AM LOCKSMITH HELPER Procedure Note - Interface, External Ris In - 04/23/2018 11:03 PM LOCKSMITH HELPER Ventricula r Rate 73 BPM Atrial Rate 73 BPM P-R Interval 144 ms QRS Duration 82 ms Q-T Interval 438 ms QTC Calculatio n(Bazett) 482 ms P [place] 32 degrees R [place] -21 degrees T [place] 130 degrees Normal sinus rhythm ST & T wave abnormalit y, consider lateral ischemia Prolonged QT Abnormal ECG When compared with ECG of 9 19:24, No significan t change was found ECG 12-LEAD Routine 04/23/2018 11:20 AM LOCKSMITH HELPER POCT-LACTIC ACID, VENOUS Routine 04/23/2018 2:49 AM LOCKSMITH HELPER POCT-GLUCOSE METER Routine 04/23/2018 2:48 AM LOCKSMITH HELPER B-TYPE NATRIURETIC FACTOR STAT 04/22/2018 (BNP) 11:47 PM LOCKSMITH HELPER CBC W/PLT COUNT & AUTO STAT 04/22/2018 DIFFERENTIAL 8:34 PM LOCKSMITH HELPER PT/APTT STAT 04/22/2018 8:34 PM LOCKSMITH HELPER CBC W/PLT COUNT & AUTO STAT 04/22/2018 DIFFERENTIAL 8:34 PM LOCKSMITH HELPER TROPONIN I STAT 04/22/2018 8:34 PM LOCKSMITH HELPER MAGNESIUM STAT 04/22/2018 8:34 PM LOCKSMITH HELPER BASIC METABOLIC PANEL (7) STAT 04/22/2018 8:34 PM LOCKSMITH HELPER XR CHEST 1 VIEW STAT 04/22/2018 PORTABLE/BEDSIDE 8:20 PM LOCKSMITH HELPER ECG 12-LEAD Routine 04/22/2018 7:24 PM LOCKSMITH HELPER Procedure Note - Interface, External Ris In - 04/22/2018 8:45 PM LOCKSMITH HELPER Ventricula r Rate 83 BPM Atrial Rate 83 BPM P-R Interval 142 ms QRS Duration 72 ms Q-T Interval 386 ms QTC Calculatio n(Bazett) 453 ms P [place] 27 degrees R [place] -26 degrees [place] 123 degrees Normal sinus rhythm Left ventricula r hypertroph y with repolariza tion abnormalit y Abnormal ECG When compared with ECG of 9 19:24, No significan t change was found ECG 12-LEAD STAT 04/22/2018 7:24 PM LOCKSMITH HELPER ECG 12-LEAD Routine 04/22/2018 7:24 PM LOCKSMITH HELPER Procedure Note - Interface, External Ris In - 04/22/2018 8:45 PM LOCKSMITH HELPER Ventricula r Rate 83 BPM Atrial Rate 83 BPM P-R Interval 148 ms QRS Duration 70 ms Q-T Interval 392 ms QTC Calculatio n(Bazett) 460 ms P [place] 30 degrees R [place] -24 degrees [place] 121 degrees Normal sinus rhythm Left ventricula r hypertroph y with repolariza tion abnormalit y Abnormal ECG When compared with ECG of 8 16:28, T wave inversion now evident in Anterior leads POCT-GLUCOSE METER Routine 04/15/2018 12:48 PM LOCKSMITH HELPER POCT-GLUCOSE METER Routine 04/15/2018 8:29 AM LOCKSMITH HELPER MAGNESIUM Routine 04/15/2018 6:14 AM LOCKSMITH HELPER BASIC METABOLIC PANEL (7) Routine 04/15/2018 6:14 AM LOCKSMITH HELPER POCT-GLUCOSE METER Routine 04/14/2018 9:46 PM LOCKSMITH HELPER POCT-GLUCOSE METER Routine 04/14/2018 6:05 PM LOCKSMITH HELPER MAGNESIUM Routine 04/14/2018 4:28 PM LOCKSMITH HELPER BASIC METABOLIC PANEL (7) Routine 04/14/2018 4:28 PM LOCKSMITH HELPER POCT-GLUCOSE METER Routine 04/14/2018 12:54 PM LOCKSMITH HELPER POCT-GLUCOSE METER Routine 04/14/2018 8:39 AM LOCKSMITH HELPER CBC W/PLT COUNT & AUTO Routine 04/14/2018 DIFFERENTIAL 4:04 AM LOCKSMITH HELPER CBC W/PLT COUNT & AUTO Routine 04/14/2018 DIFFERENTIAL 4:04 AM LOCKSMITH HELPER POCT-GLUCOSE METER Routine 04/13/2018 10:42 PM LOCKSMITH HELPER POCT-GLUCOSE METER Routine 04/13/2018 7:08 PM LOCKSMITH HELPER POCT-GLUCOSE METER Routine 04/13/2018 12:24 PM LOCKSMITH HELPER POCT-GLUCOSE METER Routine 04/13/2018 10:04 AM LOCKSMITH HELPER POCT-GLUCOSE METER Routine 04/12/2018 9:47 PM LOCKSMITH HELPER POCT-GLUCOSE METER Routine 04/12/2018 6:42 PM LOCKSMITH HELPER ECHOCARDIOGRAM REPORT - 04/12/2018 SCAN 3:45 PM LOCKSMITH HELPER POCT-GLUCOSE METER Routine 04/12/2018 12:42 PM LOCKSMITH HELPER 2D ECHO W/ DOPPLER Routine 04/12/2018 (CW/PW/COLOR) 9:50 AM LOCKSMITH HELPER POCT-GLUCOSE METER Routine 04/12/2018 8:41 AM LOCKSMITH HELPER BASIC METABOLIC PANEL (7) Routine 04/12/2018 5:28 AM LOCKSMITH HELPER POCT-GLUCOSE METER Routine 04/11/2018 10:51 PM LOCKSMITH HELPER POCT-GLUCOSE METER Routine 04/11/2018 5:55 PM LOCKSMITH HELPER NM MUGA CARD IMAGING EQ Routine 04/11/2018 REST WM EF 5:20 PM LOCKSMITH HELPER POCT-GLUCOSE METER Routine 04/11/2018 11:47 AM LOCKSMITH HELPER BASIC METABOLIC PANEL (7) Routine 04/11/2018 8:27 AM LOCKSMITH HELPER POCT-GLUCOSE METER Routine 04/11/2018 7:46 AM LOCKSMITH HELPER POCT-GLUCOSE METER Routine 04/10/2018 9:03 PM LOCKSMITH HELPER POCT-GLUCOSE METER Routine 04/10/2018 11:56 AM LOCKSMITH HELPER POCT-GLUCOSE METER Routine 04/10/2018 9:35 AM LOCKSMITH HELPER MAGNESIUM Routine 04/10/2018 3:29 AM LOCKSMITH HELPER BASIC METABOLIC PANEL (7) Routine 04/10/2018 3:29 AM LOCKSMITH HELPER POCT-GLUCOSE METER Routine 04/09/2018 10:46 PM LOCKSMITH HELPER POCT-GLUCOSE METER Routine 04/09/2018 7:30 PM LOCKSMITH HELPER POCT-GLUCOSE METER Routine 04/09/2018 2:04 PM LOCKSMITH HELPER POCT-GLUCOSE METER Routine 04/09/2018 10:12 AM LOCKSMITH HELPER CBC W/PLT COUNT & AUTO Routine 04/09/2018 DIFFERENTIAL 4:30 AM LOCKSMITH HELPER CBC W/PLT COUNT & AUTO Routine 04/09/2018 DIFFERENTIAL 4:30 AM LOCKSMITH HELPER POCT-GLUCOSE METER Routine 04/08/2018 9:23 PM LOCKSMITH HELPER POCT-GLUCOSE METER Routine 04/08/2018 5:13 PM LOCKSMITH HELPER LIPID PANEL Routine 04/08/2018 10:56 AM LOCKSMITH HELPER POCT-GLUCOSE METER Routine 04/08/2018 7:46 AM LOCKSMITH HELPER POCT-GLUCOSE METER Routine 04/08/2018 6:20 AM LOCKSMITH HELPER CBC W/PLT COUNT & AUTO Routine 04/08/2018 DIFFERENTIAL 3:38 AM LOCKSMITH HELPER PHOSPHORUS Routine 04/08/2018 3:38 AM LOCKSMITH HELPER MAGNESIUM Routine 04/08/2018 3:38 AM LOCKSMITH HELPER BASIC METABOLIC PANEL (7) Routine 04/08/2018 3:38 AM LOCKSMITH HELPER CBC W/PLT COUNT & AUTO Routine 04/08/2018 DIFFERENTIAL 3:38 AM LOCKSMITH HELPER POCT-GLUCOSE METER Routine 04/08/2018 2:33 AM LOCKSMITH HELPER POCT-GLUCOSE METER Routine 04/08/2018 12:07 AM LOCKSMITH HELPER POCT-GLUCOSE METER Routine 04/07/2018 6:40 PM LOCKSMITH HELPER POCT-GLUCOSE METER Routine 04/07/2018 3:45 PM LOCKSMITH HELPER POCT-GLUCOSE METER Routine 04/07/2018 12:10 PM LOCKSMITH HELPER XR CHEST 1 VIEW Routine 04/07/2018 PORTABLE/BEDSIDE 9:29 AM LOCKSMITH HELPER POCT-GLUCOSE METER Routine 04/07/2018 7:08 AM LOCKSMITH HELPER PHOSPHORUS Routine 04/07/2018 5:41 AM LOCKSMITH HELPER MAGNESIUM Routine 04/07/2018 5:41 AM LOCKSMITH HELPER BASIC METABOLIC PANEL (7) Routine 04/07/2018 5:41 AM LOCKSMITH HELPER CBC W/PLT COUNT & AUTO Routine 04/07/2018 DIFFERENTIAL 5:38 AM LOCKSMITH HELPER CBC W/PLT COUNT & AUTO Routine 04/07/2018 DIFFERENTIAL 5:38 AM LOCKSMITH HELPER POCT-GLUCOSE METER Routine 04/07/2018 4:38 AM LOCKSMITH HELPER POCT-GLUCOSE METER Routine 04/07/2018 3:21 AM LOCKSMITH HELPER POCT-GLUCOSE METER Routine 04/07/2018 1:24 AM LOCKSMITH HELPER POCT-GLUCOSE METER Routine 04/06/2018 11:09 PM LOCKSMITH HELPER POCT-GLUCOSE METER Routine 04/06/2018 9:23 PM LOCKSMITH HELPER POCT-GLUCOSE METER Routine 04/06/2018 7:08 PM LOCKSMITH HELPER POCT-GLUCOSE METER Routine 04/06/2018 6:17 PM LOCKSMITH HELPER POCT-GLUCOSE METER Routine 04/06/2018 11:55 AM LOCKSMITH HELPER BLOOD GAS, ARTERIAL Routine 04/06/2018 10:45 AM LOCKSMITH HELPER OXYGEN SATURATION, Routine 04/06/2018 MEASURED 10:45 AM LOCKSMITH HELPER POCT-GLUCOSE METER Routine 04/06/2018 8:45 AM LOCKSMITH HELPER POCT-GLUCOSE METER Routine 04/06/2018 7:28 AM LOCKSMITH HELPER POCT-GLUCOSE METER Routine 04/06/2018 3:58 AM LOCKSMITH HELPER XR CHEST 1 VIEW Routine 04/06/2018 PORTABLE/BEDSIDE 3:27 AM LOCKSMITH HELPER POCT-GLUCOSE METER Routine 04/06/2018 3:25 AM LOCKSMITH HELPER CBC W/PLT COUNT & AUTO Routine 04/06/2018 DIFFERENTIAL 3:14 AM LOCKSMITH HELPER BLOOD GAS, ARTERIAL Routine 04/06/2018 3:14 AM LOCKSMITH HELPER LACTIC ACID, ARTERIAL Routine 04/06/2018 3:14 AM LOCKSMITH HELPER CBC W/PLT COUNT & AUTO Routine 04/06/2018 DIFFERENTIAL 3:14 AM LOCKSMITH HELPER PHOSPHORUS Routine 04/06/2018 3:14 AM LOCKSMITH HELPER MAGNESIUM Routine 04/06/2018 3:14 AM LOCKSMITH HELPER BASIC METABOLIC PANEL (7) Routine 04/06/2018 3:14 AM LOCKSMITH HELPER TROPONIN I Routine 04/06/2018 3:14 AM LOCKSMITH HELPER POCT-GLUCOSE METER Routine 04/06/2018 2:13 AM LOCKSMITH HELPER POCT-GLUCOSE METER Routine 04/06/2018 1:02 AM LOCKSMITH HELPER POCT-GLUCOSE METER Routine 04/05/2018 11:54 PM LOCKSMITH HELPER POCT-GLUCOSE METER Routine 04/05/2018 10:47 PM LOCKSMITH HELPER POCT-GLUCOSE METER Routine 04/05/2018 9:08 PM LOCKSMITH HELPER HGB/HCT (H&H) - STAT LAB STAT 04/05/2018 8:38 PM LOCKSMITH HELPER POTASSIUM-STAT LAB STAT 04/05/2018 8:38 PM LOCKSMITH HELPER SODIUM NA-STAT LAB STAT 04/05/2018 8:38 PM LOCKSMITH HELPER BLOOD GAS, ARTERIAL STAT 04/05/2018 8:38 PM LOCKSMITH HELPER MAGNESIUM STAT 04/05/2018 8:38 PM LOCKSMITH HELPER LACTIC ACID, ARTERIAL STAT 04/05/2018 8:38 PM LOCKSMITH HELPER POCT-GLUCOSE METER Routine 04/05/2018 7:57 PM LOCKSMITH HELPER POCT-GLUCOSE METER Routine 04/05/2018 6:58 PM LOCKSMITH HELPER POCT-GLUCOSE METER Routine 04/05/2018 6:17 PM LOCKSMITH HELPER POCT-GLUCOSE METER Routine 04/05/2018 4:55 PM LOCKSMITH HELPER CBC W/PLT COUNT & AUTO STAT 04/05/2018 DIFFERENTIAL 3:04 PM LOCKSMITH HELPER PROTHROMBIN TIME/INR STAT 04/05/2018 3:04 PM LOCKSMITH HELPER CALCIUM, IONIZED Routine 04/05/2018 3:04 PM LOCKSMITH HELPER BLOOD GAS, ARTERIAL STAT 04/05/2018 3:04 PM LOCKSMITH HELPER LACTIC ACID, ARTERIAL STAT 04/05/2018 3:04 PM LOCKSMITH HELPER OXYGEN SATURATION, STAT 04/05/2018 MEASURED 3:04 PM LOCKSMITH HELPER CBC W/PLT COUNT & AUTO STAT 04/05/2018 DIFFERENTIAL 3:04 PM LOCKSMITH HELPER PHOSPHORUS STAT 04/05/2018 3:04 PM LOCKSMITH HELPER MAGNESIUM STAT 04/05/2018 3:04 PM LOCKSMITH HELPER BASIC METABOLIC PANEL (7) STAT 04/05/2018 3:04 PM LOCKSMITH HELPER TROPONIN I Routine 04/05/2018 3:04 PM LOCKSMITH HELPER XR CHEST 1 VIEW STAT 04/05/2018 PORTABLE/BEDSIDE 2:56 PM LOCKSMITH HELPER HGB/HCT (H&H) - STAT LAB STAT 04/05/2018 2:21 PM LOCKSMITH HELPER GLUCOSE-STAT LAB STAT 04/05/2018 2:21 PM LOCKSMITH HELPER POTASSIUM-STAT LAB STAT 04/05/2018 2:21 PM LOCKSMITH HELPER SODIUM NA-STAT LAB STAT 04/05/2018 2:21 PM LOCKSMITH HELPER BLOOD GAS, ARTERIAL STAT 04/05/2018 2:21 PM LOCKSMITH HELPER CALCIUM, IONIZED STAT 04/05/2018 2:21 PM LOCKSMITH HELPER RRL CRITICAL LABS STAT 04/05/2018 (ABG,NA,K,H&H,GLUCOSE) 2:21 PM LOCKSMITH HELPER XR X-RAY NO CHARGE Routine 04/05/2018 2:16 PM LOCKSMITH HELPER HGB/HCT (H&H) - STAT LAB STAT 04/05/2018 1:05 PM LOCKSMITH HELPER GLUCOSE-STAT LAB STAT 04/05/2018 1:05 PM LOCKSMITH HELPER POTASSIUM-STAT LAB STAT 04/05/2018 1:05 PM LOCKSMITH HELPER SODIUM NA-STAT LAB STAT 04/05/2018 1:05 PM LOCKSMITH HELPER BLOOD GAS, ARTERIAL STAT 04/05/2018 1:05 PM LOCKSMITH HELPER CALCIUM, IONIZED STAT 04/05/2018 1:05 PM LOCKSMITH HELPER RRL CRITICAL LABS STAT 04/05/2018 (ABG,NA,K,H&H,GLUCOSE) 1:05 PM LOCKSMITH HELPER POCT-ACT Routine 04/05/2018 12:18 PM LOCKSMITH HELPER HGB/HCT (H&H) - STAT LAB STAT 04/05/2018 12:14 PM LOCKSMITH HELPER GLUCOSE-STAT LAB STAT 04/05/2018 12:14 PM LOCKSMITH HELPER POTASSIUM-STAT LAB STAT 04/05/2018 12:14 PM LOCKSMITH HELPER SODIUM NA-STAT LAB STAT 04/05/2018 12:14 PM LOCKSMITH HELPER BLOOD GAS, ARTERIAL STAT 04/05/2018 12:14 PM LOCKSMITH HELPER CALCIUM, IONIZED STAT 04/05/2018 12:14 PM LOCKSMITH HELPER RRL CRITICAL LABS STAT 04/05/2018 (ABG,NA,K,H&H,GLUCOSE) 12:14 PM LOCKSMITH HELPER POCT-ACT Routine 04/05/2018 12:05 PM LOCKSMITH HELPER POCT-ACT Routine 04/05/2018 11:21 AM LOCKSMITH HELPER HGB/HCT (H&H) - STAT LAB STAT 04/05/2018 10:46 AM LOCKSMITH HELPER GLUCOSE-STAT LAB STAT 04/05/2018 10:46 AM LOCKSMITH HELPER POTASSIUM-STAT LAB STAT 04/05/2018 10:46 AM LOCKSMITH HELPER SODIUM NA-STAT LAB STAT 04/05/2018 10:46 AM LOCKSMITH HELPER BLOOD GAS, ARTERIAL STAT 04/05/2018 10:46 AM LOCKSMITH HELPER CALCIUM, IONIZED STAT 04/05/2018 10:46 AM LOCKSMITH HELPER RRL CRITICAL LABS STAT 04/05/2018 (ABG,NA,K,H&H,GLUCOSE) 10:46 AM LOCKSMITH HELPER POCT-ACT Routine 04/05/2018 10:25 AM LOCKSMITH HELPER POCT-ACT Routine 04/05/2018 9:44 AM LOCKSMITH HELPER ANESTHESIA MACIE Routine 04/05/2018 8:49 AM LOCKSMITH HELPER HGB/HCT (H&H) - STAT LAB STAT 04/05/2018 8:19 AM LOCKSMITH HELPER GLUCOSE-STAT LAB STAT 04/05/2018 8:19 AM LOCKSMITH HELPER POTASSIUM-STAT LAB STAT 04/05/2018 8:19 AM LOCKSMITH HELPER SODIUM NA-STAT LAB STAT 04/05/2018 8:19 AM LOCKSMITH HELPER BLOOD GAS, ARTERIAL STAT 04/05/2018 8:19 AM LOCKSMITH HELPER CALCIUM, IONIZED STAT 04/05/2018 8:19 AM LOCKSMITH HELPER RRL CRITICAL LABS STAT 04/05/2018 (ABG,NA,K,H&H,GLUCOSE) 8:19 AM LOCKSMITH HELPER ENDOSCOPIC HARVEST,VEIN 04/05/2018 Coronary artery disease 8:00 AM LOCKSMITH HELPER with angina pectoris, unspecified vessel or lesion type, unspecified whether inaja or transplanted heart (HCC) Case Notes 4 TO 5 [facility]PASS SURGERY BYPASS,[place] CORONARY ARTEM 04/05/2018 Coronary artery disease 8:00 AM LOCKSMITH HELPER with angina pectoris, unspecified vessel or lesion type, unspecified whether inaja or transplanted heart (HCC) Case Notes 4 TO 5 [facility] ARTERY BYPASS SURGERY CBC W/PLT COUNT & AUTO Routine 04/05/2018 DIFFERENTIAL 4:42 AM LOCKSMITH HELPER CBC W/PLT COUNT & AUTO Routine 04/05/2018 DIFFERENTIAL 4:42 AM LOCKSMITH HELPER BASIC METABOLIC PANEL (7) Routine 04/05/2018 4:42 AM LOCKSMITH HELPER APTT Routine 04/05/2018 4:42 AM LOCKSMITH HELPER PROTHROMBIN TIME/INR Routine 04/05/2018 4:42 AM LOCKSMITH HELPER MAGNESIUM Routine 04/05/2018 4:42 AM LOCKSMITH HELPER BLOOD GAS, ARTERIAL Routine 04/05/2018 4:42 AM LOCKSMITH HELPER POCT-GLUCOSE METER Routine 04/04/2018 9:58 PM LOCKSMITH HELPER APTT Routine 04/04/2018 8:07 PM LOCKSMITH HELPER POCT-GLUCOSE METER Routine 04/04/2018 5:28 PM LOCKSMITH HELPER ECG 12-LEAD Routine 04/04/2018 4:28 PM LOCKSMITH HELPER POCT-GLUCOSE METER Routine 04/04/2018 3:41 PM LOCKSMITH HELPER URINALYSIS W/ MICROSCOPIC Routine 04/04/2018 1:36 PM LOCKSMITH HELPER PT/APTT Routine 04/04/2018 12:56 PM LOCKSMITH HELPER HEMOGLOBIN A1C Routine 04/04/2018 12:56 PM LOCKSMITH HELPER POCT-GLUCOSE METER Routine 04/04/2018 11:43 AM LOCKSMITH HELPER POCT-GLUCOSE METER Routine 04/04/2018 7:34 AM LOCKSMITH HELPER APTT Routine 04/04/2018 5:03 AM LOCKSMITH HELPER POCT-GLUCOSE METER Routine 04/03/2018 8:14 PM LOCKSMITH HELPER POCT-GLUCOSE METER Routine 04/03/2018 5:02 PM LOCKSMITH HELPER APTT Routine 04/03/2018 2:55 PM LOCKSMITH HELPER POCT-GLUCOSE METER Routine 04/03/2018 12:24 PM LOCKSMITH HELPER ECHOCARDIOGRAM REPORT - 04/03/2018 SCAN 10:50 AM LOCKSMITH HELPER PT/APTT Routine 04/03/2018 7:57 AM LOCKSMITH HELPER POCT-GLUCOSE METER Routine 04/03/2018 7:31 AM LOCKSMITH HELPER PT/APTT Routine 04/03/2018 2:00 AM LOCKSMITH HELPER POCT-GLUCOSE METER Routine 04/02/2018 10:10 PM LOCKSMITH HELPER PT/APTT Routine 04/02/2018 6:21 PM LOCKSMITH HELPER POCT-GLUCOSE METER Routine 04/02/2018 5:20 PM LOCKSMITH HELPER 2D ECHO W/ DOPPLER CATHY 04/02/2018 (CW/PW/COLOR) 1:23 PM LOCKSMITH HELPER POCT-GLUCOSE METER Routine 04/02/2018 12:05 PM LOCKSMITH HELPER APTT Routine 04/02/2018 9:21 AM LOCKSMITH HELPER POCT-GLUCOSE METER Routine 04/02/2018 7:51 AM LOCKSMITH HELPER APTT Routine 04/02/2018 12:38 AM LOCKSMITH HELPER FERRITIN Routine 04/02/2018 12:38 AM LOCKSMITH HELPER IRON, TIBC, % SAT. Routine 04/02/2018 (WITHOUT FERRITIN) 12:38 AM LOCKSMITH HELPER POCT-GLUCOSE METER Routine 04/01/2018 10:07 PM LOCKSMITH HELPER POCT-GLUCOSE METER Routine 04/01/2018 4:32 PM LOCKSMITH HELPER APTT Routine 04/01/2018 2:33 PM LOCKSMITH HELPER PLATELET AGGREGATION: AP Routine 04/01/2018 FUNCTION SCREEN 2:33 PM LOCKSMITH HELPER POCT-GLUCOSE METER Routine 04/01/2018 12:43 PM LOCKSMITH HELPER POCT-GLUCOSE METER Routine 04/01/2018 7:35 AM LOCKSMITH HELPER APTT Routine 04/01/2018 7:20 AM LOCKSMITH HELPER CBC W/PLT COUNT & AUTO Routine 04/01/2018 DIFFERENTIAL 5:47 AM LOCKSMITH HELPER APTT Routine 04/01/2018 5:47 AM LOCKSMITH HELPER PROTHROMBIN TIME/INR Routine 04/01/2018 5:47 AM LOCKSMITH HELPER MAGNESIUM Routine 04/01/2018 5:47 AM LOCKSMITH HELPER BASIC METABOLIC PANEL (7) Routine 04/01/2018 5:47 AM LOCKSMITH HELPER CBC W/PLT COUNT & AUTO Routine 04/01/2018 DIFFERENTIAL 5:47 AM LOCKSMITH HELPER APTT Routine 03/31/2018 10:58 PM LOCKSMITH HELPER PROTHROMBIN TIME/INR Routine 03/31/2018 10:58 PM LOCKSMITH HELPER POCT-GLUCOSE METER Routine 03/31/2018 9:09 PM LOCKSMITH HELPER APTT Routine 03/31/2018 4:02 PM LOCKSMITH HELPER POCT-GLUCOSE METER Routine 03/31/2018 4:01 PM LOCKSMITH HELPER URINALYSIS W/ MICROSCOPIC Routine 03/31/2018 2:28 PM LOCKSMITH HELPER ARTERIAL DOPPLER ARMS Routine 03/31/2018 BILATERAL 10:40 AM LOCKSMITH HELPER APTT Routine 03/31/2018 8:44 AM LOCKSMITH HELPER PLATELET AGGREGATION: Routine 03/31/2018 FUNCTION SCREEN 8:43 AM LOCKSMITH HELPER VENOUS DOPPLER LEGS Routine 03/31/2018 BILATERAL 7:35 AM LOCKSMITH HELPER POCT-GLUCOSE METER Routine 03/31/2018 6:34 AM LOCKSMITH HELPER CAROTID DOPPLER BILATERAL Routine 03/31/2018 6:15 AM LOCKSMITH HELPER XR CHEST 2 VIEWS Routine 03/31/2018 5:20 AM LOCKSMITH HELPER ECG 12-LEAD Routine 03/30/2018 11:26 PM LOCKSM[employer] HELPER HEPATITIS C PCR, Routine 03/30/2018 QUANTITATIVE 10:35 PM LOCKSMITH HELPER PFA-100 Routine 03/30/2018 10:34 PM LOCKSMITH HELPER PLATELET AGGREGATION: AP Routine 03/30/2018 FUNCTION SCREEN 10:34 PM LOCKSMITH HELPER CBC W/PLT COUNT & AUTO Routine 03/30/2018 DIFFERENTIAL 10:18 PM LOCKSMITH HELPER MAGNESIUM Routine 03/30/2018 10:18 PM LOCKSMITH HELPER APTT Routine 03/30/2018 10:18 PM LOCKSMITH HELPER COMPREHENSIVE METABOLIC Routine 03/30/2018 PANEL 10:18 PM LOCKSMITH HELPER CBC W/PLT COUNT & AUTO Routine 03/30/2018 DIFFERENTIAL 10:18 PM LOCKSMITH HELPER after 01/02/2018 Results * RHYTHM STRIP - SCAN (07/12/2018 8:40 AM CDT) Only the most recent of 3 results within the time period is included. Narrative Performed At * EKG-SCANNED (05/18/2018 11:40 AM LOCKSMITH HELPER) Narrative Performed At * POC-Glucose meter (04/28/2018 7:10 AM LOCKSMITH HELPER) Only the most recent of 96 results within the time period is included. POC-Glucose Meter 246 (H)Comment: TESTED AT 70 - 110 mg/dL [facility] [address] [facility] [address] Specimen Blood Performing Organization Address City/State/Zipcode Phone Number [facility] [address] [place] [address] [facility] * BUN and Creatinine (04/28/2018 5:46 AM LOCKSMITH HELPER) BUN 54 (H) 7 - 21 mg/dL [facility] Creatinine 1.64 (H) 0.57 - 1.25 mg/dL [facility] EGFR 32Comment: ESTIMATED GFR IS mL/min/1.73 sq m [facility] NOT ACCURATE CREATININE [facility] CLEARANCE IN PREDICTING GLOMERULAR FILTRATION RATE. ESTIMATED GFR IS NOT APPLICABLE FOR DIALYSIS PATIENTS. Specimen Blood Performing Organization Address City/[facility]/Zipcode Phone Number [facility] [address] [place] [address] [facility] * CBC with platelet count + automated diff (04/27/2018 3:41 AM LOCKSMITH HELPER) Only the most recent of 14 results within the time period is included. WBC 7.2 3.5 - 10.5 K/L [facility] RBC 3.44 (L) 3.93 - 5.22 M/L [facility] Hemoglobin 9.9 (L) 11.2 - 15.7 GM/DL [facility] Hematocrit 32.6 (L) 34.1 - 44.9 % [facility] MCV 94.8 79.4 - 94.8 fL [facility] MCH 28.8 25.6 - 32.2 pg [facility] MCHC 30.4 (L) 32.2 - 35.5 GM/DL [facility] RDW 13.4 11.7 - 14.4 % [facility] Platelets 303 150 - 450 K/CU MM [facility] MPV 10.2 9.4 - 12.3 fL [facility] nRBC 0 0 - 0 /100 WBC [facility] % Neutros 54 % [facility] % Lymphs 34 % [facility] % Monos 6 % [facility] % Eos 5 % [facility] % Baso 1 % [facility] # Neutros 3.89 1.56 - 6.13 K/L [facility] # Lymphs 2.45 1.18 - 3.74 K/L [facility] # Monos 0.43 (H) 0.24 - 0.36 K/L [facility] # Eos 0.39 (H) 0.04 - 0.36 K/L [facility] # Baso 0.07 0.01 - 0.08 K/L [facility] Immature 0 0 - 1 % [facility] Granulocytes-[facility] Specimen Blood Performing Organization Address City/State/[place] [address] [phone] [place] [address] * Phosphorus (04/27/2018 3:41 AM LOCKSMITH HELPER) Only the most recent of 7 results within the time period is included. Phosphorus 4.7 2.3 - 4.7 mg/dL [facility] Specimen Blood Performing Organization Address City/[facility]/Zipcode Phone Number [address] [address] [facility] * Magnesium (04/27/2018 3:41 AM LOCKSMITH HELPER) Only the most recent of 15 results within the time period is included. Magnesium 2.2 1.6 - 2.6 mg/dL [facility] Specimen Blood Performing Organization Address City/[facility]/[place] [address] [facility] * Basic Metabolic Panel (04/27/2018 3:41 AM LOCKSMITH HELPER) Only the most recent of 14 results within the time period is included. Sodium 136 136 - 145 meq/L [facility] Potassium 4.2 3.5 - 5.1 meq/L [facility] Chloride 100 98 - 107 meq/L [facility] CO2 27 22 - 29 meq/L [facility] BUN 48 (H) 7 - 21 mg/dL [facility] Creatinine 1.70 (H) 0.57 - 1.25 mg/dL [facility] Glucose 218 (H) 70 - 105 mg/dL [facility] Calcium 9.7 8.4 - 10.2 mg/dL [facility] EGFR 30Comment: ESTIMATED GFR IS mL/min/1.73 sq m [facility] NOT ACCURATE CREATININE [facility] CLEARANCE IN PREDICTING GLOMERULAR FILTRATION RATE. ESTIMATED GFR IS NOT APPLICABLE FOR DIALYSIS PATIENTS. Specimen Blood Performing Organization Address City/State/Zipcode Phone Number [facility] [address] [place] [address] [facility] * US renal complete (04/26/2018 9:14 PM LOCKSMITH HELPER) Specimen Narrative Performed At FINAL REPORT MasterImage 3D INDICATION: Acute kidney injury. TECHNIQUE: Renal ultrasound [...] MD Report Verified Date/Time:04/26/2018 22:00:23 Reading Location: [facility] [id number] Consult Reading Room Procedure Note Interface, External Ris In - 04/26/2018 10:02 PM LOCKSMITH HELPER FINAL REPORT INDICATION: Acute kidney injury. TECHNIQUE: [...] Report Verified Date/Time: 04/26/2018 22:00:23 Reading Location: [address] Consult Reading Room Performing Organization Address [facility] Phone Number [facility] * Sodium, random urine (04/26/2018 4:49 AM LOCKSMITH HELPER) Sodium Urine 56 meq/L [facility] Specimen Urine Narrative Performed At Reference Range: No Normals [facility] Performing Organization Address [facility] Phone Number [place] [phone] * Protein, random urine (04/26/2018 4:49 AM LOCKSMITH HELPER) Protein, Urine 56 (H) 0 - 14 mg/dL [facility] Specimen Urine Performing Organization Address [facility] Phone Number [place] [phone] [place] [address] * Creatinine, random urine (04/26/2018 4:49 AM LOCKSMITH HELPER) Creatinine, Ur 110.0 mg/dL [facility] Specimen Urine Narrative Performed At Reference Range: No Normals [facility] Performing Organization Address [facility] [place] [address] [phone] [place] [address] * Urinalysis w/Microscopic (04/26/2018 4:49 AM LOCKSMITH HELPER) Only the most recent of 3 results within the time period is included. Color, UA Yellow [facility] Clarity, UA Clear [facility] Specific [place], UA 1.016 1.001 - 1.035 [facility] pH, UA 5.5 5.0 - 8.0 [facility] Protein, UA 50 mg/dL (A) Negative [facility] Glucose, UA 500 mg/dL (A) Negative [facility] Ketones, UA Negative Negative [facility] Bilirubin, UA Negative Negative [facility] Blood, UA Negative Negative [facility] Nitrite, UA Negative Negative [facility] Leukocytes, UA Negative Negative [facility] Urobilinogen, UA 0.2 0.2 - 1.0 mg/dL [facility] RBC, UA 1 /HPF [facility] WBC, UA <1 /HPF [facility] Bacteria, UA Rare [facility] Squam Epithel, UA 1 /HPF [facility] Hyaline Casts, UA 2 /LPF [facility] Amorphous Crystals Rare [facility] Specimen Source [facility] Specimen Urine Performing Organization Address City/State/Zipcode Phone Number [facility] [address] [place] [address] [facility] * XR chest 1 view portable / bedside (04/25/2018 5:57 PM LOCKSMITH HELPER) Only the most recent of 5 results within the time period is included. Specimen Narrative Performed At FINAL REPORT MasterImage 3D INDICATION: CHF COMPARISON: April 22 TECHNIQUE: Chest radiograph, single view, portable technique. FINDINGS / IMPRESSION: Enlarged heart shadow and pulmonary venous congestion. Previously there was suggestion of mild interstitial pulmonary edema and this is no longer appreciated. No pleural effusion demonstrated. Intact median sternotomy wires noted. Signed: Dakotah Alvarado MD Report Verified Date/Time:04/25/2018 19:27:26 Reading Location: [facility] B1 C013W Consult Reading Room Procedure Note Interface, External Ris In - 04/25/2018 7:29 PM LOCKSMITH HELPER FINAL REPORT INDICATION: CHF COMPARISON: April 22 TECHNIQUE: Chest radiograph, single view, portable technique. FINDINGS / IMPRESSION: Enlarged heart shadow and pulmonary venous congestion. Previously there was suggestion of mild interstitial pulmonary edema and this is no longer appreciated. No pleural effusion demonstrated. Intact median sternotomy wires noted. Signed: Dakotah Alvarado MD Report Verified Date/Time: 04/25/2018 19:27:26 Reading Location: [facility] B1 C013W Consult Reading Room Performing Organization Address City/[facility]/Zipcode Phone Number [facility] * Troponin I (not available at [facility] [place]) (04/23/2018 4:43 PM LOCKSMITH HELPER) Only the most recent of 4 results within the time period is included. Troponin I 0.04 (H) 0.00 - 0.03 ng/mL [facility] Specimen Blood Narrative Performed At Troponin I (TnI) levels must be interpreted in the context of the presenting [facility] symptoms and the clinical findings. Elevated TnI levels indicate myocardial [facility] damage, but are not specific for ischemic heart disease. Elevated TnI levels are seen in patients with other cardiac conditions (including myocarditis and congestive heart failure), and slight TnI elevations occur in patients with other conditions, including sepsis, renal failure, acidosis, acute neurological disease, and persistent tachyarrhythmia. Performing Organization Address City/State/Zipcode Phone Number [address] [address] [facility] * Comprehensive metabolic panel (04/23/2018 4:43 PM LOCKSMITH HELPER) Only the most recent of 2 results within the time period is included. Protein, Total 7.3 6.0 - 8.3 gm/dL [facility] Albumin 3.6 3.5 - 5.0 g/dL [facility] Alkaline Phosphatase 88 40 - 150 U/L [facility] Total Bilirubin 0.4 0.2 - 1.2 mg/dL [facility] Sodium 138 136 - 145 meq/L [facility] Potassium 3.5 3.5 - 5.1 meq/L [facility] Chloride 102 98 - 107 meq/L [facility] CO2 26 22 - 29 meq/L [facility] BUN 27 (H) 7 - 21 mg/dL [facility] Creatinine 1.30 (H) 0.57 - 1.25 mg/dL [facility] Glucose 177 (H) 70 - 105 mg/dL [facility] Calcium 9.9 8.4 - 10.2 mg/dL [facility] AST 26 5 - 34 U/L [facility] ALT 16 6 - 55 U/L [facility] EGFR 41Comment: ESTIMATED GFR IS mL/min/1.73 sq m [facility] NOT ACCURATE CREATININE [facility] CLEARANCE IN PREDICTING GLOMERULAR FILTRATION RATE. ESTIMATED GFR IS NOT APPLICABLE FOR DIALYSIS PATIENTS. Specimen Blood Performing Organization Address City/State/Zipcode Phone Number [facility] [address] [place] [address] [facility] * ECHOCARDIOGRAM REPORT - SCAN (04/23/2018 3:51 PM LOCKSMITH HELPER) Narrative Performed At * 2D Echo W/Doppler(CW/PW/Color) (04/23/2018 12:20 PM LOCKSMITH HELPER) Ejection Fraction [facility] ECHO HEARTLAB [facility] Specimen Narrative Performed At Transthoracic Echocardiography Report (TTE) [facility] ECHO HEARTLAB Demographics [facility] Patient Name Sara BUTLER of Study 04/23/2018 [facility] [id number] GenderFemale Visit Number [id number] RaceHispanic [id number] Number [id number] Number Date of Birth1955 Referring Physician Dae Jeffries Age62 year(s) Beauty Culturist Apprentice Rossi Hernandez RDCS InterpretingBasant MD Dae Physician Procedure Type of Study TTE procedure:2DECHO W DOPPLER(CW/PW/COLOR) (STAT) Indications:Shortness of breath. Clinical History CKD;DM;HEPC;HTN;MO;STROKE;BYPASSX2 04/05/18. HGB 10.4 HCT 33.9 % Contrast [...] External Ris In - 04/23/2018 3:15 PM LOCKSMITH HELPER Transthoracic Echocardiography Report (TTE) Demographics Patient Name MICA BUTLER Date of Study 04/23/2018 TRISTA Gender Female Visit Number [id number] Race Room Number ED17 Number Date of 1955 Referring Physician Dae Jeffries Age 62 year(s) Beauty Culturist Apprentice Rossi Hernandez [facility] Interpreting Sabrina Pearl MD Physician Procedure Type of Study TTE procedure:2DECHO W DOPPLER(CW/PW/COLOR) (STAT) Indications:Shortness of breath. Clinical History CKD;DM;HEPC;HTN;MO;STROKE;BYPASSX2 04/05/18. HGB 10.4 HCT 33.9 % Contrast [...] City/State/Zipcode Phone Number [facility] * ECG 12 lead (04/23/2018 11:20 AM LOCKSMITH HELPER) Only the most recent of 4 results within the time period is included. Specimen Narrative Performed At Ventricular Rate 73 BPM GE MUSE Atrial Rate 73 BPM P-R Interval 144 ms QRS Duration 82 ms Q-T Interval 438 ms QTC Calculation(Bazett) 482 ms P [place]oute[place] 32 degrees R [place]oute[place] -21 degrees T [place]outeau 130 degrees Normal sinus rhythm ST & Marked T wave abnormality, consider anterolateral ischemia Prolonged QT Abnormal ECG When compared with ECG of 22-APR-2018 19:24, No significant change was found Confirmed by Yoan PEARL, SABRINA ([id number]) on 04/24/2018 8:34:03 AM Procedure Note Interface, External Ris In - 04/24/2018 8:34 AM LOCKSMITH HELPER Ventricular Rate 73 BPM Atrial Rate 73 BPM P-R Interval 144 ms QRS Duration 82 ms Q-T Interval 438 ms QTC Calculation(Bazett) 482 ms P [place] 32 degrees R [place] -21 degrees T [place] 130 degrees Normal sinus rhythm ST & Marked T wave abnormality, consider anterolateral ischemia Prolonged QT Abnormal ECG When compared with ECG of 22-APR-2018 19:24, No significant change was found Confirmed by Yoan PEARL, SABRINA ([id number]) on 04/24/2018 8:34:03 AM Performing Organization Address [facility] Phone Number [place] MUSE * POC-Lactic Acid, Venous (04/23/2018 2:49 AM LOCKSMITH HELPER) POC-Lactic Acid, Venous 0.9Comment: [facility] 0.9 - 1.7 mmol/L [address] Specimen Blood Performing Organization Address [facility] [place] [address] [facility] * B-type Natriuretic Factor (BNP) (04/22/2018 11:47 PM LOCKSMITH HELPER) BNP 204 (H) 0 - 100 pg/mL [facility] Specimen Blood Performing Organization Address City/State/Zipcode Phone Number [facility] [address] [place] [address] [facility] * PT/PTT (04/22/2018 8:34 PM LOCKSMITH HELPER) Only the most recent of 5 results within the time period is included. Protime 13.3 11.7 - 14.7 seconds [facility] INR 1.0 <=5.9 [facility] PTT 29.4 22.5 - 36.0 seconds [facility] Specimen Blood Narrative Performed At RECOMMENDED COUMADIN/WARFARIN INR THERAPY RANGES [facility] STANDARD DOSE: 2.0 - 3.0 Includes: PROPHYLAXIS for venous thrombosis, [facility] systemic embolization; TREATMENT for venous thrombosis and/or pulmonary embolus. HIGH RISK: Target INR is 2.5-3.5 for patients with mechanical heart valves. Performing Organization Address City/[facility]/Zipcode Phone Number [facility] [address] [place], [place] [address] [phone] [place] [address] * ECHOCARDIOGRAM REPORT - SCAN (04/12/2018 3:45 PM LOCKSMITH HELPER) Narrative Performed At * 2D Echo W/Doppler(CW/PW/Color) (04/12/2018 9:50 AM LOCKSMITH HELPER) Ejection Fraction [facility] ECHO HEARTLAB [facility] Specimen Narrative Performed At Transthoracic Echocardiography Report (TTE) [facility] ECHO HEARTLAB Demographics [facility] Patient NameSara BUTLER of Study 04/12/2018 E GenderFemale Visit [id number] RaceHispanic Number [id number] Number Date of 1955 Referring Dorothea Johnson Physician Age 62 year(s) Beauty Culturist Apprentice YUE Barrett, RDCS,RVT,RDMS Interpreting Akbar Calvo MD [...] External Ris In - 04/12/2018 2:42 PM LOCKSMITH HELPER Transthoracic Echocardiography Report (TTE) Demographics Patient Name MICA BUTLER Date of Study 04/12/2018 E Gender Female Visit Number [id number] Race Room Number [id number] Number Date of 1955 Referring Dorothea Johnson Physician Age 62 year(s) Beauty Culturist Apprentice Princess Mauricio, NB, RDCS,RVT,RDMS Interpreting Akbar Calvo [...] NM muga study (rest) (04/11/2018 5:20 PM LOCKSMITH HELPER) Specimen Narrative Performed At FINAL REPORT [place] [facility] PROCEDURE:Resting RADIONUCLIDE VENTRICULOGRAM (MUGA Scan) CPT CODE:[id number] INDICATION: CAD, ACB 04/05/2018 PROTOCOL:Autologous red blood [...] MD Report Verified Date/Time:04/11/2018 17:34:57 Reading Location: [address] Reading Room Procedure Note Interface, External Ris In - 04/11/2018 5:37 PM LOCKSMITH HELPER FINAL REPORT PROCEDURE: Resting RADIONUCLIDE VENTRICULOGRAM (MUGA Scan) CPT CODE: [id number] INDICATION: CAD, ACB 04/05/2018 PROTOCOL: Autologous red [...] Report Verified Date/Time: 04/11/2018 17:34:57 Reading Location: [address] [address] [facility] Reading Room Performing Organization Address City/[facility] Phone Number [facility] * Lipid panel (04/08/2018 10:56 AM LOCKSMITH HELPER) Triglycerides 208 mg/dL [facility] Cholesterol 152 mg/dL [facility] HDL 31 mg/dL [facility] LDL Calculated 79 mg/dL [facility] Specimen Blood Narrative Performed At Triglyceride Reference Range: [facility] Low Risk <150 [facility] [id number] High Risk 200-499 Very High Risk>=500 Cholesterol Reference Range: Low Risk <200 [id number] High Risk>240 HDL Cholesterol Reference Range: Low Risk >=60 High Risk <40 LDL Cholesterol Reference Range: Optimal<100 Near Noaheye361-707 Pqzgvldyew264-494 [id number] Very High >=190 Performing Organization Address City/[facility]/[place] [address] [phone] [place] [address] * Oxygen saturation, measured (04/06/2018 10:45 AM LOCKSMITH HELPER) Only the most recent of 2 results within the time period is included. O2 Saturation (Measured) 66.7 % [facility] Specimen Blood Performing Organization Address City/[facility] Phone Number [address] [address] [phone] [place] [address] * Blood gas, arterial (04/06/2018 10:45 AM LOCKSMITH HELPER) Only the most recent of 10 results within the time period is included. pH, Arterial 7.41 7.35 - 7.45 [facility] pCO2, Arterial 36 35 - 45 mmHg [facility] pO2, Arterial 91 (H) 80 - 90 mmHg [facility] O2 Sat, Arterial 97.0 96.0 - 97.0 % [facility] HCO3, Arterial 22 21 - 29 mmol/L [facility] Base Excess, Arterial -1.8 -2.0 - 3.0 mmol/L [facility] Patient Temperature 37.2 C [facility] FIO2 40.0 % [facility] Specimen Blood, Arterial Performing Organization Address City/[facility] Phone Number [address] * Lactic acid, arterial, whole blood (04/06/2018 3:14 AM LOCKSMITH HELPER) Only the most recent of 3 results within the time period is included. Lactate, Art 2.2 0.5 - 2.2 mmol/L [facility] Specimen Blood, Arterial Performing Organization Address [facility] Phone Number [address] * Potassium-Stat Lab (04/05/2018 8:38 PM LOCKSMITH HELPER) Only the most recent of 6 results within the time period is included. Potassium 4.4 3.6 - 5.5 meq/L [facility] Specimen Blood, Arterial Performing Organization Address City/[facility] Phone Number [address] * Sodium Na-Stat Lab (04/05/2018 8:38 PM LOCKSMITH HELPER) Only the most recent of 6 results within the time period is included. Sodium 135 135 - 148 meq/L [facility] Specimen Blood, Arterial Performing Organization Address City/[facility] Phone Number [address] * HGB/HCT (H&H)-Stat Lab (04/05/2018 8:38 PM LOCKSMITH HELPER) Only the most recent of 6 results within the time period is included. Hemoglobin 11.9 (L) 12.0 - 15.0 g/dL [facility] Hematocrit 35.0 (L) 36.0 - 45.0 % [facility] Specimen Blood, Arterial Performing Organization Address City/[facility] Phone Number [address] [address] [facility] * Calcium, Ionized (04/05/2018 3:04 PM LOCKSMITH HELPER) Only the most recent of 6 results within the time period is included. Calcium, Ion 1.43 (H) 1.12 - 1.27 mmol/L [facility] pH, Blood 7.30 [facility] Specimen Blood Performing Organization Address [facility] Phone Number [address] [address] [facility] * Prothrombin time/INR (04/05/2018 3:04 PM LOCKSMITH HELPER) Only the most recent of 4 results within the time period is included. Protime 14.2 11.7 - 14.7 seconds [facility] INR 1.1 <=5.9 [facility] Specimen Blood Narrative Performed At RECOMMENDED COUMADIN/WARFARIN INR THERAPY RANGES [facility] STANDARD DOSE: 2.0 - 3.0 Includes: PROPHYLAXIS for venous thrombosis, [facility] systemic embolization; TREATMENT for venous thrombosis and/or pulmonary embolus. HIGH RISK: Target INR is 2.5-3.5 for patients with mechanical heart valves. Performing Organization Address City/[facility] Phone Number [address] [address] [facility] * Glucose-Stat Lab (04/05/2018 2:21 PM LOCKSMITH HELPER) Only the most recent of 5 results within the time period is included. Glucose 231 (H) 70 - 110 mg/dL [facility] Specimen Blood, Arterial Performing Organization Address City/[facility] Phone Number [address] [address] [facility] * XR X-RAY NO CHARGE (04/05/2018 2:16 PM LOCKSMITH HELPER) Specimen Narrative Performed At FINAL REPORT GE [...] MD Report Verified Date/Time:04/05/2018 14:30:11 Reading Location: [address] Consult Reading Room Procedure Note Interface, External Ris In - 04/05/2018 2:32 PM LOCKSMITH HELPER FINAL REPORT Radiograph of the chest Reason [...] Report Verified Date/Time: 04/05/2018 14:30:11 Reading Location: [address] Consult Reading Room Performing Organization Address City/State/Zipcode Phone Number [facility] * POC ACTIVATED CLOTTING TIME (04/05/2018 12:18 PM LOCKSMITH HELPER) Only the most recent of 5 results within the time period is included. Activated Clotting Time 103Comment: TESTED AT [facility] sec [address] Specimen Blood Performing Organization Address City/State/Zipcode Phone Number [place] [phone] [place] [address] * MACIE (04/05/2018 8:49 AM LOCKSMITH HELPER) Narrative Performed At Dick Mccormack MD 04/05/2018 [...] Dick Mccormack MD - 04/05/2018 8:49 AM LOCKSMITH HELPER MACIE Date: 04/05/2018 8:49 AM Sex: Female [...] surgical team. * aPTT (04/05/2018 4:42 AM LOCKSMITH HELPER) Only the most recent of 13 results within the time period is included. PTT 70.1 (H) 22.5 - 36.0 seconds [facility] Specimen Blood Performing Organization Address City/[facility]/Zipcode Phone Number [facility] [address] [place] [address] [phone] [place] [address] * Hemoglobin A1c (04/04/2018 12:56 PM LOCKSMITH HELPER) Hemoglobin A1C 10.3 (H) 4.3 - 6.1 % [facility] Specimen Blood Performing Organization Address City/[facility] Phone Number [address] [address] [phone] * ECHOCARDIOGRAM REPORT - SCAN (04/03/2018 10:50 AM LOCKSMITH HELPER) Narrative Performed At * 2D Echo W/Doppler(CW/PW/Color) (04/02/2018 1:23 PM LOCKSMITH HELPER) Ejection Fraction [facility] ECHO [facility] [facility] Specimen Narrative Performed At Transthoracic Echocardiography Report (TTE) [facility] ECHO HEARTLAB Demographics [facility] Patient NameMICA BUTLER Date of Study04/02/2018 Female Visit [id number] Room [id number] Number Date of 1955Referring Tri Spencer Age 62 year(s)SonographerNatividad Felder RDCS Emr Trainer MD Vane LayolanPhysician Procedure Type of Study TTE procedure:2DECHO W DOPPLER(CW/PW/COLOR) (CATHY) Indications:Pre OP CABG. Clinical History 3 vessel CAD, CP, SOB, MO, TIA, HTN, DM II, CKD Stg III, [...] External Ris In - 04/04/2018 9:51 AM LOCKSMITH HELPER Transthoracic Echocardiography Report (TTE) Demographics Patient Name MICA BUTLER Date of Study 04/02/2018 Gender Female Visit Number [id number] Race Room Number 6215 Number Date of 1955 Referring Physician Tj Spencer Age 62 year(s) Beauty Culturist Apprentice Natividad Felder [facility] Emr Trainer Leigh Ann Nolasco Interpreting Stu Gardner MD [place] Physician Procedure Type of Study TTE procedure:2DECHO W DOPPLER(CW/PW/COLOR) (CATHY) Indications:Pre OP CABG. Clinical History 3 vessel CAD, CP, SOB, MO, TIA, HTN, DM II, CKD Stg III, [...] LVOT CI: 3.38 l/min/m^2 Performing Organization Address City/[facility] Cent[facility] Phone Number [facility] HEART[facility] MKCKESSON CPACS * Iron, TIBC, % sat. (without ferritin) (04/02/2018 12:38 AM LOCKSMITH HELPER) Iron 70.0 40.0 - 160.0 ug/dL [facility] TIBC 269 250 - 450 ug/dL [facility] Iron % Saturation 26 20 - 55 % [facility] Specimen Blood Performing Organization Address [facility] Phone Number [address] [address] [facility] * Ferritin (04/02/2018 12:38 AM LOCKSMITH HELPER) Ferritin 91 5 - 275 ng/mL [facility] Specimen Blood Performing Organization Address [facility] Phone Number [address] [address] [facility] * Platelet Aggregation: Function Screen (04/01/2018 2:33 PM LOCKSMITH HELPER) Only the most recent of 3 results within the time period is included. Weak ADP 66 60 - 91 % [facility] Plt. Function Screen 60-100% indicates normal [facility] Interpretation platelet function [facility] Pathologist: Karey Christine MD [facility] (electronic signature) [facility] Platelets 300 150 - 450 K/CU MM [facility] Specimen Blood Narrative Performed At Platelet Function Screen results may be falsely low with platelet counts [facility] <100,000/cu mm. [facility] Performing Organization Address City/[facility] Cent[facility]ode Phone Number [address] [address] [facility] * Arterial doppler arms bilateral (03/31/2018 10:40 AM LOCKSMITH HELPER) Ejection Fraction [facility] ECHO HE[facility] Specimen Impressions Performed At Right Impression [facility] ECHO HEARTLAB 1. There are normal triphasic Doppler waveforms in the brachial, radial and [facility] ulnar arteries. 2. The arterial pressures and [...] At LAB - Upper Extremity Arterial Procedure [facility] ECHO HEARTLAB Demographics MKCKESSON [facility] Patient MICA Harding Date of Study 03/31/2018 62 Visit [id number] male of 1955 Referring Dillon Osborne, Room Number 6215 Physician Beauty Culturist Apprentice Petar Retana [facility] Physician Procedure Type of Study: Extremities Arteries: Upper Extremity Arterial Procedure, ARTERY PRESSURES ARMS, BILATERAL. Indications for Study:Pre OP CABG. Patient Status:Routine. Study Location:Portable. Technical Quality:Adequate visualization. Risk Factors History of Disease + + +--------+ !Diagnosis !Date!Comments! + + +--------+ !History/Risk Factors: !03/31/2018!CAD ! ! !!DM! ! !!Hx of MO! + + +--------+ Procedure Note Interface, External Ris In - 03/31/2018 3:18 PM LOCKSMITH HELPER PV LAB - Upper Extremity Arterial Procedure Demographics Patient Name MICA BUTLER Date of Study 03/31/2018 Age 62 Visit Number [id number] Gender Female Accession Number [id number] Date of 1955 Referring Dillon Osborne, Room Number 6215 Physician Beauty Culturist Apprentice Petar Graham Interpreting Laura Retana, S Physician Procedure Type of Study: Extremities Arteries: Upper Extremity Arterial Procedure, ARTERY PRESSURES ARMS, BILATERAL. Indications for Study:Pre OP CABG. Patient Status:Routine. Study Location:Portable. Technical Quality:Adequate visualization. Risk Factors History of Disease + + +--------+ !Diagnosis !Date !Comments! + + +--------+ !History/Risk Factors: !03/31/2018!CAD ! ! ! !DM ! ! ! !Hx of MO! + + +--------+ Impressions Right Impression 1. [...] Signature Performing Organization Address City/State/Zipcode Phone Number [facility] [employer] * Venous doppler legs bilateral (03/31/2018 7:35 AM LOCKSMITH HELPER) Ejection Fraction [facility] [employer] Specimen Impressions Performed At [facility] ECHO HEARTLAB 1. There is no deep venous obstruction in the common femoral, profunda [facility] femoral, femoral, popliteal, posterior tibial or peroneal [...] PV LAB - Lower Extremities Vein Mapping [facility] ECHO HEARTLAB Demographics [facility] Patient NameMICA BUTLER Date of Study 03/31/2018 62 Visit [id number] male of 1955 Referring Dillon BergmanAshkan Antonioparminder, Room Number 6215 Physician Beauty Culturist Apprentice Siobhan Retana [facility] Physician Procedure Type of Study: Veins: Lower Extremity Vein Mapping, VEIN MAPPING, LOWER EXTREMITY, BILATERAL. Indications for Study:Pre-op evaluation. Patient Status:Routine. Study Location:Portable. Technical Quality:Technically Difficult. Risk Factors History of Disease + + +--------+ !Diagnosis !Date!Comments! + + +--------+ !History/Risk Factors: !03/31/2018!CAD ! ! !!DM! ! !!Hx of MO! + + +--------+ Procedure Note Interface, External Ris In - 03/31/2018 3:18 PM LOCKSMITH HELPER PV LAB - Lower Extremities Vein Mapping Demographics Patient Name MICA BUTLER Date of Study 03/31/2018 Age 62 Visit Number [id number] Gender Female Accession Number [id number] Date of 1955 Referring Dillon Osborne, Room Number 6215 Physician Beauty Culturist Apprentice Siobhan Coffey Interpreting Laura Retana T Physician Procedure Type of Study: Veins: Lower Extremity Vein Mapping, VEIN MAPPING, LOWER EXTREMITY, BILATERAL. Indications for Study:Pre-op evaluation. Patient Status:Routine. Study Location:Portable. Technical Quality:Technically Difficult. Risk Factors History of Disease + + +--------+ !Diagnosis !Date !Comments! + + +--------+ !History/Risk Factors: !03/31/2018!CAD ! ! ! !DM ! ! ! !Hx of MO! + + +--------+ Impressions Right Impression 1. [...] + Performing Organization Address City/State/Zipcode Phone Number [facility] [place] MKNYLA MENSAHCS * Carotid doppler bilateral (03/31/2018 6:15 AM LOCKSMITH HELPER) Ejection Fraction [facility] Specimen Impressions Performed At Right Impression [employer] [place] 1. There is <50% diameter reduction (approximately [...] Performed At LAB - Carotid Duplex Study [facility] HEARTLAB Demographics [facility] Patient MICA Harding Date of Study 03/31/2018 62 Visit [id number] male of 1955 Referring Dillon Osborne, Room Number 6215 Physician Beauty Culturist Apprentice Siobhan Retana, [facility] Physician Procedure Type of Study: Cerebral: Carotid, CAROTID DOPPLER, BILATERAL. Indications for Study:Pre-op CABG. Patient Status:Routine. Study Location:Portable. Technical Quality:Technically Difficult. Risk Factors History of Disease + + +--------+ !Diagnosis !Date!Comments! + + +--------+ !History/Risk Factors: !03/31/2018!CAD ! ! !!DM! ! !!Hx of MO! + + +--------+ Procedure Note Interface, External Ris In - 03/31/2018 3:18 PM LOCKSMITH HELPER PV LAB - Carotid Duplex Study Demographics Patient Name MICA BUTLER Date of Study 03/31/2018 Age 62 Visit Number [id number] Gender Female Accession Number [id number] Date of 1955 Referring Dillon Osborne, Room Number 15 Physician Beauty Culturist Apprentice Siobhan Coffey Interpreting Laura Retana [place] Physician Procedure Type of Study: Cerebral: Carotid, CAROTID DOPPLER, BILATERAL. Indications for Study:Pre-op CABG. Patient Status:Routine. Study Location:Portable. Technical Quality:Technically Difficult. Risk Factors History of Disease + + +--------+ !Diagnosis !Date !Comments! + + +--------+ !History/Risk Factors: !03/31/2018!CAD ! ! ! !DM ! ! ! !Hx of MO! + + +--------+ Impressions Right Impression 1. [...] Additional Measurements:ICAPSV/CCAPSV 0.77.ICAEDV/CCAEDV 1.58. Performing Organization Address City/[facility]/Zipcode Phone Number [facility] HEARTLAB MKCKESSON CPACS * XR chest 2 views (03/31/2018 5:20 AM LOCKSMITH HELPER) Specimen Narrative Performed At FINAL REPORT [facility] Chest 2 views 03/31/2018 7:57 AM CLINICAL HISTORY: Preop imaging. COMPARISON: None available FINDINGS: The lungs are clear. Cardiomediastinal contours are within normal limits. The central pulmonary vasculature is not engorged. The visualized skeleton is intact. IMPRESSION: No acute radiographic abnormalities. Signed: Leo Treadwell MD Report Verified Date/Time:03/31/2018 07:57:26 Reading Location: [address] Neuro Reading Room Procedure Note Interface, External Ris In - 03/31/2018 7:59 AM LOCKSMITH HELPER FINAL REPORT Chest 2 views 03/31/2018 7:57 AM CLINICAL HISTORY: Preop imaging. COMPARISON: None available FINDINGS: The lungs are clear. Cardiomediastinal contours are within normal limits. The central pulmonary vasculature is not engorged. The visualized skeleton is intact. IMPRESSION: No acute radiographic abnormalities. Signed: Leo Treadwell MD Report Verified Date/Time: 03/31/2018 07:57:26 Reading Location: [address] Neuro Reading Room Performing Organization Address City/[facility]/Zipcode Phone Number [facility] * Hepatitis C PCR, Quantitative (03/30/2018 10:35 PM LOCKSMITH HELPER) HCV PCR, Quantitative HCV RNA not detected HCV RNA not detected [facility] Specimen Blood Narrative Performed At This test uses a Real-Time Polymerase Chain Reaction (RT-PCR) methodology and [facility] was performed using [employer] TaqMan HCV test kit version 2.0 [facility] ([employer] Reportable range for this assay is 15 - 100,000,000 IU per mL (1.18 - 8.00 Log IU/mL). This test uses a Real-Time Polymerase Chain Reaction (RT-PCR) methodology and was performed using [employer] TaqMan HCV test kit version 2.0 ([employer] Reportable range for this assay is 15 - 100,000,000 IU per mL (1.18 - 8.00 Log IU/mL). Performing Organization Address City/[facility] Cent[facility]ode Phone Number [address] [address] [facility] * PFA-100 (03/30/2018 10:34 PM LOCKSMITH HELPER) COL/EPI Closure Time 150 78 - 191 Seconds [facility] COL/ADP Closure Time 73 43 - 122 Seconds [facility] Platelets 292 150 - 450 K/CU MM [facility] Specimen Blood Narrative Performed At Hematocrit <35% or platelet count <150,000/CU MM may contribute to falsely [facility] elevated PFA-100. [facility] Performing Organization Address [facility] Centercoid Phone Number [address] [phone] [facility] after 01/02/2018 Insurance Payer Benefit Subscriber ID Type Phone Address Plan / Group [employer] [facility] [facility] Directives For more information, please contact: [address] [phone] Date Inactivated Comments Code Status Date Activated Full Code 04/23/2018 9:11 AM This code status was determined by: Patient 04/22/2018 7:13 PM Full Code 03/30/2018 9:18 PM This code status was determined by: Patient
--- OUTSIDE RECORDS SUMMARY | 2019-01-03 06:31 | XMS REPORT | Continuity of Care Document ---
Author Author Shyp Address Unknown Phone Unavailable Care Team Providers Care Card Feeder Name Role Phone Etherpad Information [employer] Unavailable Unavailable Problems Problem Status Onset Date Classification Date Reported Comments Source VERTIGO Active 11/22/[address] [facility] [place] Encounter for general adult medical examination without abnormal findings 04/26/2018 11/10/2018 [facility] [place] Mammographic calcification found on diagnostic imaging of breast 06/06/2017 09/06/2017 [facility] [place] Encounter for screening for osteoporosis 05/31/2017 08/31/2017 [facility] [place] Other chest pain 05/17/2017 08/17/2017 [facility] [place] CHEST PAINS Active 05/04/2017 [facility] CHEST PAIN Active 05/04/2017 [facility] Unspecified lump in the right breast, unspecified quadrant 09/06/2017 [facility] [place],[facility] Encounter for screening mammogram for malignant neoplasm of breast 09/29/2018 [facility] [place] Age-related osteoporosis without current pathological fracture 08/31/2017 [facility] [place] Asymptomatic menopausal state 08/31/2017 [facility] [place] Chest pain, unspecified 08/13/2017 [facility] Acute bronchitis due to other specified organisms 08/13/2017 [facility] Other specified bacterial agents as the cause of diseases classified elsewhere 08/13/2017 [facility] Hypo-osmolality and hyponatremia 08/13/2017 [facility] Type 2 diabetes mellitus with hyperglycemia 08/13/2017 [facility] Type 2 diabetes mellitus with diabetic nephropathy 08/13/2017 [facility] Disorder of breast, unspecified 08/13/2017 [facility] Hypotension, unspecified 08/13/2017 [facility] Acute respiratory distress 08/13/2017 [facility] Hypertensive chronic kidney disease with stage 1 through stage 4 chronic kidney disease, or unspecified chronic kidney disease 08/13/2017 [facility] Chronic kidney disease, unspecified 08/13/2017 [facility] Acute kidney failure, unspecified 08/13/2017 [facility] Type 2 diabetes mellitus with diabetic chronic kidney disease 08/13/2017 [facility] Metabolic syndrome 08/13/2017 [facility] Hyperlipidemia, unspecified 08/13/2017 [facility] Atherosclerotic heart disease of [place] coronary artery without angina pectoris 08/13/2017 [facility] Old myocardial infarction 08/13/2017 [facility] Obesity, unspecified 08/13/2017 [facility] Tachycardia, unspecified 08/13/2017 [facility] Left anterior fascicular block 08/13/2017 [facility] Fatty liver, not elsewhere classified 08/13/2017 [facility] use of insulin 08/13/2017 [facility] CHEST PAIN, UNSPECIFIED Active [facility] Medications Medication Details Route Status Patient Instructions Ordering Provider Order Date Source morphine Sulfate 6 mg, 3 mL, Route: PO, Drug form: SOLN, Q2H, PRN Chest Pain, Start date: 05/07/17 14:49:00 ONLINE MARKETING COORDINATOR, Duration: 30 day, Stop date: 06/06/17 14:48:00 CSTNotes: (Same as:MORPhine Sulfate) Inactive 05/07/2017 [facility] Terbutaline 0.25 mg, 0.25 mL, Route: SUB-Q, Drug form: INJ, Q6H, Dosing Weight 90, kg, PRN Bradycardia, Start date: 05/07/17 14:35:00 ONLINE MARKETING COORDINATOR, Duration: 30 day, Stop date: 06/06/17 14:34:00 CSTNotes: DO NOT USE IN BOX ORDER PERSON AREA (Same As: Brethine) Inactive 05/07/2017 [facility] Lopressor 2.5 mg, 2.5 mL, Route: IVP, Drug form: INJ, Q3H, Dosing Weight 90, kg, PRN Tachycardia, Start date: 05/07/17 14:35:00 ONLINE MARKETING COORDINATOR, Duration: 30 day, Stop date: 06/06/17 14:34:00 CSTNotes: (Same as: Lopressor) Push over 2 minutes Inactive 05/07/2017 [facility] Nitroglycerin 0.4 MG Sublingual Tablet [Nitrostat] 0.4 mg, 1 tab, Route: SL, Drug form: TAB, Q5Min, Dosing Weight 90, kg, PRN Chest Pain, Start date: 05/07/17 14:35:00 ONLINE MARKETING COORDINATOR, Duration: 3 doses or times, Stop date: 06/06/17 14:34:00 CSTNotes: (Same as:Nitroquick, Nitrostat) "Do Not Crush" Sublingual tablet Inactive 05/07/2017 [facility] Morphine 2 mg, Route: IVP, Q2H, Dosing Weight 90, kg, PRN Chest Pain, Start date: 05/07/17 14:34:00 ONLINE MARKETING COORDINATOR, Duration: 30 day, Stop date: 06/06/17 14:33:00 ONLINE MARKETING COORDINATOR Inactive 05/07/2017 [facility] Hydralazine 10 mg, 0.5 mL, Route: IV, Drug form: INJ, Q4H, Dosing Weight 90, kg, PRN Hypertension, Start date: 05/07/17 14:34:00 ONLINE MARKETING COORDINATOR, Duration: 30 day, Stop date: 06/06/17 14:33:00 CSTNotes: (Same as: Apresoline) Push over 5 minutes Inactive 05/07/2017 [facility] Sodium Chloride 0.9% IV 1,000 mL 1,000 mL, Rate: 100 ml/hr, Infuse over: 10 hr, Route: IV, Dosing Weight 90 kg, Total Volume: 1,000, Start date: 05/06/17 19:23:00 ONLINE MARKETING COORDINATOR, Duration: 30 day, Stop date: 06/05/17 19:22:00 ONLINE MARKETING COORDINATOR, 1.99, m2 No Longer Active 05/07/2017 [facility] Glipizide 10 MG Oral Tablet 10 mg=1 tab, PO, BID, # 30 tab, 0 Refill(s) Active 05/06/2017 [facility] Humalog 30 unit, 0.3 mL, Route: SUB-Q, Drug form: SOLN, TID-Before Meals, Start date: 05/06/17 11:30:00 ONLINE MARKETING COORDINATOR, Duration: 30 day, Stop date: 06/05/17 7:30:00 CSTNotes: Roll in palms of hands gently; Do not shake `vigorously. (Same as: Humalog ) "Single Patient Use Only " WASTE: F/P - Black; E - Municipal Trash Bin Stable for 28 days at room temperature. Expires in days from Date No Longer Active 05/06/2017 [facility] Aspirin 325 MG Oral Tablet 325 mg, 1 tab, Route: PO, Drug form: TAB, Daily, Dosing Weight 86.364, kg, Start date: 05/06/17 9:00:00 ONLINE MARKETING COORDINATOR, Duration: 30 day, Stop date: 06/04/17 9:00:00 CSTNotes: Take with food. No Longer Active 05/06/2017 [facility] NovoLOG FlexPen 24 unit, Route: SUB-Q, Breakfast, Dosing Weight 86.364, kg, Start date: 05/06/17 8:00:00 ONLINE MARKETING COORDINATOR, Duration: 30 day, Stop date: 06/04/17 8:00:00 ONLINE MARKETING COORDINATOR No Longer Active 05/06/2017 [facility] insulin glargine 45 unit, 0.45 mL, Route: SUB-Q, Drug form: SOLN, Breakfast, Start date: 05/06/17 8:00:00 ONLINE MARKETING COORDINATOR, Stop date: 06/04/17 8:00:00 CSTNotes: (Same as: Lantus) Do not hold insulin without contacting prescriber W ASTE: F/P - Black; E - Municipal Trash Bin "single patient use only" No Longer Active 05/06/2017 [facility] 3 ML Insulin Glargine 100 UNT/ML Prefilled Syringe [Lantus] 35 unit, Route: SUB-Q, Drug form: SOLN, Before Breakfast, Dosing Weight 86.364, kg, Start date: 05/06/17 7:30:00 ONLINE MARKETING COORDINATOR, Duration: 30 day, Stop date: 06/04/17 7:30:00 ONLINE MARKETING COORDINATOR No Longer Active 05/06/2017 [facility] 3 ML Insulin Glargine 100 UNT/ML Prefilled Syringe [Lantus] Route: SUB-Q, Drug form: SOLN, Bedtime, Dosing Weight 86.364, kg, Start date: 05/05/17 21:00:00 ONLINE MARKETING COORDINATOR, Duration: 30 day, Stop date: 06/03/17 21:00:00 ONLINE MARKETING COORDINATOR Inactive 05/06/2017 [facility] insulin glargine 55 unit, 0.55 mL, Route: SUB-Q, Drug form: SOLN, Bedtime, Start date: 05/05/17 21:00:00 ONLINE MARKETING COORDINATOR, Stop date: 06/03/17 21:00:00 CSTNotes: (Same as: Lantus) Do not hold insulin without contacting prescriber W ASTE: F/P - Black; E - Municipal Trash Bin "single patient use only" No Longer Active 05/06/2017 [facility] rosuvastatin 20 mg, 1 tab, Route: PO, Drug form: TAB, Bedtime, Dosing Weight 86.364, kg, Start date: 05/05/17 21:00:00 ONLINE MARKETING COORDINATOR, Duration: 30 day, Stop date: 06/03/17 21:00:00 CSTNotes: Same as Crestor No Longer Active 05/06/2017 [facility] Hydralazine Hydrochloride 25 MG Oral Tablet 25 mg=1 tab, PO, TID, # 90 tab, 1 Refill(s), Pharmacy: [facility] [id number] Active 05/06/2017 [facility] benzonatate 100 MG Oral Capsule [Tessalon Perles] 100 mg=1 cap, PO, Q8H, PRN cough, do not crush or chew, X 10 day, # 30 cap, 0 Refill(s), Pharmacy: [facility] [id number] No Longer Active 05/06/2017 [facility] doxycycline hyclate 100 MG Oral Capsule 100 mg=1 cap, PO, Q12H, X 10 day, # 20 cap, 0 Refill(s), Pharmacy: [facility] [place] [id number] No Longer Active 05/06/2017 [facility] 3 ML Insulin, Aspart, Human 100 UNT/ML Pen Injector [NovoLog] 25 unit, SUB-Q, Lunch, # 3 pen(s), 0 Refill(s), Pharmacy: [facility] [place] [id number] Active 05/06/2017 [facility] Insulin Lispro 15 unit, 0.15 mL, Route: SUB-Q, Drug form: SOLN, ONCE, Dosing Weight 86.364, kg, Priority: NOW, Start date: 05/05/17 18:32:00 ONLINE MARKETING COORDINATOR, Stop date: 05/05/17 18:32:00 CSTNotes: Roll in palms of hands gently; Do not shake `vigorously. (Same as: Humalog ) "Single Patient Use Only " WASTE: F/P - Black; E - Municipal Trash Bin Stable for 28 days at room temperature. Expires in days from Date Inactive 05/06/2017 [facility] Insulin, Aspart, Human 15 unit, Route: SUB-Q, ONCE, Dosing Weight 86.364, kg, Start date: 05/05/17 17:24:00 ONLINE MARKETING COORDINATOR, Stop date: 05/05/17 17:24:00 ONLINE MARKETING COORDINATOR Inactive 05/05/2017 [facility] Humalog 25 unit, 0.25 mL, Route: SUB-Q, Drug form: SOLN, ONCE, Start date: 05/05/17 15:01:00 ONLINE MARKETING COORDINATOR, Stop date: 05/05/17 15:01:00 ONLINE MARKETING COORDINATOR Inactive 05/05/2017 [facility] Insulin, Aspart, Human 25 unit, Route: SUB-Q, ONCE, Dosing Weight 86.364, kg, Priority: NOW, Start date: 05/05/17 14:41:00 ONLINE MARKETING COORDINATOR, Stop date: 05/05/17 14:41:00 ONLINE MARKETING COORDINATOR Inactive 05/05/2017 [facility] Clonidine Hydrochloride 0.2 MG Oral Tablet 0.2 mg, 1 tab, Route: PO, Drug form: TAB, TID, Dosing Weight 86.364, kg, Start date: 05/05/17 13:00:00 ONLINE MARKETING COORDINATOR, Duration: 30 day, Stop date: 06/04/17 9:00:00 CSTNotes: (Same As: Catapres) No Longer Active 05/05/2017 [facility] NovoLOG FlexPen 24 unit, Route: SUB-Q, Lunch, Dosing Weight 86.364, kg, Start date: 05/05/17 12:00:00 ONLINE MARKETING COORDINATOR, Duration: 30 day, Stop date: 06/03/17 12:00:00 ONLINE MARKETING COORDINATOR Inactive 05/05/2017 [facility] Humalog 30 unit, 0.3 mL, Route: SUB-Q, Drug form: SOLN, BID-Before Meals, Start date: 05/05/17 12:00:00 ONLINE MARKETING COORDINATOR, Duration: 30 day, Stop date: 06/04/17 7:30:00 CSTNotes: Roll in palms of hands gently; Do not shake `vigorously. (Same as: Humalog ) "Single Patient Use Only " WASTE: F/P - Black; E - Municipal Trash Bin Stable for 28 days at room temperature. Expires in days from Date No Longer Active 05/05/2017 [facility] Humalog 20 unit, 0.2 mL, Route: SUB-Q, Drug form: SOLN, ONCE, Start date: 05/05/17 11:31:00 ONLINE MARKETING COORDINATOR, Stop date: 05/05/17 11:31:00 CSTNotes: Roll in palms of hands gently; Do not shake `vigorously. (Same as: Humalog ) "Single Patient Use Only " WASTE: F/P - Black; E - Municipal Trash Bin Stable for 28 days at room temperature. Expires in days from Date Inactive 05/05/2017 [facility] NovoLOG FlexPen 21 unit, Route: SUB-Q, TID-Before Meals, Dosing Weight 86.364, kg, Start date: 05/05/17 11:30:00 ONLINE MARKETING COORDINATOR, Duration: 30 day, Stop date: 06/04/17 7:30:00 ONLINE MARKETING COORDINATOR Inactive 05/05/2017 [facility] Insulin, Aspart, Human 20 unit, Route: SUB-Q, ONCE, Dosing Weight 86.364, kg, Start date: 05/05/17 11:22:00 ONLINE MARKETING COORDINATOR, Stop date: 05/05/17 11:22:00 ONLINE MARKETING COORDINATOR Inactive 05/05/2017 [facility] Insulin Glargine 100 UNT/ML Injectable Solution [Lantus] 35 unit, 0.35 mL, Route: SUB-Q, Drug form: SOLN, ONCE, Dosing Weight 86.364, kg, Start date: 05/05/17 11:22:00 ONLINE MARKETING COORDINATOR, Stop date: 05/05/17 11:22:00 CSTNotes: (Same as: Lantus) Do not hold insulin without contacting prescriber WASTE: F/P - Black; E - Municipal Trash Bin "single patient use only" Inactive 05/05/2017 [facility] Humalog 9 unit, 0.09 mL, Route: SUB-Q, Drug form: SOLN, ONCE, Start date: 05/05/17 10:18:00 ONLINE MARKETING COORDINATOR, Stop date: 05/05/17 10:18:00 CSTNotes: Roll in palms of hands gently; Do not shake `vigorously. (Same as: Humalog ) "Single Patient Use Only " WASTE: F/P - Black; E - Municipal Trash Bin Stable for 28 days at room temperature. Expires in days from Date Inactive 05/05/2017 [facility] NovoLOG FlexPen 9 unit, Route: SUB-Q, ONCE, Dosing Weight 86.364, kg, Priority: STAT, Start date: 05/05/17 9:44:00 ONLINE MARKETING COORDINATOR, Stop date: 05/05/17 9:44:00 ONLINE MARKETING COORDINATOR Inactive 05/05/2017 [facility] Insulin Lispro 2 unit, 0.02 mL, Route: SUB-Q, Drug form: SOLN, TID-Before Meals, Dosing Weight 86.364, kg, PRN Blood Glucose Results, Start date: 05/05/17 9:19:00 ONLINE MARKETING COORDINATOR, Duration: 30 day, Stop date: 06/04/17 9:18:00 CSTNotes: Roll in palms of hands gently; Do not shake `vigorously. (Same as: Humalog ) "Single Patient Use Only " WASTE: F/P - Black; E - Municipal Trash Bin Stable for 28 days at room temperature. Expires in days from Date No Longer Active 05/05/2017 [facility] Glucagon 1 mg, Route: IM, Drug form: PDR/INJ, PRN, Dosing Weight 86.364, kg, PRN Blood Glucose Results, Start date: 05/05/17 9:19:00 ONLINE MARKETING COORDINATOR, Duration: 30 day, Stop date: 06/04/17 9:18:00 ONLINE MARKETING COORDINATOR No Longer Active 05/05/2017 [facility] Dextrose 50% Syringe 25 gm, 50 mL, Route: IVP, Drug Form: INJ, Dosing Weight 86.364, kg, PRN, PRN Blood Glucose Results, Start date: 05/05/17 9:19:00 ONLINE MARKETING COORDINATOR, Duration: 30 day, Stop date: 06/04/17 9:18:00 ONLINE MARKETING COORDINATOR No Longer Active 05/05/2017 [facility] Dextromethorphan Hydrobromide 2 MG/ML / Guaifenesin 20 MG/ML Oral Solution 10 mL, Route: PO, Drug Form: LIQ, Dosing Weight 86.364, kg, Q4H, PRN as needed for cough, Start date: 05/05/17 9:18:00 ONLINE MARKETING COORDINATOR, Stop date: 06/04/17 9:17:00 CSTNotes: (dextromethorphan-guaifenesin 10-100/5 ml LIQ) (Same as: Robitussin-DM) No Longer Active 05/05/2017 [facility] pneumococcal capsular polysaccharide type 1 vaccine / pneumococcal capsular polysaccharide type 10A vaccine / pneumococcal capsular polysaccharide type 11A vaccine / pneumococcal capsular polysaccharide type 12F vaccine / pneumococcal capsular polysacchar 0.5 mL, Route: IM, Drug Form: INJ, Daily, Start date: 05/05/17 9:00:00 ONLINE MARKETING COORDINATOR, Duration: 1 doses or times, Stop date: 05/05/17 9:00:00 CSTNotes: (Same as: Pneumovax 23) Refrigerate Inactive 05/05/2017 [facility] methylPREDNISolone SODium SUCCinate 40 mg, 1 mL, Route: IVP, Drug form: INJ, Q12H, Dosing Weight 113.636, kg, Start date: 05/05/17 9:00:00 ONLINE MARKETING COORDINATOR, Duration: 30 day, Stop date: 06/03/17 21:00:00 CSTNotes: (Same as:Solu-MEDROL, A-Methapred) Inactive 05/05/2017 [facility] Albuterol 0.833 MG/ML / Ipratropium [place] 0.167 MG/ML Inhalant Solution 3 mL, Route: NEB, Drug Form: SOLN, Dosing Weight 113.636, kg, RQ6H, Start date: 05/05/17 8:00:00 ONLINE MARKETING COORDINATOR, Duration: 30 day, Stop date: 06/04/17 2:00:00 CSTNotes: (Same as: Duoneb) No Longer Active 05/05/2017 [facility] Insulin Lispro 3 unit, 0.03 mL, Route: SUB-Q, Drug form: SOLN, Bedtime, Dosing Weight 113.636, kg, PRN Blood Glucose Results, Start date: 05/05/17 6:27:00 ONLINE MARKETING COORDINATOR, Duration: 30 day, Stop date: 06/04/17 6:26:00 CSTNotes: Roll in palms of hands gently; Do not shake `vigorously. (Same as: Humalog ) "Single Patient Use Only " WASTE: F/P - Black; E - Municipal Trash Bin Stable for 28 days at room temperature. Expires in days from Date Inactive 05/05/2017 [facility] Dextrose 50% Syringe 25 gm, 50 mL, Route: IVP, Drug Form: INJ, Dosing Weight 113.636, kg, PRN, PRN Blood Glucose Results, Start date: 05/05/17 6:27:00 ONLINE MARKETING COORDINATOR, Duration: 30 day, Stop date: 06/04/17 6:26:00 ONLINE MARKETING COORDINATOR Inactive 05/05/2017 [facility] Glucagon 1 mg, Route: IM, Drug form: PDR/INJ, PRN, Dosing Weight 113.636, kg, PRN Blood Glucose Results, Start date: 05/05/17 6:27:00 ONLINE MARKETING COORDINATOR, Duration: 30 day, Stop date: 06/04/17 6:26:00 ONLINE MARKETING COORDINATOR Inactive 05/05/2017 [facility] Aspirin 325 MG Oral Tablet 325 mg=1 tab, PO, Daily, 0 Refill(s) Active 05/05/2017 [facility] rosuvastatin 20 mg oral tablet 20 mg=1 tab, PO, Bedtime, # 30 tab, 0 Refill(s) Active 05/05/2017 [facility] Hydrochlorothiazide 50 MG Oral Tablet 50 mg=1 tab, PO, BID, 0 Refill(s) Inactive 05/05/2017 [facility] Clonidine Hydrochloride 0.2 MG Oral Tablet 0.2 mg=1 tab, PO, TID, 0 Refill(s) Active 05/05/2017 [facility] 3 ML Insulin Glargine 100 UNT/ML Prefilled Syringe [Lantus] 32, SUB-Q, Bedtime, 32 units at bedtime, 0 Refill(s) Active 05/05/2017 [facility] escitalopram 20 mg oral tablet 20 mg=1 tab, PO, Daily, # 30 tab, 0 Refill(s) Active 05/05/2017 [facility] cefdinir 300 MG Oral Capsule 300 mg=1 cap, PO, Q12H, # 20 cap, 0 Refill(s) Inactive 05/05/2017 [facility] lisinopril 2.5 mg oral tablet 2.5 mg=1 tab, PO, Daily, # 30 tab, 0 Refill(s) Inactive 05/05/2017 [facility] NovoLOG FlexPen 24 unit, SUB-Q, Lunch, 0 Refill(s) Inactive 05/05/2017 [facility] Levaquin 500 mg, 2 tab, Route: PO, Drug form: TAB, [id number], Dosing Weight 113.636, kg, Start date: 05/05/17 6:00:00 ONLINE MARKETING COORDINATOR, Duration: 5 day, Stop date: 05/09/17 6:00:00 ONLINE MARKETING COORDINATOR, ABX Indication: Non-PNA Respiratory Tract InfectionNotes: Do not give w/antacids, dairy pdt & minerals Take 1 hr before or 2 hr after dairy pdt (Same as:Levaquin) No Longer Active 05/05/2017 [facility] Albuterol 0.83 MG/ML Inhalant Solution 2.49 mg, 3 mL, Route: NEB, Drug form: SOLN, PRN, Dosing Weight 113.636, kg, PRN Respiratory Protocol, Start date: 05/05/17 5:25:00 ONLINE MARKETING COORDINATOR, Duration: 30 day, Stop date: 06/04/17 5:24:00 CSTNotes: SEE RT DOCUMENTATION (Same as: Proventil) No Longer Active 05/05/2017 [facility] Aspirin 325 mg, Route: PO, Drug form: TAB, ONCE, Dosing Weight 113.636, kg, Priority: STAT, Start date: 05/05/17 3:48:00 ONLINE MARKETING COORDINATOR, Stop date: 05/05/17 3:48:00 ONLINE MARKETING COORDINATOR Inactive 05/05/2017 [facility] Insulin regular 5 unit, Route: IV, ONCE, Dosing Weight 113.636, kg, Priority: STAT, Start date: 05/05/17 3:40:00 ONLINE MARKETING COORDINATOR, Stop date: 05/05/17 3:40:00 ONLINE MARKETING COORDINATOR Inactive 05/05/2017 [facility] Prednisone 60 mg, Route: PO, Drug form: TAB, ONCE, Dosing Weight 113.636, kg, Priority: STAT, Start date: 05/05/17 2:16:00 ONLINE MARKETING COORDINATOR, Stop date: 05/05/17 2:16:00 ONLINE MARKETING COORDINATOR Inactive 05/05/2017 [facility] Albuterol 0.833 MG/ML / Ipratropium [place] 0.167 MG/ML Inhalant Solution 3 mL, Route: NEB, Drug Form: SOLN, Dosing Weight 113.636, kg, ONCE, STAT, Start date: 05/05/17 2:16:00 ONLINE MARKETING COORDINATOR, Stop date: 05/05/17 2:16:00 ONLINE MARKETING COORDINATOR Inactive 05/05/2017 [facility] Sodium Chloride 0.9% (Bolus) IV 1,000 mL, Infuse Over: 1 hr, Route: IV, ONCE, Priority: STAT, Dosing Weight 113.636 kg, Start date: 05/05/17 2:16:00 ONLINE MARKETING COORDINATOR, Stop date: 05/05/17 2:16:00 ONLINE MARKETING COORDINATOR Inactive 05/05/2017 [facility] Saline Flush 0.9% 10 mL, Route: IVP, Drug Form: INJ, Dosing Weight 113.636, kg, PRN, PRN Line Flush, Start date: 05/05/17 2:16:00 ONLINE MARKETING COORDINATOR, Duration: 30 day, Stop date: 06/04/17 2:15:00 CSTNotes: (Same as: BD Posiflush) No Longer Active 05/05/2017 [facility] Alendronate Sodium 70 Mg Tablet Use As Directed Active [facility] Aspirin (Aspirin Enteric Coated) 325 Mg Tabec Daily Active [facility] Citalopram Hydrobromide (Citalopram Hbr) 20 Mg Tablet Daily Active [facility] Clonidine Hcl 0.2 Mg Tablet Three Times A Day Active [facility] Dorzolamide/Timolol/Pf (Cosopt Pf Eye Drops) 1 Each Droperette Daily Active [facility] Furosemide 20 Mg Tablet Daily Active [facility] Naltrexone Hcl 50 Mg Tablet Daily Active [facility] Rosuvastatin Calcium (Crestor) 20 Mg Tablet Daily Active [facility] Sodium Polystyrene Sulfonate (Kionex) 15 Gm/60 Ml Oral.susp Daily Active [facility] Allergies, Adverse Reactions, Alerts Substance Category Reaction Severity Reaction type Status Date Reported Comments Source No Known Medication Allergies Assertion Drug allergy CASSANDRA Joseph Immunizations Immunization Date Given Site Status Last Updated Comments Source pneumococcal 23-valent vaccine 05/05/2017 Not Given CASSANDRA Joseph,[facility] pneumococcal 23-valent vaccine<sup>1</sup> 05/05/2017 Not Given CASSANDRA Joseph Results Order Name Results Value Reference Range Date Interpretation Comments Source Blood leukocytes automated count (number/volume) 9.98 4.8 - 10.8 10/09/2018 [facility] Blood erythrocytes automated count (number/volume) 5.46 3.6 - 5.1 10/09/2018 [facility] Blood hemoglobin measurement (moles/volume) 15.4 12.0 - 16.0 10/09/2018 [facility] Automated blood hematocrit (volume fraction) 48.5 34.2 - 44.1 10/09/2018 [facility] Automated erythrocyte mean corpuscular volume 88.8 81 - 99 10/09/2018 [facility] Automated erythrocyte mean corpuscular hemoglobin (mass per erythrocyte) 28.2 28 - 32 10/09/2018 [facility] Automated erythrocyte mean corpuscular hemoglobin concentration measurement (mass/volume) 31.8 31 - 35 10/09/2018 [facility] RDW BldCo-Rto 15.2 11.7 - 14.4 10/09/2018 [facility] Automated blood platelet count (count/volume) 267 140 - 360 10/09/2018 [facility] Automated blood segmented neutrophil count as percentage of total leukocytes 71.1 38.7 - 80.0 10/09/2018 [facility] Automated blood lymphocyte count as percentage ot total leukocytes 23.4 18.0 - 39.1 10/09/2018 [facility] Automated blood monocyte count as percentage of total leukocytes 4.1 4.4 - 11.3 10/09/2018 [facility] Automated blood eosinophil count as percentage of total leukocytes 0.7 0.0 - 6.0 10/09/2018 [facility] Automated blood basophil count as percentage of total leukocytes 0.5 0.0 - 1.0 10/09/2018 [facility] IM GRANULOCYTES % 0.2 0.0 - 1.0 10/09/2018 [facility] Automated blood neutrophil count 7.1 2.1 - 6.9 10/09/2018 [facility] Blood lymphocytes count (number/volume) 2.3 1.0 - 3.2 10/09/2018 [facility] Blood monocytes automated count (number/volume) 0.4 0.2 - 0.8 10/09/2018 [facility] Automated blood eosinophil count 0.1 0.0 - 0.4 10/09/2018 [facility] Automated blood basophil count (count/volume) 0.1 0.0 - 0.1 10/09/2018 [facility] Absolute Immature Granulocyte (auto 0.02 0 - 0.1 10/09/2018 [facility] Prothrombin time (PT) in platelet poor plasma by coagulation assay 12.3 11.9 - 14.5 10/09/2018 [facility] INR in Platelet poor plasma by Coagulation assay 0.87 10/09/2018 [facility] Activated partial thromboplastin time (aPTT) in platelet poor plasma bycoagulation assay 25.9 23.8 - 35.5 10/09/2018 [facility] Serum or plasma sodium measurement (moles/volume) 142 136 - 145 10/09/2018 [facility] Serum or plasma potassium measurement (moles/volume) 4.1 3.5 - 5.1 10/09/2018 [facility] Serum or plasma chloride measurement (moles/volume) 100 98 - 107 10/09/2018 [facility] Serum or plasma carbon dioxide, total measurement (moles/volume) 28 22 - 29 10/09/2018 [facility] Serum or plasma anion gap 18.1 8 - 16 10/09/2018 [facility] Serum or plasma urea nitrogen measurement (mass/volume) 39 7 - 26 10/09/2018 [facility] Serum or plasma creatinine measurement (mass/volume) 1.59 0.57 - 1.11 10/09/2018 [facility] Serum or plasma urea nitrogen/creatinine mass ratio 25 6 - 25 10/09/2018 [facility] Estimated glomerular filtration rate (GFR) determination 33 60 10/09/2018 [facility] Glucose measurement 161 74 - 118 10/09/2018 [facility] Serum or plasma calcium measurement (mass/volume) 11.0 8.4 - 10.2 10/09/2018 [facility] Serum or plasma magnesium measurement (mass/volume) 2.5 1.3 - 2.1 10/09/2018 [facility] Serum or plasma total bilirubin measurement (mass/volume) 0.5 0.2 - 1.2 10/09/2018 [facility] Aspartate Amino Transf (AST/SGOT) 33 5 - 34 10/09/2018 [facility] Serum or plasma alanine aminotransferase measurement (enzymatic activity/volume) 30 0 - 55 10/09/2018 [facility] Serum or plasma protein measurement (mass/volume) 8.2 6.5 - 8.1 10/09/2018 [facility] Serum or plasma albumin measurement (mass/volume) 4.3 3.5 - 5.0 10/09/2018 [facility] Plasma globulin measurement (mass/volume) 3.9 2.3 - 3.5 10/09/2018 [facility] Serum or plasma albumin/globulin mass ratio 1.1 0.8 - 2.0 10/09/2018 [facility] Serum or plasma alkaline phosphatase measurement (enzymatic activity/volume) 87 40 - 150 10/09/2018 [facility] Serum or plasma creatine kinase measurement (enzymatic activity/volume) 229 29 - 168 10/09/2018 [facility] Serum or plasma creatine kinase MB measurement (mass/volume) 0.80 0 - 5.0 10/09/2018 [facility] Troponin I measurement by highly sensitive enzyme immunoassay 0.001 0 - 0.300 10/09/2018 [facility] Serum or plasma thyrotropin measurement by detection limit <=0.005 miu/l (units/volume) 2.718 0.350 - 4.940 10/09/2018 [facility] Urine color determination YELLOW YELLOW 10/09/2018 [facility] Urine clarity HAZY CLEAR 10/09/2018 [facility] Specific gravity of Urine by Test strip 1.015 1.010 - 1.025 10/09/2018 [facility] Urine pH measurement by automated test strip 5 5 - 7 10/09/2018 [facility] Urine leukocyte esterase detection by dipstick NEGATIVE NEGATIVE 10/09/2018 [facility] Urine nitrite detection NEGATIVE NEGATIVE 10/09/2018 [facility] Urine protein measurement by test strip (mass/volume) 1+ NEGATIVE 10/09/2018 [facility] Urine glucose detection NEGATIVE NEGATIVE 10/09/2018 [facility] Urine ketones detection by automated test strip NEGATIVE NEGATIVE 10/09/2018 [facility] Urine urobilinogen measurement by test strip (mass/volume) 0.2 0.2 - 1 10/09/2018 [facility] Urine total bilirubin measurement (mass/volume) NEGATIVE NEGATIVE 10/09/2018 [facility] Urine erythrocytes detection NEGATIVE NEGATIVE 10/09/2018 [facility] Automated urine sediment leukocyte count by microscopy (number/high power field) 0-5 0 - 5 10/09/2018 [facility] Erythrocytes detection in urine sediment by light microscopy NONE 0 - 5 10/09/2018 [facility] Bacteria detection in urine sediment by light microscopy FEW NONE 10/09/2018 [facility] Epithelial cells detection in urine sediment by light microscopy FEW NONE 10/09/2018 [facility] Capillary blood glucose measurement by glucometer (mass/volume) 168 70 - 120 03/30/2018 [facility] Capillary blood glucose measurement by glucometer (mass/volume) 168 70 - 120 03/30/2018 [facility] Activated partial thromboplastin time (aPTT) in platelet poor plasma bycoagulation assay 27.5 23.8 - 35.5 03/30/2018 [facility] Serum or plasma sodium measurement (moles/volume) 137 136 - 145 03/30/2018 [facility] Serum or plasma potassium measurement (moles/volume) 4.4 3.5 - 5.1 03/30/2018 [facility] Serum or plasma chloride measurement (moles/volume) 108 98 - 107 03/30/2018 [facility] Serum or plasma carbon dioxide, total measurement (moles/volume) 20 22 - 29 03/30/2018 [facility] Serum or plasma anion gap 13.4 8 - 16 03/30/2018 [facility] Serum or plasma urea nitrogen measurement (mass/volume) 21 7 - 26 03/30/2018 [facility] Serum or plasma creatinine measurement (mass/volume) 1.32 0.57 - 1.11 03/30/2018 [facility] Serum or plasma urea nitrogen/creatinine mass ratio 16 6 - 25 03/30/2018 [facility] Estimated glomerular filtration rate (GFR) determination 41 60 03/30/2018 [facility] Glucose measurement 232 74 - 118 03/30/2018 [facility] Serum or plasma calcium measurement (mass/volume) 9.7 8.4 - 10.2 03/30/2018 [facility] Phosphorus measurement 3.5 2.3 - 4.7 03/29/2018 [facility] Blood leukocytes automated count (number/volume) 10.34 4.8 - 10.8 03/29/2018 [facility] Blood erythrocytes automated count (number/volume) 4.50 3.6 - 5.1 03/29/2018 [facility] Blood hemoglobin measurement (moles/volume) 13.4 12.0 - 16.0 03/29/2018 [facility] Automated blood hematocrit (volume fraction) 42.1 34.2 - 44.1 03/29/2018 [facility] Automated erythrocyte mean corpuscular volume 93.6 81 - 99 03/29/2018 [facility] Automated erythrocyte mean corpuscular hemoglobin (mass per erythrocyte) 29.8 28 - 32 03/29/2018 [facility] Automated erythrocyte mean corpuscular hemoglobin concentration measurement (mass/volume) 31.8 31 - 35 03/29/2018 [facility] RDW BldCo-Rto 12.7 11.7 - 14.4 03/29/2018 [facility] Automated blood platelet count (count/volume) 220 140 - 360 03/29/2018 [facility] Automated blood segmented neutrophil count as percentage of total leukocytes 57.6 38.7 - 80.0 03/29/2018 [facility] Automated blood lymphocyte count as percentage ot total leukocytes 33.0 18.0 - 39.1 03/29/2018 [facility] Automated blood monocyte count as percentage of total leukocytes 6.3 4.4 - 11.3 03/29/2018 [facility] Automated blood eosinophil count as percentage of total leukocytes 2.2 0.0 - 6.0 03/29/2018 [facility] Automated blood basophil count as percentage of total leukocytes 0.4 0.0 - 1.0 03/29/2018 [facility] IM GRANULOCYTES % 0.5 0.0 - 1.0 03/29/2018 [facility] Blood lymphocytes count (number/volume) 3.4 1.0 - 3.2 03/29/2018 [facility] Blood monocytes automated count (number/volume) 0.7 0.2 - 0.8 03/29/2018 [facility] Automated blood eosinophil count 0.2 0.0 - 0.4 03/29/2018 [facility] Automated blood basophil count (count/volume) 0.0 0.0 - 0.1 03/29/2018 [facility] Absolute Immature Granulocyte (auto 0.05 0 - 0.1 03/29/2018 [facility] Phosphorus measurement 3.5 2.3 - 4.7 03/29/2018 [facility] Serum or plasma magnesium measurement (mass/volume) 2.0 1.3 - 2.1 03/29/2018 [facility] Serum or plasma total bilirubin measurement (mass/volume) 0.4 0.2 - 1.2 03/29/2018 [facility] Aspartate Amino Transf (AST/SGOT) 27 5 - 34 03/29/2018 [facility] Serum or plasma alanine aminotransferase measurement (enzymatic activity/volume) 33 0 - 55 03/29/2018 [facility] Serum or plasma protein measurement (mass/volume) 6.9 6.5 - 8.1 03/29/2018 [facility] Serum or plasma albumin measurement (mass/volume) 3.1 3.5 - 5.0 03/29/2018 [facility] Plasma globulin measurement (mass/volume) 3.8 2.3 - 3.5 03/29/2018 [facility] Serum or plasma albumin/globulin mass ratio 0.8 0.8 - 2.0 03/29/2018 [facility] Serum or plasma alkaline phosphatase measurement (enzymatic activity/volume) 90 40 - 150 03/29/2018 [facility] Differential Total Cells Counted 100 03/28/2018 [facility] Manual blood neutrophils/100 leukocytes 64 40 - 74 03/28/2018 [facility] Manual blood lymphocytes/100 leukocytes 25 19 - 48 03/28/2018 [facility] Manual blood monocytes/100 leukocytes 5 3.4 - 9.0 03/28/2018 [facility] Manual blood eosinophil count as percentage of total leukocytes 2 0 - 7 03/28/2018 [facility] Manual basophil percentage 1 0 - 1.5 03/28/2018 [facility] Blood lymphocytes variant count (number/volume) 3 03/28/2018 [facility] Blood platelets count by estimate (number/volume) ADEQUATE 03/28/2018 [facility] Platelet morphology NORMAL 03/28/2018 [facility] Blood anisocytosis detection by light microscopy SLIGHT 03/28/2018 [facility] Blood macrocytes detection by light microscopy SLIGHT 03/28/2018 [facility] RBC morphology NORMAL 03/28/2018 [facility] Differential Total Cells Counted 100 03/28/2018 [facility] Manual blood neutrophils/100 leukocytes 64 40 - 74 03/28/2018 [facility] Manual blood lymphocytes/100 leukocytes 25 19 - 48 03/28/2018 [facility] Manual blood monocytes/100 leukocytes 5 3.4 - 9.0 03/28/2018 [facility] Manual blood eosinophil count as percentage of total leukocytes 2 0 - 7 03/28/2018 [facility] Manual basophil percentage 1 0 - 1.5 03/28/2018 [facility] Blood lymphocytes variant count (number/volume) 3 03/28/2018 [facility] Blood platelets count by estimate (number/volume) ADEQUATE 03/28/2018 [facility] Platelet morphology NORMAL 03/28/2018 [facility] Blood anisocytosis detection by light microscopy SLIGHT 03/28/2018 [facility] Blood macrocytes detection by light microscopy SLIGHT 03/28/2018 [facility] RBC morphology NORMAL 03/28/2018 [facility] Serum or plasma creatine kinase measurement (enzymatic activity/volume) 241 29 - 168 03/27/2018 [facility] Serum or plasma creatine kinase MB measurement (mass/volume) 1.10 0 - 5.0 03/27/2018 [facility] Troponin I measurement by highly sensitive enzyme immunoassay 0.288 0 - 0.300 03/27/2018 [facility] Hemoglobin A1c Percent 9.5 4.0 - 7.0 03/26/2018 [facility] Hemoglobin A1c Percent 9.5 4.0 - 7.0 03/26/2018 [facility] Serum or plasma thyrotropin measurement by detection limit <=0.005 miu/l (units/volume) 2.152 0.350 - 4.940 03/26/2018 [facility] Serum or plasma triglyceride measurement (mass/volume) 223 0 - 149 03/25/2018 [facility] Serum or plasma cholesterol measurement (mass/volume) 158 0 - 199 03/25/2018 [facility] Serum or plasma cholesterol in LDL measurement (mass/volume) 86 60 - 130 03/25/2018 [facility] Serum or plasma cholesterol in HDL measurement (mass/volume) 27 40 - 60 03/25/2018 [facility] Serum or plasma total cholesterol/cholesterol in HDL mass ratio 5.9 3.0 - 3.6 03/25/2018 [facility] Serum or plasma triglyceride measurement (mass/volume) 223 0 - 149 03/25/2018 [facility] Serum or plasma cholesterol measurement (mass/volume) 158 0 - 199 03/25/2018 [facility] Serum or plasma cholesterol in LDL measurement (mass/volume) 86 60 - 130 03/25/2018 [facility] Serum or plasma cholesterol in HDL measurement (mass/volume) 27 40 - 60 03/25/2018 [facility] Serum or plasma total cholesterol/cholesterol in HDL mass ratio 5.9 3.0 - 3.6 03/25/2018 [facility] Urine color determination YELLOW YELLOW 03/24/2018 [facility] Urine clarity CLEAR CLEAR 03/24/2018 [facility] Specific gravity of Urine by Test strip 1.025 1.010 - 1.025 03/24/2018 [facility] Urine pH measurement by automated test strip 6 5 - 7 03/24/2018 [facility] Urine leukocyte esterase detection by dipstick NEGATIVE NEGATIVE 03/24/2018 [facility] Urine nitrite detection POSITIVE NEGATIVE 03/24/2018 [facility] Urine protein measurement by test strip (mass/volume) 2+ NEGATIVE 03/24/2018 [facility] Urine glucose detection 3+ NEGATIVE 03/24/2018 [facility] Urine ketones detection by automated test strip NEGATIVE NEGATIVE 03/24/2018 [facility] Urine urobilinogen measurement by test strip (mass/volume) 0.2 0.2 - 1 03/24/2018 [facility] Urine total bilirubin measurement (mass/volume) NEGATIVE NEGATIVE 03/24/2018 [facility] Urine erythrocytes detection 2+ NEGATIVE 03/24/2018 [facility] Automated urine sediment leukocyte count by microscopy (number/high power field) 6-10 0 - 5 03/24/2018 [facility] Erythrocytes detection in urine sediment by light microscopy 0-5 0 - 5 03/24/2018 [facility] Bacteria detection in urine sediment by light microscopy MODERATE NONE 03/24/2018 [facility] Epithelial cells detection in urine sediment by light microscopy FEW NONE 03/24/2018 [facility] Fibrin D-dimer DDU measurement in platelet poor plasma (mass/volume) 2.28 0.00 - 0.45 03/24/2018 [facility] BNP Bld-mCnc 26.7 0 - 100 03/24/2018 [facility] Blood culture NO GROWTH AFTER 5 DAYS, FINAL REPORT 03/24/2018 [facility] Prothrombin time (PT) in platelet poor plasma by coagulation assay 12.5 11.9 - 14.5 03/24/2018 [facility] INR in Platelet poor plasma by Coagulation assay 0.86 03/24/2018 [facility] Fibrin D-dimer DDU measurement in platelet poor plasma (mass/volume) 2.28 0.00 - 0.45 03/24/2018 [facility] BNP Bld-mCnc 26.7 0 - 100 03/24/2018 [facility] CHEM PANEL A/G Ratio 0.9 0.7 - 1.6 05/07/2017 [facility] CHEM PANEL Globulin 3.7 2.7 - 4.2 05/07/2017 [facility] CHEM PANEL AGAP 15.7 10.0 - 20.0 05/07/2017 [facility] CHEM PANEL B/C Ratio 27 6 - 25 05/07/2017 [facility] CHEM PANEL eGFR 24 05/07/2017 Result [...] should be multiplied by the estimated BMI. [facility] CHEM PANEL Alk Phos 107 39 - 136 05/07/2017 [facility] CHEM PANEL Bili Total 0.2 0.2 - 1.3 05/07/2017 [facility] CHEM PANEL Calcium Lvl 9.0 8.5 - 10.5 05/07/2017 [facility] CHEM PANEL Total Protein 7.1 6.4 - 8.4 05/07/2017 [facility] CHEM PANEL Albumin Lvl 3.4 3.5 - 5.0 05/07/2017 [facility] CHEM PANEL ALT 37 0 - 65 05/07/2017 [facility] CHEM PANEL AST 39 0 - 37 05/07/2017 [facility] CHEM PANEL BUN 58 7 - 22 05/07/2017 [facility] CHEM PANEL Creatinine Lvl 2.17 0.50 - 1.40 05/07/2017 [facility] CHEM PANEL Glucose Lvl 257 70 - 99 05/07/2017 [facility] CHEM PANEL CO2 25 24 - 32 05/07/2017 [facility] CHEM PANEL Sodium Lvl 136 135 - 145 05/07/2017 [facility] CHEM PANEL Potassium Lvl 3.7 3.5 - 5.1 05/07/2017 [facility] CHEM PANEL Chloride Lvl 99 95 - 109 05/07/2017 [facility] HEMATOLOGY RBC 4.75 4.20 - 5.40 05/07/2017 [facility] HEMATOLOGY WBC 9.7 3.7 - 10.4 05/07/2017 [facility] HEMATOLOGY Hgb 14.2 12.0 - 16.0 05/07/2017 [facility] HEMATOLOGY Hct 42.1 36.0 - 48.0 05/07/2017 [facility] HEMATOLOGY MPV 8.6 7.4 - 10.4 05/07/2017 [facility] HEMATOLOGY MCV 88.5 80.0 - 98.0 05/07/2017 [facility] MCH 29.9 27.0 - 31.0 05/07/2017 [facility] MCHC 33.8 32.0 - 36.0 05/07/2017 [facility] HEMATOLOGY RDW 12.9 11.5 - 14.5 05/07/2017 [facility] Platelet 199 133 - 450 05/07/2017 [facility] Lymphocytes # 4.0 1.0 - 5.5 05/07/2017 [facility] HEMATOLOGY Monocytes # 0.5 0.0 - 0.8 05/07/2017 [facility] HEMATOLOGY Basophils 0.6 0.0 - 1.0 05/07/2017 [facility] Segs-Bands # 5.0 1.5 - 8.1 05/07/2017 [facility] Eosinophils # 0.1 0.0 - 0.5 05/07/2017 [facility] Basophils # 0.1 0.0 - 0.2 05/07/2017 [facility] Monocytes 5.3 2.0 - 12.0 05/07/2017 [facility] Lymphocytes 41.3 20.0 - 40.0 05/07/2017 [facility] Eosinophils 0.8 0.0 - 4.0 05/07/2017 [facility] Segs 52.0 45.0 - 75.0 05/07/2017 [facility] SPECIAL CHEMISTRY Hgb A1C 14.8 <=5.6 % 05/06/2017 [facility] CHEM PANEL Creatinine Lvl 2.76 0.50 - 1.40 05/05/2017 [facility] CHEM PANEL Potassium Lvl 4.2 3.5 - 5.1 05/05/2017 [facility] CHEM PANEL Sodium Lvl 130 135 - 145 05/05/2017 [facility] CHEM PANEL Calcium Lvl 8.8 8.5 - 10.5 05/05/2017 [facility] CHEM PANEL eGFR 18 05/05/2017 Result [...] should be multiplied by the estimated BMI. [facility] CHEM PANEL Chloride Lvl 95 95 - 109 05/05/2017 [facility] CHEM PANEL CO2 21 24 - 32 05/05/2017 [facility] CHEM PANEL AGAP 18.2 10.0 - 20.0 05/05/2017 [facility] CHEM PANEL Glucose Lvl 515 70 - 99 05/05/2017 Result Comment: Critical Result(s) called to DOMINIC Barrett at 05/05/2017 11:58_ by_[facility]. Read back OK. [facility] CHEM PANEL BUN 67 7 - 22 05/05/2017 [facility] CARDIAC ENZYMES Troponin-I 0.20 0.00 - 0.40 05/05/2017 [facility] CARDIAC ENZYMES Troponin-I 0.24 0.00 - 0.40 05/05/2017 [facility] HEMATOLOGY D-Dimer 1.02 05/05/2017 [facility] CARDIAC ENZYMES Total CK 186 12 - 191 05/05/2017 [facility] CARDIAC ENZYMES BNP 18 <=100 pg/mL 05/05/2017 [facility] CARDIAC ENZYMES Troponin-I 0.23 0.00 - 0.40 05/05/2017 [facility] CARDIAC ENZYMES CK MB 3.2 0.5 - 3.6 05/05/2017 [facility] CARDIAC ENZYMES CK MB Index 1.7 0.0 - 2.5 05/05/2017 [facility] CHEM PANEL Glucose Lvl 427 70 - 99 05/05/2017 Result Comment: Critical Result(s) called to Miguel Angel Mckeon at 05/05/2017 03:21 by BE. Read back OK. [facility] CHEM PANEL Bili Total 0.3 0.2 - 1.3 05/05/2017 [facility] CHEM PANEL Creatinine Lvl 3.40 0.50 - 1.40 05/05/2017 [facility] CHEM PANEL BUN 77 7 - 22 05/05/2017 [facility] CHEM PANEL Sodium Lvl 128 135 - 145 05/05/2017 [facility] CHEM PANEL eGFR 14 05/05/2017 Result [...] should be multiplied by the estimated BMI. [facility] CHEM PANEL Alk Phos 188 39 - 136 05/05/2017 [facility] CHEM PANEL ALT 37 0 - 65 05/05/2017 [facility] CHEM PANEL AST 26 0 - 37 05/05/2017 [facility] CHEM PANEL AGAP 17.7 10.0 - 20.0 05/05/2017 [facility] CHEM PANEL CO2 24 24 - 32 05/05/2017 [facility] CHEM PANEL Calcium Lvl 9.2 8.5 - 10.5 05/05/2017 [facility] CHEM PANEL Chloride Lvl 90 95 - 109 05/05/2017 [facility] CHEM PANEL Potassium Lvl 3.7 3.5 - 5.1 05/05/2017 [facility] CHEM PANEL Total Protein 8.9 6.4 - 8.4 05/05/2017 [facility] CHEM PANEL A/G Ratio 0.7 0.7 - 1.6 05/05/2017 [facility] CHEM PANEL Globulin 5.3 2.7 - 4.2 05/05/2017 [facility] CHEM PANEL B/C Ratio 23 6 - 25 05/05/2017 [facility] CHEM PANEL Albumin Lvl 3.6 3.5 - 5.0 05/05/2017 [facility] HEMATOLOGY Hgb 15.1 12.0 - 16.0 05/05/2017 [facility] HEMATOLOGY RBC 5.09 4.20 - 5.40 05/05/2017 [facility] HEMATOLOGY Platelet 235 133 - 450 05/05/2017 [facility] HEMATOLOGY MCH 29.7 27.0 - 31.0 05/05/2017 [facility] HEMATOLOGY MPV 8.8 7.4 - 10.4 05/05/2017 [facility] MCHC 33.7 32.0 - 36.0 05/05/2017 [facility] RDW 12.7 11.5 - 14.5 05/05/2017 [facility] Hct 44.9 36.0 - 48.0 05/05/2017 [facility] MCV 88.2 80.0 - 98.0 05/05/2017 [facility] WBC 8.7 3.7 - 10.4 05/05/2017 [facility] Basophils # 0.1 0.0 - 0.2 05/05/2017 [facility] Lymphocytes # 3.2 1.0 - 5.5 05/05/2017 [facility] Basophils 0.7 0.0 - 1.0 05/05/2017 [facility] Lymphocytes 37.2 20.0 - 40.0 05/05/2017 [facility] Eosinophils # 0.1 0.0 - 0.5 05/05/2017 [facility] Segs-Bands # 5.0 1.5 - 8.1 05/05/2017 [facility] Eosinophils 0.8 0.0 - 4.0 05/05/2017 [facility] Monocytes 4.4 2.0 - 12.0 05/05/2017 [facility] Monocytes # 0.4 0.0 - 0.8 05/05/2017 [facility] Segs 56.9 45.0 - 75.0 05/05/2017 [facility] VIRAL - SEROLOGY Influ B Negative (05/05/17 2:33 AM) Negative 05/05/2017 [facility] VIRAL - SEROLOGY Influ A Negative (05/05/17 2:33 AM) Negative 05/05/2017 [facility] Bacterial urine culture Urine Culture [facility] Pathology Reports No Data Provided for This Section Diagnostic Reports Report Value Date Source Breast Mammo Scrn KARLY incl CAD MA BILATERAL DIGITAL SCREENING MAMMOGRAM WITH CAD: 09/27/2018 CLINICAL: Routine/Screening. Current study was evaluated with a Computer Aided Detection (CAD) system. COMPARISON:Comparison is made to exams dated: 05/31/2017 mammogram, 05/15/2016 mammogram, and 09/08/2013 mammogram - [facility]. TECHNIQUE: Mammographic views were obtained [...] is recommended.(09/28/2019) This exam was interpreted at [id number] for CHIQUIS Joseph, SL 15. Professional services are provided by the [employer] [facility] M[facility] Division of Diagnostic Imaging. Cooper Arredondo M.D., cm/penrad:09/27/2018 15:16:18 Pin Attacher(s): RT Orion(R)(M), [facility] [place] letter sent: BI-RADS 1/2 Mammogram BI-RADS: 2 [...] mammogram, 05/15/2016 mammogram, and 09/08/2013 mammogram - [facility]. TECHNIQUE: Color flow and real-time [...] is recommended.(06/01/2018) This exam was interpreted at [id number] for [place]. Professional services are provided by the [facility] M[facility]Anisha [facility] Division of Diagnostic Imaging. Cooper Arredondo M.D. cm/penrad:05/31/2017 11:40:54 Pin Attacher(s): Roz Willis [facility] letter sent: BI-RADS 1/2 Ultrasound [...] is recommended. This exam was interpreted at [id number] for CHIQUIS Joseph. Professional services are provided by the [facility] of Diagnostic Imaging. Cooper Arredondo M.D., cm/andrew:05/31/2017 11:41:39 Pin Attacher(s): Wilma Ballesteros RT(R)(M), [facility] Mammogram BI-RADS: 0 Indeterminate 05/31/2017 [...] fracture. The scan was performed on a HoloWochit Discovery C machine. This scan was performed on a HoloStealz Wi DEXA scanner. IMPRESSION: OSTEOPOROSIS Patient is at high risk for fracture. Patient consult w/primary care provider is recommended. This exam was interpreted at [id number] for [facility]. Danette jc/penrad:05/25/2017 09:26:18 Pin Attacher(s): Sharonda Forrester 05/25/2017 [facility] [place] Chest wo contrast CT Clinical Indication: - pneumonia/shortness of breath. Comparison: None. TECHNIQUE: Sequential trans-axial images were obtained through the chest without the administration of IV iodinated contrast. Coronal and sagittal reconstructions were obtained. Dose: DWH=611 mGy-cm Findings: Lungs: Calcified granuloma within the [...] mammography. No acute findings. SL: ANSHUL 05/05/2017 [facility] Chest 1view DX Clinical Indication: - cough Comparison: None FINDINGS: The frontal chest radiograph shows normal lung volumes without interstitial or airspace opacities, pleural effusions or pneumothorax. The cardiomediastinal contours are normal for the age of the patient with aortic tortuosity. There are degenerative changes in the spine. IMPRESSION: No chest radiographic evidence of acute cardiopulmonary disease. SL: 82 05/05/2017 [facility] Consultation Notes No Data Provided for This Section Discharge Summaries No Data Provided for This Section History and Physicals No Data Provided for This Section Vital Signs Vital Sign Value Date Comments Source Systolic (mm Hg) 111 05/07/2017 [facility] Diastolic (mm Hg) 70 05/07/2017 [place] [facility] Rate 18 05/07/2017 [facility] Temperature Oral (F) 98.9 F 05/07/2017 [facility] Heart Rate 112 05/07/2017 [facility] Temperature Oral (F) 98.8 F 05/07/2017 [facility] Systolic (mm Hg) 114 05/07/2017 [facility] Diastolic (mm Hg) 72 05/07/2017 [facility] Respitory Rate 18 05/07/2017 [facility] Heart Rate 111 05/07/2017 [facility] Respitory Rate 21 05/07/2017 [facility] Temperature Oral (F) 98.2 F 05/07/2017 [facility] Systolic (mm Hg) 116 05/07/2017 [facility] Diastolic (mm Hg) 71 05/07/2017 [facility] Heart Rate 96 05/07/2017 [facility] Weight 90 05/06/2017 [facility] Weight 86.364 05/05/2017 [facility] BMI Calculated 37.18 05/05/2017 [facility] Height 152.4 cm 05/05/2017 [facility] Weight 113.636 05/05/2017 [facility] Encounters Location Location Details Encounter Type Encounter Number Reason For Visit Attending Provider ADM Date DC Date Status Source [facility] Observation [id number] 05/05/2017 05/07/2017 [place] [facility] [place] [facility] [id number] Geoffrey Vega 05/11/2017 05/12/2017 [facility] [place] [facility] [place] [facility] [id number] Geoffrey Vega 05/25/2017 05/26/2017 [facility] [place] [facility] [place] [facility] [id number] Geoffrey Vega 05/31/2017 06/01/2017 [facility] [place] Discharged Inpatient [id number] SHAYY TRINIDAD MD 03/24/2018 03/30/2018 [facility] [place] [facility] [id number] Geoffrey Vega 04/22/2018 04/23/2018 [facility] [place] [facility] [place] [facility] [id number] Dillon Osborne 06/19/2018 06/20/2018 [facility] Joseph [facility] - [place] [facility] [id number] Geoffrey Brooksr 09/27/2018 09/28/2018 [facility] Departed Emergency Room [id number] CHRIS DAS MD 10/09/2018 10/09/2018 [facility] Procedures Procedure Code Date Perfomer Comments Source Computed tomography of brain without radiopaque contrast [id number] 10/09/2018 [facility] MEASURE OF CARDIAC SAMPL & PRESSURE, L HEART, PERC APPROACH [id number] 03/29/2018 [facility] FLUOROSCOPY OF MULT COR ART USING L OSM CONTRAST [id number] 03/29/2018 [facility] Cataract surgery [id number] [facility] and [facility] Assessment and Plan Date Source Extracted from:Title: [facility] Discharge Summary Author: Mark Anthony Flaherty MD Date: 05/07/17 [facility] Discharge Summary PATIENT [...] of tight glycemic control, and requested the in service educator see her as well. Her blood glucose was better controlled at time of discharge, albeit not ideal. I expressed to her that she is quite insulin resistant and would benefit from being under the care of an digital design engineer. This should be requested through her primary [...] discharge which included bedside counseling. Extracted from:Title: [facility] Hospitalist Progress Note Author: Mark Anthony Flaherty MD Date: 05/06/17 [facility] Hospital[facility] Progress Note Attending: Mark Anthony Sheikh Jr, MD, Spectralink #[id number] [facility] or #[id number] [facility] Subjective: No overnight events. I spoke [...] have ordered. She will also need an digital design engineer as an outpatient. She is quite insulin [...] hospitalization. She needs diabetes optimization and education. [facility] Hospitalist Service is primary. Call [phone] (SE) or [phone] (PL) with questions. Extracted from:Title: General Admission [...] need to be made inpatient status 05/07/2017 [facility] Plan of Care Plan of Care Date Source Discharge Date 10/09/18 6:26pm Disposition HOME, SELF-CARE Condition at Discharge Stable Instructions/Education Provided Vertigo Forms Provided Work/School Excuse Prescriptions See Medication Section Referrals JOHN FORD MD Address: [address] [place] [address] [address] [place], [place] [id number] Additional Instructions/Education dc home follow up with pcp take meds as directed return to the er with any emergent conditions drink plenty of fluids 10/09/2018 [facility] Discharge Date 03/30/18 7:14pm Disposition TRANS TO OTHER [facility] Prescriptions See Medication Section 03/30/2018 [facility] Social History Social History Date Source No social history information available. 10/09/2018 [facility] Social History TypeResponse Smoking Status Never smoker; Exposure to Tobacco Smoke None; Cigarette Smoking Last 365 Days No; Reg Smoking Cessation Counseling No entered on: 05/05/17 05/05/2017 [facility] Social History TypeResponse Smoking Status Never smoker; Exposure to Tobacco Smoke None; Cigarette Smoking Last 365 Days No; Reg Smoking Cessation Counseling No entered on: 05/05/17 05/05/2017 [facility] Family History No Data Provided for This Section Advance Directives Order Name Results Value Date Source Advance Directives Advance Directives Directive Response Recorded Date/Time Does the patient have an advance directive? Yes 03/24/18 7:30pm If yes, is advance directive on file with [facility]? No 03/24/18 7:30pm If not on file with [facility] will patient provide a copy? Yes 03/24/18 7:30pm Do you have a Directive to Physician? Yes 10/09/18 2:44pm Do you have a Medical Power of Ventilation Worker? Yes 10/09/18 2:44pm Do you have an [...] rights and responsibilities? Yes 10/09/18 2:44pm 10/09/2018 [facility] Advance Directives Advance Directives Directive Response Recorded Date/Time Does the patient have an advance directive? Yes 03/24/18 7:30pm If yes, is advance directive on file with [facility]? No 03/24/18 7:30pm If not on file with [facility] will patient provide a copy? Yes 03/24/18 7:30pm Do you have a Directive to Physician? Yes 03/24/18 11:20am Do you have a Medical Power of Ventilation Worker? Yes 03/24/18 11:20am Do you have an [...] rights and responsibilities? Yes 03/24/18 11:03am 03/30/2018 [facility] Functional Status No Data Provided for This Section
--- NOTE | 2019-01-03 09:05 | NUR ---
0905Pt Received Rm #[id number] Bedside Report from WADE Armas. Identfierx2. Back to baseline orientation.Oriented and appropriate.PERRLA,respirations even and unlabored on RA. Pulsesx4 PPx4PT/DP and marked.Cap refill brisk<3 sec. Left groin for rt SFA fix DR Downing sheath @6fr intact. NO gross issues pain pallor pressure or dysrhythmia. Sheath pull scheduled 1130am,DC home after flat time 5pm. Skin warm and dry, integrity appears intact. IVg#20 in left arm at kvo .Presents healthy w/o s/s of infiltration or complaint.Abdomen soft and supple,pt offered toileting,denies need to urinate or defecate. No personal affects with patient. Family at bedside. Pt and family verbalize understanding of care. Currently w/o pain or need. ds/rn
--- NOTE | 2019-01-03 09:30 | NUR ---
[address] Downing 11/16 back pain level received po pain med order 5/325x1 and given po . at bedside side rails up call light at reach and bed in low position. 1015 Sleeping soundly No gross issues pain pallor pressure or dysrhythmia.Left sheath site intact All caps on No gross issues pain,pallor,pressure or dysthymia. ds/rn
--- NOTE | 2019-01-03 12:00 | NUR ---
1200 Johnny radioisotope technologist at bedside to pull sheath. Dr Downing informed b/p 89-90 systolic is ok to increase iv at 100cchr and may proceed sheath pull.ds/rn
--- NOTE | 2019-01-03 16:27 | Operative Report ---
DATE OF PROCEDURE: SURGEON: Morris Lopez MD PROCEDURES: 1. Atherectomy and percutaneous transluminal angioplasty of right superficial femoral artery and right popliteal artery. 2. Third-order angiogram. PREOPERATIVE DIAGNOSES: Claudication and peripheral vascular disease. POSTOPERATIVE DIAGNOSES: Claudication and peripheral vascular disease. COMPLICATIONS: None. ANESTHESIA: Versed, fentanyl, and lidocaine. TECHNIQUE: The left groin was draped and prepped in the usual manner. The area was anesthetized with lidocaine. Standard Seldinger technique was used to place a 6-[place] sheath into the left femoral artery without difficulty. The 6-[place] sheath was then exchanged for a 45 cm destination sheath. The patient was bolused with Angiomax and started on an Angiomax drip. The patient was given selective injections of the right leg were obtained. A Choice PT wire was then advanced from the left common femoral artery to the right posterior tibial artery. An atherectomy was done in a 70% stenosis in the distal superficial femoral artery and then atherectomy was done in the 70% stenosis in the popliteal artery. A drug-coated balloon was then used for post dilatation. There were no complications. RESULTS: As follows: 1. There was a 70% stenosis in the distal right superficial femoral artery and a 70% stenosis in the right popliteal artery. 2. There were 2-vessel runoff with widely patent posterior tibial artery and peroneal arteries, which extended down to the foot. A right anterior tibial artery was completely occluded. CONCLUSION: Successful atherectomy and percutaneous luminal angioplasty of right superficial femoral artery and right popliteal artery. Morris Lopez MD DSH/MODL /[id number]
--- NOTE | 2019-01-03 17:00 | NUR ---
1700 Pt meets DC criteria. left assessed for s/s of complication and presence of hematoma. Skin warm, dry, no discolor, and pulses present. IV removed from left hand. Distal tip appears intact. VS WNL. Pt denies pain, sob, or need at this time. Family at XXXXX. Review of discharge paperwork and follow up instructions. verbalized understanding. Pt to wheelchair and transported to front of hospital. Transferred to private vehicle under own strength w/o incident with DC paperwork in hand. - ds/rn
== END | disposition home or self-care (01) ==
LOC: CATH LAB 06:25
PROVIDERS: ATTEND Internal Medicine Cardiovascular Disease
DX: I70.211 Atherosclerosis of native arteries of extremities with intermittent claudication, right leg (principal); I25.10 Atherosclerotic heart disease of native coronary artery without angina pectoris; Z79.02 Long term (current) use of antithrombotics/antiplatelets; Z79.82 Long term (current) use of aspirin; Z79.4 Long term (current) use of insulin
CPT/HCPCS: 36415; 37225; 75710; 80053; 85025; 85610; 85730; C1714; C1769 ×2; C1887 ×3; C2623; J0583; J1644; J2001; J2250; J3010; J7030; Q9967; 36247

== ENCOUNTER 2021-12-17 01:10 | Emergency (ER) | payer MEDICARE ==
[~2021-12-17] VITALS: Ht 152.4 cm; Wt 106.6 kg
[~2021-12-17 01:10] MED LIST changes: -ATROPINE SULFATE 0.1 MG/ML 10ML SYR ONE; -BIVALRIUDIN 250 MG/VIAL VIAL IV ONE; -FENTANYL CITRATE/PF 100MCG/2 ML INJ ONE; -HEPARIN SOD (PORCINE) 1000 UNIT/ML 30ML ONE; -HEPARIN SOD/SOD CHLORIDE 2,000 ML ONE; -HYDROCODONE/APAP 5MG-325MG TAB ONE; -IOPAMIDOL 300MG/ML 100 ML INFUS..BTL IV ONE; -IOPAMIDOL 370 MG/ML 200 ML INFUS..BTL INJ ONE; -LIDOCAINE HCL 2% LOCAL 20 ML VIAL ONE; -MIDAZOLAM HCL 2 MG/2 ML VIAL ONE; -NITROGLYCERIN/D5W 200 MCG/ML 250 ML ONE; -SODIUM CHLORIDE 0.9% 1000ML 1,000 ML ONE; -SODIUM CHLORIDE 0.9% 50ML 50 ML ONE
[2021-12-17] MEDS ORDERED: ONDANSETRON HCL INJ 2MG/ML 2ML 2 MG/ML VIAL IV STA (01:55)
[2021-12-17] MEDS ORDERED: ACETAMINOPHEN 325 MG TAB PO ONE (02:00)
[2021-12-17] MEDS ORDERED: ONDANSETRON HCL INJ 2MG/ML 2ML 2 MG/ML VIAL ONE (02:11)
[2021-12-17] MEDS ORDERED: ACETAMINOPHEN 325 MG TAB ONE (02:11)
[2021-12-17] MEDS ORDERED: ONDANSETRON HCL 4 MG ORAL DISINTEGRATING TAB ONE (02:14)
[2021-12-17] MEDS ORDERED: ONDANSETRON HCL 4 MG ORAL DISINTEGRATING TAB PO ONE (02:15)
[2021-12-17 02:33] LABS: INFLUENZAE A&B ANTIGEN (RAPID) NEGATIVE (NEGATIVE); STREPTOCOCCUS GRP A ANTIGEN NEGATIVE (NEGATIVE)
[2021-12-17] MEDS ORDERED: ONDANSETRON ODT4 MG PO (03:03)
[2021-12-17] MEDS ORDERED: IBUPROFEN 600 MG TAB PO STA (03:04)
[2021-12-17] MEDS ORDERED: BEBTELOVIMAB 175 MG INJ IV ONE ×2 (03:15)
[2021-12-17] MEDS ORDERED: IBUPROFEN 600 MG TAB ONE (03:18)
== END 2021-12-17 03:16 | disposition home or self-care (01) ==
LOC: ER 01:18
DX: R50.9 Fever, unspecified (principal); U07.1 COVID-19; I12.9 Hypertensive chronic kidney disease with stage 1 through stage 4 chronic kidney disease, or unspecified chronic kidney disease; E11.22 Type 2 diabetes mellitus with diabetic chronic kidney disease; N18.9 Chronic kidney disease, unspecified; E78.5 Hyperlipidemia, unspecified; H40.9 Unspecified glaucoma; I25.10 Atherosclerotic heart disease of native coronary artery without angina pectoris; Z86.73 Personal history of transient ischemic attack (TIA), and cerebral infarction without residual deficits; Z95.1 Presence of aortocoronary bypass graft
CPT/HCPCS: 71045; 83518; 87070; 87400; 99283; J2405; Q0162; U0002

== ENCOUNTER → 2024-02-01 | Outpatient (REF) | payer MEDICARE ==
[~2024-02-01] MED LIST changes: +ACETAZOLAMIDE500 M1 PO; +ALLOPURINOL100 MG PO; +AMOX TR-K CLV1 EAC2 PO; +COMBIGAN EYE DRO5 ML OP; +COSOPT EYE DROP10 ML; +FLOMAX0.4 MG PO; +LEUCOVORIN CALCI5 MG PO; +LEVOCETIRIZINE D5 MG PO; +LEVOTHYROXINE50 MCG PO; +LUMIGAN2.5 M1 OP; +MIDODRINE HCL5 MG PO; +MOUNJARO7.5 MG/0.5; +MULTAQ400 MG PO; +NITROFURANTOIN50 MG PO; +NOVOLOG MI100 UNIT/1 SC; +OMEPRAZOLE40 MG PO; +ONDANSETRON ODT4 MG PO; +POTASSIUM CHLO20 ME2 PO; +PROBIOTIC ACID1 EAC3; +RANOLAZINE ER1000 MG PO; +RANOLAZINE ER500 MG PO; +SODIUM BICARBO650 MG PO; +VESICARE5 MG PO; +VITAMIN B COMP1 EACH PO; +VITAMIN D3125 MCG PO; +Vitamin D3 PO
== END ==
LOC: RAD 15:20
PROVIDERS: ATTEND Urology
DX: N20.0 Calculus of kidney (principal)
CPT/HCPCS: 74018

== ENCOUNTER → 2024-02-15 | Outpatient (REF) | payer MEDICARE | LOC: CT 15:42 | PROVIDERS: ATTEND Urology | DX: N20.0 Calculus of kidney (principal) | CPT/HCPCS: 74176 ==

== ENCOUNTER 2024-02-27 11:56 | Inpatient (IN) | payer MEDICARE ==
[~2024-02-27] VITALS: Ht 152.4 cm; Wt 76.2 kg
[2024-02-27 12:57] LABS: BASOPHILS # (AUTO) 0.1 (0.0-0.1); BASOPHILS % 0.8 % (0.0-1.0); EOSINOPHILS # (AUTO) 0.1 (0.0-0.4); EOSINOPHILS % 1.4 % (0.0-6.0); HEMATOCRIT 36.7 % (34.2-44.1); HEMOGLOBIN 11.6 g/dL (12.0-16.0); LYMPHOCYTES # (AUTO) 2.4 (1.0-3.2); LYMPHOCYTES % 31.6 % (18.0-39.1); MEAN CORPUSCULAR HEMOGLOBIN 33.3 pg (28-32); MEAN CORPUSCULAR HGB CONC 31.6 g/dL (31-35); MEAN CORPUSCULAR VOLUME 105.5 fL (81-99); MONOCYTES # (AUTO) 0.4 (0.2-0.8); MONOCYTES % 4.9 % (4.4-11.3); NEUTROPHILS # (AUTO) 4.6 (2.1-6.9); PLATELET COUNT 260 x10e3/uL (140-360); RED BLOOD COUNT 3.48 x10e6/uL (3.6-5.1); RED CELL DISTRIBUTION WIDTH 17.7 % (11.7-14.4)
[2024-02-27 14:08] LABS: INR 0.97; PARTIAL THROMBOPLASTIN TIME 28.2 seconds (23.8-35.5); PROTHROMBIN TIME 13.5 seconds (11.9-14.5)
[2024-02-27 14:18] LABS: ALBUMIN 3.3 g/dL (3.5-5.0); ALBUMIN/GLOBULIN RATIO 1.1 (0.8-2.0); ANION GAP 11.7 mmol/L (8-16); BILIRUBIN,TOTAL 0.9 mg/dL (0.2-1.2); CALCIUM 10.4 mg/dL (8.4-10.2); CREATININE, SERUM 1.29 mg/dL (0.57-1.11); POTASSIUM 3.7 mmol/L (3.5-5.1); TOTAL PROTEIN 6.2 g/dL (6.5-8.1)
[2024-02-27 14:24] LABS: TROPONIN I 0.029 ng/mL (0-0.300)
[2024-02-27 14:27] LABS: CLARITY,URINE TURBID (CLEAR); COLOR,URINE YELLOW (YELLOW); LEUKOCYTE ESTERASE ,URINE SMALL (NEGATIVE); NITRITE,URINE NEGATIVE (NEGATIVE); PH,URINE 6 (5 - 7)
[2024-02-27 14:28] LABS: BACTERIA,URINE MANY /HPF; BILIRUBIN,URINE NEGATIVE (NEGATIVE); EPITHELIAL CELLS,URINE MANY /LPF; GLUCOSE, URINE NEGATIVE (NEGATIVE); KETONES,URINE NEGATIVE (NEGATIVE); PROTEIN,URINE DIPSTICK 1+ (NEGATIVE); RBC,URINE 0-5 /HPF (0-5); URINE UROBILINOGEN 0.2 mg/dL (0.2 - 1); WBC,URINE (MAN) 21-50 /HPF (0-5)
[2024-02-27] MEDS: Vancomycin IV 1 GM in SODIUM CHLORIDE 0.9% 250ML 250 ML IV ONE (16:44)
[2024-02-27] MEDS ORDERED: ONDANSETRON HCL INJ 2MG/ML 2ML 2 MG/ML VIAL IV PRN (16:45)
[2024-02-27 17:48] VITALS: PULSE 76; RESP 14
[2024-02-27 18:06] VITALS: TEMP 98
[2024-02-27 20:00] VITALS: BP 125/60; PULSE 75; RESP 18; TEMP 97.8; O2SAT 100
[2024-02-27] MEDS: SODIUM CHLORIDE 0.9% 1000ML 1,000 ML IV ONE (20:44)
[2024-02-28 00:18] VITALS: BP 132/61; PULSE 73; RESP 17; TEMP 97.4; O2SAT 100
[2024-02-28 04:00] VITALS: BP 129/58; PULSE 78; RESP 17; TEMP 98.1; O2SAT 100
[2024-02-28 05:37] LABS: BASOPHILS # (AUTO) 0.1 (0.0-0.1); BASOPHILS % 0.6 % (0.0-1.0); EOSINOPHILS # (AUTO) 0.1 (0.0-0.4); EOSINOPHILS % 1.5 % (0.0-6.0); LYMPHOCYTES # (AUTO) 1.5 (1.0-3.2); MEAN CORPUSCULAR HEMOGLOBIN 33.5 pg (28-32); MEAN CORPUSCULAR HGB CONC 31.4 g/dL (31-35); MEAN CORPUSCULAR VOLUME 106.7 fL (81-99); MONOCYTES # (AUTO) 0.3 (0.2-0.8); MONOCYTES % 3.8 % (4.4-11.3); NEUTROPHILS # (AUTO) 6.7 (2.1-6.9); NEUTROPHILS % 76.8 % (38.7-80.0); PLATELET COUNT 222 x10e3/uL (140-360); RED BLOOD COUNT 3.28 x10e6/uL (3.6-5.1); RED CELL DISTRIBUTION WIDTH 17.6 % (11.7-14.4); WHITE BLOOD COUNT 8.77 x10e3/uL (4.8-10.8)
[2024-02-28 06:02] LABS: ALBUMIN/GLOBULIN RATIO 1.1 (0.8-2.0); ANION GAP 11.5 mmol/L (8-16); BILIRUBIN,TOTAL 0.9 mg/dL (0.2-1.2); CALCIUM 9.9 mg/dL (8.4-10.2); CREATININE, SERUM 1.12 mg/dL (0.57-1.11); POTASSIUM 3.5 mmol/L (3.5-5.1); TOTAL PROTEIN 5.7 g/dL (6.5-8.1)
[2024-02-28 08:20] VITALS: BP 114/63; PULSE 87; RESP 18; TEMP 97.8; O2SAT 100
[2024-02-28 11:33] VITALS: BP 117/59; PULSE 88; RESP 18; TEMP 98; O2SAT 100
[2024-02-28 17:29] VITALS: BP 144/71; PULSE 83; RESP 18; TEMP 97.9; O2SAT 100
[2024-02-28 19:50] VITALS: BP 127/60; PULSE 69; RESP 18; TEMP 97.7; O2SAT 98
[2024-02-29] VITALS (7 sets, daily range): BP systolic 107–121; BP diastolic 48–60; PULSE 64–82; RESP 17–18; TEMP 97.8–98.5; O2SAT 93–100
[2024-02-29] MEDS: LEVOTHYROXINE SODIUM 25 MCG TABLET PO SCH (06:19)
[2024-02-29 07:14] LABS: BASOPHILS # (AUTO) 0.1 (0.0-0.1); BASOPHILS % 0.5 % (0.0-1.0); EOSINOPHILS # (AUTO) 0.2 (0.0-0.4); EOSINOPHILS % 2.1 % (0.0-6.0); HEMATOCRIT 30.8 % (34.2-44.1); HEMOGLOBIN 9.9 g/dL (12.0-16.0); LYMPHOCYTES % 19.5 % (18.0-39.1); MEAN CORPUSCULAR HEMOGLOBIN 33.4 pg (28-32); MEAN CORPUSCULAR HGB CONC 32.1 g/dL (31-35); MEAN CORPUSCULAR VOLUME 104.1 fL (81-99); MONOCYTES # (AUTO) 0.5 (0.2-0.8); MONOCYTES % 4.8 % (4.4-11.3); NEUTROPHILS # (AUTO) 7.5 (2.1-6.9); NEUTROPHILS % 72.8 % (38.7-80.0); PLATELET COUNT 195 x10e3/uL (140-360); RED BLOOD COUNT 2.96 x10e6/uL (3.6-5.1); RED CELL DISTRIBUTION WIDTH 17.5 % (11.7-14.4); WHITE BLOOD COUNT 10.35 x10e3/uL (4.8-10.8)
[2024-02-29 07:44] LABS: ANION GAP 9.9 mmol/L (8-16); CALCIUM 9.8 mg/dL (8.4-10.2); CREATININE, SERUM 0.98 mg/dL (0.57-1.11)
[2024-02-29 07:54] LABS: POTASSIUM 2.9 mmol/L (3.5-5.1)
[2024-02-29] MEDS: ACETAZOLAMIDE 250 MG TAB PO SCH (08:56)
[2024-02-29] MEDS: RANOLAZINE 500 MG TABSR PO SCH (08:56)
[2024-02-29] MEDS: MIDODRINE 2.5 MG TAB PO SCH (08:57)
[2024-02-29] MEDS: METOPROLOL TARTRATE 25 MG TAB PO SCH (08:58)
[2024-02-29] MEDS: POTASSIUM CHLORIDE 20 MEQ TAB CR PO SCH (10:14)
[2024-02-29] MEDS: CITALOPRAM HYDROBROMIDE 20 MG TAB PO SCH (20:50)
[2024-02-29] MEDS ORDERED: LACTULOSE20 GM/30 M PO (20:57)
[2024-02-29] MEDS ORDERED: MIDODRINE HCL10 MG PO (21:02)
[2024-02-29] MEDS ORDERED: TRICOR145 MG PO (21:02)
[2024-02-29] MEDS ORDERED: POTASSIUM CHLO20 ME1 PO (21:02)
[2024-02-29] MEDS ORDERED: LUMIGAN2.5 M1 OP (21:06)
[2024-02-29] MEDS ORDERED: MOUNJARO5 MG/0.5 M SC (21:06)
[2024-02-29] MEDS ORDERED: MULTI-VITAMIN1 EACH PO (21:08)
[2024-03-01] VITALS (8 sets, daily range): BP systolic 102–119; BP diastolic 51–64; PULSE 58–70; RESP 17–20; TEMP 98–99.2; O2SAT 95–100
[2024-03-01 08:42] LABS: BASOPHILS # (AUTO) 0.1 (0.0-0.1); BASOPHILS % 0.4 % (0.0-1.0); EOSINOPHILS # (AUTO) 0.2 (0.0-0.4); EOSINOPHILS % 1.9 % (0.0-6.0); HEMOGLOBIN 9.4 g/dL (12.0-16.0); LYMPHOCYTES # (AUTO) 2.2 (1.0-3.2); LYMPHOCYTES % 18.2 % (18.0-39.1); MEAN CORPUSCULAR HEMOGLOBIN 33.3 pg (28-32); MEAN CORPUSCULAR HGB CONC 32.4 g/dL (31-35); MEAN CORPUSCULAR VOLUME 102.8 fL (81-99); MONOCYTES # (AUTO) 0.6 (0.2-0.8); MONOCYTES % 4.7 % (4.4-11.3); NEUTROPHILS # (AUTO) 8.8 (2.1-6.9); NEUTROPHILS % 74.4 % (38.7-80.0); PLATELET COUNT 198 x10e3/uL (140-360); RED BLOOD COUNT 2.82 x10e6/uL (3.6-5.1); RED CELL DISTRIBUTION WIDTH 17.8 % (11.7-14.4)
[2024-03-01] MEDS ORDERED: LEVOTHYROXINE SODIUM 50 MCG TAB PO SCH (09:00)
[2024-03-01] MEDS ORDERED: NITROFURANTOIN 50 MG CAP PO SCH (09:00)
[2024-03-01 09:01] LABS: ANION GAP 10.4 mmol/L (8-16); CREATININE, SERUM 1.12 mg/dL (0.57-1.11)
[2024-03-01 09:04] LABS: POTASSIUM 3.4 mmol/L (3.5-5.1)
[2024-03-01] MEDS: FENOFIBRATE 145 MG TAB PO SCH (09:05)
[2024-03-01] MEDS: ASPIRIN 325 MG TAB EC PO SCH (09:05)
[2024-03-01] MEDS: CLOPIDOGREL BISULFATE 75 MG TAB PO SCH (09:05)
[2024-03-01] MEDS: POTASSIUM CHLORIDE 20 MEQ TAB CR PO SCH (09:05)
[2024-03-01] MEDS: MULTIVITAMINS/MINERALS TAB PO SCH (09:06)
[2024-03-01] MEDS: ALLOPURINOL 100 MG TAB PO SCH (09:06)
[2024-03-01] MEDS ORDERED: MELATONIN 3 MG TAB PO PRN (11:30)
[2024-03-01] MEDS: INSULIN REGULAR, HUMAN 100 UNIT/1 ML SQ SCH (11:30)
[2024-03-01] MEDS ORDERED: DEXTROSE 50% SYRINGE 50 ML IV PRN (11:30)
[2024-03-01] MEDS ORDERED: GUAIFENESIN/DEXTROMETHORPHAN LIQD 5 ML UDC PO PRN (11:30)
[2024-03-01] MEDS ORDERED: HYDRALAZINE HCL 20 MG/ML VIAL IV PRN (11:30)
[2024-03-01] MEDS: BRIMONIDINE/TIMOLOL (OPTH SOLN 5 ML DRPETTE OP SCH (12:38)
[2024-03-01] MEDS: MIDODRINE HCL 5 MG TABLET PO SCH (18:13)
[2024-03-01] MEDS: BIMATOPROST(OPTH) 2.5 ML BOTTLE OP SCH (22:01)
[2024-03-02] VITALS (7 sets, daily range): BP systolic 95–133; BP diastolic 51–66; PULSE 60–81; RESP 17–20; TEMP 97.5–99; O2SAT 97–100
[2024-03-02 05:00] LABS: BASOPHILS # (AUTO) 0.1 (0.0-0.1); BASOPHILS % 0.5 % (0.0-1.0); EOSINOPHILS # (AUTO) 0.3 (0.0-0.4); EOSINOPHILS % 2.3 % (0.0-6.0); HEMATOCRIT 31.4 % (34.2-44.1); LYMPHOCYTES # (AUTO) 1.8 (1.0-3.2); LYMPHOCYTES % 15.1 % (18.0-39.1); MEAN CORPUSCULAR HEMOGLOBIN 33.7 pg (28-32); MEAN CORPUSCULAR HGB CONC 31.8 g/dL (31-35); MEAN CORPUSCULAR VOLUME 105.7 fL (81-99); MONOCYTES # (AUTO) 0.6 (0.2-0.8); MONOCYTES % 4.6 % (4.4-11.3); NEUTROPHILS # (AUTO) 9.3 (2.1-6.9); NEUTROPHILS % 77.2 % (38.7-80.0); PLATELET COUNT 202 x10e3/uL (140-360); RED BLOOD COUNT 2.97 x10e6/uL (3.6-5.1); RED CELL DISTRIBUTION WIDTH 18.4 % (11.7-14.4); WHITE BLOOD COUNT 12.06 x10e3/uL (4.8-10.8)
[2024-03-02 05:20] LABS: MAGNESIUM 1.9 MG/DL (1.3-2.1); PHOSPHORUS 2.7 MG/DL (2.3-4.7)
[2024-03-02 05:41] LABS: THYROID STIMULATING HORMONE 2.312 uIU/mL (0.350-4.940)
[2024-03-02] MEDS: LACTULOSE SYRUP 20 GM/30 ML UDC PO PRN (05:51)
[2024-03-02] MEDS: FOLIC ACID 1 MG TAB PO SCH (08:52)
[2024-03-02] MEDS: ACETAZOLAMIDE 250 MG TAB PO SCH (08:53)
[2024-03-02] MEDS: THIAMINE HCL 100 MG TAB PO SCH (08:55)
[2024-03-02] MEDS ORDERED: MULTIVITAMINS/MINERALS TAB PO SCH (09:00)
[2024-03-02] MEDS: MAGNESIUM/ALUMINUM/SIMETHICONE 30 ML UDC PO PRN (09:00)
[2024-03-03] VITALS (8 sets, daily range): BP systolic 94–110; BP diastolic 47–61; PULSE 51–62; RESP 11–21; TEMP 97.6–98.9; O2SAT 97–100
[2024-03-03 06:13] LABS: BASOPHILS # (AUTO) 0.1 (0.0-0.1); BASOPHILS % 0.7 % (0.0-1.0); EOSINOPHILS # (AUTO) 0.2 (0.0-0.4); HEMATOCRIT 28.9 % (34.2-44.1); HEMOGLOBIN 9.3 g/dL (12.0-16.0); LYMPHOCYTES # (AUTO) 2.1 (1.0-3.2); LYMPHOCYTES % 20.2 % (18.0-39.1); MEAN CORPUSCULAR HEMOGLOBIN 33.8 pg (28-32); MEAN CORPUSCULAR HGB CONC 32.2 g/dL (31-35); MEAN CORPUSCULAR VOLUME 105.1 fL (81-99); MONOCYTES # (AUTO) 0.5 (0.2-0.8); MONOCYTES % 4.5 % (4.4-11.3); NEUTROPHILS # (AUTO) 7.6 (2.1-6.9); NEUTROPHILS % 72.3 % (38.7-80.0); PLATELET COUNT 229 x10e3/uL (140-360); RED BLOOD COUNT 2.75 x10e6/uL (3.6-5.1); RED CELL DISTRIBUTION WIDTH 18.2 % (11.7-14.4); WHITE BLOOD COUNT 10.52 x10e3/uL (4.8-10.8)
[2024-03-03 06:54] LABS: ANION GAP 11.5 mmol/L (8-16); CALCIUM 10.1 mg/dL (8.4-10.2); CREATININE, SERUM 1.11 mg/dL (0.57-1.11); POTASSIUM 3.5 mmol/L (3.5-5.1)
[2024-03-03] MEDS: ACETAMINOPHEN 325 MG TAB PO PRN (13:19)
[2024-03-03] MEDS: SODIUM BICARBONATE 8.4% INJ 50 ML SYR IV STA (21:12)
[2024-03-03 21:13] LABS: ABG PCO2 25 mmHg (35-45); ABG PH 7.27 (7.35-7.45); ABG PO2 125 mmHg (80-105)
[2024-03-03 21:14] LABS: ABG HCO3 11 mmol/L (22-26); ABG TCO2 12
[2024-03-03] MEDS: SODIUM BICARBONATE 8.4% SYRING 150 ML in DEXTROSE 5% 1,000 ML IV ONE (21:24)
[2024-03-03] MEDS ORDERED: LACTATED RINGER'S 300 ML IV PRN (23:00)
[2024-03-04] VITALS (55 sets, daily range): BP systolic 65–134; BP diastolic 39–76; PULSE 48–68; RESP 5–22; TEMP 97.8–98.9; O2SAT 100
[2024-03-04] MEDS: FLUCONAZOLE 200 MG/100 ML 100 ML IV ONE (02:12)
[2024-03-04 02:32] LABS: ABG HCO3 18 mmol/L (22-26); ABG PCO2 31 mmHg (35-45); ABG PH 7.37 (7.35-7.45); ABG PO2 169 mmHg (80-105); ABG TCO2 19
[2024-03-04 07:01] LABS: BASOPHILS # (AUTO) 0.1 (0.0-0.1); BASOPHILS % 0.9 % (0.0-1.0); EOSINOPHILS # (AUTO) 0.2 (0.0-0.4); EOSINOPHILS % 2.9 % (0.0-6.0); HEMATOCRIT 31.2 % (34.2-44.1); HEMOGLOBIN 9.7 g/dL (12.0-16.0); LYMPHOCYTES # (AUTO) 1.7 (1.0-3.2); MEAN CORPUSCULAR HEMOGLOBIN 33.7 pg (28-32); MEAN CORPUSCULAR HGB CONC 31.1 g/dL (31-35); MEAN CORPUSCULAR VOLUME 108.3 fL (81-99); MONOCYTES # (AUTO) 0.4 (0.2-0.8); MONOCYTES % 4.6 % (4.4-11.3); NEUTROPHILS # (AUTO) 5.6 (2.1-6.9); NEUTROPHILS % 70.2 % (38.7-80.0); PLATELET COUNT 230 x10e3/uL (140-360); RED BLOOD COUNT 2.88 x10e6/uL (3.6-5.1); RED CELL DISTRIBUTION WIDTH 18.6 % (11.7-14.4); WHITE BLOOD COUNT 7.91 x10e3/uL (4.8-10.8)
[2024-03-04 07:28] LABS: ALBUMIN 2.4 g/dL (3.5-5.0); ALBUMIN/GLOBULIN RATIO 0.7 (0.8-2.0); ANION GAP 14.3 mmol/L (8-16); BILIRUBIN,TOTAL 0.6 mg/dL (0.2-1.2); CALCIUM 10.5 mg/dL (8.4-10.2); CREATININE, SERUM 1.27 mg/dL (0.57-1.11); MAGNESIUM 2.1 MG/DL (1.3-2.1); PHOSPHORUS 2.7 MG/DL (2.3-4.7); TOTAL PROTEIN 5.7 g/dL (6.5-8.1)
[2024-03-04 07:37] LABS: POTASSIUM 3.3 mmol/L (3.5-5.1)
[2024-03-04 10:53] LABS: ABG HCO3 11 mmol/L (22-26); ABG PCO2 25 mmHg (35-45); ABG PH 7.27 (7.35-7.45); ABG PO2 125 mmHg (80-105); ABG TCO2 12
[2024-03-04] MEDS: MUPIROCIN 2% OINT 22 GM TUBE TOP SCH (11:00)
[2024-03-04] MEDS: FLUCONAZOLE 100 MG/NS 50 ML 50 ML IV SCH (20:27)
[2024-03-05] VITALS (28 sets, daily range): BP systolic 90–135; BP diastolic 45–73; PULSE 49–85; RESP 9–16; TEMP 97.6–98.3; O2SAT 83–100
[2024-03-05 05:13] LABS: ABG HCO3 18 mmol/L (22-26); ABG PCO2 31 mmHg (35-45); ABG PH 7.37 (7.35-7.45); ABG PO2 169 mmHg (80-105); ABG TCO2 19
[2024-03-05] MEDS ORDERED: LOPRESSOR25 MG PO (16:47)
[2024-03-05] MEDS ORDERED: MUPIROCIN22 GM TOP (16:47)
[2024-03-05] MEDS ORDERED: GUAIFENESIN-DM 15 ML PO (16:47)
[2024-03-05] MEDS ORDERED: Ranolazine PO (16:47)
[2024-03-05] MEDS ORDERED: POTASSIUM CHLO20 ME1 PO (16:47)
[2024-03-05] MEDS ORDERED: LEVOTHYROXINE25 MCG PO (16:47)
[2024-03-05] MEDS ORDERED: ACETAMINOPHEN325 M1 PO (16:47)
[2024-03-05] MEDS ORDERED: B-1100 MG PO (16:47)
[2024-03-05] MEDS ORDERED: MELATONIN3 MG PO (16:47)
[2024-03-05] MEDS ORDERED: HUMULIN R100 UNIT/2 SC (17:02)
== END 2024-03-05 18:29 | DRG 757 ==
LOC: ER 12:24 → ERHOLD 16:37 → MED/SURG2 18:15 → ICU 03-03 21:52
PROVIDERS: ADMIT Internal Medicine; ATTEND Internal Medicine
PROC: 4A033R1 Measurement of Arterial Saturation, Peripheral, Percutaneous Approach (ICD-10-PCS; principal; 2024-03-03)
PROC: 4A033R1 Measurement of Arterial Saturation, Peripheral, Percutaneous Approach (ICD-10-PCS; 2024-03-03)
PROC: 4A033R1 Measurement of Arterial Saturation, Peripheral, Percutaneous Approach (ICD-10-PCS; 2024-03-04)
PROC: 4A033R1 Measurement of Arterial Saturation, Peripheral, Percutaneous Approach (ICD-10-PCS; 2024-03-04)
DX: B37.49 Other urogenital candidiasis (principal); G93.41 Metabolic encephalopathy; E87.20 Acidosis, unspecified; N17.9 Acute kidney failure, unspecified; I12.9 Hypertensive chronic kidney disease with stage 1 through stage 4 chronic kidney disease, or unspecified chronic kidney disease; E11.22 Type 2 diabetes mellitus with diabetic chronic kidney disease; N18.9 Chronic kidney disease, unspecified; T50.2X5A Adverse effect of carbonic-anhydrase inhibitors, benzothiadiazides and other diuretics, initial encounter; I25.10 Atherosclerotic heart disease of native coronary artery without angina pectoris; Z95.1 Presence of aortocoronary bypass graft; Z95.818 Presence of other cardiac implants and grafts; I95.89 Other hypotension; B19.20 Unspecified viral hepatitis C without hepatic coma; N20.0 Calculus of kidney; D63.8 Anemia in other chronic diseases classified elsewhere; F51.9 Sleep disorder not due to a substance or known physiological condition, unspecified; R53.81 Other malaise; R53.1 Weakness; G47.10 Hypersomnia, unspecified; R94.4 Abnormal results of kidney function studies; R74.01 Elevation of levels of liver transaminase levels; R74.8 Abnormal levels of other serum enzymes; R32 Unspecified urinary incontinence; N31.9 Neuromuscular dysfunction of bladder, unspecified; R33.9 Retention of urine, unspecified; H40.9 Unspecified glaucoma; H54.62 Unqualified visual loss, left eye, normal vision right eye; Z86.73 Personal history of transient ischemic attack (TIA), and cerebral infarction without residual deficits; Z79.82 Long term (current) use of aspirin; Z79.02 Long term (current) use of antithrombotics/antiplatelets; Z79.899 Other long term (current) drug therapy
CPT/HCPCS: 36415; 36600; 70450; 70551; 71045; 74018; 74176; 80048; 80053; 81001; 82140; 82550; 82607; 82805; 82948; 83735; 84100; 84443; 84484; 85025; 85610; 85730; 87040; 87086; 93005; 94799; 95819; 96361; 99252; 99284; J1450; J2543; J3411; J7030; J7050; J7070

== ENCOUNTER → 2024-04-16 | Day surgery (SDC) | payer MEDICARE ==
[~2024-04-16] MED LIST changes: +ACETAMINOPHEN 1000 MG/100 ML 100 ML IV ONE; +ACETAMINOPHEN325 M1 PO; +ACETAZOLAMIDE500 MG PO; +B-1100 MG PO; +DEXAMETHASONE SOD PHOS INJ 4 MG/ML SDV ONE; +EPHEDRINE SULFATE INJ 50 MG/ML VIAL ONE; +FAMOTIDINE 20 MG/2 ML VIAL IV ONE; +FENTANYL CITRATE/PF 100MCG/2 ML INJ ONE; +GUAIFENESIN-DM 15 ML PO; +HUMULIN R100 UNIT/2 SC; +LACTULOSE20 GM/30 M PO; +LEVOTHYROXINE25 MCG PO; +LIDOCAINE HCL 2% LOCAL INJ 5 ML SDV VIAL INJ ONE; +LOPRESSOR25 MG PO; +MELATONIN3 MG PO; +MIDODRINE HCL10 MG PO; +MOUNJARO5 MG/0.5 M SC; +MULTI-VITAMIN1 EACH PO; +MUPIROCIN22 GM TOP; +ONDANSETRON HCL INJ 2MG/ML 2ML 2 MG/ML VIAL ONE; +POTASSIUM CHLO20 ME1 PO; +PROPOFOL IV EMULSION 10 MG/ML 20 ML VIAL ONE; +Ranolazine PO; +SEVOFLURANE INHAL SOLN 250 ML PEN BTL ONE; +TRAMADOL HCL 50 MG TAB ONE; +TRICOR145 MG PO
[2024-04-16] MEDS: GENTAMICIN 80MG/NS 100 ML 200 ML IV ONE (10:40)
[2024-04-16] MEDS: LACTATED RINGER'S 1,000 ML ONE (10:40)
[2024-04-16 10:54] LABS: ANION GAP 12.4 mmol/L (8-16); CALCIUM 11.1 mg/dL (8.4-10.2); CREATININE, SERUM 1.23 mg/dL (0.57-1.11); URIC ACID 2.2 mg/dL (2.6-8.0)
[2024-04-16 10:55] LABS: POTASSIUM 3.4 mmol/L (3.5-5.1)
[2024-04-16 11:02] LABS: INR 1.21
[2024-04-16 11:33] LABS: BASOPHILS # (AUTO) 0.1 (0.0-0.1); BASOPHILS % 1.5 % (0.0-1.0); EOSINOPHILS # (AUTO) 0.5 (0.0-0.4); EOSINOPHILS % 8.6 % (0.0-6.0); HEMOGLOBIN 11.7 g/dL (12.0-16.0); LYMPHOCYTES # (AUTO) 2.3 (1.0-3.2); LYMPHOCYTES % 42.5 % (18.0-39.1); MEAN CORPUSCULAR HEMOGLOBIN 34.8 pg (28-32); MEAN CORPUSCULAR HGB CONC 31.6 g/dL (31-35); MEAN CORPUSCULAR VOLUME 110.1 fL (81-99); MONOCYTES # (AUTO) 0.2 (0.2-0.8); MONOCYTES % 3.6 % (4.4-11.3); NEUTROPHILS # (AUTO) 2.3 (2.1-6.9); NEUTROPHILS % 43.4 % (38.7-80.0); PLATELET COUNT 216 x10e3/uL (140-360); RED BLOOD COUNT 3.36 x10e6/uL (3.6-5.1); RED CELL DISTRIBUTION WIDTH 15.7 % (11.7-14.4); WHITE BLOOD COUNT 5.32 x10e3/uL (4.8-10.8)
[2024-04-16 14:51] VITALS: TEMP 98.3
[2024-04-16] MEDS: TRAMADOL HCL 50 MG TAB PO ONE (15:40)
[2024-04-16 16:00] VITALS: BP 117/65; PULSE 61; RESP 16; O2SAT 99
== END | disposition home or self-care (01) ==
LOC: OR 10:02
PROVIDERS: ATTEND Urology
DX: N20.0 Calculus of kidney (principal); N21.0 Calculus in bladder; N95.2 Postmenopausal atrophic vaginitis; N36.8 Other specified disorders of urethra; N13.30 Unspecified hydronephrosis; N32.89 Other specified disorders of bladder; N28.89 Other specified disorders of kidney and ureter; K59.09 Other constipation; I10 Essential (primary) hypertension; E78.5 Hyperlipidemia, unspecified; E11.9 Type 2 diabetes mellitus without complications; E03.9 Hypothyroidism, unspecified; M10.9 Gout, unspecified; Z79.02 Long term (current) use of antithrombotics/antiplatelets; Z79.82 Long term (current) use of aspirin; Z79.85 Long-term (current) use of injectable non-insulin antidiabetic drugs; Z79.899 Other long term (current) drug therapy
CPT/HCPCS: 36415; 52332; 52352; 74018; 74420; 80048; 84550; 85025; 85610; 85730; 87086; 88300; C1769; C2617; J0131; J1100; J1580; J2003; J2405; J2704; J3010; J7121

== ENCOUNTER 2024-04-18 11:42 | Inpatient (IN) | payer MEDICARE ==
[2024-04-18] VITALS (12 sets, daily range): BP systolic 95–117; BP diastolic 50–70; PULSE 56–63; RESP 6–18; TEMP 97.1–97.7; O2SAT 98–100
[~2024-04-18] VITALS: Ht 152.4 cm; Wt 64.0 kg
[~2024-04-18 11:42] MED LIST changes: -ACETAMINOPHEN 1000 MG/100 ML 100 ML IV ONE; -DEXAMETHASONE SOD PHOS INJ 4 MG/ML SDV ONE; -EPHEDRINE SULFATE INJ 50 MG/ML VIAL ONE; -FAMOTIDINE 20 MG/2 ML VIAL IV ONE; -FENTANYL CITRATE/PF 100MCG/2 ML INJ ONE; -LIDOCAINE HCL 2% LOCAL INJ 5 ML SDV VIAL INJ ONE; -ONDANSETRON HCL INJ 2MG/ML 2ML 2 MG/ML VIAL ONE; -PROPOFOL IV EMULSION 10 MG/ML 20 ML VIAL ONE; -SEVOFLURANE INHAL SOLN 250 ML PEN BTL ONE; -TRAMADOL HCL 50 MG TAB ONE
[2024-04-18 13:17] LABS: BASOPHILS # (AUTO) 0.1 (0.0-0.1); BASOPHILS % 0.3 % (0.0-1.0); EOSINOPHILS # (AUTO) 0.4 (0.0-0.4); EOSINOPHILS % 2.4 % (0.0-6.0); HEMATOCRIT 33.5 % (34.2-44.1); HEMOGLOBIN 11.1 g/dL (12.0-16.0); LYMPHOCYTES # (AUTO) 2.3 (1.0-3.2); LYMPHOCYTES % 15.1 % (18.0-39.1); MEAN CORPUSCULAR HEMOGLOBIN 34.9 pg (28-32); MEAN CORPUSCULAR HGB CONC 33.1 g/dL (31-35); MEAN CORPUSCULAR VOLUME 105.3 fL (81-99); MONOCYTES # (AUTO) 0.8 (0.2-0.8); NEUTROPHILS # (AUTO) 11.6 (2.1-6.9); NEUTROPHILS % 75.2 % (38.7-80.0); PLATELET COUNT 197 x10e3/uL (140-360); RED BLOOD COUNT 3.18 x10e6/uL (3.6-5.1); WHITE BLOOD COUNT 15.47 x10e3/uL (4.8-10.8)
[2024-04-18] MEDS: MEROPENEM 1 GM in SODIUM CHLORIDE 0.9% 100 ML IV ONE (13:18)
[2024-04-18] MEDS: SODIUM CHLORIDE 0.9% 1000ML 1,000 ML IV STA ×2 (13:18→14:43)
[2024-04-18 13:36] LABS: CLARITY,URINE TURBID (CLEAR); COLOR,URINE ORANGE (YELLOW); GLUCOSE, URINE NEGATIVE (NEGATIVE); LEUKOCYTE ESTERASE ,URINE SMALL (NEGATIVE); NITRITE,URINE NEGATIVE (NEGATIVE); PH,URINE 7 (5 - 7); PROTEIN,URINE DIPSTICK 2+ (NEGATIVE)
[2024-04-18 13:37] LABS: BILIRUBIN,URINE NEGATIVE (NEGATIVE); KETONES,URINE NEGATIVE (NEGATIVE); URINE UROBILINOGEN 1 mg/dL (0.2 - 1)
[2024-04-18 13:37] LABS: INFLUENZA A AG NEGATIVE (NEGATIVE); INFLUENZA B AG NEGATIVE (NEGATIVE)
[2024-04-18 13:38] LABS: BACTERIA,URINE MODERATE /HPF; EPITHELIAL CELLS,URINE FEW /LPF; RBC,URINE >50 /HPF (0-5); WBC,URINE (MAN) >50 /HPF (0-5)
[2024-04-18 13:38] LABS: CORONAVIRUS COVID-19 AG NEGATIVE (NEGATIVE)
[2024-04-18 13:38] LABS: INR 1.12; PROTHROMBIN TIME 15.1 seconds (11.9-14.5)
[2024-04-18 13:39] LABS: PARTIAL THROMBOPLASTIN TIME 37.8 seconds (23.8-35.5)
[2024-04-18 13:48] LABS: ALBUMIN 2.9 g/dL (3.5-5.0); ALBUMIN/GLOBULIN RATIO 1.2 (0.8-2.0); ANION GAP 9.5 mmol/L (8-16); BILIRUBIN,TOTAL 0.9 mg/dL (0.2-1.2); CALCIUM 10.2 mg/dL (8.4-10.2); CREATININE, SERUM 1.58 mg/dL (0.57-1.11); MAGNESIUM 1.8 MG/DL (1.3-2.1); POTASSIUM 3.5 mmol/L (3.5-5.1); TOTAL PROTEIN 5.4 g/dL (6.5-8.1)
[2024-04-18 13:55] LABS: B-TYPE NATRIURETIC PEPTIDE2 123.5 pg/mL (0-100)
[2024-04-18 14:04] LABS: TROPONIN I 0.525 ng/mL (0-0.300)
[2024-04-18] MEDS: Vancomycin IV 1 GM in SODIUM CHLORIDE 0.9% 250ML 250 ML IV ONE (14:12)
[2024-04-18] MEDS: ASPIRIN 300 MG SUPP PR STA (14:41)
[2024-04-18 15:56] LABS: TROPONIN I 0.499 ng/mL (0-0.300)
[2024-04-18] MEDS: SODIUM CHLORIDE 0.9% 1000ML 1,000 ML IV SCH (18:03)
[2024-04-19] VITALS (47 sets, daily range): BP systolic 80–137; BP diastolic 43–87; PULSE 51–76; RESP 9–26; TEMP 97.6–98.3; O2SAT 100
[2024-04-19] MEDS: MEROPENEM 1 GM in SODIUM CHLORIDE 0.9% 100 ML IV SCH (01:42)
[2024-04-19] MEDS ORDERED: ACETAMINOPHEN 325 MG TAB PO PRN (02:45)
[2024-04-19] MEDS ORDERED: HYDRALAZINE HCL 20 MG/ML VIAL IV PRN (02:45)
[2024-04-19] MEDS ORDERED: GUAIFENESIN/DEXTROMETHORPHAN LIQD 5 ML UDC PO PRN (02:45)
[2024-04-19] MEDS ORDERED: ALBUTEROL SULF 0.083% NEB SOLN 3 ML NEB NEB PRN (02:45)
[2024-04-19] MEDS ORDERED: POLYETHYLENE GLYCOL 3350 17 GM PACK PO PRN (02:45)
[2024-04-19] MEDS ORDERED: MELATONIN 3 MG TAB PO PRN (02:45)
[2024-04-19 08:11] LABS: BASOPHILS % 0.3 % (0.0-1.0); EOSINOPHILS # (AUTO) 0.4 (0.0-0.4); EOSINOPHILS % 3.3 % (0.0-6.0); HEMATOCRIT 33.7 % (34.2-44.1); HEMOGLOBIN 11.1 g/dL (12.0-16.0); LYMPHOCYTES # (AUTO) 1.2 (1.0-3.2); LYMPHOCYTES % 8.9 % (18.0-39.1); MEAN CORPUSCULAR HEMOGLOBIN 34.4 pg (28-32); MEAN CORPUSCULAR HGB CONC 32.9 g/dL (31-35); MEAN CORPUSCULAR VOLUME 104.3 fL (81-99); MONOCYTES # (AUTO) 0.5 (0.2-0.8); PLATELET COUNT 167 x10e3/uL (140-360); RED BLOOD COUNT 3.23 x10e6/uL (3.6-5.1); RED CELL DISTRIBUTION WIDTH 15.6 % (11.7-14.4)
[2024-04-19] MEDS: MULTIVITAMINS/MINERALS TAB PO SCH (08:16)
[2024-04-19] MEDS: CITALOPRAM HYDROBROMIDE 20 MG TAB PO SCH (08:16)
[2024-04-19] MEDS: ASPIRIN 325 MG TAB EC PO SCH (08:18)
[2024-04-19] MEDS: CRESTOR 10MG PO SCH (08:18)
[2024-04-19] MEDS: RANOLAZINE 500 MG TABSR PO SCH (08:18)
[2024-04-19] MEDS: CLOPIDOGREL BISULFATE 75 MG TAB PO SCH (08:19)
[2024-04-19] MEDS: LEVOTHYROXINE SODIUM 75 MCG TAB PO SCH (08:19)
[2024-04-19] MEDS: MIDODRINE HCL 5 MG TABLET PO SCH (08:19)
[2024-04-19] MEDS: DOCUSATE SODIUM 100 MG CAP PO SCH (08:19)
[2024-04-19] MEDS: FENOFIBRATE 145 MG TAB PO SCH (08:23)
[2024-04-19 08:27] LABS: ALBUMIN 2.6 g/dL (3.5-5.0); ANION GAP 10.2 mmol/L (8-16); BILIRUBIN,TOTAL 0.9 mg/dL (0.2-1.2); CALCIUM 9.9 mg/dL (8.4-10.2); CHOL/HDL RATIO 4.3 (3.0-3.6); TOTAL PROTEIN 5.2 g/dL (6.5-8.1)
[2024-04-19 08:31] LABS: POTASSIUM 3.2 mmol/L (3.5-5.1)
[2024-04-19 08:34] LABS: TROPONIN I 0.395 ng/mL (0-0.300)
[2024-04-19] MEDS: BRIMONIDINE/TIMOLOL (OPTH SOLN 5 ML DRPETTE OP SCH (09:00)
[2024-04-19] MEDS ORDERED: DEXTROSE 50% SYRINGE 50 ML IV PRN (09:00)
[2024-04-19] MEDS: DEXTROSE 5% 1,000 ML IV SCH (09:41)
[2024-04-19] MEDS: INSULIN REGULAR, HUMAN 100 UNIT/1 ML SQ SCH (11:30)
[2024-04-19] MEDS: POTASSIUM CHLORIDE 20MEQ/100ML 100 ML IV ONE (13:02)
[2024-04-19] MEDS: ENOXAPARIN SOD INJ 40 MG/0.4 ML SYR SC SCH (17:13)
[2024-04-19] MEDS: ALLOPURINOL 100 MG TAB PO SCH (20:35)
[2024-04-19] MEDS: SODIUM CHLORIDE 0.9% 500ML 500 ML IV ONE (20:55)
[2024-04-19] MEDS: BIMATOPROST(OPTH) 2.5 ML BOTTLE OP SCH (22:01)
[2024-04-20] VITALS (33 sets, daily range): BP systolic 87–122; BP diastolic 45–100; PULSE 48–110; RESP 10–18; TEMP 97.8–97.9; O2SAT 96–100
[2024-04-20] MEDS: LORATADINE 10 MG TAB PO SCH (09:40)
[2024-04-20] MEDS: BIMATOPROST(OPTH) 2.5 ML BOTTLE OP ONE (22:02)
[2024-04-21] VITALS (26 sets, daily range): BP systolic 100–163; BP diastolic 54–99; PULSE 63–80; RESP 12–18; TEMP 97.6–98.6; O2SAT 100
[2024-04-21 13:23] LABS: BASOPHILS # (AUTO) 0.1 (0.0-0.1); BASOPHILS % 0.7 % (0.0-1.0); EOSINOPHILS # (AUTO) 0.6 (0.0-0.4); EOSINOPHILS % 8.3 % (0.0-6.0); HEMATOCRIT 33.1 % (34.2-44.1); LYMPHOCYTES # (AUTO) 1.5 (1.0-3.2); LYMPHOCYTES % 20.1 % (18.0-39.1); MEAN CORPUSCULAR HEMOGLOBIN 34.1 pg (28-32); MEAN CORPUSCULAR HGB CONC 33.2 g/dL (31-35); MEAN CORPUSCULAR VOLUME 102.5 fL (81-99); MONOCYTES # (AUTO) 0.3 (0.2-0.8); MONOCYTES % 4.4 % (4.4-11.3); NEUTROPHILS # (AUTO) 4.8 (2.1-6.9); NEUTROPHILS % 66.2 % (38.7-80.0); PLATELET COUNT 197 x10e3/uL (140-360); RED BLOOD COUNT 3.23 x10e6/uL (3.6-5.1); RED CELL DISTRIBUTION WIDTH 14.8 % (11.7-14.4); WHITE BLOOD COUNT 7.25 x10e3/uL (4.8-10.8)
[2024-04-21 13:45] LABS: ANION GAP 10.1 mmol/L (8-16); CALCIUM 9.5 mg/dL (8.4-10.2); CREATININE, SERUM 0.8 mg/dL (0.57-1.11)
[2024-04-21 13:47] LABS: POTASSIUM 3.1 mmol/L (3.5-5.1)
[2024-04-21] MEDS: FLUCONAZOLE 100 MG TAB PO SCH (17:24)
[2024-04-21] MEDS: BIMATOPROST(OPTH) 2.5 ML BOTTLE OP SCH (22:19)
[2024-04-22] VITALS (16 sets, daily range): BP systolic 117–135; BP diastolic 58–76; PULSE 71–87; RESP 12–16; TEMP 97.8–98.2; O2SAT 100
[2024-04-22 07:01] LABS: BASOPHILS # (AUTO) 0.1 (0.0-0.1); BASOPHILS % 0.8 % (0.0-1.0); EOSINOPHILS # (AUTO) 0.5 (0.0-0.4); EOSINOPHILS % 8.2 % (0.0-6.0); HEMATOCRIT 34.6 % (34.2-44.1); MEAN CORPUSCULAR HEMOGLOBIN 34.4 pg (28-32); MEAN CORPUSCULAR HGB CONC 31.8 g/dL (31-35); MEAN CORPUSCULAR VOLUME 108.1 fL (81-99); MONOCYTES # (AUTO) 0.4 (0.2-0.8); MONOCYTES % 5.8 % (4.4-11.3); NEUTROPHILS # (AUTO) 3.6 (2.1-6.9); PLATELET COUNT 153 x10e3/uL (140-360); RED CELL DISTRIBUTION WIDTH 15.5 % (11.7-14.4); WHITE BLOOD COUNT 6.59 x10e3/uL (4.8-10.8)
[2024-04-22] MEDS: FLUCONAZOLE 100 MG TAB PO SCH (10:47)
[2024-04-22 12:18] LABS: ANION GAP 9.7 mmol/L (8-16); CALCIUM 9.6 mg/dL (8.4-10.2); CREATININE, SERUM 0.8 mg/dL (0.57-1.11); POTASSIUM 3.7 mmol/L (3.5-5.1)
[2024-04-22] MEDS: FLUCONAZOLE 200 MG/100 ML 100 ML IV SCH (13:15)
[2024-04-22] MEDS: FLUCONAZOLE 100 MG TAB PO ONE (15:37)
[2024-04-23] VITALS (23 sets, daily range): BP systolic 76–121; BP diastolic 41–70; PULSE 68–87; RESP 12–24; TEMP 97.4–98.5; O2SAT 100
[2024-04-23] MEDS: FLUCONAZOLE 100 MG TAB PO SCH (08:02)
[2024-04-23] MEDS ORDERED: MIDODRINE 2.5 MG TAB PO SCH (12:00)
[2024-04-23] MEDS: MIDODRINE HCL 5 MG TABLET PO SCH (12:35)
[2024-04-23] MEDS: ONDANSETRON HCL INJ 2MG/ML 2ML 2 MG/ML VIAL IV PRN (17:06)
[2024-04-24] VITALS (24 sets, daily range): BP systolic 99–118; BP diastolic 47–63; PULSE 60–77; RESP 11–21; TEMP 98.2–98.8; O2SAT 100
[2024-04-24] MEDS: MAGNESIUM/ALUMINUM/SIMETHICONE 30 ML UDC PO PRN (00:46)
[2024-04-25] VITALS (14 sets, daily range): BP systolic 106–121; BP diastolic 49–55; PULSE 63–82; RESP 11–20; TEMP 98–98.4; O2SAT 98–100
[2024-04-26] VITALS (8 sets, daily range): BP systolic 101–121; BP diastolic 48–54; PULSE 66–81; RESP 12–18; TEMP 98.4–98.5; O2SAT 100
== END 2024-04-26 13:59 | disposition home health service (06) | DRG 698 ==
LOC: ER 12:00 → ERHOLD 16:39 → ICU 17:34
PROVIDERS: ADMIT Internal Medicine; ATTEND Internal Medicine
PROC: 3E03329 Introduction of Other Anti-infective into Peripheral Vein, Percutaneous Approach (ICD-10-PCS; principal; 2024-04-18)
PROC: 5A0935A Assistance with Respiratory Ventilation, Less than 24 Consecutive Hours, High Flow/Velocity Cannula (ICD-10-PCS; 2024-04-19)
DX: T83.511A Infection and inflammatory reaction due to indwelling urethral catheter, initial encounter (principal); B37.7 Candidal sepsis; G93.41 Metabolic encephalopathy; J69.0 Pneumonitis due to inhalation of food and vomit; B37.49 Other urogenital candidiasis; N17.9 Acute kidney failure, unspecified; I24.89 Other forms of acute ischemic heart disease; D68.9 Coagulation defect, unspecified; Z96.0 Presence of urogenital implants; I12.9 Hypertensive chronic kidney disease with stage 1 through stage 4 chronic kidney disease, or unspecified chronic kidney disease; E11.22 Type 2 diabetes mellitus with diabetic chronic kidney disease; N18.9 Chronic kidney disease, unspecified; E11.40 Type 2 diabetes mellitus with diabetic neuropathy, unspecified; I95.89 Other hypotension; F01.50 Vascular dementia, unspecified severity, without behavioral disturbance, psychotic disturbance, mood disturbance, and anxiety; D63.8 Anemia in other chronic diseases classified elsewhere; I25.10 Atherosclerotic heart disease of native coronary artery without angina pectoris; Z95.5 Presence of coronary angioplasty implant and graft; Z95.1 Presence of aortocoronary bypass graft; Z95.818 Presence of other cardiac implants and grafts; R53.81 Other malaise; R33.9 Retention of urine, unspecified; R31.29 Other microscopic hematuria; K82.8 Other specified diseases of gallbladder; N20.0 Calculus of kidney; R13.10 Dysphagia, unspecified; R11.2 Nausea with vomiting, unspecified; B19.20 Unspecified viral hepatitis C without hepatic coma; R62.7 Adult failure to thrive; Z68.27 Body mass index [BMI] 27.0-27.9, adult; Z71.3 Dietary counseling and surveillance; H40.9 Unspecified glaucoma; H54.62 Unqualified visual loss, left eye, normal vision right eye; Z11.52 Encounter for screening for COVID-19; Z86.73 Personal history of transient ischemic attack (TIA), and cerebral infarction without residual deficits; Z79.02 Long term (current) use of antithrombotics/antiplatelets; Z79.899 Other long term (current) drug therapy
CPT/HCPCS: 36415; 51700; 70450; 70551; 71045; 74176; 80048; 80053; 80061; 81001; 82140; 82550; 82948; 83735; 83880; 84484; 85025; 85610; 85730; 87040; 87086; 93005; 94799; 96372; 99252; 99284; J1650; J2185; J2405; J3480; J7030; J7040; J7050; J7070

== ENCOUNTER → 2024-06-25 | Day surgery (SDC) | payer MEDICARE ==
[~2024-06-25] MED LIST changes: +ACETAMINOPHEN 1000 MG/100 ML 100 ML IV ONE; +CORTEF10 MG PO; +DEXAMETHASONE SOD PHOS INJ 4 MG/ML SDV ONE; +DIFLUCAN100 MG PO; +EPHEDRINE SULFATE INJ 50 MG/ML VIAL ONE; +FAMOTIDINE 20 MG/2 ML VIAL IV ONE; +FENTANYL CITRATE/PF 100MCG/2 ML INJ ONE; +LIDOCAINE HCL 2% LOCAL INJ 5 ML SDV VIAL INJ ONE; +ONDANSETRON HCL INJ 2MG/ML 2ML 2 MG/ML VIAL ONE; +PROPOFOL IV EMULSION 10 MG/ML 20 ML VIAL ONE; +SEVOFLURANE INHAL SOLN 250 ML PEN BTL ONE; +VAGISIL CREAM28 GM EXT
[2024-06-25] MEDS: GENTAMICIN 80MG/NS 100 ML 200 ML IV ONE (08:50)
[2024-06-25] MEDS: SODIUM CHLORIDE 0.9% 1000ML 1,000 ML ONE (08:55)
[2024-06-25] MEDS: CEFEPIME HCL 1 GM VIAL ONE (08:56)
[2024-06-25 09:17] LABS: BASOPHILS # (AUTO) 0.1 (0.0-0.1); BASOPHILS % 1.3 % (0.0-1.0); EOSINOPHILS # (AUTO) 0.1 (0.0-0.4); EOSINOPHILS % 1.8 % (0.0-6.0); HEMATOCRIT 36.9 % (34.2-44.1); HEMOGLOBIN 11.5 g/dL (12.0-16.0); LYMPHOCYTES # (AUTO) 2.7 (1.0-3.2); LYMPHOCYTES % 48.6 % (18.0-39.1); MEAN CORPUSCULAR HEMOGLOBIN 34.8 pg (28-32); MEAN CORPUSCULAR HGB CONC 31.2 g/dL (31-35); MEAN CORPUSCULAR VOLUME 111.8 fL (81-99); MONOCYTES # (AUTO) 0.3 (0.2-0.8); MONOCYTES % 4.5 % (4.4-11.3); NEUTROPHILS # (AUTO) 2.4 (2.1-6.9); NEUTROPHILS % 43.4 % (38.7-80.0); PLATELET COUNT 261 x10e3/uL (140-360); RED CELL DISTRIBUTION WIDTH 16.8 % (11.7-14.4); WHITE BLOOD COUNT 5.58 x10e3/uL (4.8-10.8)
[2024-06-25 09:50] LABS: ANION GAP 11.2 mmol/L (8-16); CALCIUM 9.4 mg/dL (8.4-10.2); CREATININE, SERUM 0.94 mg/dL (0.57-1.11)
[2024-06-25 09:51] LABS: POTASSIUM 3.2 mmol/L (3.5-5.1)
[2024-06-25 09:53] LABS: INR 1.03; PROTHROMBIN TIME 14.1 seconds (11.9-14.5)
[2024-06-25] MEDS: ONDANSETRON HCL INJ 2MG/ML 2ML 2 MG/ML VIAL ONE (11:30)
[2024-06-25 11:40] VITALS: TEMP 97.1
[2024-06-25 12:05] VITALS: BP 124/76; PULSE 68; RESP 16; O2SAT 98
== END | disposition home or self-care (01) ==
LOC: OR 08:26
PROVIDERS: ATTEND Urology
DX: N13.30 Unspecified hydronephrosis (principal); N21.0 Calculus in bladder; Z46.6 Encounter for fitting and adjustment of urinary device; N95.2 Postmenopausal atrophic vaginitis; N39.0 Urinary tract infection, site not specified; E11.22 Type 2 diabetes mellitus with diabetic chronic kidney disease; I12.9 Hypertensive chronic kidney disease with stage 1 through stage 4 chronic kidney disease, or unspecified chronic kidney disease; N18.9 Chronic kidney disease, unspecified; I25.10 Atherosclerotic heart disease of native coronary artery without angina pectoris; E78.5 Hyperlipidemia, unspecified; E03.9 Hypothyroidism, unspecified; R06.02 Shortness of breath; M54.50 Low back pain, unspecified; Z79.02 Long term (current) use of antithrombotics/antiplatelets; Z79.82 Long term (current) use of aspirin; Z79.85 Long-term (current) use of injectable non-insulin antidiabetic drugs; Z79.899 Other long term (current) drug therapy; Z86.73 Personal history of transient ischemic attack (TIA), and cerebral infarction without residual deficits
CPT/HCPCS: 36415; 52317; 52351; 74018; 74420; 80048; 82948; 85025; 85610; 85730; 87086; 88300; C1769; J0131; J0692; J1100; J1580; J2003; J2405; J2704; J3010; J7030

== ENCOUNTER 2024-07-09 14:53 | Inpatient (IN) | payer MEDICARE ==
[~2024-07-09] VITALS: Ht 152.4 cm; Wt 54.6 kg
[~2024-07-09 14:53] MED LIST changes: -ACETAMINOPHEN 1000 MG/100 ML 100 ML IV ONE; -CORTEF10 MG PO; -DEXAMETHASONE SOD PHOS INJ 4 MG/ML SDV ONE; -DIFLUCAN100 MG PO; -EPHEDRINE SULFATE INJ 50 MG/ML VIAL ONE; -FAMOTIDINE 20 MG/2 ML VIAL IV ONE; -FENTANYL CITRATE/PF 100MCG/2 ML INJ ONE; -LIDOCAINE HCL 2% LOCAL INJ 5 ML SDV VIAL INJ ONE; -ONDANSETRON HCL INJ 2MG/ML 2ML 2 MG/ML VIAL ONE; -PROPOFOL IV EMULSION 10 MG/ML 20 ML VIAL ONE; -SEVOFLURANE INHAL SOLN 250 ML PEN BTL ONE; -VAGISIL CREAM28 GM EXT
[2024-07-09 15:15] VITALS: TEMP 97.7
[2024-07-09] MEDS ORDERED: SODIUM CHLORIDE FLUSH 10 ML SYR IV PRN (15:30)
[2024-07-09 16:04] LABS: BASOPHILS # (AUTO) 0.1 (0.0-0.1); BASOPHILS % 0.9 % (0.0-1.0); EOSINOPHILS # (AUTO) 0.1 (0.0-0.4); EOSINOPHILS % 1.1 % (0.0-6.0); HEMATOCRIT 34.4 % (34.2-44.1); HEMOGLOBIN 11.5 g/dL (12.0-16.0); LYMPHOCYTES % 30.8 % (18.0-39.1); MEAN CORPUSCULAR HGB CONC 33.4 g/dL (31-35); MEAN CORPUSCULAR VOLUME 104.6 fL (81-99); MONOCYTES # (AUTO) 0.2 (0.2-0.8); MONOCYTES % 3.4 % (4.4-11.3); NEUTROPHILS # (AUTO) 4.1 (2.1-6.9); NEUTROPHILS % 63.5 % (38.7-80.0); PLATELET COUNT 268 x10e3/uL (140-360); RED BLOOD COUNT 3.29 x10e6/uL (3.6-5.1); RED CELL DISTRIBUTION WIDTH 17.6 % (11.7-14.4); WHITE BLOOD COUNT 6.52 x10e3/uL (4.8-10.8)
[2024-07-09] MEDS: SODIUM CHLORIDE 0.9% 1000ML 1,000 ML IV ONE (16:49)
[2024-07-09 17:18] LABS: ALBUMIN 3.1 g/dL (3.5-5.0); ALBUMIN/GLOBULIN RATIO 1.1 (0.8-2.0); ANION GAP 14.6 mmol/L (8-16); BILIRUBIN,TOTAL 0.9 mg/dL (0.2-1.2); CALCIUM 11.1 mg/dL (8.4-10.2); CREATININE, SERUM 1.05 mg/dL (0.57-1.11); POTASSIUM 3.6 mmol/L (3.5-5.1); TOTAL PROTEIN 5.9 g/dL (6.5-8.1)
[2024-07-09 17:23] LABS: TROPONIN I 0.116 ng/mL (0-0.300)
[2024-07-09] MEDS ORDERED: ONDANSETRON HCL INJ 2MG/ML 2ML 2 MG/ML VIAL IV PRN (18:30)
[2024-07-09] MEDS ORDERED: SODIUM CHLORIDE FLUSH 10 ML SYR INJ PRN (18:30)
[2024-07-09 19:00] VITALS: PULSE 62; RESP 11
[2024-07-09 19:30] LABS: CLARITY,URINE SL CLOUDY (CLEAR); COLOR,URINE YELLOW (YELLOW); GLUCOSE, URINE NEGATIVE (NEGATIVE); KETONES,URINE NEGATIVE (NEGATIVE); LEUKOCYTE ESTERASE ,URINE MODERATE (NEGATIVE); NITRITE,URINE NEGATIVE (NEGATIVE); PH,URINE 6 (5 - 7); PROTEIN,URINE DIPSTICK 2+ (NEGATIVE)
[2024-07-09 19:31] LABS: BILIRUBIN,URINE NEGATIVE (NEGATIVE); URINE UROBILINOGEN 0.2 mg/dL (0.2 - 1)
[2024-07-09 19:42] LABS: BACTERIA,URINE FEW /HPF; EPITHELIAL CELLS,URINE RARE /LPF
[2024-07-09 19:43] LABS: YEAST,URINE MODERATE
[2024-07-09 20:52] VITALS: BP 118/51; PULSE 69; RESP 16; TEMP 97.2; O2SAT 100
[2024-07-09] MEDS ORDERED: OMEPRAZOLE40 MG PO (21:33)
[2024-07-09 21:41] VITALS: BP 118/51; PULSE 69; RESP 16; TEMP 97.2; O2SAT 100
[2024-07-09 21:45] VITALS: BP 118/51; PULSE 69; RESP 16; TEMP 97.2; O2SAT 100
[2024-07-10] VITALS (7 sets, daily range): BP systolic 87–98; BP diastolic 34–47; PULSE 53–77; RESP 16–18; TEMP 97.4–98.9; O2SAT 98–100
[2024-07-10 04:59] LABS: BASOPHILS # (AUTO) 0.1 (0.0-0.1); BASOPHILS % 0.9 % (0.0-1.0); EOSINOPHILS # (AUTO) 0.1 (0.0-0.4); EOSINOPHILS % 2.1 % (0.0-6.0); HEMATOCRIT 30.2 % (34.2-44.1); HEMOGLOBIN 9.9 g/dL (12.0-16.0); LYMPHOCYTES # (AUTO) 2.9 (1.0-3.2); LYMPHOCYTES % 54.1 % (18.0-39.1); MEAN CORPUSCULAR HEMOGLOBIN 34.9 pg (28-32); MEAN CORPUSCULAR HGB CONC 32.8 g/dL (31-35); MEAN CORPUSCULAR VOLUME 106.3 fL (81-99); MONOCYTES # (AUTO) 0.3 (0.2-0.8); MONOCYTES % 4.9 % (4.4-11.3); NEUTROPHILS % 37.6 % (38.7-80.0); PLATELET COUNT 237 x10e3/uL (140-360); RED BLOOD COUNT 2.84 x10e6/uL (3.6-5.1); RED CELL DISTRIBUTION WIDTH 16.4 % (11.7-14.4); WHITE BLOOD COUNT 5.29 x10e3/uL (4.8-10.8)
[2024-07-10 05:54] LABS: ALBUMIN 2.6 g/dL (3.5-5.0); ALBUMIN/GLOBULIN RATIO 1.1 (0.8-2.0); ANION GAP 12.1 mmol/L (8-16); BILIRUBIN,TOTAL 0.7 mg/dL (0.2-1.2); CALCIUM 10.1 mg/dL (8.4-10.2); CREATININE, SERUM 0.92 mg/dL (0.57-1.11); TOTAL PROTEIN 4.9 g/dL (6.5-8.1)
[2024-07-10 06:00] LABS: POTASSIUM 3.1 mmol/L (3.5-5.1)
[2024-07-10] MEDS ORDERED: ACETAZOLAMIDE 250 MG TAB PO SCH (09:00)
[2024-07-10] MEDS: NITROFURANTOIN 50 MG CAP PO SCH (09:32)
[2024-07-10] MEDS: LEVOTHYROXINE SODIUM 50 MCG TAB PO SCH (09:33)
[2024-07-10] MEDS: ACETAZOLAMIDE 250 MG TAB PO SCH (09:33)
[2024-07-10] MEDS: MIDODRINE HCL 5 MG TABLET PO SCH (09:34)
[2024-07-10] MEDS: ASPIRIN 325 MG TAB EC PO SCH (09:34)
[2024-07-10] MEDS: CLOPIDOGREL BISULFATE 75 MG TAB PO SCH (09:34)
[2024-07-10] MEDS: CITALOPRAM HYDROBROMIDE 20 MG TAB PO SCH (09:34)
[2024-07-10] MEDS: CHOLECALCIFEROL 1,000 UNIT TAB PO SCH (09:34)
[2024-07-10] MEDS: POTASSIUM CHLORIDE 20 MEQ TAB CR PO SCH (09:35)
[2024-07-10] MEDS: SODIUM BICARBONATE 650 MG TAB PO SCH (15:39)
[2024-07-10] MEDS: POTASSIUM CHLORIDE 20MEQ/100ML 100 ML IV ONE (15:39)
[2024-07-10] MEDS: BRIMONIDINE/TIMOLOL (OPTH SOLN 5 ML DRPETTE OP SCH (15:44)
[2024-07-10] MEDS: SODIUM CHLORIDE 0.9% 1000ML 1,000 ML IV ONE (15:50)
[2024-07-10] MEDS: POTASSIUM CHLORIDE 20 MEQ TAB CR PO STA (15:53)
[2024-07-10] MEDS: SODIUM BICARBONATE 8.4% VIAL 150 ML in DEXTROSE 5% 1,000 ML IV SCH (18:07)
[2024-07-10] MEDS ORDERED: LORATADINE 10 MG TAB PO SCH (21:00)
[2024-07-10] MEDS ORDERED: FENOFIBRATE 145 MG TAB PO SCH (21:00)
[2024-07-10] MEDS: BIMATOPROST(OPTH) 2.5 ML BOTTLE OP SCH (21:00)
[2024-07-10] MEDS: CRESTOR 10MG PO SCH (21:50)
[2024-07-10] MEDS: ALLOPURINOL 100 MG TAB PO SCH (21:51)
[2024-07-10] MEDS: PANTOPRAZOLE SOD 40 MG TABEC PO SCH (21:51)
[2024-07-10] MEDS: MULTIVITAMINS/MINERALS TAB PO SCH (21:51)
[2024-07-11] VITALS (10 sets, daily range): BP systolic 77–118; BP diastolic 32–53; PULSE 48–53; RESP 14–16; TEMP 97.2–97.8; O2SAT 100
[2024-07-11 05:46] LABS: ALBUMIN 2.3 g/dL (3.5-5.0); ALBUMIN/GLOBULIN RATIO 1.2 (0.8-2.0); ANION GAP 9.6 mmol/L (8-16); BILIRUBIN,TOTAL 0.5 mg/dL (0.2-1.2); CALCIUM 9.4 mg/dL (8.4-10.2); CREATININE, SERUM 0.85 mg/dL (0.57-1.11); POTASSIUM 4.6 mmol/L (3.5-5.1); TOTAL PROTEIN 4.2 g/dL (6.5-8.1)
[2024-07-11] MEDS ORDERED: DEXTROSE 50% SYRINGE 50 ML IV PRN (07:15)
[2024-07-11] MEDS: INSULIN REGULAR, HUMAN 100 UNIT/1 ML SQ SCH (07:30)
[2024-07-11] MEDS: SODIUM CHLORIDE 0.9% 500ML 300 ML IV ONE (07:45)
[2024-07-11] MEDS: SODIUM CHLORIDE 0.9% 500ML 500 ML ONE (07:46)
[2024-07-11] MEDS: ALBUMIN 5% 0.05 GM/ML BTL IV STA (09:16)
[2024-07-11 09:34] LABS: FREE THYROXINE INDEX 2.037 (1.4-3.8); T3 UPTAKE 29.31 % (22.5-37.0); THYROID STIMULATING HORMONE 0.939 uIU/mL (0.350-4.940)
[2024-07-11 09:35] LABS: T4 (THYROXINE) 6.95 ug/dL (4.5-10.9)
[2024-07-11] MEDS: HYDROCORTISONE SOD SUCCINATE 100 MG VIAL IV ONE (16:49)
[2024-07-11] MEDS ORDERED: MELATONIN 3 MG TAB PO PRN (19:45)
[2024-07-11] MEDS ORDERED: MAGNESIUM/ALUMINUM/SIMETHICONE 30 ML UDC PO PRN (19:45)
[2024-07-11] MEDS ORDERED: ALBUTEROL SULF 0.083% NEB SOLN 3 ML NEB NEB PRN (19:45)
[2024-07-11] MEDS ORDERED: ACETAMINOPHEN 325 MG TAB PO PRN (19:45)
[2024-07-11] MEDS ORDERED: GUAIFENESIN/DEXTROMETHORPHAN LIQD 5 ML UDC PO PRN (19:45)
[2024-07-12] VITALS (7 sets, daily range): BP systolic 83–115; BP diastolic 41–67; PULSE 51–58; RESP 16–20; TEMP 97.5–98.4; O2SAT 96–100
[2024-07-12 05:20] LABS: ALBUMIN 2.6 g/dL (3.5-5.0); ALBUMIN/GLOBULIN RATIO 1.4 (0.8-2.0); ANION GAP 10.6 mmol/L (8-16); BILIRUBIN,TOTAL 0.6 mg/dL (0.2-1.2); CALCIUM 9.3 mg/dL (8.4-10.2); CREATININE, SERUM 0.83 mg/dL (0.57-1.11); POTASSIUM 3.6 mmol/L (3.5-5.1); TOTAL PROTEIN 4.5 g/dL (6.5-8.1)
[2024-07-12] MEDS: MULTIVITAMINS/MINERALS TAB PO SCH (08:40)
[2024-07-12] MEDS: HYDROCORTISONE 10 MG TAB PO SCH (13:48)
[2024-07-12] MEDS ORDERED: CORTISONE ACETATE 25 MG PO SCH (17:00)
[2024-07-12] MEDS ORDERED: VAGISIL CREAM28 GM EXT (19:41)
[2024-07-12] MEDS ORDERED: [UNRECOGNIZED DRUG - MIXTURE] TOP PRN (19:45)
[2024-07-12] MEDS ORDERED: [UNRECOGNIZED DRUG - MIXTURE] TOP SCH (19:45)
[2024-07-13] VITALS (9 sets, daily range): BP systolic 83–120; BP diastolic 41–76; PULSE 56–70; RESP 16–18; TEMP 98.1–98.8; O2SAT 100
[2024-07-13] MEDS: MIDODRINE 2.5 MG TAB PO SCH ×2 (03:08→17:16)
[2024-07-13] MEDS ORDERED: DIFLUCAN100 MG PO (17:16)
[2024-07-13] MEDS ORDERED: CORTEF10 MG PO (17:16)
[2024-07-13] MEDS ORDERED: MIDODRINE HCL5 MG PO (17:16)
[2024-07-13] MEDS ORDERED: SODIUM BICARBO650 MG PO (17:16)
[2024-07-14 00:09] VITALS: BP 81/45; PULSE 54; RESP 16; TEMP 97.4; O2SAT 100
[2024-07-14] MEDS: MIDODRINE 2.5 MG TAB PO PRN (03:56)
[2024-07-14 04:11] VITALS: BP 93/37; PULSE 60; RESP 16; TEMP 97.6; O2SAT 100
[2024-07-14 07:11] VITALS: BP 104/57; PULSE 72; RESP 18; TEMP 97.5; O2SAT 99
[2024-07-14] MEDS: FLUCONAZOLE 100 MG TAB PO SCH (08:49)
[2024-07-14 09:38] VITALS: BP 104/57; PULSE 72; RESP 18; TEMP 97.5; O2SAT 99
== END 2024-07-14 10:29 | disposition home health service (06) | DRG 757 ==
LOC: ER 15:22 → ERHOLD 18:24 → MED/SURG 20:50 → OBSVTOIN 07-10 09:09
PROVIDERS: ADMIT Internal Medicine Critical Care Medicine; ATTEND Internal Medicine Critical Care Medicine
DX: B37.49 Other urogenital candidiasis (principal); G93.41 Metabolic encephalopathy; R64 Cachexia; E46 Unspecified protein-calorie malnutrition; E87.20 Acidosis, unspecified; N17.9 Acute kidney failure, unspecified; L97.528 Non-pressure chronic ulcer of other part of left foot with other specified severity; E88.09 Other disorders of plasma-protein metabolism, not elsewhere classified; E11.22 Type 2 diabetes mellitus with diabetic chronic kidney disease; E11.621 Type 2 diabetes mellitus with foot ulcer; E11.40 Type 2 diabetes mellitus with diabetic neuropathy, unspecified; I12.9 Hypertensive chronic kidney disease with stage 1 through stage 4 chronic kidney disease, or unspecified chronic kidney disease; N18.9 Chronic kidney disease, unspecified; D63.8 Anemia in other chronic diseases classified elsewhere; I95.1 Orthostatic hypotension; E03.9 Hypothyroidism, unspecified; F01.50 Vascular dementia, unspecified severity, without behavioral disturbance, psychotic disturbance, mood disturbance, and anxiety; I25.10 Atherosclerotic heart disease of native coronary artery without angina pectoris; H54.62 Unqualified visual loss, left eye, normal vision right eye; E83.52 Hypercalcemia; R31.29 Other microscopic hematuria; R74.01 Elevation of levels of liver transaminase levels; I95.89 Other hypotension; N95.2 Postmenopausal atrophic vaginitis; Z68.23 Body mass index [BMI] 23.0-23.9, adult; Z74.01 Bed confinement status; Z79.51 Long term (current) use of inhaled steroids; Z79.890 Hormone replacement therapy; Z79.02 Long term (current) use of antithrombotics/antiplatelets; Z79.82 Long term (current) use of aspirin; Z95.1 Presence of aortocoronary bypass graft; Z95.5 Presence of coronary angioplasty implant and graft; Z86.73 Personal history of transient ischemic attack (TIA), and cerebral infarction without residual deficits; Z90.710 Acquired absence of both cervix and uterus
CPT/HCPCS: 36415; 51700; 70450; 71045; 80053; 81001; 82533; 82948; 84436; 84443; 84479; 84484; 84550; 85025; 87086; 93005; 93306; 94760; 96372; 99252; 99284; G0378; J1720; J2470; J3480; J7030; J7040; J7070

== ENCOUNTER 2024-07-31 06:07 | Day surgery (SDC) | payer MEDICARE ==
[2024-07-29 11:26] LABS: BASOPHILS % 0.7 % (0.0-1.0); EOSINOPHILS # (AUTO) 0.1 (0.0-0.4); HEMATOCRIT 31.1 % (34.2-44.1); HEMOGLOBIN 9.8 g/dL (12.0-16.0); LYMPHOCYTES # (AUTO) 1.9 (1.0-3.2); MEAN CORPUSCULAR HEMOGLOBIN 33.6 pg (28-32); MEAN CORPUSCULAR HGB CONC 31.5 g/dL (31-35); MEAN CORPUSCULAR VOLUME 106.5 fL (81-99); MONOCYTES # (AUTO) 0.3 (0.2-0.8); MONOCYTES % 4.9 % (4.4-11.3); NEUTROPHILS # (AUTO) 3.6 (2.1-6.9); NEUTROPHILS % 61.2 % (38.7-80.0); PLATELET COUNT 200 x10e3/uL (140-360); RED BLOOD COUNT 2.92 x10e6/uL (3.6-5.1); RED CELL DISTRIBUTION WIDTH 16.5 % (11.7-14.4); WHITE BLOOD COUNT 5.93 x10e3/uL (4.8-10.8)
[2024-07-29 11:59] LABS: INR 1.04; PARTIAL THROMBOPLASTIN TIME 26.4 seconds (23.8-35.5); PROTHROMBIN TIME 14.2 seconds (11.9-14.5)
[2024-07-29 12:08] LABS: ANION GAP 11.7 mmol/L (8-16); CALCIUM 9.6 mg/dL (8.4-10.2); CHOL/HDL RATIO 3.7 (3.0-3.6); CREATININE, SERUM 0.92 mg/dL (0.57-1.11); POTASSIUM 4.7 mmol/L (3.5-5.1)
[2024-07-31] VITALS (13 sets, daily range): BP systolic 105–153; BP diastolic 43–73; PULSE 57–71; RESP 10–26; TEMP 97.5–97.8; O2SAT 100
[~2024-07-31] VITALS: Ht 152.4 cm; Wt 54.4 kg
[~2024-07-31 06:07] MED LIST changes: +CORTEF10 MG PO; +DIFLUCAN100 MG PO; +VAGISIL CREAM28 GM EXT
[2024-07-31] MEDS ORDERED: VERAPAMIL HCL 2.5 MG/ML 2 ML VIAL ONE (07:03)
[2024-07-31] MEDS ORDERED: LIDOCAINE HCL 2% LOCAL 20 ML VIAL ONE (07:03)
[2024-07-31] MEDS ORDERED: HEPARIN SOD/SOD CHLORIDE 2,000 ML ONE (07:03)
[2024-07-31] MEDS ORDERED: IOPAMIDOL 370 MG/ML 100 ML INFUS..BTL INJ ONE ×3 (07:03→08:37)
[2024-07-31] MEDS ORDERED: HEPARIN SOD (PORCINE) 1000 UNIT/ML 30ML ONE (07:03)
[2024-07-31] MEDS ORDERED: SODIUM CHLORIDE 0.9% 1000ML 1,000 ML ONE (07:04)
[2024-07-31] MEDS ORDERED: NITROGLYCERIN/D5W 200 MCG/ML 0 ML ONE (07:04)
[2024-07-31] MEDS ORDERED: MIDAZOLAM HCL 2 MG/2 ML VIAL ONE (07:14)
[2024-07-31] MEDS ORDERED: FENTANYL CITRATE/PF 100MCG/2 ML INJ ONE (07:15)
[2024-07-31] MEDS ORDERED: CLOPIDOGREL BISULFATE 75 MG TAB ONE (08:23)
[2024-07-31] MEDS ORDERED: HYDROCODONE/APAP 5MG-325MG TAB PO PRN (10:30)
[2024-07-31] MEDS: HYDROCODONE/APAP 5MG-325MG TAB ONE (10:42)
== END 2024-07-31 14:30 | disposition home or self-care (01) ==
LOC: CATH LAB 06:07
PROVIDERS: ATTEND Internal Medicine Cardiovascular Disease
DX: I70.213 Atherosclerosis of native arteries of extremities with intermittent claudication, bilateral legs (principal); I25.810 Atherosclerosis of coronary artery bypass graft(s) without angina pectoris; I25.2 Old myocardial infarction; R55 Syncope and collapse; H40.9 Unspecified glaucoma; Z01.810 Encounter for preprocedural cardiovascular examination; Z01.812 Encounter for preprocedural laboratory examination; Z01.818 Encounter for other preprocedural examination; Z79.82 Long term (current) use of aspirin; Z79.02 Long term (current) use of antithrombotics/antiplatelets; Z79.899 Other long term (current) drug therapy; Z95.1 Presence of aortocoronary bypass graft; Z95.5 Presence of coronary angioplasty implant and graft
CPT/HCPCS: 36415 ×2; 37228; 71046; 75710; 76937; 80048; 80061; 82948; 85025; 85610; 85730; 93005; C1725; C1769 ×4; C1887 ×2; J1644; J2003; J2250; J3010; J7030; Q9967; 36247; 37246; 75630; 99152; 99153

== ENCOUNTER 2024-09-25 06:12 | Day surgery (SDC) | payer MEDICARE ==
[2024-09-22 10:56] LABS: BASOPHILS # (AUTO) 0.1 (0.0-0.1); BASOPHILS % 0.9 % (0.0-1.0); EOSINOPHILS # (AUTO) 0.2 (0.0-0.4); EOSINOPHILS % 2.6 % (0.0-6.0); HEMATOCRIT 33.6 % (34.2-44.1); HEMOGLOBIN 10.7 g/dL (12.0-16.0); LYMPHOCYTES # (AUTO) 2.3 (1.0-3.2); LYMPHOCYTES % 30.6 % (18.0-39.1); MEAN CORPUSCULAR HEMOGLOBIN 33.6 pg (28-32); MEAN CORPUSCULAR HGB CONC 31.8 g/dL (31-35); MEAN CORPUSCULAR VOLUME 105.7 fL (81-99); MONOCYTES # (AUTO) 0.4 (0.2-0.8); MONOCYTES % 5.1 % (4.4-11.3); NEUTROPHILS # (AUTO) 4.5 (2.1-6.9); NEUTROPHILS % 60.5 % (38.7-80.0); PLATELET COUNT 171 x10e3/uL (140-360); RED BLOOD COUNT 3.18 x10e6/uL (3.6-5.1); RED CELL DISTRIBUTION WIDTH 13.8 % (11.7-14.4); WHITE BLOOD COUNT 7.45 x10e3/uL (4.8-10.8)
[2024-09-22 11:17] LABS: INR 1.01; PROTHROMBIN TIME 14.2 seconds (11.9-14.5)
[2024-09-22 11:18] LABS: PARTIAL THROMBOPLASTIN TIME 26.2 seconds (23.8-35.5)
[2024-09-22 11:31] LABS: ANION GAP 10.8 mmol/L (8-16); CALCIUM 9.3 mg/dL (8.4-10.2); CHOL/HDL RATIO 3.5 (3.0-3.6); CREATININE, SERUM 1.22 mg/dL (0.57-1.11); POTASSIUM 4.8 mmol/L (3.5-5.1)
[2024-09-25] VITALS (9 sets, daily range): BP systolic 99–132; BP diastolic 44–73; PULSE 71–76; RESP 12–17; TEMP 97.5; O2SAT 99–100
[~2024-09-25] VITALS: Ht 152.4 cm; Wt 59.0 kg
[2024-09-25] MEDS ORDERED: MIDAZOLAM HCL 2 MG/2 ML VIAL ONE (07:28)
[2024-09-25] MEDS ORDERED: FENTANYL CITRATE/PF 100MCG/2 ML INJ ONE (07:28)
[2024-09-25] MEDS ORDERED: LIDOCAINE HCL 2% LOCAL 20 ML VIAL ONE (07:31)
[2024-09-25] MEDS ORDERED: SODIUM CHLORIDE 0.9% 1000ML 1,000 ML ONE (07:52)
[2024-09-25] MEDS ORDERED: LIDOCAINE HCL 1% LOCAL INJ 20 ML VIAL ONE (07:53)
== END 2024-09-25 09:50 | disposition home or self-care (01) ==
LOC: CATH LAB 06:12
PROVIDERS: ATTEND Internal Medicine Cardiovascular Disease
DX: R55 Syncope and collapse (principal); Z45.09 Encounter for adjustment and management of other cardiac device; E11.22 Type 2 diabetes mellitus with diabetic chronic kidney disease; I13.0 Hypertensive heart and chronic kidney disease with heart failure and stage 1 through stage 4 chronic kidney disease, or unspecified chronic kidney disease; N18.9 Chronic kidney disease, unspecified; I50.9 Heart failure, unspecified; I25.2 Old myocardial infarction; H40.9 Unspecified glaucoma; I25.10 Atherosclerotic heart disease of native coronary artery without angina pectoris; Z95.1 Presence of aortocoronary bypass graft; Z95.5 Presence of coronary angioplasty implant and graft; E11.51 Type 2 diabetes mellitus with diabetic peripheral angiopathy without gangrene; I70.213 Atherosclerosis of native arteries of extremities with intermittent claudication, bilateral legs; Z95.820 Peripheral vascular angioplasty status with implants and grafts; Z79.899 Other long term (current) drug therapy; Z79.02 Long term (current) use of antithrombotics/antiplatelets; Z79.82 Long term (current) use of aspirin
CPT/HCPCS: 33286; 36415 ×2; 71046; 80048; 80061; 82948; 85025; 85610; 85730; 93005; J2003 ×2; J2250; J3010; J7030; 99152

== ENCOUNTER 2024-10-24 17:20 | Inpatient (IN) | payer MEDICARE ==
[~2024-10-24] VITALS: Ht 152.4 cm; Wt 59.1 kg
[2024-10-24 17:25] VITALS: RESP 18
[2024-10-24 17:58] LABS: BASOPHILS % 0.5 % (0.0-1.0); EOSINOPHILS % 1.8 % (0.0-6.0); LYMPHOCYTES % 25.3 % (18.0-39.1); MONOCYTES % 4.5 % (4.4-11.3); NEUTROPHILS % 67.6 % (38.7-80.0); RED CELL DISTRIBUTION WIDTH 13.6 % (11.7-14.4)
[2024-10-24 18:11] LABS: INR 1.03
[2024-10-24 18:21] LABS: EST GLOMERULAR FILTRATION RATE 51.0 ML/MIN (>=60)
[2024-10-24] MEDS ORDERED: IOPAMIDOL 370 MG/ML 100 ML INFUS..BTL INJ ONE (18:38)
[2024-10-24] MEDS: SODIUM CHLORIDE 0.9% 500ML 500 ML IV ONE (18:56)
[2024-10-24] MEDS ORDERED: SODIUM CHLORIDE FLUSH 10 ML SYR INJ PRN (20:30)
[2024-10-24] MEDS: INSULIN REGULAR, HUMAN 100 UNIT/1 ML SQ SCH (21:00)
[2024-10-24 21:09] VITALS: PULSE 80; TEMP 98.2
[2024-10-24] MEDS ORDERED: THIAMINE HCL INJ 100 MG/ML 2ML VIAL IV SCH (22:00)
[2024-10-24 22:17] LABS: LEUKOCYTE ESTERASE ,URINE NEGATIVE (NEGATIVE); PROTEIN,URINE DIPSTICK 2+ (NEGATIVE); URINE UROBILINOGEN 0.2 mg/dL (0.2 - 1)
[2024-10-24 22:28] LABS: EPITHELIAL CELLS,URINE FEW /LPF
[2024-10-24 23:00] VITALS: BP 168/78; PULSE 80; RESP 16; TEMP 97.3; O2SAT 100
[2024-10-24 23:06] VITALS: BP 159/67; O2SAT 100
[2024-10-24] MEDS: THIAMINE HCL IV SCH (23:39)
[2024-10-24] MEDS: SODIUM CHLORIDE 0.9% IV SCH (23:39)
[2024-10-25] VITALS (7 sets, daily range): BP systolic 124–168; BP diastolic 41–79; PULSE 79–84; RESP 16–20; TEMP 97.4–98.4; O2SAT 100
[2024-10-25] MEDS ORDERED: ACETAZOLAMIDE250 MG PO (02:32)
[2024-10-25] MEDS ORDERED: PROBIOTIC & AC1 EACH PO (02:32)
[2024-10-25] MEDS ORDERED: MOUNJARO2.5 MG/0.5 (02:32)
[2024-10-25] MEDS ORDERED: LEVOCETIRIZINE D5 MG PO (02:32)
[2024-10-25] MEDS ORDERED: PROBIOTIC250 MG PO (02:32)
[2024-10-25] MEDS ORDERED: RANOLAZINE ER500 MG BLADIN (02:32)
[2024-10-25] MEDS ORDERED: FLUDROCORTISON0.1 MG PO (02:32)
[2024-10-25] MEDS ORDERED: TRICOR145 MG PO (02:32)
[2024-10-25] MEDS ORDERED: SODIUM BICARBO650 MG PO (02:36)
[2024-10-25] MEDS: ACETAMINOPHEN 325 MG TAB PO PRN (05:52)
[2024-10-25 05:53] LABS: BASOPHILS % 0.3 % (0.0-1.0); EOSINOPHILS % 1.8 % (0.0-6.0); LYMPHOCYTES % 27.4 % (18.0-39.1); MONOCYTES % 5.1 % (4.4-11.3); NEUTROPHILS % 64.9 % (38.7-80.0); RED CELL DISTRIBUTION WIDTH 13.4 % (11.7-14.4)
[2024-10-25 06:11] LABS: EST GLOMERULAR FILTRATION RATE 67.0 ML/MIN (>=60)
[2024-10-25 12:18] LABS: T3 UPTAKE 27.07 % (22.5-37.0)
[2024-10-25] MEDS: ASPIRIN 81 MG ENTERIC COATED PO ONE (12:52)
[2024-10-25 13:13] LABS: CHOL/HDL RATIO 3.9 (3.0-3.6); LDL CHOLESTEROL 106.0 MG/DL (60-130)
[2024-10-26] VITALS (8 sets, daily range): BP systolic 110–145; BP diastolic 45–59; PULSE 70–84; RESP 16–20; TEMP 97.3–98.3; O2SAT 100
[2024-10-26] MEDS: LEVOTHYROXINE SODIUM 75 MCG TAB PO SCH (05:11)
[2024-10-26 05:53] LABS: BASOPHILS % 0.5 % (0.0-1.0); EOSINOPHILS % 1.6 % (0.0-6.0); LYMPHOCYTES % 27.7 % (18.0-39.1); MONOCYTES % 5.8 % (4.4-11.3); NEUTROPHILS % 64.1 % (38.7-80.0); RED CELL DISTRIBUTION WIDTH 13.6 % (11.7-14.4)
[2024-10-26 06:13] LABS: EST GLOMERULAR FILTRATION RATE 59.0 ML/MIN (>=60)
[2024-10-26] MEDS ORDERED: ENOXAPARIN SOD INJ 40 MG/0.4 ML SYR SC SCH (09:00)
[2024-10-26] MEDS: FLUDROCORTISONE ACETATE 0.1 MG TAB PO SCH (09:00)
[2024-10-26] MEDS: SODIUM BICARBONATE 650 MG TAB PO SCH (09:40)
[2024-10-26] MEDS: LACTOBACILLUS ACIDOPHILUS CAPSULE PO SCH (09:40)
[2024-10-26] MEDS: CITALOPRAM HYDROBROMIDE 20 MG TAB PO SCH (09:40)
[2024-10-26] MEDS: CLOPIDOGREL BISULFATE 75 MG TAB PO SCH (09:41)
[2024-10-26] MEDS: ACETAZOLAMIDE 250 MG TAB PO SCH (09:41)
[2024-10-26] MEDS: MIDODRINE HCL 5 MG TABLET PO SCH (09:41)
[2024-10-26] MEDS: ASPIRIN 81 MG ENTERIC COATED PO SCH (09:42)
[2024-10-26] MEDS: POTASSIUM CHLORIDE 20 MEQ TAB CR PO SCH (09:43)
[2024-10-26] MEDS: ASPIRIN 325 MG TAB EC PO SCH (09:46)
[2024-10-26] MEDS: CHOLECALCIFEROL 1,000 UNIT TAB PO SCH (11:32)
[2024-10-26] MEDS: LACTULOSE SYRUP 20 GM/30 ML UDC PO PRN (11:42)
[2024-10-26] MEDS: BRIMONIDINE/TIMOLOL (OPTH SOLN 5 ML DRPETTE OP SCH (11:42)
[2024-10-26] MEDS: SODIUM CHLORIDE 0.9% 1000ML 1,000 ML IV SCH (16:10)
[2024-10-26] MEDS: ENOXAPARIN SOD INJ 40 MG/0.4 ML SYR SC SCH (16:12)
[2024-10-26] MEDS: MULTIVITAMINS/MINERALS TAB PO SCH (21:18)
[2024-10-26] MEDS: PANTOPRAZOLE SOD 40 MG TABEC PO SCH (21:18)
[2024-10-26] MEDS: CRESTOR 10MG PO SCH (21:18)
[2024-10-26] MEDS: BIMATOPROST(OPTH) 2.5 ML BOTTLE OP SCH (22:58)
[2024-10-27] MEDS ORDERED: MIDODRINE 2.5 MG TAB PO PRN
[2024-10-27 00:43] VITALS: BP 103/41; PULSE 66; RESP 18; TEMP 97.5; O2SAT 100
[2024-10-27 05:49] VITALS: BP 148/64; PULSE 77; RESP 18; TEMP 97.9; O2SAT 100
[2024-10-27] MEDS ORDERED: IOPAMIDOL 370 MG/ML 100 ML INFUS..BTL INJ ONE (05:57)
[2024-10-27 08:00] VITALS: BP 125/51; PULSE 74; RESP 20; TEMP 98.2; O2SAT 100
[2024-10-27 08:57] VITALS: BP 125/51; PULSE 74; RESP 20; TEMP 98.2; O2SAT 100
[2024-10-27] MEDS ORDERED: GADOBENATE DIMEGLUMINE 1 ML IV ONE (10:16)
[2024-10-27 10:27] LABS: EST GLOMERULAR FILTRATION RATE 62.0 ML/MIN (>=60)
[2024-10-27] MEDS: LORAZEPAM 1 MG TAB PO ONE (10:45)
[2024-10-27] MEDS: ACETAMINOPHEN/CODEINE 300MG - 30MG TAB PO ONE (12:20)
[2024-10-27] MEDS: SODIUM BICARBONATE 8.4% VIAL 150 ML in STERILE WATER IV SOLN 1,000 ML IV SCH (14:48)
[2024-10-27 16:00] VITALS: BP 131/65; PULSE 70; RESP 18; TEMP 98.3; O2SAT 100
[2024-10-27 20:00] VITALS: BP 94/44; PULSE 63; RESP 17; TEMP 97.6; O2SAT 100
[2024-10-28] VITALS (8 sets, daily range): BP systolic 91–159; BP diastolic 40–60; PULSE 63–80; RESP 16–20; TEMP 97.4–98.5; O2SAT 98–100
[2024-10-28 07:41] LABS: EST GLOMERULAR FILTRATION RATE 66.0 ML/MIN (>=60); PHOSPHORUS 3.7 MG/DL (2.3-4.7)
[2024-10-28] MEDS: MAGNESIUM SULFATE 2GM/50ML 50 ML IV ONE (11:09)
[2024-10-28] MEDS: Morphine 2mg Syringe 2 MG/ML SYR IV PRN (11:51)
[2024-10-28] MEDS: ONDANSETRON HCL INJ 2MG/ML 2ML 2 MG/ML VIAL IV PRN (11:51)
[2024-10-28] MEDS ORDERED: DEXAMETHASONE SOD PHOS INJ 4 MG/ML SDV IV SCH (17:00)
[2024-10-28] MEDS: Morphine 4mg INJECTION 4 MG/ML INJ IV PRN (17:48)
[2024-10-28] MEDS: DEXAMETHASONE 4 MG TAB PO SCH (18:44)
[2024-10-29] VITALS (7 sets, daily range): BP systolic 99–159; BP diastolic 44–76; PULSE 63–88; RESP 18–20; TEMP 96.8–98.5; O2SAT 96–100
[2024-10-29] MEDS ORDERED: LIDOCAINE HCL 1% 30ML-PF VIAL ONE (10:00)
[2024-10-29 13:19] LABS: TOTAL PROTEIN,CSF 149.3 mg/dL (15-40)
[2024-10-29 13:21] LABS: APPEARANCE,CSF CLOUDY (CLEAR); COLOR,CSF XANTHOCHROMIC (COLORLESS)
[2024-10-29 13:22] LABS: TUBE NUMBER 3
[2024-10-29 14:59] LABS: EST GLOMERULAR FILTRATION RATE 49.0 ML/MIN (>=60)
[2024-10-29] MEDS: DEXTROSE 50% SYRINGE 50 ML IV STA (17:25)
[2024-10-29] MEDS: DEXTROSE 50% SYRINGE 50 ML IV PRN (17:26)
[2024-10-29] MEDS: SOD POLYSTYRENE SULFONATE SUSP 15 GM/60 ML BTL PO ONE (17:27)
[2024-10-29] MEDS: LACTULOSE SYRUP 20 GM/30 ML UDC PO ONE (17:27)
[2024-10-29] MEDS: INSULIN REGULAR, HUMAN 100 UNIT/1 ML IV ONE (17:30)
[2024-10-29] MEDS: HYDROCODONE/APAP 5MG-325MG TAB PO PRN (18:38)
[2024-10-29 18:58] LABS: LEPTOMENINGEAL,CSF 0 %
[2024-10-29 18:59] LABS: LYMPHOCYTES,CSF 30 % (40-80); MONOCYTES,CSF 4 %
[2024-10-29 19:00] LABS: TOTAL CELLS COUNTED (DIFF) 50
[2024-10-30] VITALS (7 sets, daily range): BP systolic 132–158; BP diastolic 60–69; PULSE 76–88; RESP 16–20; TEMP 97.7–98; O2SAT 95–100
[2024-10-30 06:41] LABS: EST GLOMERULAR FILTRATION RATE 55 ML/MIN (>=60)
[2024-10-30] MEDS ORDERED: POTASSIUM CHLORIDE 20 MEQ TAB CR PO SCH (09:00)
[2024-10-30] MEDS: HYDROCODONE/APAP 10MG-325MG TAB PO PRN (12:32)
[2024-10-30] MEDS: SODIUM BICARBONATE 8.4% VIAL 150 ML in DEXTROSE 5% 1,000 ML IV SCH (16:52)
[2024-10-30] MEDS: DIPHENHYDRAMINE HCL 25 MG CAP PO PRN (18:02)
[2024-10-31 00:50] VITALS: BP 111/47; PULSE 68; RESP 16; TEMP 97.4; O2SAT 99
[2024-10-31 09:00] VITALS: BP 111/47; PULSE 68; RESP 16; TEMP 97.4; O2SAT 99
[2024-10-31 09:19] VITALS: BP 164/80; PULSE 82; RESP 20; TEMP 97.6; O2SAT 97
[2024-10-31 13:08] VITALS: BP 152/59; PULSE 71; RESP 19; TEMP 97.9; O2SAT 100
[2024-10-31 15:51] VITALS: BP 149/72; PULSE 75; RESP 19; TEMP 98.2; O2SAT 100
[2024-10-31 16:20] LABS: BASOPHILS % 0.0 % (0.0-1.0); EOSINOPHILS % 0.0 % (0.0-6.0); LYMPHOCYTES % 9.4 % (18.0-39.1); MONOCYTES % 2.2 % (4.4-11.3); NEUTROPHILS % 88.0 % (38.7-80.0); RED CELL DISTRIBUTION WIDTH 13.7 % (11.7-14.4)
[2024-10-31 16:40] LABS: EST GLOMERULAR FILTRATION RATE 55.0 ML/MIN (>=60)
[2024-10-31] MEDS ORDERED: DEXAMETHASONE4 MG PO (17:29)
[2024-10-31 21:27] LABS: VDRL CSF Non Reactive (Non Rea:<1:1)
[2024-11-03 17:11] LABS: IGG/ALB RATIO CSF 0.21 (0.00-0.25); SYNTHESIS RATE IGG CSF 21.7 mg/day (-9.9 TO +3.3)
[2024-11-03 17:50] LABS: CSF/SERUM ALBUMIN INDEX 21 (0-8)
[2024-11-04 13:12] LABS: WEST NILE VIRUS IGG CSF Negative (Negative)
[2024-11-04 15:16] LABS: WEST NILE VIRUS IGM CSF Negative (Negative)
== END 2024-10-31 18:56 | disposition home or self-care (01) | DRG 543 ==
LOC: ER 18:22 → ERHOLD 20:21 → MED/SURG2 22:51
PROVIDERS: ADMIT Internal Medicine; ATTEND Internal Medicine
PROC: 009U3ZX Drainage of Spinal Canal, Percutaneous Approach, Diagnostic (ICD-10-PCS; principal; 2024-10-29)
PROC: B01B0ZZ Fluoroscopy of Spinal Cord using High Osmolar Contrast (ICD-10-PCS; 2024-10-29)
DX: C79.51 Secondary malignant neoplasm of bone (principal); C78.00 Secondary malignant neoplasm of unspecified lung; C79.89 Secondary malignant neoplasm of other specified sites; E72.20 Disorder of urea cycle metabolism, unspecified; N17.9 Acute kidney failure, unspecified; J90 Pleural effusion, not elsewhere classified; R47.01 Aphasia; G93.40 Encephalopathy, unspecified; E87.20 Acidosis, unspecified; I67.7 Cerebral arteritis, not elsewhere classified; C80.0 Disseminated malignant neoplasm, unspecified; R53.1 Weakness; M51.9 Unspecified thoracic, thoracolumbar and lumbosacral intervertebral disc disorder; B19.20 Unspecified viral hepatitis C without hepatic coma; I25.10 Atherosclerotic heart disease of native coronary artery without angina pectoris; I12.9 Hypertensive chronic kidney disease with stage 1 through stage 4 chronic kidney disease, or unspecified chronic kidney disease; R29.810 Facial weakness; E87.5 Hyperkalemia; K76.9 Liver disease, unspecified; R47.81 Slurred speech; N18.30 Chronic kidney disease, stage 3 unspecified; D64.9 Anemia, unspecified; I70.8 Atherosclerosis of other arteries; E11.22 Type 2 diabetes mellitus with diabetic chronic kidney disease; E11.65 Type 2 diabetes mellitus with hyperglycemia; M48.02 Spinal stenosis, cervical region; I65.29 Occlusion and stenosis of unspecified carotid artery; K72.90 Hepatic failure, unspecified without coma; T50.2X5A Adverse effect of carbonic-anhydrase inhibitors, benzothiadiazides and other diuretics, initial encounter; H54.8 Legal blindness, as defined in USA; G89.3 Neoplasm related pain (acute) (chronic); Y92.239 Unspecified place in hospital as the place of occurrence of the external cause; I95.89 Other hypotension; Z86.73 Personal history of transient ischemic attack (TIA), and cerebral infarction without residual deficits; Z87.442 Personal history of urinary calculi; Z87.440 Personal history of urinary (tract) infections; Z79.02 Long term (current) use of antithrombotics/antiplatelets; Z79.82 Long term (current) use of aspirin; Z79.890 Hormone replacement therapy; Z95.1 Presence of aortocoronary bypass graft
CPT/HCPCS: 36415; 62328; 70450; 70496; 70498; 70553; 71045; 71260; 72156; 72157; 74177; 74470; 80053; 80061; 81001; 82040; 82140; 82550; 82607; 82784; 82945; 82948; 83036; 83735; 83916; 84100; 84132; 84157; 84436; 84443; 84479; 84484; 85025; 85610; 85730; 86140; 86592; 86789; 87070; 87086; 87205; 89051; 93005; 94799; 95812; 96372; 99284; J0696; J1650; J2003; J2270; J2405; J2470; J3411; J3475; J7030; J7040; J7050; J7070; J7799; Q9967

== ENCOUNTER → 2024-11-10 | Outpatient (REF) | payer MEDICARE ==
[~2024-11-10] MED LIST changes: +ACETAZOLAMIDE250 MG PO; +DEXAMETHASONE4 MG PO; +FENTANYL CITRATE/PF 100MCG/2 ML INJ ONE; +FLUDROCORTISON0.1 MG PO; +LIDOCAINE HCL 1% 30ML-PF VIAL ONE; +MIDAZOLAM HCL 2 MG/2 ML VIAL ONE; +MOUNJARO2.5 MG/0.5; +PROBIOTIC & AC1 EACH PO; +PROBIOTIC250 MG PO; +RANOLAZINE ER500 MG BLADIN; +SODIUM CHLORIDE 0.9% 250ML 250 ML ONE
== END ==
LOC: CT 09:50
PROVIDERS: ATTEND Internal Medicine
DX: M89.9 Disorder of bone, unspecified (principal)
CPT/HCPCS: 20225; 77012; 88307; 88311; 88342; J2003; J3010; J7050; 88304; J2250